=== PATIENT | female | born 2000 | race Caucasian/White ===

== ENCOUNTER 2022-07-28 01:52 | Emergency (ER) | payer OTHER, MEDICAID, SELFPAY ==
[2022-07-28] VITALS (8 sets, daily range): BP systolic 106–122; BP diastolic 74–84; PULSE 83–93; RESP 18; TEMP 36.8; O2SAT 99; BMI 16.4
--- NOTE | 2022-07-28 02:39 | ED_ITS ---
HPI - Headache General Chief Complaint: Headache/Migraine Stated Complaint: Stroke like symptoms Time Seen by Provider: 07/28/22 01:56 Source: patient Mode of arrival: ambulatory Limitations: no limitations History of Present Illness HPI Narrative: 21-year-old female with a known history of hemiplegic migraines which she reports occur 5 days per week presents to the emergency department with once again I hemiplegic migraine affecting her typical, left side that started approximately 7 hours prior. She says that the headache started at approximately 7 p.m. and was accompanied by what she describes as a ?fever?. She did not check her temperature. On specific questioning it sounds like she felt flushed. No head injury, no neck injury. Patient reports that she follows with a primary care physician and/or neurologist through [facility]. I do not have access to the records. When asked about her most recent visit, she states that there was a tele visit less than a month ago and they made the decision to increase her verapamil from 80 mg twice daily to 80 mg 3 times daily. She is also on nortriptyline for headache prevention which she has not yet taken today. She states that she woke up late today and did not take her typical Adderall 30 mg extended release in the morning but did take her afternoon dose. Denies any alcohol intoxication. Denies any anxiety. She did take any NSAIDs or Tylenol at the onset of her headache and then 5 hours later, began having left-sided hemiplegic symptoms. I ask her multiple times for clarification about what is different about these migraines that causes her to come to the emergency department in the middle of the night and she states that it came on a little faster than typical and she had more spots in her vision but when I clarify that this is typically what her symptoms are, she does agree that this is consistent with her typical baseline migraine. When I asked about her most recent imaging, she states that at [place] they have done a CT scan including that of the arteries which I interpret as a CTA and she has had an MRI/MRA performed. When asked about how long ago this was, she states that this was done within the last few months. She states that she also had similar studies done here in January which I a.m. able to review and see that these were completely normal. She has no history of seizure disorder, she denies any head injury. She denies any chance of . Notes no speech difficulties, does feel little confused. Says she cannot move her right arm and right foot which she does several times for me on exam which I will further clarify as below. Other than the history of left-sided hemiplegic migraines, she also does have a history of intermittent asthma and ADHD. She denies any recent surgeries. Socially she denies any ingestion, toxic impairment or recent travel. Home medications are reviewed as Adderall 30 mg extended release in the morning with 10 mg short-acting in the afternoon, albuterol as needed, Ubrelvy for migraine abortive treatment, nortriptyline 20 mg at bedtime, verapamil 80 mg t.i.d.. Related Data Home Medications Medication Instructions Recorded Confirmed dextroamphetamine-amphetamine 10 10 mg PO DAILY 07/28/22 07/28/22 mg tablet dextroamphetamine-amphetamine ER 30 mg PO DAILY 07/28/22 07/28/22 30 mg 24hr capsule,extend release (Adderall XR) nortriptyline 10 mg capsule 10 mg PO HS 07/28/22 07/28/22 ondansetron 4 mg disintegrating 4 mg PO Q8H PRN 07/28/22 07/28/22 tablet rizatriptan 5 mg tablet 5 mg PO DAILY PRN 07/28/22 07/28/22 ubrogepant 100 mg tablet (Ubrelvy) 100 mg PO DAILY PRN 07/28/22 07/28/22 verapamil 80 mg tablet 80 mg PO Q8H 07/28/22 07/28/22 Allergies Allergy/AdvReac Type Severity Reaction Status Date / Time ginseng Allergy Intermediate Rash, Verified 07/28/22 02:09 Shortness of Breath risperidone Allergy Intermediate Vertigo, Verified 07/28/22 02:09 Twitching amoxicillin Allergy Mild Rash Verified 07/28/22 02:09 cat dander Allergy Mild Allergy Verified 07/28/22 02:09 Symptoms Review of Systems Narrative: Notable for the headache, visual, neurological symptoms as above. Otherwise denies generalized, HEENT, respiratory, cardiovascular, GI, skin, musculoskeletal changes. She did have a slight fall onto her knee but denies hitting her head a few days ago [facility] Medical History ADHD Asthma Hemiplegic migraine Surgical History No significant past surgical history Social History Smoking Status: Never smoker Do you use any of these nicotine containing products: None Second hand tobacco smoke exposure: No How often do you have a drink containing alcohol: never How often do you have six or more drinks on one occasion: Never AUDIT-C Alcohol total score: 0 Non-prescribed substance use: denies use Exam Const: Vital Signs, click to edit/add: Vital Signs - 24 hr 07/28/22 02:04 07/28/22 02:35 07/28/22 02:45 Temperature 98.2 F 98.2 F Pulse Rate [Right Pulse Oximeter] 93 Respiratory Rate 18 Blood Pressure [Le ft Upper Arm] 118/84 Pulse Oximetry 99 99 Oxygen Delivery Me thod Room Air 07/28/22 03:25 Temperature 98.2 F Pulse Rate [Right Pulse Oximeter] 93 Respiratory Rate 18 Blood Pressure [Le ft Upper Arm] 122/74 Pulse Oximetry 99 Oxygen Delivery Me thod Room Air Documenting provider has reviewed patient's vital signs: yes Common normals: no apparent distress General appearance: well kempt Other: Anxious. He makes appropriate eye contact, speaks in complete sentences. When I 1st walk in she is squinting with her left diabetes quite shaky and is quite clear that this is not consistent with a facial droop. As we keep discussing it corrects very quickly. She axis though her left for arm is non movable but then she does use it to lift herself up higher in the bed without difficulty. Through the exam I do ask her to push herself up on the bed, placed both feet onto the bed and push up and she is able to do so but then when I attempt to check flexion extension streaking in the leg, it fluctuates wildly. It is very choppy and not smooth and does not given indication that it is a central nervous system deficit, but I would not have a reason as to why she would choose malingering, I do suspect that there may be an additional element of a conversion disorder on top of known history of hemiplegic migraine. HENMT: Common normals: normocephalic and TM's normal bilaterally Head and scalp: normocephalic Face and sinus: normal facial exam Tympanic membrane: TM's normal bilaterally Mouth: oral and palatal mucosa normal Throat: posterior oropharynx normal Eye: Common normals: PERRL, EOMs intact bilaterally, conjunctivae normal, no scleral icterus and no papilledema General eye: normal appearance of both eyes Conjunctiva: conjunctiva(e) normal Pupil: PERRL Direct Ophthalmoscopy: no papilledema Neck & C-Spine: Common normals: full ROM, no lymphadenopathy and no meningeal signs Resp: Common normals: normal respiratory effort and clear to auscultation bilaterally Auscultation: clear to auscultation bilaterally Cardio: Common normals: regular rate, regular rhythm, no murmurs and peripheral pulses 2+ throughout Rate: regular rate Rhythm: regular rhythm Peripheral pulses: pulses 2+ throughout GI: Common normals: Normal to inspection, nondistended, normoactive bowel sounds present, soft to palpation and no hepatosplenomegaly Palpation: soft and no hepatosplenomegaly; non-tender and no guarding Extremity: Common normals: normal to inspection and full ROM Neuro: Meningeal signs: no meningeal signs Other: Very inconsistent exam, choppy. As above, uses her left arm to push herself up in the bed but them on specific movements, then acts as though she cannot move it. She does partially guard the arm over her head to reduce it hitting her face completely. The hand falls but the upper arm is guarded and held in place as to not completely fall on her face. This would not be consistent with the remainder of the exam where she indicates about a 2/5 strength but again it is very choppy and nonsustained. The right arm has normal range of motion. The left leg has normal strength to flexion at the hip but she acts as though she cannot point in flex the foot. But with distracted exam she does better and again with a non distracted exam just like with the arm it is generally weak, nonsustained and non consistent. She does not distinguish between the flexor and extensor surfaces, does not distinguish well between proximal and muscles. The exam changes very frequently as a reproduce it switching from side to side and top to bottom and repeating in different ways. There is no indication that this is consistent with a stroke or focal neurological injury. She waxes and wanes as well between answering my questions completely and thoroughly and acting like she does not understand, especially when I bring up taking Tylenol and ibuprofen and other abortive medications and proper stepwise fashion. Psych: Appearance: well kempt Attitude: engaged Other: Anxious with fair insight. No evidence of psychosis Skin: Common normals: no rashes or lesions noted General skin exam: no rashes or lesions noted Course Course Hospital Course: I reviewed the previous imaging studies. With her history consistent of multiple CT scans within the last year and her history consistent with this being her typical type of migraine, I do not recommend we scanned her again. I discussed this extensively with her and discuss the amount of radiation that she has had on her brain within the last few years and how this is dangerous long- term. Am not seeing an exam consistent with a stroke and do not recommend that we cause her any more harm with the necessary imaging. We had a discussion on the importance of taking an abortive medication at the start of the headache to prevent neurological changes. Even starting with Tylenol or NSAID would be significantly better than waiting. I am not surprised to hear that when she waited more than 5 hours to take her abortive medication, it did not work to her liking. I do think that skipping her Adderall today is contributing to her headache as well. We will be placing an IV, given a L of normal saline, 15 mg of Toradol and 12.5 mg of Benadryl. We will re-evaluate. Vital Signs Vital signs: Initial Vital Signs Temperature 98.2 F 07/28/22 02:04 Temperature Source Temporal Artery Scan 07/28/22 02:04 Pulse Rate 93 07/28/22 02:04 Respiratory Rate 18 07/28/22 02:04 Blood Pressure 118/84 07/28/22 02:04 Blood Pressure Mean 95 07/28/22 02:04 Blood Pressure Position Sitting 07/28/22 02:04 Pulse Oximetry 99 07/28/22 02:04 Oxygen Delivery Method 07/28/22 02:04 Vital Signs Temperature 98.2 F 07/28/22 02:04 Pulse Rate 93 07/28/22 02:04 Respiratory Rate 18 07/28/22 02:04 Blood Pressure 118/84 07/28/22 02:04 Pulse Oximetry 99 07/28/22 02:04 Oxygen Delivery Method 07/28/22 02:04 Temperature 98.2 F 07/28/22 03:25 Pulse Rate 93 07/28/22 03:25 Respiratory Rate 18 07/28/22 03:25 Blood Pressure 122/74 07/28/22 03:25 Pulse Oximetry 99 07/28/22 03:25 Oxygen Delivery Method 07/28/22 03:25 MDM - Headache MDM Narrative Medical decision making narrative: Extensive discussion with patient on risks and benefits of repeat CT scans. She understands my rationale. She is given normal saline, Toradol and Benadryl. She reports that this improved her facial symptoms. Please note that her facial symptoms completely improved during my exam time with her. I fully repeat her lab exams N/C once again a very inconsistent, choppy exam the changes with distractibility. When I hold both arms up and then release tension on them she continues to hold them in place and when I completely let go she will suddenly dropped the arm, when it would have naturally dropped when I had reduced strength on it. It is the exact same exam on the legs, she clearly hold them up and space initially and then when I removed my hand, she drops the leg to the bed. In, not the least bit consistent with a stroke. She also cannot seem to distinguish between the flexor and extensor surfaces when she guards her exam. I talk again and repeatedly about importance of her abortive migraine action plan. She again distracted very quickly away from my discussion of Tylenol and/or ibuprofen. I also let her know that I think skipping her Adderall was a factor of this current migraine. She reports nausea give her Zofran and this improves. We recap things once again. Diagnosis hemiplegic migraine versus conversion disorder, consistent with previous exams, multiple prior imaging modalities performed. Similar to previous presentations, additional imaging is likely to be more harmful than helpful. Patient will continue Tylenol and/or ibuprofen through the day, she has now taken all of her allowed Ubrelvy. She did take her 2nd dose here in the emergency department and will not be allowed anymore until midnight. She is to contact her neurologist if her headache has not improved by early afternoon which I clarify is by 2:00 p.m.. She has no restrictions on activity and is expected to attend classes today. I would recommend an EMG if she continues to have neurological changes as I am uncertain of the origin of these based on her exam today. Differential Diagnosis Differential diagnosis: Likely migraine, tension headache, subarachnoid hemorrhage and headache (Or stroke. Rule out on exam) Medical Records Attestation: I reviewed the patient's medical records. Discharge Plan Discharge Clinical Impression: Migraine Patient Disposition: Home w/ Parent or Adult Condition: Improved Instructions: Migraine Headache (ED) Additional Instructions: I suspect the reason the ear migraine became so severe was that you did not take appropriate abortive medications in time. Waiting 5 hours to take Ubrelvy was a mistake this time. I know that you have to conserve them. In the future, consider using ibuprofen or Tylenol right at the start of the headache and if no improvement within 90 minutes, then take your Ubrelvy. I suspect that missing her morning dose of Adderall is contributing to your headache as well. Please ask for clarification from Neurology team or primary care provider regarding stepwise abortive treatment of your migraines. Take your nortriptyline right away when you get home. Continue taking Tylenol and/or ibuprofen if needed. Update your neurologist if her symptoms are not improving. As we discussed, your symptoms do not seem consistent with a stroke and repeated radiation on your head is dangerous, especially long-term and an accumulative fashion. Since he reports to me that you have had at least 2 scans since January, another scan is not warranted today. You will likely continue to have headache. You will continue alternating Tylenol and ibuprofen every 3 hours from 1 to the other, 6 hours between the same medication. There is not an interaction with the use and your current medications. You will continue taking your nortriptyline and verapamil on time. Your next dose of ibuprofen is allowed at 8:00 a.m., your next dose of Tylenol may be given at 10:00 a.m.. Activity Level: No Restrictions Discharge Diet: Regular Prescriptions: No Action dextroamphetamine-amphetamine 10 mg tablet 10 mg PO DAILY Label Comments: TAKE ONE TABLET BY MOUTH EVERY DAY dextroamphetamine-amphetamine [Adderall XR] 30 mg capsule,extended release 24hr 30 mg PO DAILY Label Comments: TAKE ONE CAPSULE BY MOUTH EVERY DAY, FILL ON OR AFTER 06/11/22 rizatriptan 5 mg tablet 5 mg PO DAILY PRN Label Comments: TAKE ONE TABLET BY MOUTH EVERY DAY NEEDED FOR MIGRAINE. MAY REPEAT IN 1-2 HOURS MAX 6 TABLETS PER DAY nortriptyline 10 mg capsule 10 mg PO HS Label Comments: TAKE TWO CAPSULES BY MOUTH EVERY DAY AT BEDTIME ondansetron 4 mg tablet,disintegrating 4 mg PO Q8H PRN Label Comments: DISSOLVE ONE TABLET BY MOUTH EVERY 8 HOURS NEEDED Ubrelvy 100 mg tablet 100 mg PO DAILY PRN Label Comments: TAKE 1 TABLET NEEDED FOR MIGRAINE. MAY REPEAT DOSE ONCE AFTER 2 HRS. IF UNRESOLVED. DO NOT EXCEED 200MG IN 24 HRS. verapamil 80 mg tablet 80 mg PO Q8H Label Comments: TAKE ONE TABLET BY MOUTH EVERY 8 HOURS Stand Alone Forms: [facility] Info Instructions
[2022-07-28] MEDS: 0.9 % SODIUM CHLORIDE 1000 ml 1,000 ML IV (02:44)
[2022-07-28] MEDS: diphenhydrAMINE 12.5 MG in 0.9 % SODIUM CHLORIDE 100 ml 100 ML 401 MG IVPB (02:45)
[2022-07-28] MEDS: KETOROLAC 15 MG/ML inj IVP (02:45)
[2022-07-28] MEDS: ONDANSETRON 2 MG/ML inj 4 MG IVP (03:24)
--- OUTSIDE RECORDS SUMMARY | 2022-07-28 04:17 | XMS_ITS | Encounter Summary ---
:2000 Author Organization [facility] Address [address] [place] [address] Care Team Providers Name Role Phone Poonam Orlando APRN C.N.PFrank, D.N.P. Primary Care Provid er Reason for Referral Physical Therapy (Routine) - Authorized Specialty Diagnoses / Procedures Referred By Contact Refer red To Contact Diagnoses Pain Knee Left Pain Ankle Left Poonam Orlanod APRN, [facility] Procedures PT Evaluate and treat C.N.P., D.N.P. [address] [place] [phone] Referral ID Status Reason Start Date Expiration Date Visits V isits Requested Authorized [id number] Authorized 07/18/2022 07/18/2023 1 1 hysical Therapy (Routine) - Authorized Specialty Diagnoses / Procedures Referred By Contact Refer red To Contact Diagnoses Pain Knee Left Pain Ankle [facility] Procedures PT Evaluate and treat C.N.P., D.N.P. [address] [place] [phone] Referral ID Status Reason Start Date Expiration Date Visits V isits Requested Authorized [id number] Authorized 07/18/2022 07/18/2023 1 1 Reason for Visit Reason Comments Other Migraines Outpatient (Routine) - Closed Specialty Diagnoses / Procedures Referred By Contact Refer red To Contact Family Medicine Poonam Orlando APRN, [facility] Amadeo.N.PFrank, Cony.N.PFrank [address] [place] [address] Referral ID Status Reason Start Date Expiration Date Visits Requ ested Visits Authorized [id number] Closed 05/27/2022 05/27/2023 1 1 Encounter Details Date Type Department Care Team Description 07/18/2022 Telemedicine Department of Poonam Honeycutt miplegic Migraine Not Intractable Without Status Migrainosus (Primary Dx); Medicine, Jonnathan Marrufo APRN C.N.PFrank, Pain K nee Left; Building, in [place].N.P. Pain Ankle Left [place], [place] [address] [place] [phone] Social History Tobacco Use Types Packs/Day Years Used Date Smoking Tobacco: Never Smokeless Tobacco: Never Tobacco Cessation: Counseling Given: Not Answered Alcohol Use Standard Drinks/Week Comments Never 0 (1 standard drink = 0.6 oz pure alcoho l) Alcohol Habits Answer Date Recorded How often do you have a drink containing alcohol? Never 01/23/2022 How many drinks containing alcohol do you have on a typical Not asked day when you are drinking? How often do you have six or more drinks on one occasion? No t asked Comment: Not asked Social Isolation Answer Date Recorded In a typical week, how many times do you More than three isis es a week 01/23/2022 talk on the phone with family, friends, or neighbors? How often do you get together with friends Once a week 01/23/2022 or relatives? How often do you attend catholic or Never 2021 pentecostal services? Do you belong to any clubs or Yes 01/23/2022 organizations such as catholic groups, unions, fraternal or athletic groups, or school groups? How often do you attend meetings of the 1 to 4 times per yea r 01/23/2022 clubs or organizations you belong to? Are you now , , , Never 01/23/2022 , never or living with a partner? Physical Activity Answer Date Recorded On average, how many days per week do you engage in moderate to 6 days 01/23/2022 strenuous exercise (like walking fast, running, jogging, dancing, swimming, biking, or other activities that cause a light or heavy sweat)? On average, how many minutes do you engage in exercise at th is 70 min 01/23/2022 level? Stress Answer Date Recorded Do you feel stress - tense, restless, nervous, or Only a lit tle 01/23/2022 anxious, or unable to sleep at night because your mind is troubled all the time - these days? Financial Resource Strain Answer Date Recorded How hard is it for you to pay for the very basics like Not v jessica hard 01/23/2022 food, housing, medical care, and heating? Intimate Partner Violence Answer Date Recorded Within the last year, have you been afraid of your partner o r No 01/23/2022 ex-partner? Within the last year, have you been humiliated or emotionall y No 01/23/2022 abused in other ways by your partner or ex-partner? Within the last year, have you been kicked, hit, slapped, or No 01/23/2022 otherwise physically hurt by your partner or ex-partner? Within the last year, have you been raped or forced to have any No 01/23/2022 kind of sexual activity by your partner or ex-partner? Food Insecurity Answer Date Recorded Within the past 12 months, you worried that your food would Never true 01/23/2022 run out before you got money to buy more. Within the past 12 months, the food you bought just didn't N ever true 01/23/2022 last and you didn't have money to get more. Transportation Needs Answer Date Recorded In the past 12 months, has lack of transportation kept you f rom Yes 01/23/2022 medical appointments or from getting medications? In the past 12 months, has lack of transportation kept you f rom No 01/23/2022 meetings, work, or getting things needed for daily living? Housing Stability Answer Date Recorded In the last 12 months, was there a time when you were not ab le No 01/23/2022 to pay the mortgage or rent on time? In the last 12 months, how many places have you lived? 2 01/23/2022 In the last 12 months, was there a time when you did not hav e a No 01/23/[address] or slept in a senior care (including now)? Education Answer Date Recorded What is the highest level of school you have Some college, n o degree 05/24/2021 completed or the highest degree you have received? Sex Assigned at Date Recorded Female 01/23/2022 2:50 PM CDT documented as of this encounter Progress Notes Poonam Orlando APRN, C.N.P., D.N.P. - 07/18/2022 8:30 AM CDT SUBJECTIVE CHIEF COMPLAINT / PURPOSE OF VISIT Patient presents for Other (Migraines). Consult conducted via real-time audio/video technology by Poonam Orlando APRN, [employer], DNP in [place], [place] to the patient in their home. Patient identity confirmed prior to commencing this telehealth visit. HISTORY OF PRESENT ILLNESS Video visit arranged today to discuss migraines. Jade Matos returns virtually for follow-up of migraines. She has a history concerning for hemiplegic migraines and has been evaluated by Dr. Sheridan in the [facility]. In addition, she has undergone MRI/MRA of the brain as well as MR Angio of the neck with no concerning findings. For migraine prophylaxis she is currently taking verapamil 80 mg twice per day and nortriptyline 20 mg at bedtime. Due to concern for hemiplegic migraines she is not using triptan medications. Instead,for abortive migraine medication she is taking Ubrelvy as needed. She also has Zofran for migraine related nausea, which is very effective. She recently sent in numerous portal messages, which is baseline for her, with an update. She notes that ever since she was hospitalized for a hemiplegic migraine in February of this year at [facility] she has had hemiplegia in some form as part of her normal aura. She has left sided weakness or paralysis with her migraines that begins in the leg and works it way upward, typically within 5-10 minutes. Occasionally will have facial weakness, though this is not always present. Usually the hemiplegia wears off within an hour. These symptoms typically occur in the regional telecommunications specialist ot mid afternoons. She has a visual aura that occurs approximately 30 minutes before the headache and left sided weakness occurs. Visual aura described as spots and sparkles. No longer experiencing loss of vision, historically had experienced 1/3 of vision blacked out. Visual auras also entail a rapid swirling cloud of ominous black dots, this occurs before half of her migraine headaches. This doesn't last long andis always accompanied by hemiplegia. When she has the swirls and distortions she is able to see enough to move around most of the time, but details are difficult. Like looking at the world through a slowly sloshing glass of water. Unpleasant but currently manageable. She will occasionally still experience her baseline aura, best described as light afterimages, floaters, or glittering sparkling. This type of aura has greatly reduced in both duration nand frequency over the past few months. Nausea and vertigo remain present. As noted above, the Zofran is quite helpful for her. She is concerned about the potential for weight loss given her low BMI and ongoing nausea. She tries hard to eat when hungry. Since the onset of migraines at age 17 she has experienced a spike of temperature prior to migraine onset. Lately, she has been growing incredibly warm before a migraine. She does not have a thermometer. The rise in temperature is present until the migraine headache begins. She avoids use of acetaminophen and NSAIDS due to concern for medication overuse headaches and because she does not want to just mask the fever. She was initiated on Ubrelvy in March of this year. Per previous portal messages, due to the size of the pill she has a hard time swallowing this, but is able to get the pill down with a large amount ofwater. The Ubrelvy is helping for stopping the migraines or reducing the duration of the migraine toa few hours. She does experience significant drowsiness with this medication. She is typically usingonce to twice per week. 2. Left ankle and knee pain She has ongoing issues with left ankle and knee pain. She has fallen due to her migraine symptoms, further worsening her knee and ankle pain. Would like to be seen by PT in [place]. OBJECTIVE PHYSICAL EXAMINATION VITALS: There were no vitals taken for this visit. Constitutional Appearance: Normal appearance. Neurological Mental Status: She is alert. Mental status is at baseline. Psychiatric Attention and Perception: Attention and perception normal. Mood and Affect: Mood and affect normal. Speech: Speech normal. Behavior: Behavior is withdrawn. Thought Content: Thought content normal. Cognition and Memory: Cognition and memory normal. Judgment: Judgment normal. 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 Symptoms are not currently managed with current medications. Reviewed consult note from her visit with Dr. Sheridan in Neurology earlier this year. Will focus on managing migraines as per Dr. Sheridan's дмитрий mmendations. Will increase verapamil to 80 mg TID. If this is not effective, could consider increasing nortriptyline or adding on gabapentin. She is in agreement. She understands signs and symptoms that would require urgent evaluation. #2 Pain Knee Left #3 Pain Ankle Left Did not assess, but agree with referral to PT given her ongoing symptoms. - Family Medicine office visit (clinic) - verapamiL (CALAN) 80 mg tablet; Take 1 tablet (80 mg total) by mouth every 8 (eight) hours., Starting Thu07/18/2022, Until 07/18/2023, Normal - ondansetron ODT (ZOFRAN-ODT) 4 mg disintegrating tablet; Dissolve 1 tablet (4 mg total) in the mouth every 8 (eight) hours as needed for nausea or vomiting., Starting Thu07/18/2022, Normal - PT Evaluate and treat; Future; Expected date: 07/18/2022 - PT Evaluate and treat; Future; Expected date: 07/18/2022 I personally spent a total of 30+ minutes in dbn-ghfx-pp-face time performing a review of the recordand/or discussion with the patient/caregiver as described above. PATIENT EDUCATION Ready to learn, no apparent learning barriers were identified; learning preferences include listening. documented in this encounter Plan of Treatment Not on filedocumented as of this encounter Visit Diagnoses Diagnosis Hemiplegic Migraine Not Intractable With out Status Migrainosus - Primary Pain Knee Left Pain Ankle Left documented in this encounter Additional Health Concerns Assessment Noted Time PHQ-9 Depression Total Score: 5 03/07/2022 12:25 PM CD T documented as of this encounter Care Teams Chronic Specialist Relationship Specialty Start Date End Date Poonam Orlando APRN, C.N.P., PCP - General Family Medicine D.N.P. [address] [place] [address] documented as of this encounter
--- OUTSIDE RECORDS SUMMARY | 2022-07-28 04:17 | XMS_ITS | Clinical Summary ---
:2000 Author Organization [facility] [place] [address] Care Team Providers Name Role Phone Pcp, No Primary Care Provider Unavailable Allergies No known active allergies Medications Medication Sig Dispensed Refills Start Date End Date Status albuterol HFA (PRO-AIR; Inhale 2 Puffs by 0 03/14/20 20 Active VENTOLIN; PROVENTIL) 90 mouth every 4 mcg/actuation inhaler hours if needed. dextroamphetamine-amphe Take 10 mg by 0 08/09/2021 Active tamine (ADDERALL) 10 mg mouth. tablet nortriptyline (PAMELOR) Take 10 mg by 0 09/13/2021 Active 10 mg capsule mouth. rizatriptan (MAXALT) 5 TAKE 1 TABLET BY 0 09/09/2021 Active mg tablet MOUTH NEEDED FOR MIGRAINE. MAY REPEAT IN 2 HOURS NEEDED. MAXIMUM DAILY DOSE IS 30 MG PER 24 HOURS Active Problems Not on file Social History Tobacco Use Types Packs/Day Years Used Date Never Smoker Smokeless Tobacco: Never Used Alcohol Use Standard Drinks/Week Comments Never 0 (1 standard drink = 0.6 oz pure alcoho l) Alcohol Habits Answer Date Recorded How often do you have a drink containing alcohol? Never 09/21/2021 How many drinks containing alcohol do you have on a typical Not asked day when you are drinking? How often do you have six or more drinks on one occasion? No t asked Comment: Not asked Sex Assigned at Date Recorded Not on file Obstetrics History Last Filed Vital Signs Vital Sign Reading Time Taken Comments Blood Pressure 122/86 09/21/2021 11:23 AM COMMUNITY ORGANIZER Pulse 98 09/21/2021 11:23 AM COMMUNITY ORGANIZER Temperature 36.9 ??C (98.5 ??F) 09/21/2021 11:23 AM COMMUNITY ORGANIZER Respiratory Rate 16 09/21/2021 11:23 AM COMMUNITY ORGANIZER Oxygen Saturation 100% 09/21/2021 11:23 AM COMMUNITY ORGANIZER Inhaled Oxygen Concentration - - Weight 48.1 kg (106 lb) 09/21/2021 11:23 AM COMMUNITY ORGANIZER Height - - Body Mass Index - - Plan of Treatment Health Maintenance Due Date Last Done Comments Well Child Check for age 3-20 08/15/2004 HPV series for age 9-26 (1 - 2012 2-dose series) Tdap 2012 Depression screening for age 1109/15/2013 12+ BMI (ht and wt on same day) 2019 for age 18+ Hepatitis C screening for age 1109/15/2019 18-79 Tetanus booster 2021 COVID-19 vaccine series (4 - 01/03/2022 11/08/2021, Booster for Pfizer series) 02/28/2021, 02/07/2021 Influenza for age 9-49 06/19/2022 Meningococcal series for age Aged Out No longer eligible based 09-08 on patient's age to complete this to pic Results Not on filefrom Last 3 Months Insurance Payer Benefit Plan / Subscriber ID Effective Dates Phone Addre ss Type Group [facility] SHARED [id number] 2018-Presen [address] [address] [place] [address] [place]ID [place] [id number] 2020-Prese [address] [place] [address] Care Teams Plan Checker Relationship Specialty Start Date End Date Pcp, No PCP - General 03/21/21 .
--- OUTSIDE RECORDS SUMMARY | 2022-07-28 04:17 | XMS_ITS | Encounter Summary ---
:2000 Author Organization [facility] Address [address] [place] [address] Care Team Providers Name Role Phone Poonam Orlando APRN, C.N.P., D.N.P. Primary Care Provid er Reason for Visit Reason Comments all attempts made Encounter Details Date Type Department Care Team Description 05/28/2022 Clinical Department of Poonam Orlando all attem pts made Communication Family MedicineYaron APRN, C.N.P., Jonnathan Choi D.N.P. in [place], [facility] [address] [place], [place] [address] [place] [phone] [place], [place] [phone] (Work) [phone] Social History Tobacco Use Types Packs/Day Years Used Date Smoking Tobacco: Never Smokeless Tobacco: Never Alcohol Use Standard Drinks/Week Comments Never 0 [...] or relatives? How often do you attend taoist or Never 2021 judaism services? Do you belong to any clubs or Yes 01/23/2022 organizations such as taoist groups, unions, fraternal or athletic groups, or [...] place to sleep or slept in a jail (including now)? Education Answer Date Recorded What is the highest level of school you have Some college, n o degree 05/24/2021 completed or the highest degree you have received? Sex Assigned at Date Recorded Female 01/23/2022 2:50 PM CDT documented as of this encounter Plan of Treatment Not on filedocumented as of this encounter Visit Diagnoses Not on filedocumented in this encounter Additional Health Concerns Assessment Noted Time PHQ-9 Depression Total Score: 5 03/07/2022 12:25 PM CD T documented as of this encounter Care Teams Publicity Agent Relationship Specialty Start Date End Date Poonam Orlando APRN, C.N.P., PCP - General Family Medicine D.N.P. [address] [place] [address] documented as of this encounter
--- OUTSIDE RECORDS SUMMARY | 2022-07-28 04:17 | XMS_ITS | Encounter Summary ---
:2000 Author Organization [facility] Address [address] [place] [address] Care Team Providers Name Role Phone Poonam Orlando APRN, C.N.PFrank, D.N.P. Primary Care Provid er Reason for Visit Reason Comments Knee Pain Tripped and rolled knee and ankle. When weight bearing acute pain on upper right side of knee, also 'wh ite hot' pain shoots from knee to ankle. Appointment Request (Routine) - Closed Specialty Diagnoses / Procedures Referred By Contact Refer red To Contact Family Medicine Referral ID Status Reason Start Date Expiration Date Visits Requ ested Visits Authorized [id number] Closed 06/17/2022 06/17/2023 1 1 Encounter Details Date Type Department Care Team Description 06/17/2022 Office Visit Department of Jacinto Miller, Sprain K nee Initial Left (Primary Dx); Internal Medicine in [facility] Pain Knee Left [address] [place] [phone] Social History Tobacco Use Types Packs/Day Years [...] or relatives? How often do you attend roman catholic or Never 2021 rastafarian services? Do you belong to any clubs or Yes 01/23/2022 organizations such as roman catholic groups, unions, fraternal or athletic groups, [...] place to sleep or slept in a detention (including now)? Education Answer Date Recorded What is the highest level of school you have Some college, n o degree 05/24/2021 completed or the highest degree you have received? Sex Assigned at Date Recorded Female 01/23/2022 2:50 PM CDT documented as of this encounter Last Filed Vital Signs Vital Sign Reading Time Taken Comments Blood Pressure 107/68 06/17/2022 1:55 PM CDT Pulse 116 06/17/2022 1:55 PM CDT Temperature 36.8 ??C (98.3 ??F) 06/17/2022 1:55 PM CDT Respiratory Rate - - Oxygen Saturation - - Inhaled Oxygen Concentration - - Weight 47.3 kg (104 lb 4.4 oz) 06/17/2022 1:55 PM CDT Height 169.8 cm (5' 6.85) 06/17/2022 1:55 PM CDT Body Mass Index 16.41 06/17/2022 1:55 PM CDT documented in this encounter Patient Instructions Patient InstructionsJacinto Miller M.B.B.S. - 06/17/2022 2:00 PM CDT - Conservative management with icing, wrapping with knee brace, and applying topical pain meds. - if your pain is not getting better by 3-4 days, let me know, I will order MRI of left knee. documented in this encounter Progress Notes Jacinto Miller M.B.B.S. - 06/17/2022 2:00 PM CDT SUBJECTIVE CHIEF COMPLAINT / REASON FOR VISIT Claire Moncada is a 21 y.o. female who presents for evaluation of Knee Pain (Tripped and rolled knee and ankle. When weight bearing acute pain on upper right side of knee, also 'white hot' pain shoots from knee to ankle. ). HISTORY OF PRESENT ILLNESS 21 years old female with medical history pertinent for ADHD and intermittent hemiplegic migraine here in the clinic today complaining of left knee pain after she sustained fall. Patient is dealing withleft ankle sprain and uses crutches to walk and she tripped on a carpet and fell on her left knee causing severe pain. Her pain is located on the lateral aspect of left knee, pain is worse with knee flexion, no swelling noted. She is not taking any gymd-pax-baxblot pain medications including NSAIDs orTylenol because it could trigger her migraines leading to left-sided weakness. She only tries icing and used old knee bracing. The following portions of the patient's history were reviewed and updated as appropriate: allergies,current medications, family history, medical history, social history, surgical history, and problem list. REVIEW OF SYSTEMS All other systems reviewed and are negative. OBJECTIVE BP 107/68 (BP Location: Left arm, Patient Position: Sitting, Cuff Size: Regular) Pulse (!) 116 Temp 36.8 ??C (Temporal) Ht 169.8 cm Wt 47.3 kg BMI 16.41 kg/m?? PHYSICAL EXAM General: Appears in no acute distress Musculoskeletal: Left knee: No swelling, mild pain with knee extension and pain increases as she tries to flex her knee. Pain is located on the lateral aspect of left knee. ASSESSMENT / PLAN #1 Pain Knee Left #2 Sprain Knee Initial Left Patient in a fall leading to left knee sprain. Low suspicion for fracture, dislocation or ligamental/meniscal tear. She did not try any otlj-qnt-sylsemb pain medications before fear triggering her migraines and per recommendation from Neurology. Will do conservative management with topical icy hot medication, icing, and knee support. If her pain did not improve in 3-4 days, will obtain an MRI to ruleout possible ligamental tear or meniscal tear. Excuse from heavy lifting was given to the patient for 1 week. documented in this encounter Miscellaneous Notes Addendum Note - Jacinto Miller M.B.B.S. - 06/17/2022 2:00 PM CDT Addended by: JACINTO MILLER on: 06/17/2022 03:08 PM Modules accepted: Level of Service documented in this encounter Plan of Treatment Not on filedocumented as of this encounter Visit Diagnoses Diagnosis Sprain Knee Initial Left - Primary Pain Knee Left documented in this encounter Additional Health Concerns Assessment Noted Time PHQ-9 Depression Total Score: 5 03/07/2022 12:25 PM CD T documented as of this encounter Care Teams Director Of Software Engineering Relationship Specialty Start Date End Date Poonam Orlando APRN, C.N.P., PCP - General Family Medicine D.N.P. [address] [place] [address] documented as of this encounter
--- OUTSIDE RECORDS SUMMARY | 2022-07-28 04:17 | XMS_ITS | Encounter Summary ---
:2000 Author Organization [facility] Address [address] [place] [address] Care Team Providers Name Role Phone Poonam Orlando APRN, C.N.P., D.N.P. Primary Care Provid er Encounter Details Date Type Department Care Team Description 04/15/2022 Orders Only Department of [facility] Poonam Orlando, Medicine, [place] [facility], C.N.P., D.N.P. [facility], in [place], [address] [place] [phone] [place] [address] [place] [address] [phone] Social History Tobacco Use Types Packs/Day Years [...] or relatives? How often do you attend sabianist or Never 2021 hoahaoism services? Do you belong to any clubs or Yes 01/23/2022 organizations such as sabianist groups, unions, fraternal or athletic groups, or [...] place to sleep or slept in a halfway (including now)? Education Answer Date Recorded What [...] documented as of this encounter Care Teams Transistor Tester Relationship Specialty Start Date End Date Poonam Orlando APRN, C.N.P., PCP - General Family Medicine D.N.P. [address] [place] [address] documented as of this encounter
--- OUTSIDE RECORDS SUMMARY | 2022-07-28 04:17 | XMS_ITS | Encounter Summary ---
:2000 Author Organization [facility] Address [address] [place] [address] Care Team Providers Name Role Phone Poonam Orlando APRN, C.N.PFrank, D.N.P. Primary Care Provid er Reason for Referral Physical Therapy (Routine) - Authorized Specialty Diagnoses / Procedures Referred By Contact Refer red To Contact Diagnoses Pain Ankle Left Poonam Orlando APRN, [facility] Procedures PT Evaluate and treat C.N.P., D.N.P. [address] [place] [phone] Referral ID Status Reason Start Date Expiration Date Visits V isits Requested Authorized [id number] Authorized 05/07/2022 05/07/2023 1 1 Encounter Details Date Type Department Care Team Description 05/06/2022 Clinical Communication Department of [facility], Jonnathan Marrufo APRN, C.N.P., Building, in D.N.P. [place], [place] [address] [facility] [address] [place] [phone] Social History Tobacco Use Types Packs/Day Years [...] or relatives? How often do you attend lutheran or Never 2021 yazidi services? Do you belong to any clubs or Yes 01/23/2022 organizations such as lutheran groups, unions, fraternal or athletic groups, or [...] place to sleep or slept in a snf (including now)? Education Answer Date Recorded What is the highest level of school you have Some college, n o degree 05/24/2021 completed or the highest degree you have received? Sex Assigned at Date Recorded Female 01/23/2022 2:50 PM CDT documented as of this encounter Miscellaneous Notes Telephone Encounter - Poppy Barnett - 05/06/2022 4:42 PM CDT Caller: (patient) Callback Number: [phone] Best communication method: Phone call Pharmacy: N/A Request/Details: Patient would like a new referral for PT of her left ankle sprain. She states she had gotten a referral previously, although I do not see it. She would like this done at the [facility] if that is possible. Thank you. documented in this encounter Plan of Treatment Not on filedocumented as of this encounter Visit Diagnoses Diagnosis Pain Ankle Left - Primary documented in this encounter Additional Health Concerns Assessment Noted Time PHQ-9 Depression Total Score: 5 03/07/2022 12:25 PM CD T documented as of this encounter Care Teams Screedman Relationship Specialty Start Date End Date Poonam Orlando APRN, C.N.P., PCP - General Family Medicine D.N.P. [address] [place] [address] documented as of this encounter
--- OUTSIDE RECORDS SUMMARY | 2022-07-28 04:17 | XMS_ITS | Clinical Summary ---
:2000 Author Organization [facility] Address [address] [place] [address] Care Team Providers Name Role Phone Poonam Orlando APRN, C.N.P., D.N.P. Primary Care Provid er Source Comments Patient records contain information from all sites at [facility]. For routine questions regarding patient records, call [phone] during business hours, M-F 8:00 AM - 5:00 PM Central Time. Record requests for emergency care only can be directed to [phone] at any time.[facility] Allergies Active Allergy Reactions Severity Noted Date Comments Cat Dander Rash Low 04/04/2021 Perfume Cough Medium 12/10/2021 Asthma worsenin g, cough Pollen Extracts Other (see comments) 01/22/2022 Medications Medication Sig Dispensed Refills Start Date End Date Status fluticasone Administer 1 0 Activ e propionate (FLONASE) spray into each 50 mcg/actuation nostril as nasal spray needed for rhinitis or allergies. B complex-vitamin Take 1 tablet by 0 Active (SUPER B-50) capsule mouth daily. aspirin-acetaminophen Take 1 tablet by 0 Active -caffeine (EXCEDRIN mouth as needed MIGRAINE) 250-250-65 for pain. mg per tablet albuterol 90 Inhale 2 puffs 18 g 2 10/15/2021 A ctive mcg/actuation inhaler every 4 (four) hours as needed for wheezing or shortness of breath. nortriptyline Take 2 capsules 180 capsule 3 01/24/2022 023 Active (PAMELOR) 10 mg (20 mg total) by capsule mouth at bedtime. iron,carbonyl-vitamin Take 65 mg of 0 Active C (VITRON-C) 65 mg iron by mouth iron- [address] daily. Do not tablet crush or chew. magnesium citrate 100 Take 1 each by 0 Active mg capsule mouth daily. naproxen (NAPROSYN) TAKE ONE TABLET 60 tablet 0 03/11/2022 Active 500 mg tablet BY MOUTH TWICE A DAY NEEDED FOR PAIN ubrogepant (UBRELVY) Take 1 tablet 10 each 3 03/25/2022 Active 100 mg tablet tablet (100 mg total) by mouth as needed for migraine. May repeat dose once after at least 2 hours if migraine unresolved. Do not exceed 200 mg in 24 hours. Adderall XR 30 mg 24 Take 1 capsule 28 capsule 0 04/16/2022 Active hr capsule (30 mg total) by mouth daily. dextroamphetamine-amp Take 1 tablet 28 tablet 0 04/16/2022 Active hetamine (ADDERALL) (10 mg total) by 10 mg tablet mouth daily for 28 days. fluticasone Inhale 2 puffs 2 36 g 3 04/15/2022 Active propionate (FLOVENT (two) times a HFA) 110 day. Rinse mouth mcg/actuation inhaler with water after use to reduce aftertaste and incidence of candidiasis. Do not swallow. amphetamine-dextroamp Take 1 capsule 28 capsule 0 05/14/2022 Active hetamine (Adderall (30 mg total) by XR) 30 mg 24 hr mouth daily for capsule 28 days. dextroamphetamine-amp Take 1 tablet 28 tablet 0 04/16/2022 Active hetamine (ADDERALL) (10 mg total) by 10 mg tablet mouth daily. amphetamine-dextroamp Take 1 capsule 28 capsule 0 06/11/2022 Active hetamine (Adderall (30 mg total) by XR) 30 mg 24 hr mouth daily for capsule 28 days. dextroamphetamine-amp Take 1 tablet 28 tablet 0 06/11/2022 Active hetamine (ADDERALL) (10 mg total) by 10 mg tablet mouth daily. levonorgestreL (Plan Take 1 tablet 1 tablet 0 04/22/2022 Active B One-Step) 1.5 mg (1.5 mg total) tablet by mouth once for 1 dose. Additional Information Patient not taking. Reported on 07/18/2022 methyl Apply 1 85 g 0 06/17/2022 Active salicylate-menthol (ICY application HOT) 30-10 % topically 3 creamIndications: Pain (three) times a Knee Left, Sprain Knee day as needed for Initial Left muscle/joint pain. Apply to left knee. verapamiL (CALAN) 80 mg Take 1 tablet (80 270 tablet 3 07/18/07/18 Active tablet mg total) by mouth every 8 (eight) hours. ondansetron ODT Dissolve 1 tablet 90 tablet 3 07/18/2022 Active (ZOFRAN-ODT) 4 mg (4 mg total) in disintegrating tablet the mouth every 8 (eight) hours as needed for nausea or vomiting. verapamiL (CALAN) 80 mg Take 1 tablet (80 180 tablet 3 03/14/ 022 07/18 Discontinued tablet mg total) by (Reorde r) mouth every 12 (twelve) hours. 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 Duration of prescription: 12 weeks Amount to be dispensed per prescription (# of tablets): Three RX each for 28 tablets Medication and Strength: Adderall 10 mg Instructions for use: take one tablet da anya after lunch Duration of prescription: 12 weeks Amount to be dispensed per prescription (# of tablets): Three RX each for 28 tablets Monitoring Frequency of visits with PCP: 12 month Urine drug screening requested?: no MNPMP review/documentation:yes Ingrown Nail 05/24/2021 Pain Neck 05/24/2021 Pain Low Back Unspecified 05/24/2021 Asthma Mild Intermittent 05/24/2021 Pain Wrist Left 05/24/2021 Resolved Problems Problem Noted Date Resolved Date Deficit Attention Or Concentration 05/24/202110/15 Migraine Headache With Aura 05/24/2021 07/18/2022 Overview: Claire since early high school has got ten migraines. Her headaches are posterior. They don't throb. She is photophobic and nauseous. She doesn't vomit. In the past they have occurred mostly when she w as under extra stress, or didn't get alexsandra ugh sleep. She was getting 1-2 CORREA's a week but now is noticing 4-5 per week in the last month. She attends [employer] and is doing [employer] and [employer]. She has ADD and started Adderall fall 2020. She has never slept well. She describes that her mind is very active as She tries to fall asleep. He r little sister tried to commit suicide with sleeping pills, making her reluctant about them, it was suggested she try melatonin but she did not. She is trying nortriptyline 10 mg for th is, and migraine. Encounters Date Type Specialty Care Team Description 07/18/2022 Telemedicine Family Medicine Poonam Orlando Hemiple gic Migraine Not Intractable Without Status Migrainosus (Primary Dx); SHAQ Marrufo C.N.PFrank, Pain Knee L eft; D.N.P. Pain Ankle Left 07/07/2022 Orders Only Poonam Orlando APRN C.N.P., D.N.P. 06/17/2022 Office Visit Community Jacinto Jiménez Sprain Knee Initial Left (Primary Dx); Internal Medicine Jorge MarrufoBFrankB.SFrank Pain Knee Left 06/17/2022 Refill Family Medicine Poonam Orlando Med Ref ill SHAQ Marrufo, C.N.PFrank, D.N.P. 05/28/2022 Clinical Family Medicine Poonam Orlando all att empts made Communication SHAQ Marrufo C.N.P., D.N.P. 05/06/2022 Clinical Family Medicine Orlando Poonam Communication M, STONE SAWYER, C.N.P., D.N.P. from Last 3 Months Immunizations Name Administration Dates Next Due 4vHPV (discontinued) 03/22/2014 9vHPV 05/09/2020 DTaP (Infanrix, Tripedia) 01/10/2003 DTaP / Hib 01/10/2003 DTaP, Unspecified 06/10/2007, 07/18/2002, 01/27/2002, 2001 HepB Pediatric/Adolescent 07/18/2002, 01/27/2002, 2001 Hib (PRP-OMP) (PedvaxHIB) 01/10/2003 Hib-HepB 01/27/2002, 2001 IPV 06/10/2007, 07/18/2002, 01/27/2002, 2001 Influenza, Injectable, Quadrivalent 08/01/2020 MCV4 (Menactra) 05/09/2020, 03/22/2014 MCV4, Unspecified 03/22/2014 MMR 06/20/2005, 11/14/2002 MenB (BEXSERO) 07/18/2022 (Deferred: Patient decision), 05/09/2020 PCV20 07/18/2022 (Deferred: Other - Video visit) PCV7 (discontinued) 06/20/2005, 07/18/2002, 01/27/2002, 2001 SARS-COV-2 (COVID-19) - PFIZER (12 07/18/2022 (Deferred: Pat ient decision years or older) - video visit), 11/08/2021 Tdap 02/21/2022, 03/22/2014 DEEPTI 06/10/2007, 11/14/2002 influenza vaccine quad 11/08/2021 (FLUZONE/FLUARIX) (6 months and older)(PF) Family History Medical History Relation Name Comments Alcohol abuse Father Patric Antwan Hyperlipidemia Father Patric Antwan Hypertension Father Patric Antwan Ovarian cancer Mother's Sister Kevin Actually my cous in but there's no spot for that. Age ~20, d. Lung cancer Paternal Grandfather Sergeimacarena Moncada age ~80 Anxiety disorder Sister 1 Migdalia Moncada Depression Sister 1 Migdalia Moncada Currently re cieving medical treatmen t Migraines Sister 1 Migdalia Moncada No aura, epi sodic, apprx. age 15 Depression Sister 2 Latrice Moncada Currently r ecieving mefical treatmen t Suicide Attempts Sister 2 Latrice Moncada currently recieving medical treatmen t Relation Name Status Comments Father Patric Moncada Mother's Sister Kevin Paternal Grandfather Sergei Moncada Sister 1 Migdalia Moncada Sister 2 Latrice Moncada Social History Tobacco Use Types Packs/Day Years [...] or relatives? How often do you attend restoration or Never 2021 judaism services? Do you belong to any clubs or Yes 01/23/2022 organizations such as restoration groups, unions, fraternal or athletic groups, or [...] minutes do you engage in exercise at is 70 min 01/23/2022 level? Stress Answer [...] place to sleep or slept in a fpc (including now)? Education Answer Date Recorded What is the highest level of school you have Some college, n o degree 05/24/2021 completed or the highest degree you have received? Sex Assigned at Date Recorded Female 01/23/2022 2:50 PM CDT Last Filed Vital Signs Vital Sign Reading Time Taken Comments Blood Pressure 107/68 06/17/2022 1:55 PM CDT Pulse 116 06/17/2022 1:55 PM CDT Temperature 36.8 ??C (98.3 ??F) 06/17/2022 1:55 PM CDT Respiratory Rate 18 03/14/2020 1:40 PM CDT Oxygen Saturation 100% 03/14/2020 1:40 PM CDT Inhaled Oxygen Concentration - - Weight 47.3 kg (104 lb 4.4 oz) 06/17/2022 1:55 PM CDT Height 169.8 cm (5' 6.85) 06/17/2022 1:55 PM CDT Body Mass Index 16.41 06/17/2022 1:55 PM CDT Plan of Treatment Health Maintenance Due Date Last Done Comments Hepatitis C Screening 2001 1 week Well Child Check-Up 2001 1 month Well Child Check-Up 2001 2 month Well Child Check-Up 2001 4 month Well Child Check-Up 2001 6 month Well Child / Alternative 02/13/2002 Check-Up 9 month Well Child Check-Up 05/15/2002 12 month Well Child / Alternative 08/15/2002 Check-Up 15 month Well Child Check-Up 11/15/2002 18 month Well Child 02/13/2003 2 year Well Child Check-Up 08/15/2003 30 month Well Child Check-Up 02/14/2004 3 year Well Child Check-Up 08/15/2004 4 year Well Child Check-Up 08/15/2005 5 year Well Child Check-Up 08/15/2006 6 year Well Child Check-Up 08/15/2007 Pneumococcal vaccine (0-64 years) 2007 06/20/2005, , (1 - PCV) 01/27/2002, Additional history exists 7 year Well Child / Alternative 08/15/2008 Check-Up 8 year Well Child Check-Up 08/15/2009 9 year Well Child / Alternative 08/15/2010 Check-Up 10 year Well Child Check-Up 08/15/2011 11 year Well Child Check-Up 08/15/2012 12 year Well Child Check-Up 08/15/2013 13 year Well Child Check-Up 08/15/2014 14 year Well Child Check-Up 08/15/2015 Vision Screening during Well Child 2015 Visit 15 year Well Child Check-Up 08/15/2016 16 year Well Child Check-Up 08/15/2017 18 year Well Child Check-Up 08/15/2018 MenB Vaccine (2 of 2 - Risk 06/06/2020 05/09/2020 Bexsero 2-dose series) 19 year Well Child Check-Up 08/15/2020 20 year Well Child Check-Up 08/15/2021 Well Child Check-Up ([facility]) 08/15/2021 COVID-19 Vaccine (4 - Booster for 01/03/2022 11/08/2021, , Pfizer series) 02/07/2021 Asthma Control Test Questionnaire 05/18/2022 04/06/2022, Influenza Vaccine (#1) 2022 11/08/2021, 08/01/2020 Asthma Action Plan 04/08/2023 04/08/2022 DTaP,Tdap,and Td Vaccines (8 - Td 02/22/2032 02/21/2022, , or Tdap) 06/10/2007, Additional history exists Hepatitis B Vaccines Completed 07/18/2002, 01/27/2002, 01/27/2002, Additional history exists 18 year Well Child Check-Up Completed 05/09/2020 HPV Vaccines Completed 05/09/2020, 03/22/2014 Hearing Screening during Well Completed 05/09/2020 Child Visit Meningococcal Vaccine Completed 05/09/2020, 03/22/2014, 03/22/2014 Anemia/Iron Deficiency Screening Completed 04/08/2021, 05/2017 During Well Child Visit (if High Risk Menstruating Female) Depression Screening (Annual Completed 03/07/2022 PHQ-2) Insurance Payer Benefit Plan Subscriber ID Effective Phone Address Typ e / Group Dates [facility] SHARED [id number] 2018-Pre [phone] Indemnity SHARED SERVICES SERVICES sent [phone] [place] [address] [place] [id number] 2020-Pr [phone] O F Medicaid esent [id number] [address] [place] [address] Care Teams Pig Lead Melter Helper Relationship Specialty Start Date End Date Poonam Orlando APRN, C.N.P., PCP - General Family Medicine D.N.P. [address] [place] [phone]
--- OUTSIDE RECORDS SUMMARY | 2022-07-28 04:17 | XMS_ITS | Encounter Summary ---
:2001 Author Organization [facility] Address [address] [place] [address] Care Team Providers Name Role Phone Poonam Orlando APRN, C.N.P., D.N.P. Primary Care Provid er Reason for Visit Reason Comments Med Refill Encounter Details Date Type Department Care Team Description 06/17/2022 Refill Department of [facility] Poonam Orlando APRN, Med Refill Medicine, [facility], C.N. P., D.N.P. in [facility] [address] [place] [address] [place] [phone] [place] [address] [phone] Social History Tobacco Use Types Packs/Day Years [...] or relatives? How often do you attend uatsdin or Never 2021 denominational services? Do you belong to any clubs or Yes 01/23/2022 organizations such as uatsdin groups, unions, fraternal or athletic groups, or [...] place to sleep or slept in a longterm (including now)? Education Answer Date Recorded What [...] documented as of this encounter Care Teams Stone And Concrete Washer Relationship Specialty Start Date End Date Poonam Orlando APRN, C.N.P., PCP - General Family Medicine D.N.P. [address] [place] [address] documented as of this encounter
--- OUTSIDE RECORDS SUMMARY | 2022-07-28 04:17 | XMS_ITS | Encounter Summary ---
:2001 Author Organization [facility] Address [address] [place] [address] Care Team Providers Name Role Phone Poonam Orlando APRN, C.N.P., D.N.P. Primary Care Provid er Reason for Referral Specialty Diagnoses / Procedures Referred By Contact Refer red To Contact Poonam Orlando APRN, [facility] C.N.P., D.N.P. [address] [place] [phone] Referral ID Status Reason Start Date Expiration Date Visits Requ ested Visits Authorized Encounter Details Date Type Department Care Team Description 07/07/2022 Orders Only RST PCP [facility] MNT oPonam Orlando APR N, C.N.P., D.N.P. [address] [place] [phone] (Wo rk) Social History Tobacco Use Types Packs/Day Years [...] or relatives? How often do you attend mu-ism or Never 2021 gnosticist services? Do you belong to any clubs or Yes 01/23/2022 organizations such as mu-ism groups, unions, fraSure2Sign Recruiting or athletic groups, or school groups? How [...] place to sleep or slept in a group home (including now)? Education Answer Date Recorded What is the highest level of school you have Some college, n o degree 05/24/2021 completed or the highest degree you have received? Sex Assigned at Date Recorded Female 01/23/2022 2:50 PM CDT documented as of this encounter Plan of Treatment Scheduled Referrals Name Type Priority Associated Order Schedule Diagnoses Covid immunization Outpatient Referral Routine Ex pected: office visit 07/07/2022 Immuno/Booster (Approximate) , Expires: 07/07/2023 documented as of this encounter Visit Diagnoses Not on filedocumented in this encounter Additional Health Concerns Assessment Noted Time PHQ-9 Depression Total Score: 5 03/07/2022 12:25 PM CD T documented as of this encounter Care Teams Pick Up Driver Relationship Specialty Start Date End Date Poonam Orlando APRN, C.N.P., PCP - General Family Medicine D.N.P. [address] [place] [address] documented as of this encounter
--- OUTSIDE RECORDS SUMMARY | 2022-07-28 04:18 | XMS_ITS | Encounter Summary ---
:2001 Author Organization [facility] Address [address] [place] [address] Care Team Providers Name Role Phone Poonam Orlando APRN, C.N.P., D.N.P. Primary Care Provid er Encounter Details Date Type Department Care Team Description 03/05/2022 Orders Only Department of [facility] Poonam Orlando, Medicine, [facility], C.N.P., D.N.P. [facility], in [place], [address] [place] [phone] [place] [address] [place] [address] [phone] Social History Tobacco Use Types Packs/Day Years [...] or relatives? How often do you attend jainism or Never 2021 taoist services? Do you belong to any clubs or Yes 01/23/2022 organizations such as jainism groups, unions, fraternal or athletic groups, or [...] place to sleep or slept in a retirement (including now)? Education Answer Date Recorded What [...] Assessment Noted Time PHQ-9 Depression Total Score: 12 01/20/2022 3:01 PM CD T documented as of this encounter Care Teams Chocolate Finisher Relationship Specialty Start Date End Date Poonam Orlando APRN, C.N.P., PCP - General Family Medicine D.N.P. [address] [place] [address] documented as of this encounter
--- OUTSIDE RECORDS SUMMARY | 2022-07-28 04:18 | XMS_ITS | Encounter Summary ---
:2001 Author Organization [facility] Address [address] [place] [address] Care Team Providers Name Role Phone Poonam Orlando APRN, C.N.P., D.N.P. Primary Care Provid er Reason for Visit Reason Comments Med Refill Encounter Details Date Type Department Care Team Description 01/24/2022 Refill Department of [facility] Poonam Orlando APRN, Med Refill Medicine, [facility], C.N. P., D.N.P. in [facility] [address] [facility] [address] [place] [phone] [place] [address] [phone] Social History Tobacco Use Types Packs/Day Years [...] or relatives? How often do you attend protestant or Never 2021 gnosticist services? Do you belong to any clubs or Yes 01/23/2022 organizations such as protestant groups, unions, fraternal or athletic groups, or [...] place to sleep or slept in a usp (including now)? Education Answer Date Recorded What is the highest level of school you have Some college, n o degree 05/24/2021 completed or the highest degree you have received? Sex Assigned at Date Recorded Female 01/23/2022 2:50 PM CDT documented as of this encounter Miscellaneous Notes Telephone Encounter - Cecelia Curiel R.N. - 01/24/2022 11:42 AM CDT SUBJECTIVE CHIEF COMPLAINT / REASON FOR CALL Med Refill Information Discussed Informed patient that prescription was sent to pharmacy. No further questions or concerns. Telephone Encounter - Poppy Barnett - 01/24/2022 11:32 AM CDT Patient is calling to find out status of this prescription. She states again that her dosage ws increased and the pharmacy needs a new script. Thank you Telephone Encounter - Piper Montano - 01/24/2022 7:45 AM CDT Images from the original note were not included. Nurse review: Unable to forward request to provider; Pharmacy is asking for Clarification. Primary Provider: Poonam Orlando APRN, C.N.P., D.N.P. Pharmacy (include location): [facility] documented in this encounter Plan of Treatment Not on filedocumented as of this encounter Visit Diagnoses Not on filedocumented in this encounter Additional Health Concerns Assessment Noted Time PHQ-9 Depression Total Score: 12 01/20/2022 3:01 PM CD T documented as of this encounter Care Teams Workers Compensation Claims Specialist Relationship Specialty Start Date End Date Poonam Orlando APRN, C.N.P., PCP - General Family Medicine D.N.P. [address] [place] [phone] documented as of this encounter
--- OUTSIDE RECORDS SUMMARY | 2022-07-28 04:18 | XMS_ITS | Encounter Summary ---
:2000 Author Organization [facility] Address [address] [place] [address] Care Team Providers Name Role Phone Poonam Orlando APRN, C.N.PFrank, D.N.P. Primary Care Provid er Reason for Visit Reason Comments Migraine Encounter Details Date Type Department Care Team Description 12/25/2021 Nurse Triage Department of [facility] Lisbeth Crews R.N. Migraine Medicine, [facility], [address] [facility] in [place], [place] [address] [facility] [address] [place] [address] [phone] Social History Tobacco Use Types Packs/Day Years [...] or relatives? How often do you attend episcopal or Never 2021 christian services? Do you belong to any clubs or Yes 01/23/2022 organizations such as episcopal groups, unions, fraternal or athletic groups, or [...] place to sleep or slept in a [facility] (including now)? Education Answer Date Recorded What is the highest level of school you have Some college, n o degree 05/24/2021 completed or the highest degree you have received? Sex Assigned at Date Recorded Female 01/23/2022 2:50 PM CDT documented as of this encounter Miscellaneous Notes Telephone Encounter - Codi Crews R.N. - 12/25/2021 3:50 PM CST Chief Complaint / Reason for Call Patient is a 21 y.o. female calling regarding Migraine. Assessment Concern: Claire calls in with a migraine. She has a history of migraines and reports this is the same pain she typically has. She has tried her medications and it has not helped. She is rating her headache at a 5/10 today, but it has been worse at times. She denies any emergent symptoms, no cold symptoms. Present for: 3 days Home cares tried: Over the counter pain relievers, her prescription migraine medication, dark, quietand cool room, ice packs. Calling to request: An injection in clinic, as she has had these in the past and they have been helpful. The recommended disposition is Contact a health care provider within a few minutes (overriding [facility] Contacted [facility] ( Dr. Mesa) and she will order the injection for tomorrow, as clinic has no appointments left for today. Encouraged Claire to go to the ED if she feels she can not tolerate the pain tonight. She agrees. Reason for Disposition ??? [1] SEVERE headache (e.g., excruciating) AND [2] not improved after 2 hours of pain medicine Protocols used: [id number] S COUNTERPERSON documented in this encounter Plan of Treatment Not on filedocumented as of this encounter Visit Diagnoses Not on filedocumented in this encounter Additional Health Concerns Assessment Noted Time PHQ-9 Depression Total Score: 5 12/26/2016 12:01 AM CS T documented as of this encounter Care Teams Manager Generation Relationship Specialty Start Date End Date Poonam Orlando APRN, C.N.P., PCP - General Family Medicine D.N.P. [address] [place] [phone] documented as of this encounter
--- OUTSIDE RECORDS SUMMARY | 2022-07-28 04:18 | XMS_ITS | Encounter Summary ---
:[address] [facility] Address [address] [place] [id number] Care Team Providers Name Role Phone Poonam Orlando APRN, C.N.PFrank, D.N.P. Primary Care Provid er Reason for Referral Outpatient (Routine) - Closed Specialty Diagnoses / Procedures Referred By Contact Refer red To Contact Pharmacy Diagnoses Medication Management Issue Poonam Orlando APRN, [facility] C.N.P., D.N.P. 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 [address] [place] [address] Referral ID Status Reason Start Date Expiration Date Visits Requ ested Visits Authorized [id number] Closed 01/20/2022 01/20/2023 1 1 Encounter Details Date Type Department Care Team Description 01/22/2022 Office Visit Department of Family Poonam Orlando At tention Deficit Disorder Combined Type (Primary Dx); Medicine, Jonnathan Marrufo APRN, C.NFrankP., Medica tion Management Issue Building, in D.N.P. [place], [place] [address] [facility] [address] [place] [phone] Social History Tobacco Use Types Packs/Day Years [...] do you attend mu-ism or Never 2021 bahai services? Do you belong to any clubs or Yes 01/23/2022 organizations such as mu-ism groups, unions, fraternal or athletic groups, or [...] place to sleep or slept in a skilled nursing (including now)? Education Answer Date Recorded What is the highest level of school you have Some college, n o degree 05/24/2021 completed or the highest degree you have received? Sex Assigned at Date Recorded Female 01/23/2022 2:50 PM CDT documented as of this encounter Last Filed Vital Signs Vital Sign Reading Time Taken Comments Blood Pressure 104/68 01/22/2022 10:27 AM CDT Pulse 116 01/22/2022 10:27 AM CDT Temperature 37 ??C (98.6 ??F) 01/22/2022 10:27 AM CDT Respiratory Rate - - Oxygen Saturation - - Inhaled Oxygen Concentration - - Weight 47 kg (103 lb 11.6 oz) 01/22/2022 10:27 AM CDT Height - - Body Mass Index 16.91 05/24/2021 1:03 PM CDT documented in this encounter Progress Notes Poonam Orlando APRN, C.N.P., D.N.P. - 01/22/2022 10:30 AM CDT SUBJECTIVE CHIEF COMPLAINT / REASON FOR VISIT Claire Moncada is a 21 y.o. female who presents for evaluation of Follow-up. HISTORY OF PRESENT ILLNESS Claire has a history of ADHD treated with Adderall (outside medical records have been scanned intoEMR). She describes herself as ditsy and fidgety at baseline. Also note a history of hypomania withADHD, noting that before she started the Adderall she would have times when she could go a night without sleeping without problem. These occurred approximately once every month prior to starting Adderall and once every 3 months since starting the Adderall. She had been trying to cut back on caffeine intake and thus switched to herbal tea last week. She consumed oolong and ginseng tea 2-3 servings per day. Upon starting to drink the tea she felt off. She felt like her Adderall was working too fast. She became very fatigued and had a hard time focusing.She was easily distracted and had a hard time regulating her thoughts. She reached out to our on-call physician Dr. Malone on January 19, 2022 and was seen for follow-up on January 20, 2022 by Spring Stevens CNP; see documentation for details. Our clinical pharmacist weighed inon this as well and noted potential interactions between the Adderall and teas. Spring Stevens was intouch with [facility] Psychiatrist Dr. Avalos who recommended to start risperidone out of concern for potential edenilson. She took one dose of Risperidone two nights ago and had significant side effects including extreme fatigue, muscle aches, zapping sensation in the legs, a sensation that things were crawling on her skin, dizziness, shaking, and fuzzy thoughts. She did not take the Risperidone last nightand does not plan to resume use. She is without any suicidal or homicidal ideation. No self harm behaviors. Denies use of any other recreational drugs or supplements. The following portions of the patient's history were reviewed and updated as appropriate: allergies,current medications and problem list. OBJECTIVE PHYSICAL EXAM Constitutional General: She is not in acute distress. Appearance: Normal appearance. She is not ill-appearing or diaphoretic. Eyes Pupils: Pupils are equal, round, and reactive to light. Cardiovascular Rate and Rhythm: Regular rhythm. Tachycardia present. Heart sounds: Normal heart sounds. No murmur heard. Pulmonary Effort: Pulmonary effort is normal. No respiratory distress. Breath sounds: Normal breath sounds. No wheezing. Skin General: Skin is warm and dry. Neurological Mental Status: She is alert and oriented to person, place, and time. Psychiatric Attention and Perception: Attention and perception normal. Mood and Affect: Mood is anxious. Affect is tearful. Behavior: Behavior is hyperactive. Behavior is cooperative. Thought Content: Thought content normal. Cognition and Memory: Cognition and memory normal. Judgment: Judgment normal. Comments: Rapid speech, seems at her baseline ASSESSMENT / PLAN #1 Attention Deficit Disorder Combined Type #2 Medication Management Issue She has a history of attention deficit disorder treated with Adderall, there did seem to be an interaction between Adderall and some herbal teas that she used [id number]. Since stopping the Adderall she feels that symptoms are returning to baseline. She did not tolerate the risperidone and had anumber of side effects. She is not interested in resuming risperidone. She did not feel like it helped to stabilize her mood as it was intended. She is very much interested in meeting with our pharmacist to discuss any potential drug-drug or drug-food interactions, will arrange for this. She is not interested in meeting with Psychiatry, may reach out to her Psychiatrist at an outside facility. Will hold the Adderall for at least another day to help her return to baseline. Discussed signs and symptoms requiring a return visit or emergent evaluation. Patient verbalized understanding and is in agreement with the plan. PATIENT EDUCATION Ready to learn, no apparent learning barriers were identified; learning preferences include listening. documented in this encounter Plan of Treatment Scheduled Referrals Name Type Priority Associated Order Schedule Diagnoses Pharmacy - Outpatient Referral Routine Medication Expected : Medication therapy Management Issue 01/22 management consult (Approxim ate), (clinic) Expires: 04/23/2023 documented as of this encounter Visit Diagnoses Diagnosis Attention Deficit Disorder Combined Type - Primary Medication Management Issue documented in this encounter Additional Health Concerns Assessment Noted Time PHQ-9 Depression Total Score: 12 01/20/2022 3:01 PM CD T documented as of this encounter Care Teams Healthcare Market Consultant Relationship Specialty Start Date End Date Poonam Orlando APRN, C.N.P., PCP - General Family Medicine D.N.P. [address] [place] [phone] documented as of this encounter
--- OUTSIDE RECORDS SUMMARY | 2022-07-28 04:18 | XMS_ITS | Encounter Summary ---
:2000 Author Organization [facility] Address [address] [place] [address] Care Team Providers Name Role Phone Poonam Orlando APRN, C.N.P., D.N.P. Primary Care Provid er Reason for Visit Reason Comments Post Hospital Follow-up Appointment Request (Routine) - Closed Specialty Diagnoses / Procedures Referred By Contact Refer red To Contact Family Medicine Destiny Farfan M.D . [address] [place] [id number] Referral ID Status Reason Start Date Expiration Date Visits Requ ested Visits Authorized [id number] Closed 02/12/2022 02/12/2023 1 1 Encounter Details Date Type Department Care Team Description 02/17/2022 Office Visit Department of [facility] Poonam Orlando miplegic Migraine Intractable With Status Migrainosus (Primary Dx); Medicine, Jonnathan Marrufo APRN, C.N.P., Migrai ne Headache With Aura; [facility], in D.N.P. Attention Deficit Disorder Combined Type ; [place], [place] [address] [facility] Asthma Mild Intermittent (HCC) [address] [place] [id number] [phone] Social History Tobacco Use Types Packs/Day Years [...] or relatives? How often do you attend bahai or Never 2021 mormon services? Do you belong to any clubs or Yes 01/23/2022 organizations such as bahai groups, unions, [employer] or athletic groups, or school groups? How [...] Sign Reading Time Taken Comments Blood Pressure 101/66 02/17/2022 10:39 AM CDT Pulse 93 02/17/2022 10:39 AM CDT Temperature - - Respiratory Rate - - Oxygen Saturation - - Inhaled Oxygen Concentration - - Weight 49.7 kg (109 lb 9.1 oz) 02/17/2022 10:39 AM with boots CDT Height - - Body Mass Index 17.86 05/24/2021 1:03 PM CDT documented in this encounter Progress Notes Poonam Orlando APRN, C.N.P., D.N.P. - 02/17/2022 11:00 AM CDT SUBJECTIVE CHIEF COMPLAINT / REASON FOR VISIT Claire Moncada is a 21 y.o. female who presents for evaluation of Post Hospital Follow-up. HISTORY OF PRESENT ILLNESS Claire for a post hospital follow-up. Briefly, on February 10, 2022 she developed her typical migraine with aura. She took Maxalt, but the migraine did not improve. Instead, have her body went ???numb.?? The left side of her body including legs, arms, and face were numb. She could not talk. She states that her brain could think, but could not translate her thoughts to speech. She had chills going down her arms full-body goose bumps. She was able to type a text message to her friend with her right hand asking for help. She had had pain on and off as well as brain fog. She presented to the [facility] for evaluation at which time a MRI/MRA of the brain was completed and were unremarkable. CT of the head without contrast did not demonstrate any acute intracranial abnormalities per outside records. She was admitted overnight for observation and given ketorolac. For outside records, he neurologist at [facility] was contacted for recommendations. It was recommended thatshe stop use of Maxalt and Adderall and continue use of nortriptyline. She was started on verapamil as an anti vasospastic agent. She was seen by Physical therapy, Occupational therapy, and speech therapy while hospitalized. It was recommended that she follow-up with her primary care provider and [facility] outpatient neurology consultation. Over the past week since dismissal from the hospital she has had 2 or 3 migraine headache days. She had her typical aura symptoms including visual sparkles and seeing green dots. Other typical aura symptoms include change in tolerance to temperature is nosebleeds, and low-grade fevers. She is taking nortriptyline and verapamil as prescribed. She has been holding the Adderall as recommended, but has noticed significant worsening of her ADHD symptoms. She states that when off of her Adderall she forgets to eat and states she has even walked into oncoming traffic due to distraction. She is concerned about her overall well-being if she remains off of the Adderall. She feels as though use of albuterol triggers her migraine headaches. While on Adderall use of albuterol was less triggering for migraine headaches. This to was another reason why she would like to continue use of Adderall. She denies any family history of hemiplegic migraine. She continues to experience ankle pain and sees a physical therapist at outside facility. She is using 1 crutch mobilization. She states that while hospitalized she was seen by Physical and Occupational therapy and the provider her with updated exercises to help with her symptoms. In passing she brought up that upon returning to for door room she found symbols on her dorm room door. She notified campus security who was in touch with [employer] police. She states that evidence was obtained where she is feeling safe. The following portions of the patient's history were reviewed and updated as appropriate: allergies,current medications and problem list. OBJECTIVE PHYSICAL EXAM Constitutional Appearance: Normal appearance. Cardiovascular Rate and Rhythm: Normal rate and regular rhythm. Heart sounds: Normal heart sounds. Pulmonary Effort: Pulmonary effort is normal. No respiratory distress. Breath sounds: Normal breath sounds. Neurological Mental Status: She is alert and oriented to person, place, and time. Deep Tendon Reflexes: Reflexes normal. Comments: Very mild left facial drooping with smiling. Otherwise neurologically intact. Psychiatric Attention and Perception: Attention and perception normal. Speech: Speech is rapid and pressured and tangential. Behavior: Behavior is hyperactive. Thought Content: Thought content normal. 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 She does continue to experience to 3 migraine days per week. She is no longer taking Maxalt or Adderall, but is taking nortriptyline and verapamil. She is concerned that the risks of being off of Adderall do not outweigh the benefits of being off of Adderall. Did discuss her recent symptoms and hospitalization with Dr. Castillo in [facility] Neurology. She states that she cannot confirm a diagnosis of hemeplegic migraine without 1st meeting with the patient. Dr. Castillo agrees with continuing nortriptyline and verapamil, and discontinuing the Maxalt or other triptans. Dr. Castillo states that she cannot speak to use of Adderall is in the setting of hemiplegic migraine. Will add naproxen as an abortive migraine medication. Reviewed up-to-date information on hemiplegic migraine and Adderall/stimulants are not listed as a contraindicated medication in this setting. Discussed with patient that there is likely limited data on use of stimulants in setting of hemiplegic migraine. Using shared decision-making with the patient decided that she may resume use of Adderall as tolerated as she feels firmly that the risk of medication does not outweigh the benefit of this medication.. Certainly if she had any worsening migraine symptoms should be discontinued. Continue use of albuterol, consider looking into albuterol as trigger for future. Discussed signs and symptoms requiring urgent evaluation. Will set her up for a neurology consultation. PATIENT EDUCATION Ready to learn, no apparent learning barriers were identified; learning preferences include listening. documented in this encounter Plan of Treatment Not on filedocumented as of this encounter Visit Diagnoses Diagnosis Hemiplegic Migraine Intractable With Sta tus Migrainosus - Primary Migraine Headache With Aura Attention Deficit Disorder Combined Type Asthma Mild Intermittent (HCC) documented in this encounter Additional Health Concerns Assessment Noted Time PHQ-9 Depression Total Score: 12 01/20/2022 3:01 PM CD T documented as of this encounter Care Teams Rebrander Relationship Specialty Start Date End Date Poonam Orlando APRN, C.N.P., PCP - General Family Medicine D.N.P. [address] [place] [address] documented as of this encounter
--- OUTSIDE RECORDS SUMMARY | 2022-07-28 04:18 | XMS_ITS | Encounter Summary ---
:2000 Author Organization [facility] Address [address] [place] [address] Care Team Providers Name Role Phone Poonam Orlando APRN, C.N.P., D.N.P. Primary Care Provid er Reason for Referral Outpatient (Routine) - Authorized Specialty Diagnoses / Procedures Referred By Contact Refer red To Contact Neurology Diagnoses Hemiplegic Migraine Intractable With Status Migrainosus Poonam Orlando APRN, [facility] C.N.P., D.N.P. [address] [place] [phone] Referral ID Status Reason Start Date Expiration Date Visits V isits Requested Authorized [id number] Authorized 02/13/2022 02/13/2023 1 1 Reason for Visit Reason Comments Communication Encounter Details Date Type Department Care Team Description 02/12/2022 Clinical Communication Department of [facility], SHAQ Marrufo, C.N.P., Jonnathan Choi D.N.P. in [address] [place] [id number] [place], [place] [phone] (Work) [phone] Social History Tobacco Use Types Packs/Day Years [...] or relatives? How often do you attend jain or Never 2021 restorationist services? Do you belong to any clubs or Yes 01/23/2022 organizations such as jain groups, unions, fraternal or athletic groups, or [...] this encounter Miscellaneous Notes Telephone Encounter - Josefa Monreal R.NFrank - 02/13/2022 1:01 PM CDT SUBJECTIVE CHIEF COMPLAINT / REASON FOR CALL Communication Information Discussed Nursing reached out to patient regarding recommendations by her provider Poonam Orlando after patient had visit to in the [facility] last week for new onset hemogragic migraine, and provider review of the visit. Since then, she has had one migraine on 02/11, and one aura without headache. Patient was informed of the following recommendations: It appears that the providers at [facility] for theirrecommendations. Poonam agrees with stopping methylphenidate. However, patient reports that she was on Adderall, not methylphenidate. She has stopped the Adderall. Poonam agrees with the continuation of Verapamil for it's antispasmodic action, continuation of nortriptyline, and stopping of Maxalt. Poonam has placed a neuro consult. Patient may not hear from them before her visit on Thursday, 02/17, but Poonam will be able to reach out to them if needed. Patient would like to know/ have: -Clarification on methylphenidate versus Adderall. (She was not taking methylphenidate, she has stopped her Adderall) -Is there another class of medication she can take for her migraines? -Are there alternative options, such as Botox? Patient plans on keeping her appointment with Poonam on Thursday. Patient was assured that there would be opportunity for discussion and recommendations with providerat visit Thursday. PLAN Disposition/Recommendation: notified provider and awaiting recommendations and patient instructed tocontinue with [facility] recommendations. Information/Education: patient/caller able to teach back Caller agreeable to plan of care: yes The following references were used: nursing clinical judgement and provider Poonam Orlando APRN, TYPING SECRETARY, DNP. Telephone Encounter - Jackie Buck R.N. - 02/12/2022 4:07 PM CDT SUBJECTIVE CHIEF COMPLAINT / REASON FOR CALL Communication Information Discussed Patient states that was in in the [facility] last week for new onset hemogragic migraine.She states this was very scary and would like to see a Neurologist here as soon as possible. She hasan appointment with Poonam on 02/17/22. She also notes that they started her on Verapamil 10 mg daily in the evenings and stopped both her Adderall medications and her Maxalt. She is still taking her Pamelor 10 mg daily. She is asking what she can take in the interim if she get a migraine since they stopped her Maxalt. She is also asking her if she can get a Neurology referral prior to Thursday if Poonam can review her records from [facility](she had them sent today). She is also questioning if the Verapamilis the best medication of choice for the migraine prevention. PLAN Disposition/Recommendation: notified provider and awaiting recommendations Information/Education: patient/caller able to teach back Caller agreeable to plan of care: yes The following references were used: nursing clinical judgement Telephone Encounter - Nabila Bauman - 02/12/2022 3:16 PM CDT Caller: Claire Callback Number: [phone] Best communication method: Phone call Request/Details: The patient is calling today regarding a recent hospital stay at [facility] and a follow-up appointment scheduled for 02/17. She states that during her stay, they discontinued her abortive medications for migraine and added a prophylactic. She wonders what she should do betweennow and the appointment if she were to have another migraine. She also has some additional questionson the follow-up visit and referrals she was recommended to have such as neurology and possibly being seen for speech therapy. Please review and contact patient back at your earliest convenience. The patient does also note that [facility] is planning on faxing over the records later today. Thank you! Please respond to [facility] Scheduling pool if necessary documented in this encounter Plan of Treatment Scheduled Referrals Name Type Priority Associated Diagnoses Order S [facility] Neurology - [facility] Outpatient Referral Routine Hemiplegic Migrain e Expected: consult (clinic) Intractable With 022 Status Migrainosus (Approxim ate), Expires: 05/15/2023 documented as of this encounter Visit Diagnoses Diagnosis Hemiplegic Migraine Intractable With Sta tus Migrainosus - Primary documented in this encounter Additional Health Concerns Assessment Noted Time PHQ-9 Depression Total Score: 12 01/20/2022 3:01 PM CD T documented as of this encounter Care Teams Youth Career Specialist Relationship Specialty Start Date End Date Poonam Orlando APRN, C.N.P., PCP - General Family Medicine [place] [address] [place] [phone] documented as of this encounter
--- OUTSIDE RECORDS SUMMARY | 2022-07-28 04:18 | XMS_ITS | Encounter Summary ---
:2000 Author Organization [facility] Address [address] [place] [address] Care Team Providers Name Role Phone Poonam Orlando APRN, C.N.PFrank, D.N.P. Primary Care Provid er Reason for Referral Outpatient (Routine) - Closed Specialty Diagnoses / Procedures Referred By Contact Refer red To Contact Neurology Diagnoses Hemiplegic Migraine Intractable With Status Migrainosus Migraine Headache With Aura [facility] [address] [place] [phone] Referral ID Status Reason Start Date Expiration Date Visits Requ ested Visits Authorized [id number] Closed 02/24/2022 02/24/2023 1 1 Encounter Details Date Type Department Care Team Description 02/24/2022 Orders Only Department of [facility] Poonam Orlando, Hemiplegic Migraine Intractable With Status Migrainosus (Primary Dx); MedicineJonnathan APRN, C.N.P., D.N.P. Migraine Headache With Aura [facility], in [address] [place] [address] [place] [phone] [place], [place] [phone] (Wo rk) [phone] Social History Tobacco Use Types Packs/Day Years [...] or relatives? How often do you attend oriental orthodox or Never 2021 yarsani services? Do you belong to any clubs or Yes 01/23/2022 organizations such as oriental orthodox groups, unions, fraternal or athletic groups, or [...] to sleep or slept in a senior living (including now)? Education Answer Date Recorded What is the highest level of school you have Some college, n o degree 05/24/2021 completed or the highest degree you have received? Sex Assigned at Date Recorded Female 01/23/2022 2:50 PM CDT documented as of this encounter Plan of Treatment Scheduled Referrals Name Type Priority Associated Diagnoses Order S [facility] Neurology - [facility] Outpatient Referral Routine Hemiplegic Migrain e Expected: consult (clinic) Intractable With 022 Status Migrainos us (Approximate), Migraine Headache Expires: With Aura 05/27/2023 documented as of this encounter Visit Diagnoses Diagnosis Hemiplegic Migraine Intractable With Sta tus Migrainosus - Primary Migraine Headache With Aura documented in this encounter Additional Health Concerns Assessment Noted Time PHQ-9 Depression Total Score: 12 01/20/2022 3:01 PM CD T documented as of this encounter Care Teams Qa Automation Engineer Relationship Specialty Start Date End Date Poonam Orlando APRN, C.N.P., PCP - General Family Medicine D.N.P. [address] [place] [phone] documented as of this encounter
--- OUTSIDE RECORDS SUMMARY | 2022-07-28 04:18 | XMS_ITS | Encounter Summary ---
:2000 Author Organization [facility] Address [address] [place] [address] Care Team Providers Name Role Phone Poonam Orlando APRN, C.N.PFrank, D.N.P. Primary Care Provid er Reason for Referral MRI/CAT/PET Scan (Routine) - Closed Specialty Diagnoses / Procedures Referred By Contact Refer red To Contact Radiology Diagnoses Spells Neurological (HCC) Barbie Sheridan M.D. 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 [address] [phone] Referral ID Status Reason Start Date Expiration Date Visits Requ ested Visits Authorized [id number] Closed 02/24/2022 02/24/2023 1 1 Encounter Details Date Type Department Care Team Description 03/07/2022 Comprehensive Visit Department of Osiris Sheridan Neurological ([facility]) (Primary Dx); Neurology in Barbie Murray M.D. Migraine Headache With Aura; [place], [facility] Hemiplegic Migraine Not Intractable With out Status Migrainosus [place], [place] [address] [facility] [address] [place], [place] [phone] (Work) [phone] Social History Tobacco Use Types Packs/Day Years [...] or relatives? How often do you attend muslim or Never 2021 quaker services? Do you belong to any clubs or Yes 01/23/2022 organizations such as muslim groups, unions, fraternal or athletic groups, or [...] for the very basics like Not v ejssica hard 01/23/2022 food, housing, medical care, and [...] place to sleep or slept in a prison (including now)? Education Answer Date Recorded What is the highest level of school you have Some college, n o degree 05/24/2021 completed or the highest degree you have received? Sex Assigned at Date Recorded Female 01/23/2022 2:50 PM CDT documented as of this encounter Last Filed Vital Signs Vital Sign Reading Time Taken Comments Blood Pressure 132/117 03/07/2022 1:24 PM CDT Pulse 90 03/07/2022 1:24 PM CDT Temperature - - Respiratory Rate - - Oxygen Saturation - - Inhaled Oxygen Concentration - - Weight 46.8 kg (103 lb 2.8 oz) 03/07/2022 1:24 PM CDT Height 169.8 cm (5' 6.85) 03/07/2022 1:24 PM CDT Body Mass Index 16.23 03/07/2022 1:24 PM CDT documented in this encounter Consult Notes Barbie Sheridan M.D. - 03/07/2022 1:00 PM CDT SUBJECTIVE CHIEF COMPLAINT / REASON FOR VISIT Claire Moncada presents today for evaluation of spells. Referred by Mary Castillo D.O. HISTORY OF PRESENT ILLNESS Claire Moncada is a very pleasant 21 y.o. ambidextrous female with a history of migraine referred for a recent spell of prolonged weakness on the left. The patient is on Adderall and has a BMI of 16.2. She also has a diagnosis chronic intermittent vertigo. The patient began having headaches in her early to mid teens, with migrainous features. Her headaches increased in frequency about one year ago. For the past 8-9 months, her migraine has started with visual aura (visual spots/blurred/wiggly/sparkles/distorted vision--these happen off an on for 3 hoursto 1.5 days), followed by pain in the left occipital region---1/3 of them may spread to left eye andsometimes spread into into the midline or slightly into the right posterior skull base with photophobia, phonophobia. Some of her most severe headaches may have an associated nose bleed or low grade fever during the prolonged visual aura, still prior to her headaches. Prior to January, some headaches would be associated of the left side (may drop things or trip). Some headaches are also preceded by full body sudden chills like hairs standing on end lasting seconds to minutes, 2-3 times. She would have lightheadedness/wooziness or imbalance or dizziness with her migraines. She would have word finding difficulty sometimes during her migraines. On February 10 of this year, the patient developed a typical migraine with visual symptoms of spots and wiggly vision and took Maxalt without improvement. Her left hand felt tired/weak so she started writing with her right hand. She got up to get a drink and fell over. Dizziness is common with her headaches, so she assumed this was a transient imbalance. She tried getting up again, this time noticing left leg weakness. It is her impression that her leg was most severely weak first, followed by gradual (over 4 minutes) worsening weakness of the left arm, then facial drooping. She recalls her face felt weak with worsening left eye ptosis (she has congenital ptosis). She triedtexting her friends with her right hand and tried get out the door but fell again. She was taken to the ED and at that time, she had difficulty speaking but she had been able to write a description of the spell in her phone--and this was used to diagnose her with probable hemiplegic migraine. In the ED, she was started on verapamil (only for a few weeks)--this has been associated with lightheadedness/wooziness. At her weakest, she had no ability to move the left side, with only twitching of movement. She denies tingling and does not recall numbness over the left--she specifically remembers writing on her arm at one point and remembers feeling the pen--and remembers feeling light touch on the left during her exam. The day before her spells, she recalls chills with tingling at the back of her headspreading down her whole body lasting seconds--but this was not numbness. She thinks it took weeks to improve to close to normal, but it is still not 100% back to normal. Diagnostic testing: The patient did have an MRI brain without lucy and MRA head that were reportedly normal Current and past abortives: Current: Naproxen-2 days in the last few weeks Past: Triptans being held due to relative contraindication Tried a friend's Risperdal and this made her feel sick Maxalt every other day (about 3 days per week)--stopped after spell 3-4 weeks ago Ibuprofen-none in a few weeks Excedrin-used in the past Current and past preventatives: Current: Verapamil 120 mg daily-at bedtime Nortriptyline 20 mg nightly-1-2 months She takes B12 and Magnesium Past: Chiropractic therapy for injuries related to falls in the past PAST MEDICAL/SURGICAL HISTORY Outside diagnosis of ADHD, on Adderall Anxiety Migraine headaches Pfizer vaccine for COVID February 07, 2021 and February 28, 2021 SOCIAL HISTORY Never smoker. 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 Denies alcohol recreational drug use. Tells me she has trouble remembering to eat but feels Adderall helps with this--she has lost weight but attributes this to illness. Speaks Mandarin. 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 Vegetarian. FAMILY HISTORY Family History Problem Relation Age of Onset ??? Alcohol abuse Father ??? Hyperlipidemia Father ??? Depression Sister Currently recieving medical treatment ??? Depression Sister Currently recieving mefical treatment ??? Suicide Attempts Sister currently recieing medical treatment Twin sister has COPD (thought to be mold exposure) and migraines. Maternal grandmother had severe headaches. REVIEW OF SYSTEMS The patient's history was reviewed including allergies, current medications, review of systems, family history, medical and surgical history, social history, and problem list. CURRENT MEDICATIONS Current Outpatient Medications: ??? albuterol 90 mcg/actuation inhaler, Inhale 2 puffs every 4 (four) hours as needed for wheezing or shortness of breath., Disp: 18 g, Rfl: 2 ??? amphetamine-dextroamphetamine (ADDERALL XR) 10 mg 24 hr capsule, Take 1 capsule (10 mg total) bymouth daily. Take with one Adderall 20 mg XR for a total morning dose of 30 mg XR., Disp: 21 capsule, Rfl: 0 ??? [START ON 03/10/2022] amphetamine-dextroamphetamine (Adderall XR) 30 mg 24 hr capsule, Take 1 capsule (30 mg total) by mouth daily for 28 days., Disp: 28 capsule, Rfl: 0 ??? sbchilw-ykwibxjowykvm-srfzblkj (EXCEDRIN MIGRAINE) 250-250-65 mg per tablet, Take 1 tablet by mouth as needed for pain., Disp: , Rfl: ??? B complex-vitamin (SUPER B-50) capsule, Take 1 tablet by mouth daily., Disp: , Rfl: ??? dextroamphetamine-amphetamine (ADDERALL) 10 mg tablet, Take 1 tablet (10 mg total) by mouth daily for 28 days., Disp: 28 tablet, Rfl: 0 ??? fluticasone propionate (FLONASE) 50 mcg/actuation nasal spray, Administer 1 spray into each nostril as needed for rhinitis or allergies., Disp: , Rfl: ??? iron,carbonyl-vitamin C (VITRON-C) 65 mg iron- [address] tablet, Take 65 mg of iron by mouth daily. Do not crush or chew., Disp: , Rfl: ??? magnesium citrate 100 mg capsule, Take 1 each by mouth daily., Disp: , Rfl: ??? naproxen (NAPROSYN) 500 mg tablet, Take 1 tablet (500 mg total) by mouth 2 (two) times a day as needed for pain (pain)., Disp: 60 tablet, Rfl: 0 ??? nortriptyline (PAMELOR) 10 mg capsule, Take 2 capsules (20 mg total) by mouth at bedtime., Disp:180 capsule, Rfl: 3 ??? verapamiL (VERELAN) 120 mg 24 hr capsule, Take 120 mg by mouth at bedtime., Disp: , Rfl: Current Facility-Administered Medications: ??? sodium bicarbonate injection 51 mEq, 1 mEq/kg (Dosing Weight), intravenous, Once, Favio Najera P.AAgustin. ALLERGIES Allergies Allergen Reactions ??? Perfume Cough Asthma worsening, cough ??? Pollen Extracts Other (see comments) ??? Cat Dander Rash OBJECTIVE VITALS & BMI Heart rate of 119 on 02/21/22. Vitals were repeated today with pulse of 90 but BP of 132/117 (note that regular cuff was unable to get a BP so a smaller cuff was used, based on BMI of 16.2 NEUROLOGICAL EXAMINATION MENTAL STATUS: Alert, oriented, and answering questions appropriately. Able to provide excellent historical detail. SPEECH: Normal speech and language function. CRANIAL NERVE: Visual rodriguez are full. Pupils react equally to light. Extraocular movements are full. Facial sensation intact within V1-V3. Facial movement intact, symmetric. Hearing intact to conversation. Nystagmus is not present. MOTOR EXAM: No pronator drift. Strength is normal and symmetric proximally and distally in arms and legs--though left arm and leg required additional testing and encouragement--some question of give-way due to pain. Good rapid alternating and fine finger movements. No asterixis, tremor or myoclonus. Normal tone. No atrophy. DEEP TENDON REFLEX: Normal reflexes within all 4 limbs. Toes are plantar to stimulation. SENSORY: Normal sensation. GAIT AND COORDINATION: Gait, station, coordination, AMRs are normal for age. Romberg test is negative. EYES: Sclera anicteric. HEAD/NECK: neck is supple. Mild tenderness over occipital nerves and right SON. EXTREMITIES: No edema noted. ASSESSMENT/PLAN 1. Spell of left sided numbness, possible migraine aura (visual, language, motor) 2. Weight loss (49.7 kg on 02/17, 48.9 kg on 02/21, 46.8 kg on 03/07); BMI now 16.2 3. Adderall use 4. Tachycardia (90's to 119) 5. Chronic ptosis on the left (present since childhood--probable congenital ptosis) The etiology for the patient's recent spell of left sided numbness is not clear, but it remains possible that this represented a prolonged migraine aura. The fact that her symptoms were preceded by visual aura symptoms, along with the perceived spread of weakness, do suggest migrainous origin, but theduration of symptoms and the absence of sensory symptoms are atypical. She had an MRI/MRA of the head that was unremarkable. This, along with her normal Neurologic exam, is reassuring. That said, cervical arterial dissection can sometimes present with more frequent or prolonged aura, and I have recommended an MRA of the neck for further evaluation. I have also ordered some additional basic blood work, not only for her worsening headaches but her described nose bleeds with some headaches (checking ANCA). If testing is unremarkable, I would recommend focusing on management as migraine for now. I agree with her other physicians that triptans should probably be held for now. I am also concerned about medicines that might predispose to vasoconstriction or vasospasm. We talked about my concern that Adderall has not only contributed to continued weight loss (she has lost 2.9 kg this month) but may be contributing in part to the frequency and intensity of headaches. She tells me she needs Adderall to help her remember to eat and may continue to discuss the pros and cons of this medicine with her PCP. For abortive therapy, in place of a triptan she could consider trying Reyvow 100 mg or possibly a gepant (and ubrogepant (Ubrelvy) 100 mg or rimegepant (Nurtec) 75 mg). All hkne-nec-bdvvugc and prescription pain medicines should be limited to 9 days per month to avoid exacerbating her headaches. For nausea, she could try Zofran (non-drowsy) or compazine 5-10 mg (drowsy). Other options for pain reliefinclude rest, ice/heat, massage, chiropractic therapy (not aggressive manipulation), topical medicines, and possibly a TENS unit such as the Cefaly device. For preventative therapy, she can continue verapamil at her current dose for now, slowly increasing to 160 mg (maybe 80 mg BID or eventually 80 mg TID if tolerated). If this is not helpful after a full3 month trial, she can go up on nortriptyline by 10 mg each week to 50 mg nightly. After a three month trial, she could try an antiepileptic. Topamax, titrating gradually to 100 mg could be considered,but only if she were off of the Adderall and regularly eating. If she is still on Adderall or still BMI less than 18, she could instead try gabapentin 300 mg daily increasing by 300 mg each week to 600mg three times daily. If that is not effective after a three month trial, she could look into Botox or CGRP antibodies. She is not a candidate for Botox at this time, as she has not tried several different oral preventatives. She will continue to follow with her primary provider for prescriptions. Thepatient asked numerous excellent questions that we reviewed in detail. PATIENT EDUCATION Ready to learn, no apparent learning barriers were identified; learning preferences include listening. Explained diagnosis and treatment plan; patient expressed understanding of the content. Total time spent with the patient was 80 minutes, with greater than 50% of that time spent counseling and coordination of care. Answers for HPI/ROS submitted by the patient on 01/23/2022 Fatigue: Yes Fever: Yes No eye issues: Yes No ENT issues: Yes Rapid or fluttering heart beats: Yes Shortness of breath when lying flat: Yes Shortness of breath: Yes Wheezing: Yes Nausea: Yes No GI issues: Yes Muscle pain/stiffness: Yes Back pain/stiffness: Yes No skin issues: Yes Headache: Yes Light-headedness: Yes Weakness in arms and/or legs: Yes Loss of balance or tendency to fall easily: Yes Excessive daytime sleepiness/tiredness: Yes No blood/lymph issues: Yes No urinary/reproductive issues: Yes documented in this encounter Plan of Treatment Not on filedocumented as of this encounter Results Sedimentation Rate (03/21/2022 10:00 AM CDT) Analysis Performed At Patho logist Time Signature Sedimentation 2 2 - 20 03/21/2022 DTL Rate, B mm/h 11:25 AM CDT Specimen Anatomical Collection Method Collection Time Receive d Time (Source) Location / / Volume Laterality Blood (Blood, 03/21/2022 10:00 03/21/2022 Venous) AM CDT 10:35 AM CDT Barbie Sheridan M.D. LAB BLOOD ADD-ON Performing Organization Address City/State/ZIP Code Phon e Number [facility] - [address] [place], [place] [address] [facility] [place] [address] Laboratories-[facility] [address] [facility] (ABNORMAL) Comprehensive Metabolic Panel (03/21/2022 10:00 AM CDT) P athologist Signature Potassium, S 4.4 3.6 - 5.2 03/21/2022 DTL mmol/L 11:23 AM CDT Sodium, S 138 135 - 145 03/21/2022 DTL mmol/L 11:23 AM CDT Chloride, S 101 98 - 107 03/21/2022 DTL mmol/L 11:23 AM CDT Bicarbonate, S 27 22 - 29 03/21/2022 DTL mmol/L 11:23 AM CDT Anion Gap 10 7 - 15 03/21/2022 DTL 11:23 AM CDT BUN (Blood Urea 10 6 - 21 03/21/2022 DTL Nitrogen), S mg/dL 11:23 AM CDT Creatinine 0.78 0.59 - 03/21/2022 DTL 1.04 mg/dL 11:23 AM CDT eGFR-Non >90 >=60 03/21/2022 DTL Black/ mL/min/BSA 11:23 AM CDT Ivorian Comment: ----ADDITIONAL INFORMATION---- Estimated GFR calculated using the 2009 CKD_EPI creatinine equation. eGFR-Black/ >90 >=60 mL/min/BSA 2021 11:23 AM CDT DTL Comment: ----ADDITIONAL INFORMATION---- Estimated GFR calculated using the 2009 CKD_EPI creatinine equation. Calcium, Total, S 9.8 8.6 - 10.0 mg/dL 03/21/2022 11:2 3 AM CDT DTL Glucose, S 86 70 - 140 mg/dL 03/21/2022 11:23 AM CDT DTL Protein, Total, S 7.5 6.3 - 7.9 g/dL 03/21/2022 11:23 AM CDT DTL Albumin, S 5.3 (H) 3.5 - 5.0 g/dL 03/21/2022 11:23 AM CDT DTL Aspartate Aminotransferase 19 8 - 43 U/L 03/21/2022 1 1:23 AM CDT DTL (AST), S Alkaline Phosphatase, S 64 35 - 104 U/L 03/21/2022 11 :23 AM CDT DTL Alanine Aminotransferase 12 7 - 45 U/L 03/21/2022 11: 23 AM CDT DTL (ALT), S Bilirubin, Total, S 0.6 <=1.2 mg/dL 03/21/2022 11:23 A M CDT DTL Specimen Anatomical Collection Method Collection Time Receive d Time (Source) Location / / Volume Laterality Blood (Blood, 03/21/2022 10:00 03/21/2022 Venous) AM CDT 10:43 AM CDT Barbie Sheridan M.D. LAB BLOOD ADD-ON Performing Organization Address City/State/ZIP Code Phon e Number [facility] - [address] [place], [place] [address] [facility] [place] [address] Laboratories-[facility] [address] [place] (Antinuclear Antibodies) (03/21/2022 10:00 AM CDT) athologist Signature Antinuclear Ab, 0.5 <=1.0 03/21/2022 [facility] S (Negative) 8:42 PM CDT U Comment: ----ADDITIONAL INFORMATION---- Method: Enzyme-linked immunoassay using HEp-2 nuclear extract supplemented with purified antig ens. Specimen Anatomical Collection Method Collection Time Receive d Time (Source) Location / / Volume Laterality Blood (Blood, 03/21/2022 10:00 03/21/2022 2:02 Venous) AM CDT PM CDT Barbie Sheridan M.D. LAB BLOOD ADD-ON Performing Organization Address [facility] Phon e Number [facility] [address] [place] [address] [address] [place] [address] Laboratory Medicine and Pathology [address] [place] [address] Dr. LAURENT ANCA (Antineutrophil Cytoplasmic Antibodies) Vasculitis Panel (03/21/2022 10:00 AM CDT) [facility] gist Method Time Signature Myeloperoxidase Ab, <0.2 <0.4 03/21/2022 [facility] S (Negative 2:25 PM CDT ) U Proteinase 3 Ab <0.2 <0.4 03/21/2022 [facility] (PR3), S (Negative 2:25 PM CDT ) U Specimen Anatomical Collection Method Collection Time Receive d Time (Source) Location / / Volume Laterality Blood (Blood, 03/21/2022 10:00 03/21/2022 1:33 Venous) AM CDT PM CDT Barbie Sheridan M.D. LAB BLOOD ADD-ON Performing Organization Address [facility] Phon e Number [address] [place] [address] [address] [facility] [place] [address] Laboratory Medicine and Pathology [address] [place] [address] Dr. LAURENT MR Neck Angiogram without and with IV Contrast (03/21/2022 9:26 AM CDT) Anatomical Region Laterality Modality Neck, Neuroradiology RST LOS, Neuroradiology ARZ LOS, N/A Magnetic Resonance Neuroradiology FLA LOS Specimen (Source) Anatomical Collection Method Collection Time Re ceived Time Location / / Volume Laterality 03/21/2022 9:54 AM CDT Impressions 03/21/2022 10:38 AM CDT Normal MRA of the neck. Narrative 03/21/2022 10:38 AM CDT EXAM: MR NECK ANGIOGRAM WITHOUT AND WITH IV CONTRAST COMPARISON: None FINDINGS: Normal configuration of the ao rtic arch and great vessels. Bilateral carotid artery systems are widely patent without eviden ce of luminal irregularity or focal flow-limiting narrowing. Codominant vertebral arteries are patent . No arterial dissection or pseudoaneurysm formation. Visualized posterior fossa structures ar e normal. Procedure Note Leonel Nicolas M.D. - 03/21/2022Format ting of this note might be different from the original. EXAM: MR NECK ANGIOGRAM WITHOUT AND WITH IV CONTRAST COMPARISON: None FINDINGS: Normal configuration of the ao rtic arch and great vessels. Bilateral carotid artery systems are widely patent without eviden ce of luminal irregularity or focal flow-limiting narrowing. Codominant vertebral arteries are patent . No arterial dissection or pseudoaneurysm formation. Visualized posterior fossa structures ar e normal. IMPRESSION: Normal MRA of the neck. Barbie Sheridan M.D. IMG MRI PROCEDURES documented in this encounter Visit Diagnoses Diagnosis Spells Neurological (HCC) - Primary Migraine Headache With Aura Hemiplegic Migraine Not Intractable With out Status Migrainosus Spells Neurological (HCC) documented in this encounter Additional Health Concerns Assessment Noted Time PHQ-9 Depression Total Score: 5 03/07/2022 12:25 PM CD T documented as of this encounter Care Teams Janitor Cleaner Relationship Specialty Start Date End Date Poonam Orlando APRN, C.N.P., PCP - General Family Medicine D.N.P. [address] [place] [phone] documented as of this encounter
--- OUTSIDE RECORDS SUMMARY | 2022-07-28 04:18 | XMS_ITS | Encounter Summary ---
:2000 Author Organization [facility] Address [address] [place] [address] Care Team Providers Name Role Phone Poonam Orlando APRN, C.N.PFrank, D.N.P. Primary Care Provid er Reason for Visit Reason Comments Follow-up Scratch on Left wrist Appointment Request (Routine) - Closed Specialty Diagnoses / Procedures Referred By Contact Refer red To Contact Family Medicine Referral ID Status Reason Start Date Expiration Date Visits Requ ested Visits Authorized [id number] Closed 02/21/2022 02/21/2023 1 1 Encounter Details Date Type Department Care Team Description 02/21/2022 Office Visit Department of Family Post, Nayeli Crespo Arm Without Medicine, [place] [facility], C.N.P. Foreign Body Initial Clinic, in [place], [facility] [address] [facility] (Primary Dx) [place], [place] [address] [address] [place], [place] [phone] (Work) [phone] Social History Tobacco Use Types Packs/Day Years [...] or relatives? How often do you attend mosque or Never 2021 restoration services? Do you belong to any clubs or Yes 01/23/2022 organizations such as mosque groups, unions, fraternal or athletic groups, or [...] Sign Reading Time Taken Comments Blood Pressure 108/74 02/21/2022 3:12 PM CDT Pulse 119 02/21/2022 3:12 PM CDT Temperature 36.8 ??C (98.2 ??F) 02/21/2022 3:12 PM CDT Respiratory Rate - - Oxygen Saturation - - Inhaled Oxygen Concentration - - Weight 48.9 kg (107 lb 12.9 oz) 02/21/2022 3:12 PM CDT Height - - Body Mass Index 17.58 05/24/2021 1:03 PM CDT documented in this encounter Progress Notes Post, Deonte Marrufo APRN, C.N.P. - 02/21/2022 3:30 PM CDT SUBJECTIVE CHIEF COMPLAINT / REASON FOR VISIT Claire Knutson Tammisophiemanjinder is a 21 y.o. female who presents for evaluation of Follow-up (Scratch on Left wrist). HISTORY OF PRESENT ILLNESS This afternoon patient was going to sit outside and read a book in the sunshine when she was moving a piece of outdoor furniture and scratched her left forearm. Patient rinse the area thoroughly and applied a Band-Aid and made appointment to clinic. Patient would like to update her tetanus shot and consider antibiotics. Injury was sustained approximately 24 hours ago. The following portions of the patient's history were reviewed and updated as appropriate: allergies,current medications, family history, medical history, social history, surgical history and problem list. OBJECTIVE BP 108/74 (BP Location: Left arm, Patient Position: Sitting, Cuff Size: Small) Pulse (!) 119 Temp 36.8 ??C (Temporal) Wt 48.9 kg LMP 02/10/2022 BMI 17.58 kg/m?? PHYSICAL EXAM Cardiovascular Rate and Rhythm: Normal rate. Pulmonary Effort: Pulmonary effort is normal. Skin General: Skin is warm and dry. Comments: Less than 1 cm superficial laceration of the anterior aspect of the left distal forearm. No erythema, warmth, induration, drainage. Bleeding controlled Neurological Mental Status: She is alert. ASSESSMENT / PLAN #1 Laceration Arm Without Foreign Body Initial Left Updated her tetanus. No indication for antibiotics. No indication for sutures or Dermabond. Recommended patient use bacitracin and keep the area covered with a Band-Aid until healed. Reviewed signs andsymptoms of secondary infection and when to return to clinic. - Tdap: Otkbtee-lsnecivsbr-cuarxtrpc pertussis vaccine (7 years and older) All questions answered and patient agrees plan of care. Return to clinic as needed. Deonte Hernandez APRN, C.N.P. documented in this encounter Plan of Treatment Not on filedocumented as of this encounter Visit Diagnoses Diagnosis Laceration Arm Without Foreign Body Init ial Left - Primary documented in this encounter Additional Health Concerns Assessment Noted Time PHQ-9 Depression Total Score: 12 01/20/2022 3:01 PM CD T documented as of this encounter Care Teams Insurance Billing Clerk Relationship Specialty Start Date End Date Poonam Orlando APRN, C.N.P., PCP - General Family Medicine D.N.P. [address] [place] [phone] documented as of this encounter
--- OUTSIDE RECORDS SUMMARY | 2022-07-28 04:18 | XMS_ITS | Encounter Summary ---
:2000 Author Organization [facility] Address [address] [place] [address] Care Team Providers Name Role Phone Poonam Orlando APRN, C.N.P., D.N.P. Primary Care Provid er Reason for Visit Reason Comments Med Refill Encounter Details Date Type Department Care Team Description 03/10/2022 Refill Department of [facility] Poonam Orlando APRN, Med Refill Medicine, [facility], C.N. P., D.N.P. in [facility] [address] [facility] [[email or web address]] [address] [place] [phone] [place] [address] [phone] Social History Tobacco Use Types Packs/Day Years [...] do you attend episcopal or Never 2021 confucianist services? Do you belong to any clubs [...] place to sleep or slept in a long-term (including now)? Education Answer Date Recorded What [...] documented as of this encounter Care Teams Collet Making Machine Operator Relationship Specialty Start Date End Date Poonam Orlando APRN, C.N.P., PCP - General Family Medicine D.N.P. [address] [place] [address] documented as of this encounter
--- OUTSIDE RECORDS SUMMARY | 2022-07-28 04:18 | XMS_ITS | Encounter Summary ---
:2001 Author Organization [facility] Address [address] [place] [address] Care Team Providers Name Role Phone Poonam Orlando APRN, C.N.P., D.N.P. Primary Care Provid er Reason for Visit Reason Comments Follow-up Appointment Request (Routine) - Closed Specialty Diagnoses / Procedures Referred By Contact Refer red To Contact Family Medicine Referral ID Status Reason Start Date Expiration Date Visits Requ ested Visits Authorized [id number] Closed 03/13/2022 03/13/2023 1 1 Encounter Details Date Type Department Care Team Description 03/14/2022 Telemedicine Department of Poonam Honeycutt Headache With Aura (Primary Dx); Medicine, Jonnathan Marrufo APRN, C.N.P., Attent ion Deficit Disorder Combined Type; Building, in D.N.P. Asthma Mild Intermittent (HCC) [place], [place] [address] [facility] [address] [place] [phone] Social History Tobacco Use Types Packs/Day Years [...] or relatives? How often do you attend pentecostalism or Never 2021 anglican services? Do you belong to any clubs or Yes 01/23/2022 organizations such as pentecostalism groups, unions, fraternal or athletic groups, or [...] Notes Poonam Orlando APRN, C.N.P., D.N.P. - 03/14/2022 3:30 PM CDT SUBJECTIVE CHIEF COMPLAINT / PURPOSE OF VISIT Patient presents for Follow-up. Consult conducted via real-time audio/video technology by Poonam Orlando APRN, SUPERVISOR BUFFING AND PASTING, DNP in [place], [place] to the patient in their home. Patient identity confirmed prior to commencing this telehealth visit. HISTORY OF PRESENT ILLNESS Video visit arranged today to discuss Neurology follow-up. This visit was arranged in the midst of the COVID-19 pandemic. Shawna returns virtually for follow-up to discuss migraine headaches. She was seen by Dr. Sheridan in Neurology on March 07, 2022 after she experienced a spell of prolonged left-sided weakness last monthconcerning for a hemiplegic migraine. Dr. Sheridan plans to obtain an MRA of the neck for further evaluation as well as some additional lab work, this is scheduled for next week. Per Dr. Sheridan's note, if the additional workup is negative the plan will be to focus on migraine management. Shawna is agreeable to holding the triptans at this time, due to potential for previous hemiplegic migraine. She is not interested in stopping the Adderall as she has difficulty paying attention while driving without use of the Adderall and she states that the Adderall helps her to remember to eat. 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 With her migraines, she typically has some nausea and dizziness. She states that when in the emergency department in the past she has been given antinausea medication for the tongue that has helped significantly with nausea and dizziness. She wonders about having a prescription for something like thisat home. She has had some weight loss since her hospitalization last month. She states she is working hard toregain this weight and is drinking 3 protein shakes per day in addition to her typical meals. She is currently having migraine headaches most days of the week with post migraine symptoms the remainder of the days. She states that she began having migraine headaches just 2-3 years ago, and they have increased in severity and frequency over the past 9-12 months. In the past, she has noted that the albuterol medication tends to make her migraine headaches worse.Currently, she feels her asthma is well managed. She has been using the albuterol max of 2 times perweek. OBJECTIVE PHYSICAL EXAMINATION VITALS: There were no vitals taken for this visit. GENERAL APPEARANCE: Well-developed, well-nourished in no acute distress. Non- toxic appearing. PSYCH: Appropriate grooming and hygiene. Maintains eye-contact throughout exam. Speech is rapid. Insight and judgment appear intact. ASSESSMENT / PLAN #1 Migraine Headache With Aura #2 Attention Deficit Disorder Combined Type #3 Asthma Mild Intermittent (HCC) Shwana returns for follow-up to discuss migraine headaches after she met with Dr. Sheridan last week. Together we reviewed Dr. Sheridan's note and recommendations. Will plan to increase verapamil to 80 mg twice per day as outlined below. Discussed potential side effects of this dose increase. Will als o trial Zofran as outlined below to use for nausea or dizziness during her migraines. Reviewed the potential border medications recommended by Dr. Sheridan. It seems age of these would require prior authorization. May curbside Neurology prior to ordering one of these medications. Had a thorough discussion regarding use of Adderall for management of her attention deficit disorder in the setting of her migraine headaches with aura. Discussed that these contribute to migraines potential vaso constriction. Ultimately, patient feels that the benefit of medication outweighs the risk and she would like to continue use of the Adderall. Did begin to discuss her asthma management. It seems her asthma is well managed at this time. Should her asthma worsen in the future she should be evaluated for consideration of step-up therapy. Other orders - verapamiL (CALAN) 80 mg tablet; Take 1 tablet (80 mg total) by mouth every 12 (twelve) hours., Starting 03/14/2022, Until 03/14/2023, Normal - ondansetron ODT (ZOFRAN-ODT) 4 mg disintegrating tablet; Dissolve 1 tablet (4 mg total) in the mouth every 8 (eight) hours as needed for nausea or vomiting., Starting 03/14/2022, Normal I personally spent a total of 40 minutes in pnb-uxfb-tp-face time performing a review of the record and/or discussion with the patient/caregiver as described above. PATIENT EDUCATION Ready to learn, no apparent learning barriers were identified; learning preferences include listening. documented in this encounter Plan of Treatment Not on filedocumented as of this encounter Visit Diagnoses Diagnosis Migraine Headache With Aura - Primary Attention Deficit Disorder Combined Type Asthma Mild Intermittent (HCC) documented in this encounter Additional Health Concerns Assessment Noted Time PHQ-9 Depression Total Score: 5 03/07/2022 12:25 PM CD T documented as of this encounter Care Teams Bander And Cellophaner Machine Relationship Specialty Start Date End Date Poonam Orlando APRN, C.N.P., PCP - General Family Medicine D.N.P. [address] [place] [address] documented as of this encounter
--- OUTSIDE RECORDS SUMMARY | 2022-07-28 04:18 | XMS_ITS | Encounter Summary ---
:2001 Author Organization [facility] Address [address] [place] [address] Care Team Providers Name Role Phone Poonam Orlando APRN, C.N.PFrank, D.N.P. Primary Care Provid er Reason for Visit Reason Comments Curmelisa Consultation Encounter Details Date Type Department Care Team Description 02/17/2022 Clinical Communication Department of [facility] in [place] Consultation [address] [place] [phone] [phone] Social History Tobacco Use Types Packs/Day Years [...] or relatives? How often do you attend gnosticist or Never 2021 sikh services? Do you belong to any clubs or Yes 01/23/2022 organizations such as gnosticist groups, unions, fraternal or athletic groups, or [...] place to sleep or slept in a residential (including now)? Education Answer Date Recorded What [...] documented as of this encounter Care Teams Floor Technician Relationship Specialty Start Date End Date Poonam Orlando APRN, C.N.P., PCP - General Family Medicine D.N.P. [address] [place] [address] documented as of this encounter
--- OUTSIDE RECORDS SUMMARY | 2022-07-28 04:18 | XMS_ITS | Encounter Summary ---
:2000 Author Organization [facility] Address [address] [place] [address] Care Team Providers Name Role Phone Poonam Orlando APRN, C.N.PFrank, D.N.P. Primary Care Provid er Reason for Referral Medication Prior Authorization - Authorized Specialty Diagnoses / Procedures Referred By Contact Refer red To Contact Poonam Orlando APRN, C.N.P., D.N.P. [address] [place] [phone] Referral ID Status Reason Start Date Expiration Date Visits V isits Requested Authorized [id number] Authorized 02/23/2022 03/25/2023 1 1 Encounter Details Date Type Department Care Team Description 03/25/2022 Orders Only Department of [facility] Poonam Orlando, Medicine, [place] [facility], C.N.P., D.N.P. Building, in [address] [address] [place] [address] [place] [address] [phone] Social History Tobacco Use Types Packs/Day Years [...] or relatives? How often do you attend restorationist or Never 2021 synagogue services? Do you belong to any clubs or Yes 01/23/2022 organizations such as restorationist groups, unions, fraternal or athletic groups, or [...] documented as of this encounter Care Teams Chief Design Branch Relationship Specialty Start Date End Date Poonam Orlando APRN, C.N.P., PCP - General Family Medicine D.N.P. [address] [place] [address] documented as of this encounter
--- OUTSIDE RECORDS SUMMARY | 2022-07-28 04:18 | XMS_ITS | Encounter Summary ---
:2001 Author Organization [facility] Address [address] [place] [address] Care Team Providers Name Role Phone Poonam Orlando APRN, C.N.PFrank, D.N.P. Primary Care Provid er Reason for Referral Outpatient (Routine) - Authorized Specialty Diagnoses / Procedures Referred By Contact Refer red To Contact Ophthalmology Diagnoses Suppression Binocular [facility], D.N.P. [address] [place] [phone] Referral ID Status Reason Start Expiration Visits Visits Date Date Requested Authorized [id number] Authorized Specialty 02/10/2022 02/10/2023 1 1 Services Required Encounter Details Date Type Department Care Team Description 02/10/2022 Orders Only Department of [facility] Poonam Orlando, [facility] D.N.P. Vision (Primary Dx) [facility], in [address] [place] [address] [place] [address] [place], [place] [phone] (Wo rk) [address] [phone] Social History Tobacco Use Types Packs/Day Years [...] or relatives? How often do you attend rastafari or Never 2021 jehovah's witness services? Do you belong to any clubs or Yes 01/23/2022 organizations such as rastafari groups, unions, fraternal or athletic groups, or [...] Name Type Priority Associated Order Schedule Diagnoses Ophthalmology - Outpatient Referral Routine Suppression Expec blanca: General consult Binocular Vision 02/11/20 22 (clinic) (Approximate), Expires: 05/12/2023 documented as of this encounter Visit Diagnoses Diagnosis Suppression Binocular Vision - Primary documented in this encounter Additional Health Concerns Assessment Noted Time PHQ-9 Depression Total Score: 12 01/20/2022 3:01 PM CD T documented as of this encounter Care Teams Atmospheric Chemist Relationship Specialty Start Date End Date Poonam Orlando APRN, C.N.P., PCP - General Family Medicine D.N.P. [address] [place] [address] documented as of this encounter
--- OUTSIDE RECORDS SUMMARY | 2022-07-28 04:18 | XMS_ITS | Encounter Summary ---
:2000 Author Organization [facility] Address [address] [place] [address] Care Team Providers Name Role Phone Poonam Orlando APRN, C.N.P., D.N.P. Primary Care Provid er Reason for Visit Outpatient (Routine) - Closed Specialty Diagnoses / Procedures Referred By Contact Refer red To Contact Pharmacy Diagnoses Medication Management [facility] D.N.P[facility] [address] [place] [phone] Referral ID Status Reason Start Date Expiration Date Visits Requ ested Visits Authorized [id number] Closed 01/22/2022 01/22/2023 1 1 Encounter Details Date Type Department Care Team Description 01/27/2022 Telemedicine Department of [facility] David Orlando APRN, C.N.PFrank, D.N.P. [address] [place] [phone] Medication Management Medicine in Jennifer Dexter, Pharm.D., R.Ph. [address] [place] [phone] Issue [place], [place] [address] [place] [phone] Social History Tobacco Use Types Packs/Day Years [...] or relatives? How often do you attend scientologist or Never 2021 druze services? Do you belong to any clubs or Yes 01/23/2022 organizations such as scientologist groups, unions, fraternal or athletic groups, or [...] documented as of this encounter Progress Notes Jennifer Dexter, Pharm.D., R.Ph. - 01/27/2022 3:00 PM CDT Medication Therapy Management SUBJECTIVE Claire Moncada is a 21 y.o. female, who is contacted via real-time audio/video technologyby Pharm. EduardoD., R.Ph. in [facility] to the patient in Patient's Home today by [facility] Pharmacist for comprehensive medication review. She was referred by Poonam Orlando APRN, C.N.P., D.N.P. for pharmacist management of medication/herbal interactions as outlined in dvul-iu-[id number]/video encounter on 01/22/22. Patient was at the visit unaccompanied. The patient does not appear cognitively impaired at this visit. Patient???s purpose of visit today is medication review and interactions. She has recently experienced several medication related adverse effects, which prompted consultationwith [facility] pharmacist. Consumed a new tea containing oolong and ginseng, which potentially caused emphasized effects of her Adderall medication. She has since stopped that tea and has now resumed her Adderall regimen with regular effects. 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 She consumes or would like to consume the following teas and inquires if they will be safe to use with her current medications: ?? Peppermint tea ?? Echinacea (herbal cup brand, immune with echinacea) ?? Nerissa tea ?? Green tea, matcha ?? Green needle ?? Puer tea (antwerps placebo) ?? Dragon pearls tea ?? Coni tea ?? Peony tea ?? Fever few tea Pertinent Medication Review: - ADD: She is prescribed Adderall XR 30 mg in the morning and Adderall 10 mg in the afternoon. She notices the effects if she does not take her Adderall per her usual routine. As above, potential interaction was experienced between Adderall and new teas she has tried. - Migraine: Prescribed rizatriptan 5 mg as needed (uses several doses weekly) and also shucddbquypqv31 mg at night for migraine prevention. Dose of nortriptyline most recently increased in November. Excedrin migraine also noted on her medication list to be used as needed. - Asthma: Prescribed albuterol inhaler, which she uses 3-4 times weekly when factors (exercise, scents) exacerbate her asthma. Medication Adherence: Medication reconciliation was accomplished by review of all prescription medications, [id number] medications and vitamin and supplements from original bottles, patient's memory and electronic health record (EHR) medication list. These were reviewed and reconciled with the patient. She takes medications at the following times of day: morning, noon and bedtime. Patient does NOT express concern regarding the convenience of the medication regimen including medication burden. The following portions of the patient's history were reviewed and updated as appropriate: allergies,current medications, family history, medical history, social history, surgical history and problem list. Pertinent patient lifestyle habits, preferences and beliefs, health and functional goals, health literacy, cultural factors and socioeconomic factors were assessed at this appointment with no concerns noted. OBJECTIVE Wt Readings from Last 3 Encounters: 01/22/22 47 kg 05/24/21 49.1 kg (12 %, Z= -1.15)* 04/04/21 48.7 kg (11 %, Z= -1.20)* * Growth percentiles are based on CDC (Girls, 2-20 Years) data. Pulse Readings from Last 3 Encounters: 01/22/22 (!) 116 05/24/21 (!) 116 05/09/20 89 BP Readings from Last 3 Encounters: 01/22/22 104/68 05/24/21 112/74 05/09/20 119/87 Lab Results Component Value Date NA 139 04/08/2021 KSERUM 5.0 04/08/2021 CL 101 04/08/2021 BICARB 27 04/08/2021 CREATININE 0.79 04/08/2021 EGFRNONBLKAA >90 04/08/2021 BUN 10 04/08/2021 ANIONGAP 11 04/08/2021 GLUCOSE 76 04/08/2021 CALCIUM 9.7 04/08/2021 Lab Results Component Value Date ALT 18 04/19/2021 AST 35 04/08/2021 ALKPHOS 70 04/08/2021 BILITOT 0.4 04/08/2021 Estimated Creatinine Clearance: 84.5 mL/min (by C-G formula based on SCr of 0.79 mg/dL). ASSESSMENT / PLAN Assessment: Pharmacotherapy was reviewed today with a patient-centered approach for indication, effectiveness, safety and convenience, taking into account pertinent health and functional status, risk factors, health data, cultural factors, health literacy and access to medications. Medication list discrepancies: Medication list is up to date with minor discrepancies; please see updated medication list for details. Medication adherence: No adherence issues were identified. Renal/hepatic dosing: Medications are appropriately dosed based on current renal function. Medications are appropriately dosed based on current hepatic function. Drug-disease interactions: Did not identify drug-disease interactions of clinical significance. 1. Drug-drug interactions: Drug-Drug interactions of potential clinical significance include: - Nortriptyline + Adderall: Tricyclic Antidepressants may enhance the adverse/toxic effect of Amphetamines. Tricyclic Antidepressants may potentiate the cardiovascular effects of Amphetamines. Amphetamines may enhance the serotonergic effect of Tricyclic Antidepressants. This could result in serotonin syndrome. She has previously tolerated, but should continue to monitor for these effects. - Multiple serotonergic agents: nortriptyline + rizatriptan. Concurrent use can increase risk of serotonin syndrome, along with Adderall as above. Recommend minimizing concurrent use as able. If concomitant use is necessary, use the lowest dose and shortest duration necessary to achieve treatment goals. Recommend monitoring for agitation or restlessness, confusion, rapid heart rate, dilated pupils, incoordination or muscle twitching, heavy sweating, diarrhea, headache or goose bumps, and immediatelyreport suspected symptoms to their care provider. Severe symptoms can include high fever, seizures, irregular heartbeat, or loss of consciousness - these can be life threatening so patient should seek emergency treatment immediately. - Multiple sympathomimetics: Adderall + Excedrin. Monitor for increased effects of sympathomimetics,such as increased blood pressure or heart rate during concomitant use. 2. Drug-herb interactions: ?? Peppermint tea: Use may slow metabolism and increase effects of medications processed through CY (Excedrin, nortriptyline). Unlikely to have clinical impacts, but effects of medications should be monitored with use of this tea. ?? Echinacea (herbal cup brand, immune with echinacea): Use may slow metabolism and increase effectsof medications processed through CY (Excedrin, nortriptyline). Black pepper ingredient in this tea may also slightly slow metabolism and increase effects of medications processed through CYP2D6 (Add erall). Unlikely to have clinical impacts, but effects of medications should be monitored with use of this tea. ?? Nerissa tea: Based on available data, would not expect interaction with current medications. ?? Green tea, matcha: Use may slow metabolism and increase effects of medications processed through CY (Excedrin, nortriptyline). Unlikely to have clinical impacts, but effects of medications should be monitored with use of this tea. Additionally, effects of this tea may increase stimulant effectsof Adderall. ?? Green needle: Based on available data, would not expect interaction with current medications. ?? Pu-erh tea: Recommend to avoid use with amphetamine medications as this tea may increase LABORER RAGS effects. ?? Dragon pearls tea: Theoretically, concomitant use might increase stimulant adverse effects of Adderall and should be used with caution. Additionally, use may slow metabolism and increase effects of medications processed through CY (Excedrin, nortriptyline). Unlikely to have clinical impacts, but effects of medications should be monitored with use of this tea. ?? Coni tea: Based on available data, would not expect interaction with current medications. ?? Peony tea: Use may slow metabolism and increase effects of medications processed through CY (Excedrin, nortriptyline). Unlikely to have clinical impacts, but effects of medications should be monitored with use of this tea. ?? Feverfew tea: Use may slow metabolism and increase effects of medications processed through CY (Excedrin, nortriptyline). Use may slow metabolism and increase effects of medications processed through CYP2D6 (Adderall). Effects of medications should be monitored with use of this tea. 3. Drug-gene interactions: Patient has had some unexpected responses to medications in the past, including recent trial of risperidone which caused very severe side effects with use. Discussed that it may be useful to help guidefuture medication decisions to consider pharmacogenomic testing. She requested that additional information regarding storage and use of genetic information be provided. Plan: The following action(s) were not taken under the authority of a collaborative practice agreement unless otherwise noted. 1. No changes to therapy recommended at this time. As above, continue to monitor effects of medications and use caution when trialing any new teas or other herbal/supplement products. Encouraged patient to contact clinic with questions on future herbal product usage. 2. Consider pharmacogenomic testing in future if patient is interested in this. Would recommend [employer] pharmacogenomic testing. Follow-up with pharmacist was not scheduled at this time. Claire expressed understanding of, and agreement with plan of care. She was provided a verbal summary of these recommendations and was provided a written summary of recommendation via patient online services. Total time spent was 60 minutes, with more than 50% of the time spent on counseling, coordination ofcare and patient education. Plan of care was communicated to the primary care provider via an electronically routed chart. documented in this encounter Plan of Treatment Not on filedocumented as of this encounter Visit Diagnoses Diagnosis Medication Management Issue documented in this encounter Additional Health Concerns Assessment Noted Time PHQ-9 Depression Total Score: 12 01/20/2022 3:01 PM CD T documented as of this encounter Care Teams Outboard Technician Relationship Specialty Start Date End Date Poonam Orlando APRN, C.N.P., PCP - General Family Medicine D.N.P. [address] [place] [phone] documented as of this encounter
--- OUTSIDE RECORDS SUMMARY | 2022-07-28 04:18 | XMS_ITS | Encounter Summary ---
:2000 Author Organization [facility] Address [address] [place] [address] Care Team Providers Name Role Phone Poonam Orlando APRN, C.N.P., D.N.P. Primary Care Provid er Reason for Visit Reason Comments Medical Information Encounter Details Date Type Department Care Team Description 01/19/2022 Nurse Triage Department of [facility] Pamela Clemente [facility] Information Medicine, Jonnathan Marrufo R.N. [facility], [place] [address] [place] [address] [place] [phone] [place] [phone] Social History Tobacco Use Types Packs/Day Years [...] or relatives? How often do you attend rastafarian or Never 2021 buddhism services? Do you belong to any clubs or Yes 01/23/2022 organizations such as rastafarian groups, unions, fraternal or athletic groups, or [...] place to sleep or slept in a chcf (including now)? Education Answer Date Recorded What is the highest level of school you have Some college, n o degree 05/24/2021 completed or the highest degree you have received? Sex Assigned at Date Recorded Female 01/23/2022 2:50 PM CDT documented as of this encounter Miscellaneous Notes Telephone Encounter - Pamela Clemente R.N. - 01/19/2022 10:37 PM CDT [place] patient calling with symptoms. Transferred to [facility] Switchboard to page field education director provider for advice. documented in this encounter Plan of Treatment Not on filedocumented as of this encounter Visit Diagnoses Not on filedocumented in this encounter Additional Health Concerns Assessment Noted Time PHQ-9 Depression Total Score: 5 12/26/2016 12:01 AM CS T documented as of this encounter Care Teams E Learning Manager Relationship Specialty Start Date End Date Poonam Orlando APRN, C.N.P., PCP - General Family Medicine D.N.P. [address] [place] [phone] documented as of this encounter
--- OUTSIDE RECORDS SUMMARY | 2022-07-28 04:18 | XMS_ITS | Encounter Summary ---
:2000 Author Organization [facility] Address [address] [place] [address] Care Team Providers Name Role Phone Poonam Orlando APRN C.N.Paola, D.N.P. Primary Care Provid er Reason for Referral Outpatient (Routine) - Authorized Specialty Diagnoses / Procedures Referred By Contact Refer red To Contact Bernie Mesa M.D. [facility] [address] [place] [phone] Referral ID Status Reason Start Date Expiration Date Visits V isits Requested Authorized [id number] Authorized 12/25/2021 12/25/2022 1 1 ING MACHINE SETUP OPERATOR Encounter Details Date Type Department Care Team Description 12/25/2021 Orders Only Division of [facility] Bernie Mesa Hea dache [facility] Internal MedicineElizabeth (Primary Dx) [facility] in [address] [place] [address] [place] [phone] [place], [place] [phone] (Work) [phone] Social History Tobacco Use Types Packs/Day Years [...] or relatives? How often do you attend taoism or Never 2021 shinto services? Do you belong to any clubs or Yes 01/23/2022 organizations such as taoism groups, unions, fraternal or athletic groups, or [...] Name Type Priority Associated Order Schedule Diagnoses Primary Care nurse Outpatient Referral Routine Ex pected: visit (clinic) - 12/26/2021 [facility]; (Approxima te), Medication injection Expires : (order medication); 03/27/20 23 Pain medication (IM) documented as of this encounter Visit Diagnoses Diagnosis Headache Benign - Primary documented in this encounter Additional Health Concerns Assessment Noted Time PHQ-9 Depression Total Score: 5 12/26/2016 12:01 AM CS T documented as of this encounter Care Teams Oil Tanker Captain Relationship Specialty Start Date End Date Poonam Orlando APRN, C.N.P., PCP - General Family Medicine D.N.P. [address] [place] [phone] documented as of this encounter
--- OUTSIDE RECORDS SUMMARY | 2022-07-28 04:18 | XMS_ITS | Encounter Summary ---
:2000 Author Organization [facility] Address [address] [place] [address] Care Team Providers Name Role Phone Poonam Orlando APRN, C.N.PFrank, D.N.P. 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 [address] [place] [address] Referral ID Status Reason Start Date Expiration Date Visits Requ ested Visits Authorized [id number] Closed 01/20/2022 01/20/2023 1 1 Reason for Visit Reason Comments ADHD Appointment Request (Routine) - Closed Specialty Diagnoses / Procedures Referred By Contact Refer red To Contact Family Medicine Referral ID Status Reason Start Date Expiration Date Visits Requ ested Visits Authorized [id number] Closed 01/20/2022 01/20/2023 1 1 Encounter Details Date Type Department Care Team Description 01/20/2022 Office Visit Department of Family [facility] tention Deficit Disorder Combined Type (Primary Dx); MedicineJonnathan APRN, C.N.P., Mood Diso rder Due To Known Physiological Condition With Manic Features Building, in D.N.P. [place], [place] [address] [facility] [address] [place] [phone] Social History Tobacco Use Types Packs/Day Years Used Date Smoking Tobacco: Never Smokeless Tobacco: Never Tobacco Cessation: Counseling Given: No Alcohol Use Standard Drinks/Week Comments Never 0 [...] or relatives? How often do you attend amish or Never 2021 samaritan services? Do you belong to any clubs or Yes 01/23/2022 organizations such as amish groups, unions, fraternal or athletic groups, or [...] PM CDT documented as of this encounter Patient Instructions Patient InstructionsSpring Stevens APRN, C.N.P., D.N.P. - 01/20/2022 3:00 PM CDT Stop Adderall and Adderall XR Stop Ginseng team documented in this encounter Progress Notes Spring Stevens APRN, C.N.P., Cony.N.P. - 01/20/2022 3:00 PM CDT CHIEF COMPLAINT / REASON FOR VISIT Claire Moncada is a 21 y.o. 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 She states that thisstarted about a week ago when she started drinking oolong or ginseng tea 2-3 servings per day. She started to developed worsening focus, in abilities to sleep, at time she feels like her heart is beating fast. She states she did not sleep at all last night and she is very tired and wishes she can sleep today. She is worried that she has ???tea poisioning. She feels like her thoughts are racing and she has difficulties staying focused and on task much more the so than what she did prior to being on Adderall. She is talkative and speaking faster than usual. She did send a portal message in concernedabout her Tea usage. She was advised to stop it as it can increase the affects of the Adderall. She stop taking the ginseng Tea last night. She denies any auditory or visual hallucinations. She denies any suicidal ideations. She does have asignificant family history of depression and had a sister who attempted suicide. She states that shefeels calm and has no suicidal thoughts. She denies any known history of edenilson or bipolar disorder in her family. REVIEW OF SYSTEMS Neurological: Positive for headaches (Has a headache today but no significant aura.). Psychiatric/Behavioral: Positive for sleep disturbance, little interest or pleasure in doing things over past two weeks, feeling down, depressed, or hopeless over past two weeks, not being able to stopor control worrying over past two weeks and feeling nervous, anxious, or on edge in past two weeks. SCREENINGS The following screenings were completed: NAYE-7 Total Score (max 21): 14 PHQ-9 Total Score (max 27): 12 (01/20/22 1501) PHQ-2 Score: 0 OBJECTIVE PHYSICAL EXAM Constitutional Appearance: Normal appearance. Cardiovascular Rate and Rhythm: Normal rate and regular rhythm. Pulses: Normal pulses. Heart sounds: Normal heart sounds. Pulmonary Effort: Pulmonary effort is normal. Breath sounds: Normal breath sounds. Neurological Mental Status: She is alert and oriented to person, place, and time. Psychiatric Attention and Perception: She is inattentive. She does not perceive visual hallucinations. Mood and Affect: Mood is anxious. Speech: Speech is rapid and pressured and tangential. Behavior: Behavior is hyperactive. Thought Content: Thought content does not include homicidal or suicidal plan. Comments: Patient is very tangential in her conversation today. She has difficulty staying on task and focus in our conversation. She has difficulties answering even simple yes no questions such as completing the PHQ-9 in NAYE-7. There were no vitals taken for this visit. There is no height or weight on file to calculate BMI. 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 Ezra Avalos in [facility] Psychiatry. I am concerned that this patient is either having a manic episode or she has over stimulated by the ginseng tea the possible drug interaction with the Adderall. Dr. Avalos recommended discontinuing both her Adderall and her ginseng tea. Also recommend starting risperidone 1 mg at bedtime to help her with sleep if this is possible manic episode. This dose could possibly be increased to 2 mg per bedtime if needed. He recommends thatshe be seen back in 48 hours to see how her mood is doing and how she is feeling following discontinuing this medication. I will have her follow-up with her primary care provider. would like to be paged are involved with further questions regarding her care. Patient Instructions Stop Adderall and Adderall XR Stop Ginseng team documented in this encounter Plan of Treatment Scheduled Referrals Name Type Priority Associated Diagnoses Order S [facility] 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 [address] [place] [phone] documented as of this encounter
--- OUTSIDE RECORDS SUMMARY | 2022-07-28 04:18 | XMS_ITS | Encounter Summary ---
:2000 Author Organization [facility] Address [address] [place] [address] Care Team Providers Name Role Phone Poonam Orlando APRN C.N.PFrank, D.N.P. Primary Care Provid er Reason for Referral Outpatient (Routine) - Closed Specialty Diagnoses / Procedures Referred By Contact Refer red To Contact Spine Diagnoses Pain Neck Mechanical Headache Cervicogenic Mikel Neal D.C., [facility] Ph.D. 200 [place] [address] Referral ID Status Reason Start Date Expiration Date Visits Requ ested Visits Authorized [id number] Closed 01/29/2022 01/29/2023 1 1 Scheduling Instructions 4-6 wks thx! Reason for Visit Reason Comments Back Pain Neck Pain Outpatient (Routine) - Closed Specialty Diagnoses / Procedures Referred By Contact Refer red To Contact Spine Diagnoses Pain Neck Mechanical Headache Cervicogenic Mikel Neal D.C., [facility] Ph.D. [address] [place] [phone] Referral ID Status Reason Start Date Expiration Date Visits Requ ested Visits Authorized [id number] Closed 01/01/2022 01/01/2023 1 1 Encounter Details Date Type Department Care Team Description 01/29/2022 Office Visit Department of Spine Mikel Neal P ain Neck Mechanical; in Angeli Figueroa, Ph.D. Headache Cervicogenic; [place] [address] [facility] Dysfunction Somatic Cervical Region; [address] [place], [place] Dysfunction Somatic Thoracic Region; [place] [address] Dysfunction Somatic Lumbar Region [id number] [phone] Social History Tobacco Use Types Packs/Day Years [...] or relatives? How often do you attend mandaen or Never 2021 hoahaoism services? Do you belong to any clubs or Yes 01/23/2022 organizations such as mandaen groups, unions, fraternal or athletic groups, or [...] documented as of this encounter Progress Notes Mikel Neal D.C., Ph.D. - 01/29/2022 3:00 PM CDT SUBJECTIVE Date of onset:??2019 Initial treatment date: 07/02/2021 Claire Moncada presents for chiropractic evaluation of Back Pain and Neck Pain Ms. Moncada reports today that her head and neck feel tight and sore. She has also been struggling with head pain. She performs prescribed home exercises with fair frequency (she has had to cut backrecently due to illness). She rates current pain intensity at 4/10 on the verbal pain scale. OBJECTIVE Passive spinal segmental range of motion evaluation reveals extension restriction of T6, left rotation restriction of L1 and C2, and right rotation restriction of C1. Hypertonicity and hyperalgesia are noted with palpation of bilateral suboccipital muscles. ASSESSMENT / PLAN Claire Moncada is being treated for mechanical neck and back pain with myofascial features, related to upper and lower crossed postural disorders; and spinal joint motion dysfunction. Care today will involve manual therapy to improve global and cervical, thoracic, and lumbar segmental motion, and for symptom relief. Care also involves exercise prescription and coaching. ACTION: Claire Moncada was taught how to perform a supine myofascial self- release exercise today,with diaphragmatic breathing, targeting suboccipital muscles using two tennis balls in a glove. I described the basis of the exercise routine, demonstrated it, and we practiced it together. The patient's form looks great, and exercise is well-tolerated. ?? Today we spent 7 minutes in therapeutic exercise. Mandy grade V spinal mobilization was applied today at the above-listed levels in the cervical region. Grade IV mobilization was also applied at the above-listed levels in the thoracic and lumbar regions. Instrument-assisted myofascial release technique was applied to the above-listed musculature. This is followed by application of ice to the treated regions. PLAN: It was recommended that Claire Moncada continue performance of the prescribed home exercise program. Follow up with me in four to six weeks. PPE use information for possible contact monitoring: PPE used during visit: Clinician was wearing a mask throughout the entire session. Patient was wearing a mask throughout the entire session. documented in this encounter Plan of Treatment Scheduled Referrals Name Type Priority Associated Diagnoses Order S chedule Spine office Outpatient Referral Routine Pain Neck Me chanical Expected: visit (clinic) Headache Cervicogenic 02/17 (Approximate), Expires: 04/30/2023 documented as of this encounter Visit Diagnoses Diagnosis Pain Neck Mechanical Headache Cervicogenic Dysfunction Somatic Cervical Region Dysfunction Somatic Thoracic Region Dysfunction Somatic Lumbar Region documented in this encounter Additional Health Concerns Assessment Noted Time PHQ-9 Depression Total Score: 12 01/20/2022 3:01 PM CD T documented as of this encounter Care Teams Optical Element Coater Relationship Specialty Start Date End Date Poonam Orlando APRN, C.N.P., PCP - General Family Medicine D.N.P. [address] [place] [address] documented as of this encounter
--- OUTSIDE RECORDS SUMMARY | 2022-07-28 04:18 | XMS_ITS | Encounter Summary ---
:2000 Author Organization [facility] Address [address] [place] [address] Care Team Providers Name Role Phone Poonam Orlando APRN C.N.Paola, D.N.P. Primary Care Provid er Reason for Referral Outpatient (Routine) - Closed Specialty Diagnoses / Procedures Referred By Contact Refer red To Contact Spine Diagnoses Pain Neck Mechanical Headache Cervicogenic Mikel Neal D.C., [facility] Ph.D. 200 [place] [address] Referral ID Status Reason Start Date Expiration Date Visits Requ ested Visits Authorized [id number] Closed 01/01/2022 01/01/2023 1 1 Reason for Visit Reason Comments Back Pain Neck Pain Outpatient (Routine) - Closed Specialty Diagnoses / Procedures Referred By Contact Refer red To Contact Spine Diagnoses Pain Neck Mechanical Pain Low Back Mechanical Mikel Neal D.C., [facility] Ph.D. [address] [place] [phone] Referral ID Status Reason Start Date Expiration Date Visits Requ ested Visits Authorized [id number] Closed 12/06/2021 12/06/2022 1 1 Encounter Details Date Type Department Care Team Description 01/01/2022 Office Visit Department of Spine Mikel Neal Head ache Cervicogenic (Primary Dx); in [facility] Angeli Donnelly, Ph.D. Pain Neck Mechanical; [place] 200 Pain Low Back Mechanical; 200 [place], [place] Dysfunction Somatic Cervical Region; [place] [address] Dysfunction Somatic Thoracic Region [id number] Social History Tobacco Use Types Packs/Day Years [...] or relatives? How often do you attend anglican or Never 2021 oriental orthodox services? Do you belong to any clubs or Yes 01/23/2022 organizations such as anglican groups, unions, fraternal or athletic groups, or [...] Progress Notes Mikel Neal D.C., Ph.D. - 01/01/2022 2:30 PM CDT SUBJECTIVE Date of onset:??2019 Initial treatment date: 07/02/2021 Claire Moncada presents for chiropractic evaluation of Back Pain and Neck Pain Ms. Moncada reports today that she has been struggling with migraines recently. Her neck range ofmotion is slowly getting better, but it's still been pretty sore. Her back feels OK. She performs prescribed home exercises consistently; I know it gets worse when I don't do that. Her suboccipital muscles feel fatigued, she reports. OBJECTIVE Passive spinal segmental range of motion evaluation reveals right rotation restriction of C1, T4, and T7; and left rotation restriction of C2. Hypertonicity and hyperalgesia are noted with palpation of bilateral suboccipital muscles. ASSESSMENT / PLAN Claire Moncada is being treated for mechanical neck and back pain with myofascial features, related to upper and lower crossed postural disorders; and spinal joint motion dysfunction. Care today will involve manual therapy to improve global and cervical and thoracic segmental motion,and for symptom relief. Care also involves exercise prescription and coaching. ACTION: Claire Moncada was taught how to perform a supine myofascial self- release exercise today,with diaphragmatic breathing, targeting suboccipital muscles using a Marcos ball. I described the basis of the exercise routine, demonstrated it, and we practiced it together. The patient's form looks great, and exercise is well-tolerated. Today we spent 7 minutes in therapeutic exercise. Mandy grade V spinal mobilization was applied today at the above-listed levels in the cervical and thoracic regions. Instrument-assisted myofascial release technique was applied to the above-listed musculature. This is followed by application of ice to the treated regions. PLAN: It was recommended that Claire Moncada continue performance of the prescribed home exercise program. Follow up with me in four weeks. We will likely begin deep cervical flexor muscle strengthening at that juncture. PPE use information for possible contact monitoring: PPE used during visit: Clinician was wearing a mask throughout the entire session. Patient was wearing a mask throughout the entire session. documented in this encounter Plan of Treatment Scheduled Referrals Name Type Priority Associated Diagnoses Order S [facility] Spine office Outpatient Referral Routine Pain Neck Me chanical Expected: visit (clinic) Headache Cervicogenic 01/17 (Approximate), Expires: 04/03/2023 documented as of this encounter Visit Diagnoses Diagnosis Headache Cervicogenic - Primary Pain Neck Mechanical Pain Low Back Mechanical Dysfunction Somatic Cervical Region Dysfunction Somatic Thoracic Region documented in this encounter Additional Health Concerns Assessment Noted Time PHQ-9 Depression Total Score: 5 12/26/2016 12:01 AM CS T documented as of this encounter Care Teams Power Transformer Assembler Relationship Specialty Start Date End Date Poonam Orlando APRN, C.N.P., PCP - General Family Medicine D.N.P. [address] [place] [address] documented as of this encounter
--- OUTSIDE RECORDS SUMMARY | 2022-07-28 04:18 | XMS_ITS | Encounter Summary ---
:2000 Author Organization [facility] Address [address] [place] [address] Care Team Providers Name Role Phone Poonam Orlando APRN, C.N.PFrank, D.N.P. Primary Care Provid er Reason for Referral MRI/CAT/PET Scan (Routine) - Closed Specialty Diagnoses / Procedures Referred By Contact Refer red To Contact Radiology Diagnoses [facility] (HCC) Barbie Sheridan M.D. [facility] Procedures MR Neck Angiogram without and with IV Contrast NM MRA NECK WO/W CNTRST [address] [place] [address] Referral ID Status Reason Start Date Expiration Date Visits Requ ested Visits Authorized [id number] Closed 03/09/2022 06/07/2022 1 1 Reason for Visit MRI/CAT/PET Scan (Routine) - Closed Specialty Diagnoses / Procedures Referred By Contact Refer red To Contact Radiology Diagnoses [facility] (HCC) Barbie Sheridan M.D. [facility] Procedures MR Neck Angiogram without and with IV Contrast NM MRA NECK WO/W CNTRST [address] [place] [address] Referral ID Status Reason Start Date Expiration Date Visits Requ ested Visits Authorized [id number] Closed 03/09/2022 06/07/2022 1 1 Encounter Details Date Type Department Care Team Description 03/21/2022 Hospital Encounter Department of Osiris Sheridan eurological Radiology, Jorge Davis ([facility]) [facility] in 200 [facility] [address] 200 [facility] [phone] [place], [place] (Work) [address] [phone] Social History Tobacco Use Types Packs/Day Years [...] or relatives? How often do you attend zoroastrianism or Never 2021 gnosticist services? Do you belong to any clubs or Yes 01/23/2022 organizations such as zoroastrianism groups, unions, fraternal or athletic groups, or [...] PM CDT documented as of this encounter Medications at Time of Discharge Medication Sig Dispensed Refills Start Date End Date albuterol 90 Inhale 2 puffs 18 g 2 10/15/2021 mcg/actuation inhaler every 4 (four) hours as needed for wheezing or shortness of breath. subixci-jkqovhxehoeri-xi Take 1 tablet by 0 ffeine (EXCEDRIN mouth as needed for MIGRAINE) 250-250-65 mg pain. per tablet B complex-vitamin (SUPER Take 1 tablet by 0 B-50) capsule mouth daily. fluticasone propionate Administer 1 spray 0 (FLONASE) 50 into each nostril mcg/actuation nasal as needed for spray rhinitis or allergies. iron,carbonyl-vitamin C Take 65 mg of iron 0 (VITRON-C) 65 mg iron- by mouth daily. Do [address] tablet not crush or chew. magnesium citrate 100 mg Take 1 each by 0 capsule mouth daily. naproxen (NAPROSYN) 500 TAKE ONE TABLET BY 60 tablet 0 02/17 mg tablet MOUTH TWICE A DAY NEEDED FOR PAIN nortriptyline (PAMELOR) Take 2 capsules (20 180 capsule 3 01/24/2023 10 mg capsule mg total) by mouth at bedtime. amphetamine-dextroamphet Take 1 capsule (30 28 capsule 0 04/16/2022 amine (Adderall XR) 30 mg total) by mouth mg 24 hr capsule daily for 28 days. dextroamphetamine-amphet Take 1 tablet (10 28 tablet 0 02/1704/16/2022 amine (ADDERALL) 10 mg mg total) by mouth tablet daily for 28 days. ondansetron ODT Dissolve 1 tablet 20 tablet 0 03/14/2022 (ZOFRAN-ODT) 4 mg (4 mg total) in the disintegrating tablet mouth every 8 (eight) hours as needed for nausea or vomiting. verapamiL (CALAN) 80 mg Take 1 tablet (80 180 tablet 3 03/1407/18/2022 tablet mg total) by mouth every 12 (twelve) hours. documented as of this encounter Plan of Treatment Not on filedocumented as of this encounter Procedures Procedure Name Priority Date/Time Associated Comments Diagnosis MR NECK ANGIOGRAM RAD - Routine 03/21/2022 9:26 [facility] Results for this WITHOUT AND WITH (most inpatients AM CDT (HCC) procedu re are in IV CONTRAST and all the results outpatients) section. documented in this encounter Results MR Neck Angiogram without and with IV [...] IMPRESSION: Normal MRA of the neck. Barbie PALM MRI PROCEDURES documented in this encounter Visit Diagnoses Diagnosis [facility] (HCC) documented in this encounter Administered Medications Inactive Administered Medications - up to 3 most recent administrations Medication Order MAR Action Action Date Dose Rate Site gadobutrol injection 0.01-30 mL Given 03/21/2022 9:11 AM CDT 5 m L (GADAVIST) 0.01-30 mL, intravenous, Once in imaging, contrast, Starting on Thu03/21/22 at 0814, For 1 dose, Imaging Protocol Orders, Dose per Radiant Medication Guidelines Intrathecal doses greater than 0.25 mL not recommended. sodium chloride (PF) 0.9 % injection 1-1 00 mL Given 03/21/2022 9:12 AM CDT 30 mL 1-100 mL, intravenous, Once, On Thu03/21/22 at 0815, For 1 dose, Imaging Protocol Orders documented in this encounter Additional Health Concerns Assessment Noted Time PHQ-9 Depression Total Score: 5 03/07/2022 12:25 PM CD T documented as of this encounter Care Teams Core Carrier Relationship Specialty Start Date End Date Poonam Orlando APRN, C.N.P., PCP - General Family Medicine D.N.P. [address] [place] [phone] documented as of this encounter
--- OUTSIDE RECORDS SUMMARY | 2022-07-28 04:18 | XMS_ITS | Encounter Summary ---
:2000 Author Organization [facility] Address [address] [place] [address] Care Team Providers Name Role Phone Poonam Orlando APRN, C.N.P., D.N.P. 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 [address] [phone] Referral ID Status Reason Start Date Expiration Date Visits Requ ested Visits Authorized [id number] Closed 02/24/2022 02/24/2023 1 1 Reason for Visit Outpatient (Routine) - Closed Specialty Diagnoses / Procedures Referred By Contact Refer red To Contact Neurology Diagnoses Hemiplegic Migraine Intractable With Status Migrainosus Migraine Headache With Aura [facility] C.N.P., D.N.P. [address] [place] [address] Referral ID Status Reason Start Date Expiration Date Visits Requ ested Visits Authorized [id number] Closed 02/24/2022 02/24/2023 1 1 Encounter Details Date Type Department Care Team Description 02/24/2022 Internal E-Consult Department of Mary Castillo, [place] plegic Migraine Not Intractable Without Status Migrainosus (Primary Dx); Neurology in [place] Hemiplegic Migraine Intractable With Sta tus Migrainosus; [place], [place] [address] Migraine Headache With Aura [address] [place] [phone] Social History Tobacco Use Types Packs/Day Years [...] or relatives? How often do you attend gnosticism or Never 2021 caodaism services? Do you belong to any clubs or Yes 01/23/2022 organizations such as gnosticism groups, unions, fraternal or athletic groups, or [...] place to sleep or slept in a alf (including now)? Education Answer Date Recorded What is the highest level of school you have Some college, n o degree 05/24/2021 completed or the highest degree you have received? Sex Assigned at Date Recorded Female 01/23/2022 2:50 PM CDT documented as of this encounter Consult Notes Mary Castillo D.O. - 02/24/2022 4:45 PM CDT This patient was not personally interviewed or examined. The history and examination findings are based on the clinical documentation provided and/or discussion with a physician or provider who had personally interviewed and examined the patient. Consultation requested by: Poonam Orlando APRN, C.N.P., D.N.P. 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 acute management of migraine headache with aura in the setting of recent presumed hemiplegic migraine, see outside records for details. HISTORY OF PRESENT ILLNESS Claire Moncada is a 21 y.o. female for whom I am conducting an electronic consultation. As part of this electronic consultation, I reviewed the progress notes from the referring physician/provider as well as outside medical records from [facility]. This is summarized as follows: I reviewed the discharge summary from February 10, 2022 from [facility]. As documented by PCP, patient developed her typical migraine with aura, took Maxalt without improvement and subsequently experienced whole body numbness, left side of body including legs arm and face were numb and she could not talk. She was able to think but had difficulty translating her thoughts to speech. She also had feeling of chills. Patient presented to the emergency department with what is described in the notes as left-sided weakness and inability to speak. It is noted that she has difficulty using her left hand when this happens. It is noted that she has had hemiplegic symptoms in the past associated with her migraines. Had previously been told in the past to stop triptan due to relative contraindication with hemiplegic migraine. Noted on exam that she appeared to have normal ability to use her hands, but that during exam she ???suddenly act as if she is weak but catches herself and does not fall It is noted that an emergency staff spoke with a neurologist at [facility] who hadrecommended that patient be admitted for observation. She underwent brain MRI without contrast, MRA of the head without contrast, both of which were unremarkable by report It is noted that a component of conversion reaction could not be excluded. She was dismissed on verapamil 120 mg daily for migraine prophylaxis. She had follow-up with her PCP who recommended neurology consultation. It looks like this was put in as an E consult. I did speak with the patient's primary sometime in the last several da ys about whether Adderall would be a problem with hemiplegic migraine to which I responded that I did not know of any contraindication to this. Did recommend continuing nortriptyline and verapamil and holding the rizatriptan. ASSESSMENT / PLAN #1 History of migraine with aura with left brandon sensory symptoms versus left hemiplegia raising the concern about possible hemiplegic migraine This is an electronic consultation. My impressions are based on limited review of the electronic health record and outside medical records as described above. It seems there is a discrepancy in the history obtained by the patient's PCP which was that of wholebody numbness, left-sided numbness following the onset of a typical migraine headache with aura, butthe discharge summary from [facility] says that the patient presented with left-sided weakness. At the same time, it sounds like the examining provider who saw her in [place] was not convinced of any true weakness and raised the possibility of functional symptoms. Therefore, itis difficult for me to know for sure whether she truly has hemiplegic migraine. She denied a family history of hemiplegic migraine though this does not exclude the diagnosis. Generally triptans are to b e avoided in individuals with hemiplegic migraine, which would include the rizatriptan that she had been taking. However at this point I can not be confident of this diagnosis. I do think she should beseen by headache subspecialty list here at [facility] to sort this out, confirm the appropriate diagnosis and then make appropriate recommendations with regard to treatment. I am going to request a headache subspecialty consultation to accomplish this. documented in this encounter Plan of Treatment Scheduled Referrals Name Type Priority Associated Diagnoses Order S [facility] Neurology - Outpatient Referral Routine Migraine Headache Exp ected: Headache consult With Aura 02/24/2022 (clinic) Hemiplegic Migraine (Approxi mate), Not Intractable Expires: Without Status 05/27/2023 Migrainosus documented as of this encounter Visit Diagnoses Diagnosis Hemiplegic Migraine Not Intractable With out Status Migrainosus - Primary Hemiplegic Migraine Intractable With Sta tus Migrainosus Migraine Headache With Aura documented in this encounter Additional Health Concerns Assessment Noted Time PHQ-9 Depression Total Score: 12 01/20/2022 3:01 PM CD T documented as of this encounter Care Teams International Account Representative Relationship Specialty Start Date End Date Poonam Orlando APRN, C.N.P., PCP - General Family Medicine D.N.P. [address] [place] [address] documented as of this encounter
--- OUTSIDE RECORDS SUMMARY | 2022-07-28 04:18 | XMS_ITS | Encounter Summary ---
:2000 Author Organization [facility] Address [address] [place] [address] Care Team Providers Name Role Phone Poonam Orlando APRN, C.N.P., D.N.P. Primary Care Provid er Reason for Visit Reason Comments Puncture Wound Encounter Details Date Type Department Care Team Description 02/21/2022 Nurse Triage Department of [facility] Meadows [facility], [facility], in [place], [facility] [address] [place], [place] [address] [facility] [phone] [place] [address] [phone] Social History Tobacco Use Types Packs/Day Years [...] or relatives? How often do you attend orthodoxy or Never 2021 sabianist services? Do you belong to any clubs or Yes 01/23/2022 organizations such as orthodoxy groups, unions, fraternal or athletic groups, or [...] this encounter Miscellaneous Notes Telephone Encounter - Britany Meadows R.N. - 02/21/2022 12:56 PM CDT Chief Complaint / Reason for Call Patient is a 21 y.o. female calling regarding Puncture Wound. Assessment Concern: Patient cut her arm on some prerna metal yesterday. She says the cleaned the wound and used hydrogen peroxide. Last Tdap was in 2013. Present for: 24 hours Calling to request: Advice The recommended disposition is See a health care provider within 24 hours. Patient has an appointment scheduled for today. Reason for Disposition ? ? [1] Last tetanus shot > 5 years ago AND [2] DIRTY puncture (e.g., object OR skin was dirty, objects on ground/floor) Protocols used: PUNCTURE [id number] Care Advice Patient/Caregiver understands and will follow care advice?: Yes, able to teach back SEE PCP WITHIN 24 HOURS: TETANUS: * You should get a tetanus booster shot in the next 24 hours. WASH THE WOUND: * Wash dirty or clean puncture wounds with warm water and soap for 15 minutes. * For any dirt or debris, scrub the wound surface back and forth with a washcloth to remove it. * If the wound rebleeds a little, that may help remove germs. ANTIBIOTIC OINTMENT: * Apply an antibiotic ointment and a Band-Aid to reduce the risk of infection. * Re-wash the area and re-apply an antibiotic ointment every 12 hours for 2 days. CALL BACK IF: * You become worse. CARE ADVICE given per Puncture Wound (Adult) guideline. documented in this encounter Plan of Treatment Not on filedocumented as of this encounter Visit Diagnoses Not on filedocumented in this encounter Additional Health Concerns Assessment Noted Time PHQ-9 Depression Total Score: 12 01/20/2022 3:01 PM CD T documented as of this encounter Care Teams Day Care Director Relationship Specialty Start Date End Date Poonam Orlando APRN, C.N.P., PCP - General Family Medicine D.N.P. [address] [place] [address] documented as of this encounter
--- OUTSIDE RECORDS SUMMARY | 2022-07-28 04:18 | XMS_ITS | Encounter Summary ---
:[address] [facility] Address [address] [place] [address] Care Team Providers Name Role Phone Poonam Orlando APRN C.N.PFrank, D.N.P. Primary Care Provid er Reason for Visit Reason Comments Back Pain Neck Pain Headache Outpatient (Routine) - Closed Specialty Diagnoses / Procedures Referred By Contact Refer red To Contact Spine Diagnoses Pain Neck Mechanical Headache Cervicogenic Mikel Neal D.C., [facility] Ph.D. [address] [place] [phone] Referral ID Status Reason Start Date Expiration Date Visits Requ ested Visits Authorized [id number] Closed 01/29/2022 01/29/2023 1 1 Encounter Details Date Type Department Care Team Description 03/10/2022 Office Visit Department of Spine Mikel Neal P aimanjinder Neck Mechanical; in Angeli Figueroa, Ph.D. Headache Cervicogenic; [place] [address] [place] [address] Dysfunction Somatic Thoracic Region [address] [place] [phone] Social History Tobacco Use Types Packs/Day Years [...] or relatives? How often do you attend christian or Never 2021 latter-day services? Do you belong to any clubs or Yes 01/23/2022 organizations such as christian groups, unions, fraSeeqpod or athletic groups, or school groups? How [...] Progress Notes Mikel Neal D.C., Ph.D. - 03/10/2022 3:00 PM CDT SUBJECTIVE Date of onset:??2019 Initial treatment date: 07/02/2021 Claire Moncada presents for chiropractic evaluation of Back Pain, Neck Pain, and Headache Ms. Moncada reports that she currently feels neck and back stiffness. 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 OBJECTIVE Passive spinal segmental range of motion evaluation reveals extension restriction of levels T4 and T6. Hypertonicity and hyperalgesia are noted with palpation of bilateral upper trapezii and erector spinae. ASSESSMENT / PLAN Cliare Moncada is being treated for mechanical neck and back pain with myofascial features, related to upper and lower crossed postural disorders; and spinal joint motion dysfunction. Given the possibility that left-sided neurological symptoms are related to arterial dissection, we will forgo thrust manipulation of the cervical spine in treatment. Ms. Moncada should also avoid all extension- and rotation-based neck exercises at this time which I had prescribed previously. Care today will involve manual therapy to improve global and thoracic segmental motion, and for symptom relief. Care also involves exercise prescription and coaching. ACTION: Aurora grade IV prone nonthrust spinal mobilization was applied today at the above-listed levels in the thoracic region. Passive manual myofascial release technique was applied to the above-listed musculature, followed bypost-isometric relaxation. PLAN: It was recommended that Claire Moncada continue performance of the prescribed home exercise program. Follow up with me after neck MRA (scheduled 03/21/2022). PPE use information for possible contact monitoring: PPE used during visit: Clinician was wearing a mask throughout the entire session. Patient was wearing a mask throughout the entire session. documented in this encounter Plan of Treatment Not on filedocumented as of this encounter Visit Diagnoses Diagnosis Pain Neck Mechanical Headache Cervicogenic Dysfunction Somatic Thoracic Region documented in this encounter Additional Health Concerns Assessment Noted Time PHQ-9 Depression Total Score: 5 03/07/2022 12:25 PM CD T documented as of this encounter Care Teams Budder Relationship Specialty Start Date End Date Poonam Orlando APRN, C.N.P., PCP - General Family Medicine D.N.P. [address] [place] [address] documented as of this encounter
--- OUTSIDE RECORDS SUMMARY | 2022-07-28 04:18 | XMS_ITS | Encounter Summary ---
:2001 Author Organization [facility] Address [address] [place] [address] Care Team Providers Name Role Phone Poonam Orlando APRN, C.N.PFrank, D.N.P. Primary Care Provid er Reason for Referral Medication Prior Authorization - Closed Specialty Diagnoses / Procedures Referred By Contact Refer red To Contact Poonam Orlando APRN, C.N.P., D.N.P. [address] [place] [phone] Referral ID Status Reason Start Date Expiration Date Visits Requ ested Visits Authorized [id number] Closed 1 1 Reason for Visit Reason Comments Med Refill Encounter Details Date Type Department Care Team Description 04/15/2022 Refill Department of [facility] Poonam Orlando APRN, Med Refill Medicine, [facility], C.N. P., D.N.P. in [facility] [address] [place] [address] [place] [phone] [place] [address] [phone] Social History Tobacco Use Types Packs/Day Years [...] or relatives? How often do you attend scientology or Never 2021 caodaism services? Do you belong to any clubs or Yes 01/23/2022 organizations such as scientology groups, unions, fraternal or athletic groups, or [...] place to sleep or slept in a care home (including now)? Education Answer Date Recorded What is the highest level of school you have Some college, n o degree 05/24/2021 completed or the highest degree you have received? Sex Assigned at Date Recorded Female 01/23/2022 2:50 PM CDT documented as of this encounter Miscellaneous Notes Telephone Encounter - Priyanka Schaffer, L.P.N. - 04/16/2022 10:38 AM CDT The patient is requesting a renewal of Adderall XR 30 mg and IR 10 mg, per Poonam Orlando APRN, C.N.P., D.N.P., as outlined in their Problem List Overview for ADD. The renewal is pended. There are no nursing concerns at this time. Date the last Rx was able to be filled on: 03/11/2022 Urine Drug Screening: Is not required by the prescribing provider plan in Problem List Overview. Screening/Assessments due: No screenings due for patient at this time. Next Provider Visit due: 02/2023 If no concerns or follow-up, no need to route back to care team nurse or nurse renewal team.. Telephone Encounter - Nena Eagle - 04/16/2022 6:44 AM CDT Nurse review: Unable to forward request to provider; Controllled Substance, CSA Primary Provider: Poonam Orlando APRN, C.N.P., D.N.P. Requested Prescriptions Pending Prescriptions Disp Refills ??? Adderall XR 30 mg 24 hr capsule [Pharmacy Med Name: ADDERALL XR 30MG CP24] 28 capsule 0 Sig: TAKE ONE CAPSULE BY MOUTH EVERY DAY 03/10/22 ??? dextroamphetamine-amphetamine (ADDERALL) 10 mg tablet [Pharmacy Med Name: AMPHETAMINE-DEXTROAMPHETAMI 10 TABS] 28 tablet 0 Sig: TAKE ONE TABLET BY MOUTH EVERY DAY [facility] ([facility]): [facility] documented in this encounter Plan of Treatment Not on filedocumented as of this encounter Visit Diagnoses Not on filedocumented in this encounter Additional Health Concerns Assessment Noted Time PHQ-9 Depression Total Score: 5 03/07/2022 12:25 PM CD T documented as of this encounter Care Teams Amusement Ride Operator Relationship Specialty Start Date End Date Poonma Orlando APRN, C.N.P., PCP - General Family Medicine D.N.P. [address] [place] [address] documented as of this encounter
--- OUTSIDE RECORDS SUMMARY | 2022-07-28 04:18 | XMS_ITS | Encounter Summary ---
:2001 Author Organization [facility] Address [address] [place] [address] Care Team Providers Name Role Phone Poonam Orlando APRN, C.N.PFrank, D.N.P. Primary Care Provid er Encounter Details Date Type Department Care Team Description 01/19/2022 Clinical Communication Department of [facility], Jonnathan Mata M.D. [facility], in [address] [place] [address] [place] [phone] [place], [place] [phone] (Wo rk) [phone] Social History Tobacco Use Types Packs/Day Years [...] do you attend rastafarian or Never 2021 synagogue services? Do you [...] this encounter Miscellaneous Notes Telephone Encounter - Jackie Buck R.N. - 01/20/2022 11:27 AM CDT SUBJECTIVE CHIEF COMPLAINT / REASON FOR CALL No chief complaint on file. Information Discussed Patient called in to follow up online message from Jennifer Dexter today and from her phone call with Dr. [place] last night. She states she is no longer taking the Ginseng tea. Her heart rate at 5 AM was 107. She has not check ed it since, but feels its still elevated. She states she did not sleep well last night. She states she has been busy with school and studying. She notes she has had some asthma attacks and used her Albuterol inhaler as needed in the past week. She notes that she has has some chest tightness due to her asthma issues. She notes some migraines lately as well, she has had auroras with her migraines, these are not new. She notes some chills today. Please see Dr. [place]'s note last night as well. She would like to be seen and make sure she is okay, she states this is very unnerving. She is being seen today by Clair Stevens. PLAN Disposition/Recommendation: patient transferred to the appointment desk Information/Education: patient/caller able to teach back Caller agreeable to plan of care: yes The following references were used: nursing clinical judgement Telephone Encounter - Alyce [place] M.D. - 01/19/2022 10:42 PM CDT As mission manager, received a call from patient about feeling generally unwell. She is on Adderall for ADHD. Perhaps feels the medication is working too well. She is feeling like she's having a more rapid heart rate. She did start a new tea this week. She is asthmatic and had an asthma attack yesterday and still feels a bit tight and with increased shortnessof breath on exertion. She doesn't feel particularly panicky or stressed, no self-harm or suicidal ideation. She is studying for [employer] and that's been a lot of work, but she enjoys her studies and work. No drug use other than prescribed medications. We reviewed that she should certainly use albuterol as needed for asthma symptoms. Recommend avoidance of new tea as it seems to disagree with her. Based on phone call, no clear role for emergent evaluation tonight. I'll route this message to Ms. Orlando and her nursing team to touch base with patient about phone call tonight and make plan for observation vs appointment. All questions answered to the best of my ability. documented in this encounter Plan of Treatment Not on filedocumented as of this encounter Visit Diagnoses Not on filedocumented in this encounter Additional Health Concerns Assessment Noted Time PHQ-9 Depression Total Score: 5 12/26/2016 12:01 AM CS T documented as of this encounter Care Teams Machine Operator Farmworker Relationship Specialty Start Date End Date Poonam Orlando APRN, C.N.P., PCP - General Family Medicine D.N.P. [address] [place] [address] documented as of this encounter
--- OUTSIDE RECORDS SUMMARY | 2022-07-28 04:18 | XMS_ITS | Encounter Summary ---
:2001 Author Organization [facility] Address [address] [place] [address] Care Team Providers Name Role Phone Poonam Orlando APRN, C.N.PFrank, D.N.P. Primary Care Provid er Encounter Details Date Type Department Care Team Description 03/21/2022 Hospital Encounter Department of [place], Migraine Headache With Aura; Laboratory Medicine Jorge Prieto Hemiplegic Migraine Not Intractable With out Status Migrainosus and Pathology, [address] [place] [address], in [place], [place] [phone] [place] [address] [place], [place] (Work) [phone] Social History Tobacco Use Types Packs/Day Years [...] do you attend lutheran or Never 2021 judaism services? Do you [...] place to sleep or slept in a fdc (including now)? Education Answer Date Recorded What [...] needed for wheezing or shortness of breath. [id number] Take 1 tablet by 0 ffeine (EXCEDRIN [...] Procedure Name Priority Date/Time Associated Comments Diagnosis ANCA VASCULITIS PANEL, Routine 03/21/2022 10:00 Migraine Heada shyam Results for this S AM CDT With Aura procedure are in Hemiplegic Migraine the resu lts Not Intractable section. Without Status Migrainosus SEDIMENTATION RATE, B Routine 03/21/2022 10:00 Migraine Headac he Results for this AM CDT With Aura procedure are in Hemiplegic Migraine the resu lts Not Intractable section. Without Status Migrainosus ANTINUCLEAR ABS ([place]), Routine 03/21/2022 10:00 Migraine [place] shyam Results for this S AM CDT With Aura procedure are in Hemiplegic Migraine the resu lts Not Intractable section. Without Status Migrainosus COMPREHENSIVE Routine 03/21/2022 10:00 Migraine Headache Resul ts for this METABOLIC PANEL, S/P AM CDT With Aura procedure are in Hemiplegic Migraine the resu lts Not Intractable section. Without Status Migrainosus documented in this encounter Results Sedimentation Rate (03/21/2022 10:00 [...] Organization Address City/State/ZIP Code Phon e Number [facility] - 200 [place], [place] [address] [facility] [place] [address] Laboratories-[facility] 200 [facility] (ABNORMAL) Comprehensive Metabolic Panel (03/21/2022 10:00 AM [...] 03/21/2022 DTL Black/ mL/min/BSA 11:23 AM CDT Chilean Comment: ----ADDITIONAL INFORMATION---- Estimated GFR calculated using [...] M.D. LAB BLOOD ADD-ON Performing Organization Address City/[facility]/ZIP Code Phon e Number [facility] [address] [address] [place] [address] Laboratories-[address] [place] (Antinuclear Antibodies) (03/21/2022 10:00 AM CDT) P athologist Signature Antinuclear Ab, 0.5 <=1.0 03/21/2022 [facility] S (Negative) 8:42 PM CDT U Comment: ----ADDITIONAL INFORMATION---- Method: Enzyme-linked immunoassay using HEp-2 nuclear extract supplemented with purified antig ens. Specimen Anatomical Collection Method Collection Time Receive d Time (Source) Location / / Volume Laterality Blood (Blood, 03/21/2022 10:00 03/21/2022 2:02 Venous) AM CDT PM CDT Barbie Sheridan M.D. LAB BLOOD ADD-ON Performing Organization Address City/[facility]/ZIP [facility] Phon e Number [facility] [address] [place], [place] [address] SUPPORT CENTER [facility] [place] [address] Laboratory Medicine and Pathology [address] [place] ANCA (Antineutrophil Cytoplasmic Antibodies) Vasculitis Panel (03/21/2022 10:00 AM CDT) Patholo gist Method Time Signature Myeloperoxidase Ab, <0.2 <0.4 03/21/2022 [facility] S (Negative 2:25 PM CDT ) U Proteinase 3 Ab <0.2 <0.4 03/21/2022 [facility] (PR3), S (Negative 2:25 PM CDT ) U Specimen Anatomical Collection Method Collection Time Receive d Time (Source) Location / / Volume Laterality Blood (Blood, 03/21/2022 10:00 03/21/2022 1:33 Venous) AM CDT PM CDT Barbie Sheridan M.D. LAB BLOOD ADD-ON Performing Organization Address City/State/ZIP Code Phon e Number [facility] [address] [place], [place] [address] SU[facility] CENTER [facility] [place] [address] Laboratory Medicine and Pathology [address] [place] documented in this encounter Visit Diagnoses Diagnosis Migraine Headache With Aura Hemiplegic Migraine Not Intractable With out Status Migrainosus documented in this encounter Additional Health Concerns Assessment Noted Time PHQ-9 Depression Total Score: 5 03/07/2022 12:25 PM CD T documented as of this encounter Care Teams Housetrailer Servicer Relationship Specialty Start Date End Date Poonam Orlando APRN, C.N.P., PCP - General Family Medicine D.N.P. [address] [place] [address] documented as of this encounter
--- OUTSIDE RECORDS SUMMARY | 2022-07-28 04:19 | XMS_ITS | Encounter Summary ---
:2001 Author Organization [facility] Address [address] [place] [address] Care Team Providers Name Role Phone Poonam Orlando APRN, C.N.Paola, D.N.P. Primary Care Provid er Encounter Details Date Type Department Care Team Description 09/16/2021 Orders Only Department of Family Devonte Nair ph, M.D. Medicine, [address], in [place], [place] [phone] [place] [address] [phone] Social History Tobacco Use Types Packs/Day Years [...] do you attend jainism or Never 2021 advent services? Do you belong to any clubs [...] place to sleep or slept in a custodial (including now)? Education Answer Date Recorded What [...] documented as of this encounter Care Teams Band Sawmill Operator Relationship Specialty Start Date End Date Poonam Orlando APRN, C.N.P., PCP - General Family Medicine D.N.P. [address] [place] [address] documented as of this encounter
--- OUTSIDE RECORDS SUMMARY | 2022-07-28 04:19 | XMS_ITS | Encounter Summary ---
:2000 Author Organization [facility] Address [address] [place] [address] Care Team Providers Name Role Phone Hussein Jones M.D. Primary Care Provider Unavailable Reason for Visit Reason Comments Abdominal Pain Nausea Appointment Request (Routine) - Closed Specialty Diagnoses / Procedures Referred By Contact Refer red To Contact Community Pediatric and Adolescent Medicine Referral ID Status Reason Start Date Expiration Date Visits Requ ested Visits Authorized [id number] Closed 04/03/2021 04/03/2022 1 1 Encounter Details Date Type Department Care Team Description 04/04/2021 Office Visit Division of [facility] Cindi Marinelli, Pain Epigastric Pediatric and SHAQ CFrankNFrankPFrank, (Primary Dx) [facility] [place], [place] [address] [place] [address] Social History Tobacco Use Types Packs/Day Years Used Date Smoking Tobacco: Never Smokeless Tobacco: Never Alcohol Habits Answer Date Recorded How often [...] or relatives? How often do you attend advent or Never 2021 druze services? Do you belong to any clubs or Yes 01/23/2022 organizations such as advent groups, unions, fraternal or athletic groups, or [...] place to sleep or slept in a assisted (including now)? Sex Assigned at Date Recorded Female 01/23/2022 2:50 PM CDT documented as of this encounter Last Filed Vital Signs Vital Sign Reading Time Taken Comments Blood Pressure - - Pulse - - Temperature - - Respiratory Rate - - Oxygen Saturation - - Inhaled Oxygen Concentration - - Weight 48.7 kg (107 lb 5.8 oz) 04/04/2021 8:55 AM CDT Height 168.3 cm (5' 6.26) 04/04/2021 8:55 AM CDT Body Mass Index 17.19 04/04/2021 8:55 AM CDT documented in this encounter Progress Notes Cindi Marinelli, SHAQ, C.N.P., M.S.N. - 04/04/2021 9:00 AM CDT SUBJECTIVE Claire Moncada is a 20 y.o. female presenting today with concerns for Abdominal Pain and Nausea. Abdominal Pain Chronicity: Patient reports she woke at 2:00am 2 nights ago with 8/10 abdominal pain. She notes thatthe pain lasted about 50 minutes before it decreased. She is still having 2/10 abdominal pain with intermittent 5/10 pain. The pain is located in the epigastric region (just about the umbilicus, and sometimes radiate to the ribcage area). The current episode started in the past 7 days (2 days ago). The onset quality is sudden. The problem occurs daily (initially it was a 50 min sudden pain, intense, the entire area was horrible, since then every couple minutes she will get a sharp pain. ). The problem has been unchanged. The pain is at a severity of 8/10. The abdominal pain does not radiate. Associated symptoms include anorexia, belching, flatus and nausea. Pertinent negatives include no constipation, diarrhea, dysuria, fever, hematochezia or vomiting. Associated symptoms comments: Stool 2 times a day, normal. No straining. No hx constipation. No fever, sore throat, cough, recent illness. . Nothing (she has tried to see if any type of food causes the pain, but doesn't find a correlation) aggravates the pain. The pain is relieved by nothing. Treatments tried: heat pack, bland foods. The treatment provided no relief. Menses: last about 7 days, just over a month, they are now more predictable. LMP: about 3 weeks ago.No hx sexual encounter. Lives with mom, dad and 2 sisters. No one has symptoms. Summer- home from [facility] for the summer. OBJECTIVE PHYSICAL EXAMINATION VITALS: Wt 48.7 kg Ht 168.3 cm BMI 17.19 kg/m?? HC: - BP: - Blood pressure percentiles are not available for patients who are 18 years or older. GENERAL: Well-appearing, 20 y.o. female who appears age-appropriate. ABDOMEN: Soft, without organomegaly. Bowel sounds normal. Mildly tender to palpation on mid-upper abdomen. nondistended. No masses palpable. No guarding, and no pain in RUQ, LUQ, RLQ, or LLQ. Cardiology: MENTAL STATUS: Alert and in no distress. Age-appropriate. NEUROLOGIC: Normal tone, no focal deficits appreciated. Appropriate for age. ASSESSMENT / PLAN #1 Pain Epigastric Claire Zenia Moncada is a 20 y.o. female presenting today with concerns for a 2 day hx of abdominal pain which has been intermittent. Exam is reassuring at this time and based on exam and history,no concern for cholecystitis, peritonitis, pancreatitis, obstruction, appendicitis. This could be anearly sign of a viral gastroenteritis. I recommend observation for now with supportive cares- fluids, rest, bland foods, heat pack. Discussed when to seek emergent care. Also, I will have nursing call her tomorrow to see how her symptoms are doing. If there is no improvement, or symptoms are worsening, we could obtain initial labs (CBC, amylase, lipase, BMP) and an abdominal ultrasound to explore possible causes. Discussed Thursday clinic availability as well. All questions were answered and concerns were addressed. documented in this encounter Plan of Treatment Not on filedocumented as of this encounter Visit Diagnoses Diagnosis Pain Epigastric - Primary documented in this encounter Additional Health Concerns Assessment Noted Time PHQ-9 Depression Total Score: 5 12/26/2016 12:01 AM CS T documented as of this encounter Care Teams Brake Repairer Hydraulic Relationship Specialty Start Date End Date Hussein Jones M.D. PCP - General 04/19/18 04/17/21 documented as of this encounter
--- OUTSIDE RECORDS SUMMARY | 2022-07-28 04:19 | XMS_ITS | Encounter Summary ---
:2000 Author Organization [facility] Address [address] [place] [address] Care Team Providers Name Role Phone Poonam Orlando APRN, C.N.P., D.N.P. Primary Care Provid er Reason for Visit Reason Comments Med Refill Encounter Details Date Type Department Care Team Description 09/06/2021 Refill Department of [facility] Poonam Orlando APRN, Med Refill Medicine, [facility], C.N. P., D.N.P. in [facility] [address] [facility] [address] [place] [id number] [place] [address] [phone] Social History Tobacco Use Types Packs/Day Years [...] or relatives? How often do you attend jew or Never 2021 anabaptist services? 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 [address] [place] [address] documented as of this encounter
--- OUTSIDE RECORDS SUMMARY | 2022-07-28 04:19 | XMS_ITS | Encounter Summary ---
:2000 Author Organization [facility] Address [address] [place] [address] Care Team Providers Name Role Phone Hussein Jones M.D. Primary Care Provider Unavailable Encounter Details Date Type Department Care Team Description 04/08/2021 Hospital Encounter Department of Cindi Mairnelli Pain Epigastric; Laboratory Medicine C, [facility] ROUTEMAN, C.N.P., Body Mass Index 19.9 Or Less Adult and Pathology, M.S.N. [place], [place] [address] [place] [address] Social History Tobacco Use Types Packs/Day Years [...] or relatives? How often do you attend jehovah's witness or Never 2021 temple services? Do you belong to any clubs or Yes 01/23/2022 organizations such as jehovah's witness groups, unions, fraternal or athletic groups, or [...] or slept in a custodial (including now)? Sex Assigned at Date Recorded Female 01/23/2022 2:50 PM CDT documented as of this encounter Medications at Time of Discharge Medication Sig Dispensed Refills Start Date End Date fluticasone propionate Administer 1 spray 0 (FLONASE) 50 into each nostril as mcg/actuation nasal needed for rhinitis or spray allergies. albuterol inhaler Inhale 2 puffs every 4 1 Inhaler 2 201910/15/2021 (four) hours as needed for wheezing or shortness of breath. ferrous sulfate 325 mg Take 325 mg by mouth 0 01/29/2022 (65 mg iron) tablet daily. ibuprofen Take 2 tablets by 0 02/04/2017 022 (ADVIL,MOTRIN) 200 mg mouth every 6 (six) tablet hours. pain documented as of this encounter Plan of Treatment Not on filedocumented as of this encounter Procedures Procedure Name Priority Date/Time Associated Comments Diagnosis THYROID FUNCTION Routine 04/08/2021 9:09 Body Mass Index Resul ts for this CASCADE, S AM CDT 19.9 Or Less Adult procedure are in the results section. CELIAC DISEASE SEROLOGY Routine 04/08/2021 9:09 Body Mass Inde x Results for this CASCADE, S AM CDT 19.9 Or Less Jet lt procedure are in Pain Epigastric the results section. [place] AMYLASE PANCREATIC Routine 04/08/2021 9:09 Pain Epigastric Results for this ASSAY AM CDT procedure are i n the results section. TISSUE TRANSGLUTAMINASE Routine 04/08/2021 9:09 R esults for this (TTG) AB, IGA, S AM CDT procedure a re in the results section. SEDIMENTATION RATE, B Routine 04/08/2021 9:09 Pain Epigastric Results for this AM CDT procedure are i n the results section. CBC WITH DIFFERENTIAL, B Routine 04/08/2021 9:09 Pain Epigastr ic Results for this AM CDT procedure are i n the results section. LIPASE, S/P Routine 04/08/2021 9:09 Pain Epigastric Results f or this AM CDT procedure are i n the results section. COMPREHENSIVE METABOLIC Routine 04/08/2021 9:09 Pain Epigastri c Results for this PANEL, S/P AM CDT procedure are i n the results section. documented in this encounter Results tTG (Tissue Transglutaminase), Antibody, IgA (04/08/2021 9:09 AM CDT) [facility] Method Time Signature Tissue <1.2 <4.0 04/08/2021 [facility] Transglutaminase Ab, (Negative 9:24 PM CDT IgA, S ) U/mL Specimen Anatomical Collection Method Collection Time Receive d Time (Source) Location / / Volume Laterality Blood 04/08/2021 9:09 AM 4:46 CDT PM CDT Cindi Marinelli APRN, C.N.P., M.S.N. LAB BLOOD ADD-ON Performing Organization Address City/[facility] Code Phon e Number [facility] [address] [place], [place] [address] SU[facility] [place] [address] Laboratory Medicine and Pathology [address] [place] Thyroid Function [place] (04/08/2021 9:09 AM CDT) athologist Signature TSH, Sensitive 3.0 0.5 - 4.3 04/08/2021 [facility] mIU/L 10:24 AM CDT Specimen Anatomical Collection Method Collection Time Receive d Time (Source) Location / / Volume Laterality Blood (Blood, 04/08/2021 9:09 AM 04/08/20 9:35 Venous) CDT AM CDT Bette Pink APRNNShaye., M.S.N. LAB BLOOD ADD-ON Performing Organization Address City/[facility] Phon e Number [facility] - [address] [place], [place] [address] [facility] [place] [address] Laboratories-[facility] [address] (ABNORMAL) CBC with Differential, Blood (04/08/2021 9:09 AM CDT) Patholo gist Method Time Signature Hemoglobin 13.8 11.6 - 04/08/2021 DTL 15.0 g/dL 10:04 AM CDT Hematocrit 41.0 35.5 - 04/08/2021 DTL 44.9 % 10:04 AM CDT Erythrocytes 4.48 3.92 - 04/08/2021 DTL 5.13 10:04 AM CDT x10(12)/L MCV 91.5 78.2 - 04/08/2021 DTL 97.9 fL 10:04 AM CDT RBC Distrib Width 11.7 (L) 12.2 - 04/08/2021 DTL 16.1 % 10:04 AM CDT Platelet Count 323 157 - 371 04/08/2021 DTL x10(9)/L 10:04 AM CDT Leukocytes 6.7 3.4 - 9.6 04/08/2021 DTL x10(9)/L 10:04 AM CDT Neutrophils 3.31 1.56 - 04/08/2021 DTL 6.45 10:04 AM CDT x10(9)/L Lymphocytes 2.47 0.95 - 04/08/2021 DTL 3.07 10:04 AM CDT x10(9)/L Monocytes 0.63 0.26 - 04/08/2021 DTL 0.81 10:04 AM CDT x10(9)/L Eosinophils 0.20 0.03 - 04/08/2021 DTL 0.48 10:04 AM CDT x10(9)/L Basophils 0.05 0.01 - 04/08/2021 DTL 0.08 10:04 AM CDT x10(9)/L Specimen Anatomical Collection Method Collection Time Receive d Time (Source) Location / / Volume Laterality Blood (Blood, 04/08/2021 9:09 AM 04/08/20 9:22 Venous) CDT AM CDT Amadeo Pink APRN.N.P., M.S.N. LAB BLOOD ADD-ON Performing Organization Address City/State/ZIP Code Phon e Number [facility] - [address] [place], [place] [address] [facility] [place] [address] Laboratories-[facility] 200 [facility] Celiac Disease Serology [place] (04/08/2021 9:09 AM CDT) Component Value Ref Test Analysis Performed Pathologis t Range Method Time At Signature Immunoglobulin A 230 61 - 356 04/08/2021 [facility] (IgA), S mg/dL 4:21 PM CDT Celiac Disease Negative serology. Celiac di sease unlikely. However, approximately 10% of 04/08/2021 [facility] Interpretation patients with celiac disease are seronegative. Also, patients who are already 10:44 PM adhering to a gluten-free diet may be seronegative. If patric iac disease is CDT highly clinically suspected, consider HLA-DQ typing. Specimen Anatomical Collection Method Collection Time Receive d Time (Source) Location / / Volume Laterality Blood (Blood, 04/08/2021 9:09 AM 04/08/20 1:00 Venous) CDT PM CDT Narrative [facility]PPORT [facility] R - 04/08/2021 10:44 PM CDT Specimen Information: Specimen ID: [id number] Specimen Type: Blood Specimen Collection Start Date: 04/08/20 ??9:09 AM Specimen Received Date: 04/08/2021 ??1:0 0 PM Specimen ID: [id number] Specimen Type: Blood Specimen Collection Start Date: 04/08/20 ??9:09 AM Specimen Received Date: 04/08/2021 12:50 PM Bette Pink APRNNTroy, M.S.N. LAB BLOOD ADD-ON Performing Organization Address City/State/ZIP Code Phon e Number [facility] [address] [place] [address] SUPPORT CENTER [facility] [place] [address] Laboratory Medicine and Pathology [address] [place] [address] Dr. LAURENT Sedimentation Rate (04/08/2021 9:09 AM CDT) Analysis Performed At Patho logist Time Signature Sedimentation 5 2 - 20 04/08/2021 DTL Rate, B mm/h 10:53 AM CDT Specimen Anatomical Collection Method Collection Time Receive d Time (Source) Location / / Volume Laterality Blood (Blood, 04/08/2021 9:09 AM 04/08/20 9:22 Venous) CDT AM CDT Cindi Marinelli APRN, C.N.P., M.S.N. LAB BLOOD ADD-ON Performing Organization Address City/[facility] Phon e Number [facility] - [address] [address] [address] Lipase (04/08/2021 9:09 AM CDT) athologist Signature Lipase, S 34 13 - 60 U/L 04/08/2021 DTL 10:24 AM CDT Specimen Anatomical Collection Method Collection Time Receive d Time (Source) Location / / Volume Laterality Blood (Blood, 04/08/2021 9:09 AM 04/08/20 9:35 Venous) CDT AM CDT Cindi Marinelli APRN, C.N.P., M.S.N. LAB BLOOD ADD-ON Performing Organization Address [facility] Phon e Number [facility] - [address] [place] [address] [address] (ABNORMAL) Comprehensive Metabolic Panel (04/08/2021 9:09 AM CDT) athologist Signature Potassium, S 5.0 3.6 - 5.2 04/08/2021 DTL mmol/L 10:21 AM CDT Sodium, S 139 135 - 145 04/08/2021 DTL mmol/L 10:21 AM CDT Chloride, S 101 98 - 107 04/08/2021 DTL mmol/L 10:21 AM CDT Bicarbonate, S 27 22 - 29 04/08/2021 DTL mmol/L 10:21 AM CDT Anion Gap 11 7 - 15 04/08/2021 DTL 10:21 AM CDT BUN (Blood Urea 10 6 - 21 04/08/2021 DTL Nitrogen), S mg/dL 10:21 AM CDT Creatinine 0.79 0.59 - 04/08/2021 DTL 1.04 mg/dL 10:21 AM CDT eGFR-Non >90 >=60 04/08/2021 DTL Black/ mL/min/BSA 10:21 AM CDT Lao Comment: ----ADDITIONAL INFORMATION---- Estimated GFR calculated using the 2008 CKD_EPI creatinine equation. eGFR-Black/ >90 >=60 mL/min/BSA 2020 10:21 AM CDT DTL Comment: ----ADDITIONAL INFORMATION---- Estimated GFR calculated using the 2009 CKD_EPI creatinine equation. Calcium, Total, S 9.7 8.6 - 10.0 mg/dL 04/08/2021 10:2 1 AM CDT DTL Glucose, S 76 70 - 140 mg/dL 04/08/2021 10:21 AM CDT DTL Protein, Total, S 7.4 6.3 - 7.9 g/dL 04/08/2021 10:21 AM CDT DTL Albumin, S 5.0 3.5 - 5.0 g/dL 04/08/2021 10:21 AM CDT DTL Aspartate Aminotransferase 35 8 - 43 U/L 04/08/2021 1 0:21 AM CDT DTL (AST), S Alkaline Phosphatase, S 70 35 - 104 U/L 04/08/2021 10 :21 AM CDT DTL Alanine Aminotransferase 118 (H) 7 - 45 U/L 04/08/2021 10: 21 AM CDT DTL (ALT), S Bilirubin, Total, S 0.4 <=1.2 mg/dL 04/08/2021 10:21 A M CDT DTL Specimen Anatomical Collection Method Collection Time Receive d Time (Source) Location / / Volume Laterality Blood (Blood, 04/08/2021 9:09 AM 04/08/20 9:35 Venous) CDT AM CDT Cindi Marinelli APRN C.N.P., M.S.N. LAB BLOOD ADD-ON Performing Organization Address City/State/ZIP Code Phon e Number [facility] - [address] [place], [place] [address] [facility] [place] [address] Laboratories-[facility] [address] Amylase, Pancreatic (04/08/2021 9:09 AM CDT) P athologist Signature Amylase, 29 13 - 53 U/L 04/08/2021 DTL Pancreatic, S 1:42 PM CDT Specimen Anatomical Collection Method Collection Time Receive d Time (Source) Location / / Volume Laterality Blood (Blood, 04/08/2021 9:09 AM 04/08/20 21 Venous) CDT 10:24 AM CDT Cindi Marinelli APRN, C.N.P., M.S.N. LAB BLOOD ADD-ON Performing Organization Address City/State/[facility] Code Phon e Number [facility] - [address] [place], [place] [address] [facility] [place] [address] Laboratories-[facility] [address] documented in this encounter Visit Diagnoses Diagnosis Pain Epigastric Body Mass Index 19.9 Or Less Adult documented in this encounter Additional Health Concerns Assessment Noted Time PHQ-9 Depression Total Score: 5 12/26/2016 12:01 AM CS T documented as of this encounter Care Teams Clean Out Driller Helper Relationship Specialty Start Date End Date Hussein Jones M.D. PCP - General 04/19/18 04/17/21 documented as of this encounter
--- OUTSIDE RECORDS SUMMARY | 2022-07-28 04:19 | XMS_ITS | Encounter Summary ---
:2000 Author Organization [facility] Address [address] [place] [address] Care Team Providers Name Role Phone Poonam Orlando APRN, C.N.PFrank, D.N.P. Primary Care [facility] er Reason for Referral Outpatient (Routine) - Closed Specialty Diagnoses / Procedures Referred By Contact Refer red To Contact Family Medicine Lavon Nair M.D . 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 Attention Deficit Disorder Combined Type ; Building, in [address] [place] [address] Migraine Headache Without Aura [place], [place] [address] [place] [address] [place], [place] [phone] (Work) [phone] Social History Tobacco Use Types Packs/Day Years [...] or relatives? How often do you attend sabianism or Never 2021 shinto services? Do you belong to any clubs or Yes 01/23/2022 organizations such as sabianism groups, unions, fraternal or athletic groups, or [...] documented as of this encounter Progress Notes Lavon Nair M.D. - 09/13/2021 8:30 AM CST SUBJECTIVE CHIEF COMPLAINT / REASON FOR VISIT Claire is a 20 y.o. female who presents for evaluation of No chief complaint on file.. HISTORY OF PRESENT ILLNESS Diagnosis Overview 1. Maintenance Health Adult - Primary Wants to wait 2. Attention Deficit Disorder Combined Type Controlled Substance Prescribing Plan (CSPP): Stimulants or Benzodiazepines Medication and Strength: Adderall XR 20 mg Instructions for use: take one capsule by mouth every morning. Duration of prescription: 12 weeks Amount to be dispensed per prescription (# of tablets): Three RX each for 28 tablets Medication and Strength: Adderall 10 ,g Instructions for use: take one tablet daily after lunch Duration of prescription: 12 weeks Amount to be dispensed per prescription (# of tablets): Three RX each for 28 tablets Monitoring Frequency of visits with PCP: 12 month Urine drug screening requested?: no MNPMP review/documentation:yes 3. Migraine Headache Without Aura Claire since early high school has gotten migraines. Her headaches are posterior. They don't throb. She is photophobic and nauseous. She doesn't vomit. In the past they have occurred mostly when shewas under extra stress, or didn't get enough sleep. She was getting 1-2 CORREA's a week but now is noticing 4-5 per week in the last month. She attends [facility] and is doing [employer] and [employer]. She has ADD and started Adderall fall 2020. She has never slept well. She describes sensations like butterflies hitting her face as she tries to sleep. Her little sister tried to commit suicide with sleeping pills, making her reluctant about them, it was suggested she try melatonin but she did not. OBJECTIVE PHYSICAL EXAM There were no vitals taken for this visit. General alert, no apparent distress over video Is a bills mood appears normal. She is very insightful in asks good questions. She has a very rapid speaker, but really isn't shifting from topic to topic. Physical Exam ASSESSMENT / PLAN #1 Maintenance Health Adult #2 Attention Deficit Disorder Combined Type #3 Migraine Headache Without Aura Other orders - nortriptyline (PAMELOR) 10 mg capsule; Take 1 capsule (10 mg total) by mouth at bedtime., StartingCathy 09/13/2021, Normal - Family Medicine office visit (clinic); Future; Expected date: 10/14/2021 Discussed that her migraines might be worse because she is now on the stimulant for ADD, and not sleeping well as result. She is finding success though with the stimulant and we decided not to change at this point. Discussed that tricyclic antidepressants can be used to decrease the frequency and intensity migraine headaches, and may help her sleep. Discussed that nortriptyline is listed as having a side effect of making this stimulant perhaps less effective. At this dose, would not think that significant. She is due for a vaccine update, I suggested we start nortriptyline 10 mg at HS, and monitor. She isgoing to see Poonam her primary over the holidays and get her vaccine update, and update her progress with migraine. She is aware that this is a very small dose we might well need to increase it. Alexus would like she can interact virtually before then. 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 Plan of Treatment Scheduled Referrals Name Type Priority Associated Diagnoses Order S [facility] Medicine Outpatient Referral Routine Expec blanca: office visit 10/14/2021, (clinic) Expires: 12/14/2022 documented as of this encounter Visit Diagnoses Diagnosis Maintenance Health Adult - Primary Attention Deficit Disorder Combined Type Migraine Headache Without Aura documented in this encounter Additional Health Concerns Assessment Noted Time PHQ-9 Depression Total Score: 5 12/26/2016 12:01 AM CS T documented as of this encounter Care Teams Pharmacy Technician Infusion Relationship Specialty Start Date End Date Poonam Orlando, SHAQ, C.N.P., PCP - General Family Medicine D.N.P. [address] [place] [address] documented as of this encounter
--- OUTSIDE RECORDS SUMMARY | 2022-07-28 04:19 | XMS_ITS | Encounter Summary ---
:2000 Author Organization [facility] Address [address] [place] [address] Care Team Providers Name Role Phone Hussein Jones M.D. Primary Care Provider Unavailable Reason for Visit Reason Comments Follow-up Encounter Details Date Type Department Care Team Description 04/04/2021 Clinical Communication Division of [facility] Cony Ojeda, Follow-up Pediatric and SHAQ, C.N.P., Adolescent Medicine, M.S.NBailey, [place] [address] [place] [address] Social History Tobacco Use Types Packs/Day Years [...] or relatives? How often do you attend sikh or Never 2021 sikhism services? Do you belong to any clubs or Yes 01/23/2022 organizations such as sikh groups, unions, fraternal or athletic groups, or [...] or slept in a usp (including now)? Sex Assigned at Date Recorded Female 01/23/2022 2:50 PM CDT documented as of this encounter Miscellaneous Notes Addendum Note - Cindi Ojeda APRN, C.NTroy, M.S.N. - 04/05/2021 1:56 PM CDT Addended by: CINDI OJEDA on: 04/05/2021 01:56 PM Modules accepted: Orders Telephone Encounter - Cindi Ojeda APRN, C.NTroy, M.S.N. - 04/05/2021 1:24 PM CDT I tried to call patient with recommendations, but did not get an answer. I will send her a ANGELA, place orders and have the front end alignment specialist call. Belle Telephone Encounter - Tierney Koch R.N., CPN - 04/05/2021 11:30 AM CDT SUBJECTIVE CHIEF COMPLAINT / REASON FOR CALL Follow-up Information Discussed Phone call made to Claire in follow-up from yesterday's appointment as requested by Belle Ojeda APRN. Claire reports that she is no worse today but she is not better either. Her pain has not beenincreasing. It is the same as it was yesterday. She currently rates her pain as a 2-3/10. She says that her pain cycles every couple minutes in intensity. She has tried using heat to alleviate the painbut it did not help. She is able to drink plenty of water but she does not have an appetite. She is eating but not because she feels hungry. Her last bowel movement was last evening and it was normal. No blood in her stool. PLAN Disposition/Recommendation: notified provider and awaiting recommendations Information/Education: patient/caller able to teach back Caller agreeable to plan of care: yes The following references were used: nursing clinical judgement Telephone Encounter - Cindi Ojeda APRN, C.N.Rigoberto., M.S.N. - 04/04/2021 12:34 PM CDT Ben, Please call pt tomorrow and see how her stomach pain is today. Decreasing in frequency? Any changes in symptoms? Belle Watson documented in this encounter Plan of Treatment Not on filedocumented as of this encounter Results Thyroid Function Crane (04/08/2021 9:09 AM CDT) P athologist Signature TSH, Sensitive 3.0 0.5 - 4.3 04/08/2021 DT mIU/L 10:24 AM CDT Specimen Anatomical Collection Method Collection Time Receive d Time (Source) Location / / Volume Laterality Blood (Blood, 04/08/2021 9:09 AM 04/08/20 9:35 Venous) CDT AM CDT Cindi Ojeda APRN, C.N.P., M.S.N. LAB BLOOD ADD-ON Performing Organization Address City/State/ZIP Code Phon e Number [facility] - [address] [place], [place] [address] [facility] [place] [address] [facility] [address] (ABNORMAL) CBC with Differential, Blood (04/08/2021 9:09 [...] 04/08/20 9:22 Venous) CDT AM CDT Cindi Ojeda APRN C.N.P., M.S.N. LAB BLOOD ADD-ON Performing Organization Address City/State/ZIP Code Phon e Number [facility] - [address] [place], [place] [address] [facility] [place] [address] [facility] [address] [facility] Celiac Disease Serology Crane (04/08/2021 9:09 AM CDT) Component Value Ref Test Analysis Performed Pathologis t Range Method Time At Signature Immunoglobulin A 230 61 - 356 04/08/2021 [facility] (IgA), S mg/dL 4:21 PM CDT Celiac Disease Negative serology. Celiac di sease unlikely. However, approximately 10% of 04/08/2021 [facility] Interpretation patients with celiac disease are seronegative. Also, patients who are already 10:44 PM adhering to a gluten-free diet may be seronegative. If patric iac disease is CDT highly clinically suspected, consider HLA-DQ typing. Specimen Anatomical Collection Method Collection Time Receive d Time (Source) Location / / Volume Laterality Blood (Blood, 04/08/2021 9:09 AM 04/08/20 1:00 Venous) CDT PM CDT Narrative [facility] - 04/08/2021 10:44 PM CDT Specimen Information: Specimen ID: [id number] Specimen Type: Blood Specimen Collection Start Date: 04/08/20 ??9:09 AM Specimen Received Date: 04/08/2021 ??1:0 0 PM Specimen ID: [id number] Specimen Type: Blood Specimen Collection Start Date: 04/08/20 ??9:09 AM Specimen Received Date: 04/08/2021 12:50 PM Cindi Ojeda APRN, Amadeo.N.P., M.S.N. LAB BLOOD ADD-ON Performing Organization Address City/State/ZIP Code Phon e Number [facility] [address] [place] [address] [facility] [place] [address] Laboratory Medicine and Pathology [address] [place] [address] Dr. LAURENT Sedimentation Rate (04/08/2021 9:09 AM CDT) Analysis Performed At Patho logist Time Signature Sedimentation 5 2 - 20 04/08/2021 [facility] Rate, B mm/h 10:53 AM CDT Specimen Anatomical Collection Method Collection Time Receive d Time (Source) Location / / Volume Laterality Blood (Blood, 04/08/2021 9:09 AM 04/08/20 9:22 Venous) CDT AM CDT Cindi Ojeda APRN, Amadeo.N.P., M.S.N. LAB BLOOD ADD-ON Performing Organization Address City/[facility] Phon e Number [facility] - [address] [place], [place] [address] Laboratories-[address] Lipase (04/08/2021 9:09 AM CDT) athologist Signature Lipase, S 34 13 - 60 U/L 04/08/2021 [facility] 10:24 AM CDT Specimen Anatomical Collection Method Collection Time Receive d Time (Source) Location / / Volume Laterality Blood (Blood, 04/08/2021 9:09 AM 04/08/20 9:35 Venous) CDT AM CDT Cindi Ojeda APRN, C.N.P., M.S.N. LAB BLOOD ADD-ON Performing Organization Address [facility] Phon e Number [facility] - [address] [place] [address] [address] (ABNORMAL) Comprehensive Metabolic Panel (04/08/2021 9:09 [...] 04/08/2021 [facility] Black/ mL/min/BSA 10:21 AM CDT Cameroonian Comment: ----ADDITIONAL INFORMATION---- Estimated GFR calculated using [...] 04/08/20 9:35 Venous) CDT AM CDT Cindi Ojeda APRN C.N.P., M.S.N. LAB BLOOD ADD-ON Performing Organization Address City/State/ZIP Code Phon e Number [facility] - [address] [place], [place] [address] [facility] [place] [address] [facility] [address] Amylase, Pancreatic (04/08/2021 9:09 AM CDT) P athologist Signature Amylase, 29 13 - 53 U/L 04/08/2021 [facility] Pancreatic, S 1:42 PM CDT Specimen Anatomical Collection Method Collection Time Receive d Time (Source) Location / / Volume Laterality Blood (Blood, 04/08/2021 9:09 AM 04/08/20 21 Venous) CDT 10:24 AM CDT Cindi Ojeda APRN, C.N.P., M.S.N. LAB BLOOD ADD-ON Performing Organization Address City/State/ZIP Code Phon e Number [facility] - [address] [place], [place] [address] [facility] [place] [address] [facility] [address] documented in this encounter Visit Diagnoses Diagnosis Body Mass Index 19.9 Or Less Adult - Wanda travis Pain Epigastric Pain Epigastric Body Mass Index 19.9 Or Less Adult documented in this encounter Additional Health Concerns Assessment Noted Time PHQ-9 Depression Total Score: 5 12/26/2016 12:01 AM CS T documented as of this encounter Care Teams Shipyard Painter Helper Relationship Specialty Start Date End Date Hussein Jones M.D. PCP - General 04/19/18 04/17/21 documented as of this encounter
--- OUTSIDE RECORDS SUMMARY | 2022-07-28 04:19 | XMS_ITS | Encounter Summary ---
:2000 Author Organization [facility] Address [address] [place] [address] Care Team Providers Name Role Phone Poonam Orlando APRN, C.N.PFrank, D.N.P. Primary Care Provid er Reason for Referral Outpatient (Routine) - Closed Specialty Diagnoses / Procedures Referred By Contact Refer red To Contact Spine Diagnoses Pain Neck [facility] C.[facility] D.N.P. 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 [facility] [address] [place] [phone] Referral ID Status Reason Start Date Expiration Date Visits Requ ested Visits Authorized [id number] Closed 09/13/2021 09/13/2022 1 1 Encounter Details Date Type Department Care Team Description 10/15/2021 Telemedicine Department of Poonam Honeycutt Headache Without Aura (Primary Dx); Medicine, Jonnathan Marrufo, SHAQ, C.N.P., Attent ion Deficit Disorder Combined Type; Building, in [place].NFrankP. Pain Neck; [place], [place] [address] [facility] Asthma Mild Intermittent (HCC); [address] [place], [place] [id number] [phone] Social History Tobacco Use Types Packs/Day Years [...] or relatives? How often do you attend restorationism or Never 2021 spiritism services? Do you belong to any clubs or Yes 01/23/2022 organizations such as restorationism groups, unions, fraternal or athletic groups, or [...] place to sleep or slept in a correction (including now)? Education Answer Date Recorded What is the highest level of school you have Some college, n o degree 05/24/2021 completed or the highest degree you have received? Sex Assigned at Date Recorded Female 01/23/2022 2:50 PM CDT documented as of this encounter Progress Notes Poonam Orlando APRN, Amadeo.NFrankP., D.N.P. - 10/15/2021 3:00 PM CST SUBJECTIVE CHIEF COMPLAINT / PURPOSE OF VISIT Patient presents for Follow-up (ADHD medication, migraines). Consult conducted via real-time audio/video technology by Poonam Orlando APRN, BUSHRA, DNP in [place], [place] to the patient in their home. Patient identity confirmed prior to commencing this telehealth visit. HISTORY OF PRESENT ILLNESS Video visit arranged today to discuss migraines and ADHD. This visit was arranged in the midst of the COVID-19 pandemic. Claire has a history of migraine headaches with aura as well as attention deficit hyperactivity disorder. She was last evaluated for these concerns by Dr. Nair on September 13, 2021. At that time, she was initiated on nortriptyline 10 mg once per day for management of migraine headaches. Since starting the nortriptyline she has noticed decreased migraine frequency, now having 1-2 migraine headache days per week. Prior to starting the nortriptyline, she was having 5-7 migraine headache days per week. The nortriptyline did make her feel somewhat dizzy upon initiation, but this has since improved. She does note dizziness at baseline, but recently found out that she has a vision abnormality that causes dizziness. She will be receiving glasses in the next couple of weeks and is looking forward to seeing if these help to improve migraine headaches and dizziness. She is taking Adderall 20 mg XR in the morning and additional 10 mg Adderall rapid acting in the afternoon/evening. Recently, she feels like the Adderall XR is wearing off earlier than it had in the past. She has increased forgetfulness and is making ???silly mistakes. She is able to focus better when consuming large amounts of caffeine. She has experience neck pain in the past the did improve after seeing Dr. Neal in [facility] for chiropractic adjustments. She would like to return to him for follow-up of neck pain. She has a history of mild intermittent asthma. This has been well managed. She is typically triggered by strong scents like perfume or cleaning products. She is in need of a new albuterol inhaler. OBJECTIVE PHYSICAL EXAMINATION VITALS: There were no vitals taken for this visit. GENERAL: Well-developed, well-nourished in no acute distress. Non-toxic appearing. PSYCH: Appropriate grooming and hygiene. Maintains eye-contact throughout exam. Speech is non-pressured. Insight and judgment appear intact. Rapid speech. RESP: No distress. ASSESSMENT / PLAN #1 Migraine Headache Without Aura Continue nortriptyline 10 mg once per day. Not interested in increasing dose of nortriptyline at this time. She will await to see if migraines continue to improve with use of her new glasses in the future. If migraines persist or worsen infrequency, could consider increasing nortriptyline to 25 mg once per day. #2 Attention Deficit Disorder Combined Type Her ADHD is not well managed at this time. Will increase Adderall XR to 30 mg once per day. She willcontact PCP in the next 2-3 weeks with an update on how this is going. #3 Pain Neck Will refer back to [facility] for chiropractic adjustments. - Spine Clinic - [facility] consult (clinic) - [facility] use only; Future; Expected date: 10/15/2021 #4 Asthma Mild Intermittent (HCC) Albuterol inhaler prescribed. #5 Dizziness Will wait to see if dizziness improves with use of glasses. I personally spent a total of 30 minutes in jif-lawe-xn-face time performing a review of the record and/or discussion with the patient/caregiver as described above. PATIENT EDUCATION Ready to learn, no apparent learning barriers were identified; learning preferences include listening. 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 documented in this encounter Plan of Treatment Scheduled Referrals Name Type Priority Associated Diagnoses Order S [facility] - [facility] Outpatient Referral Routine Pain Neck Ex pected: consult (clinic) - [facility] use only (Approximate), Expires: 01/13/2023 documented as of this encounter Visit Diagnoses Diagnosis Migraine Headache Without Aura - Primary Attention Deficit Disorder Combined Type Pain Neck Asthma Mild Intermittent (HCC) Dizziness documented in this encounter Additional Health Concerns Assessment Noted Time PHQ-9 Depression Total Score: 5 12/26/2016 12:01 AM CS T documented as of this encounter Care Teams Senior Search Marketing Analyst Relationship Specialty Start Date End Date Poonam Orlando APRN, C.N.P., PCP - General Family Medicine D.N.P. [address] [place] [phone] documented as of this encounter
--- OUTSIDE RECORDS SUMMARY | 2022-07-28 04:19 | XMS_ITS | Encounter Summary ---
:2001 Author Organization [facility] Address [address] [place] [address] Care Team Providers Name Role Phone Poonam Orlando APRN, C.N.P., D.N.P. Primary Care Provid er Reason for Visit Reason Comments Med Refill Encounter Details Date Type Department Care Team Description 11/21/2021 Refill Department of [facility] Poonam Orlando APRN, Med Refill Medicine, [facility], C.N. P., D.N.P. in [facility] [address] [facility] [address] [place] [phone] [place] [address] [phone] Social History Tobacco Use Types Packs/Day Years [...] or relatives? How often do you attend yarsanism or Never 2021 baptism services? Do you belong to any clubs or Yes 01/23/2022 organizations such as yarsanism groups, unions, fraternal or athletic groups, or [...] this encounter Miscellaneous Notes Telephone Encounter - Bernie Escamilla R.N. - 11/21/2021 4:26 PM CST Patient notified Nortriptyline has been sent to preferred pharmacy. T CROSSING GUARD Telephone Encounter - Keeley Meneses I - 11/21/2021 3:51 PM CST Patient is out of meds. She thought it was sent to [facility], but it was sent to [facility] in [place]. When she called to have them transfer the med, [facility] did not have the med. Please filltoday, if possible. Caller: Patient Call back number: [phone] Name of medication: Nortriptyline Strength: 10mg Frequency: 1 cap daily Quantity: 3 mon PCP: Darion Pharmacy: [facility] City: [place] State: [place] Telephone number: Fax number: Please respond to [facility] Scheduling Pool if necessary T CROSSING GUARD documented in this encounter Plan of Treatment Not on filedocumented as of this encounter Visit Diagnoses Diagnosis Migraine Headache Without Aura - Primary documented in this encounter Additional Health Concerns Assessment Noted Time PHQ-9 Depression Total Score: 5 12/26/2016 12:01 AM CS T documented as of this encounter Care Teams Sanitary Plumber Relationship Specialty Start Date End Date Poonam Orlando APRN, C.N.P., PCP - General Family Medicine D.N.P. [address] [place] [phone] documented as of this encounter
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
--- OUTSIDE RECORDS SUMMARY | 2022-07-28 04:19 | XMS_ITS | Encounter Summary ---
:2000 Author Organization [facility] Address [address] [place] [address] Care Team Providers Name Role Phone Poonam Orlando APRN, C.N.PFrank, D.N.P. Primary Care Provid er Reason for Referral Outpatient (Routine) - Closed Specialty Diagnoses / Procedures Referred By Contact Refer red To Contact Spine Diagnoses Pain Neck Pain Low Back Unspecified Poonam Orlando APRN, [facility] C.N.P., D.N.P. [address] [place] [phone] Referral ID Status Reason Start Date Expiration Date Visits Requ ested Visits Authorized [id number] Closed 05/24/2021 05/24/2022 1 1 utpatient (Routine) - Closed Specialty Diagnoses / Procedures Referred By Contact Refer red To Contact Diagnoses Ingrown Nail Poonam Orlando APRN, [facility] Procedures FAM Podiatry procedures C.N.P., D.N.P. [address] [place] [phone] Referral ID Status Reason Start Date Expiration Date Visits Requ ested Visits Authorized [id number] Closed 05/24/2021 05/24/2022 1 1 Reason for Visit Reason Comments Other referral [facility] Appointment Request (Routine) - Closed Specialty Diagnoses / Procedures Referred By Contact Refer red To Contact Family Medicine Referral ID Status Reason Start Date Expiration Date Visits Requ ested Visits Authorized [id number] Closed 05/16/2021 05/16/2022 1 1 Encounter Details Date Type Department Care Team Description 05/24/2021 Comprehensive Visit Department of Poonam Orlando In grown Nail (Primary Dx); Family MedicineYaron APRN C.N.PFrank, Pain Ne ck; Jonnathan Choi D.N.P. Pain Low Back; in [place] [address] Pain Ear Bilateral; [place], [place] Asthma Mild Intermittent (HC C); [address] [address] Deficit Attention Or Concentration; [place], [place] [phone] Migraine Heada shyam Without Aura; [phone] (Work) Pain Wrist Left [phone] Social History Tobacco Use Types Packs/Day Years [...] you attend jehovah's witness or Never 2021 denominational services? Do you [...] Sign Reading Time Taken Comments Blood Pressure 112/74 05/24/2021 1:03 PM CDT average Pulse 116 05/24/2021 1:03 PM CDT regular Temperature 36.2 ??C (97.2 ??F) 05/24/2021 1:03 PM CDT Respiratory Rate - - Oxygen Saturation - - Inhaled Oxygen Concentration - - Weight 49.1 kg (108 lb 3.9 oz) 05/24/2021 1:03 PM CDT Height 166.8 cm (5' 5.67) 05/24/2021 1:03 PM CDT Body Mass Index 17.65 05/24/2021 1:03 PM CDT documented in this encounter Progress Notes Poonam Orlando, SHAQ, C.N.P., D.N.P. - 05/24/2021 1:30 PM CDT SUBJECTIVE CHIEF COMPLAINT / REASON FOR VISIT Claire Moncada is a 20 y.o. female who presents for evaluation of Other (referral to [facility]). HISTORY OF PRESENT ILLNESS 1. [facility] Claire presents with her twin sister to [facility]. She has a few acute concerns as outlined below. 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 She is not sexually active. Her menstrual cycle occurs every 6 weeks, last 4-7 days, and is of moderate to heavy flow. She is a vegetarian,takes iron supplement due to this. 2. Ingrown nail She had ingrown nail removed from her right great toe last year at an outside facility. After this procedure, the needle in her right great toe grew back with a crack in it. It routinely becomes ingrown and she places cotton underneath of the nail. She has significant tenderness in the right great toedue to this. The pain is interfering with her ability to participate in martial arts. She has been without any purulence drainage from the nail bed. 3. Back and neck pain As noted above she is a college student. She spends much of her time study at a desk. She experiences pain in her back and neck. She has changed to a standing test. She participates in yoga. She takes NSAIDs all with minimal improvement symptoms. No weakness or radicular symptoms. 4. Ear pain She has been experiencing pain in itching in bilateral ears, left greater than right. No drainage. No fevers. 5. Mild intermittent asthma As a child she had mild intermittent asthma, primarily when exposed to smoke. This has not been problematic for her recently. 6. Concern for ADHD She is being evaluated by mental health specialist at an outside facility for ADHD. She is open to know the results of her testing soon. She would be open to stimulant use if positive. 7. Headaches Approximately 4-7 times per month she will experience a headache on the left side of her head with associated photophobia, phonophobia, and nausea. She takes either Goody's headache medication or an NSAID. Symptoms significantly interfere with her studies. She has no associated aura. 8. Left wrist pain In 2018 she experienced a left wrist injury. Since this time she has experienced intermittent pain and weakness in the left wrist and hand. Primarily occurring during weather changes. Symptoms improve if she decreases use of the left hand. She is ambidextrous. The following portions of the patient's history were reviewed and updated as appropriate: allergies,current medications and problem list. OBJECTIVE PHYSICAL EXAM Constitutional Appearance: Normal appearance. Neck Comments: Cervical spine without any bony tenderness. Paraspinal muscles tender to palpation bilaterally. She has normal range of motion of the cervical spine. Negative Spurling test bilaterally. Musculoskeletal Comments: Without bony tenderness or paraspinal tenderness. Bilateral hands and wrists without any visual deformity, weakness, or decreased range of motion. Feet Comments: Right great toenail with a linear fissure, nail bed with minimal swelling and erythema; no drainage. Right great toe is tender to palpation.Neurological Mental Status: She is alert. Motor: Motor function is intact. Deep Tendon Reflexes: Reflexes are normal and symmetric. ASSESSMENT / PLAN #1 Ingrown Nail She has not ingrown nail in her right great toe. This does not appear infected at this time. There is a linear fissure throughout the nail. She would like to have this treated as it is interfering withher ability to participate in martial arts. Referral to the Procedure Clinic for consideration of removal of ingrown nail. - [facility] Podiatry procedures; Future; Expected date: 05/24/2021 #2 Pain Neck #3 Pain Low Back She experiences pain in the neck and back, suspect these are myofascial in nature. She would like tomeet with chiropractor for further evaluation and management. Referral has been placed. #4 Pain Ear Bilateral No signs of otitis media or externa on exam. Continue to monitor. #5 Asthma Mild Intermittent (HCC) She has mild intermittent asthma, currently well managed. #6 Deficit Attention Or Concentration She is working with a provider at an outside medical facility for evaluation and potential management of attention deficit disorder. Should she be diagnosed with this, she will have outside medical records sent to PCP. #7 Migraine Headache Without Aura Headaches seem consistent with migraine headache without aura. Reasonable to consider Triptan medication, will prescribe Maxalt as outlined below. She can also take NSAID at the onset of headache. If having more than 7 migraine days per month, contact PCP for consideration of prophylactic agents. Monitor for potential triggers for migraines. #8 Pain Wrist Left She has intermittent pain and weakness in the left wrist since sustaining a wrist injury in 2018. This is not currently all that bothersome to her. Continue to monitor. Other orders - Spine Clinic - [facility] consult (clinic) - [facility] use only; Future; Expected date: 05/24/2021 - rizatriptan (MAXALT) 5 mg tablet; Take 1 tablet (5 mg total) by mouth as needed for migraine. May repeat dose once in 2 hours if migraine unresolved. Do not exceed 30 mg in 24 hours., Starting 05/24/2021, Normal PATIENT EDUCATION Ready to learn, no apparent learning barriers were identified; learning preferences include listening. Answers for HPI/ROS submitted by the patient on 05/24/2021 No general issues: Yes No eye issues: Yes No ENT issues: Yes No heart issues: Yes No respiratory issues: Yes No GI issues: Yes Back pain/stiffness: Yes No skin issues: Yes Headache: Yes No mental health issues: Yes No blood/lymph issues: Yes No urinary/reproductive issues: Yes documented in this encounter Plan of Treatment Scheduled Orders Name Type Priority Associated Diagnoses Order S cesar [facility] Podiatry procedures Procedures Routine Ingrown Nail Expe cted: 05/24/2021 (Approximate), Expires: 2020 Scheduled Referrals Name Type Priority Associated Diagnoses Order S [facility] Spine Clinic - [facility] Outpatient Referral Routine Pain Neck Expected: consult (clinic) - Pain Low Back 05/24/20 21 [facility] use only (Approximate), Expires: 05/24/2024 documented as of this encounter Visit Diagnoses Diagnosis Ingrown Nail - Primary Pain Neck Pain Low Back Unspecified Pain Ear Bilateral Asthma Mild Intermittent (HCC) Deficit Attention Or Concentration Migraine Headache Without Aura Pain Wrist Left documented in this encounter Additional Health Concerns Assessment Noted Time PHQ-9 Depression Total Score: 5 12/26/2016 12:01 AM CS T documented as of this encounter Care Teams Director Of Casino Relationship Specialty Start Date End Date Poonam Orlando APRN, C.N.P., PCP - General Family Medicine D.N.P. [address] [place] [address] documented as of this encounter
--- OUTSIDE RECORDS SUMMARY | 2022-07-28 04:19 | XMS_ITS | Encounter Summary ---
:[address] [facility] Address [address] [place] [address] Care Team Providers Name Role Phone Elsewhere, Pcp Primary Care Provider Unavailable Encounter Details Date Type Department Care Team Description 04/19/2021 Hospital Encounter Department of Cindi Marinelli Liver Enzyme Laboratory Medicine C, MERCHANT MARINER, C.N.P., Abno rmal, Aspartate and Pathology, M.S.N. Transaminase, Serum [facility] Glutamic-O xaloacetic [facility], Transaminase, Alanine [place] Transaminase [address] [place] [address] Social History Tobacco Use Types Packs/Day Years [...] or relatives? How often do you attend spiritism or Never 2021 sabianist services? Do you belong to any clubs or Yes 01/23/2022 organizations such as spiritism groups, unions, fraternal or athletic groups, or [...] slept in a group home (including now)? Sex Assigned at Date Recorded [...] Procedure Name Priority Date/Time Associated Comments Diagnosis ALANINE AMINOTRANSFERASE Routine 04/19/2021 2:37 Elevated Live r Results for this (ALT), S/P PM CDT Enzyme Abnormal, procedure a re in Aspartate the results Transaminase, Serum section. Glutamic-Oxaloaceti c Transaminase, Alanine Transaminase documented in this encounter Results ALT (Alanine Aminotransferase) (04/19/2021 2:37 PM CDT) [facility] gist Method Time Signature Alanine 18 7 - 45 04/19/2021 DTL Aminotransferase U/L 3:51 PM CDT (ALT), S Specimen Anatomical Collection Method Collection Time Receive d Time (Source) Location / / Volume Laterality Blood (Blood, 04/19/2021 2:37 PM 04/19/20 3:16 Venous) CDT PM CDT Cindi Marinelli APRN, C.N.P., M.S.N. LAB BLOOD ADD-ON Performing Organization Address City/State/ZIP Code Phon e Number [facility] - [address] [place], [place] [address] [address] [facility] [place] [address] [facility] [address] documented in this encounter Visit Diagnoses Diagnosis Elevated Liver Enzyme Abnormal, Aspartat e Transaminase, Serum Glutamic-Oxaloacetic Transaminase, Alanine Transaminase documented in this encounter Additional Health Concerns Assessment Noted Time PHQ-9 Depression Total Score: 5 12/26/2016 12:01 AM CS T documented as of this encounter Care Teams Erp Business Analyst Relationship Specialty Start Date End Date Elsewhere, Pcp PCP - General Family Medicine 04/18/21 05/15/21 documented as of this encounter
--- OUTSIDE RECORDS SUMMARY | 2022-07-28 04:19 | XMS_ITS | Encounter Summary ---
:[address] [facility] Address [address] [place] [address] Care Team Providers Name Role Phone Poonam Orlando APRN, C.N.P., D.N.P. Primary Care Provid er Reason for Visit Reason Comments Communication Medications / mass Encounter Details Date Type Department Care Team Description 11/04/2021 Clinical Department of Zurdo Orlando Communication Family Medicine, Poonam Marrufo, (Medicatio ns / mass) [facility] SHAQ, C.N.P., in [address] [phone] Social History Tobacco Use Types Packs/Day Years [...] do you attend jew or Never 2021 taoist services? Do you [...] this encounter Miscellaneous Notes Telephone Encounter - Nicolas Ackerman - 11/04/2021 4:18 PM WORKERS COMPENSATION CLAIMS SPECIALIST Caller: Claire (patient) Callback Number: [phone] Best communication method: Phone call Request/Details: Patient requesting to speak with nurse in regards to medication dosages and refills. Please contact patient to assist. Thank you. Please respond to [facility] Scheduling pool if necessary ERS COMPENSATION CLAIMS SPECIALIST documented in this encounter Plan of Treatment Not on filedocumented as of this encounter Visit Diagnoses Not on filedocumented in this encounter Additional Health Concerns Assessment Noted Time PHQ-9 Depression Total Score: 5 12/26/2016 12:01 AM CS T documented as of this encounter Care Teams Manager Of Investigations Relationship Specialty Start Date End Date Poonam Orlando APRN, C.N.P., PCP - General Family Medicine D.N.P. [address] [place] [address] documented as of this encounter
--- OUTSIDE RECORDS SUMMARY | 2022-07-28 04:19 | XMS_ITS | Encounter Summary ---
:2000 Author Organization [facility] Address [address] [place] [address] Care Team Providers Name Role Phone Hussein Jones M.D. Primary Care Provider Unavailable Reason for Visit Reason Comments COVID Inquiry Encounter Details Date Type Department Care Team Description 04/17/2021 Clinical Communication Division of [facility] Kimberlee Jones, COVID Inquiry Pediatric and M.D. [place] [address] [place] [address] Social History Tobacco Use Types Packs/Day Years [...] or relatives? How often do you attend hoahaoism or Never 2021 samaritan services? Do you belong to any clubs or Yes 01/23/2022 organizations such as hoahaoism groups, unions, fraternal or athletic groups, or [...] or slept in a long-term (including now)? Sex Assigned at Date Recorded Female 01/23/2022 2:50 PM CDT documented as of this encounter Miscellaneous Notes Telephone Encounter - Elli Shoemaker - 04/17/2021 3:02 PM CDT What is the purpose of the call?: Standard Appointment Process Standard Appointment Process Have you tested positive for COVID-19 in the last 20 days OR do you have a pending COVID-19 test because you had symptoms?: No, neither apply What region is the appointment being requested?: Less than 14 days [place] In the past 14 days are any of the following symptoms new to you and not related to an existing health condition?: No symptoms noted In the past 14 days have you had close contact* with a person who has a LABORATORY CONFIRMED case ofCOVID-19?: No exposure noted, follow appt process (End Screening) Testing Recommendation Endpoint Is testing recommended? : Not recommended to test Plan: Endpoint recommendation: Other schedule *Reminder if sending [facility], route encounter to the correct testing pool. documented in this encounter Plan of Treatment Not on filedocumented as of this encounter Visit Diagnoses Not on filedocumented in this encounter Additional Health Concerns Assessment Noted Time PHQ-9 Depression Total Score: 5 12/26/2016 12:01 AM CS T documented as of this encounter Care Teams Reimbursement Auditor Relationship Specialty Start Date End Date Hussein Jones M.D. PCP - General 04/19/18 04/17/21 documented as of this encounter
--- OUTSIDE RECORDS SUMMARY | 2022-07-28 04:19 | XMS_ITS | Encounter Summary ---
:2000 Author Organization [facility] Address [address] [place] [address] Care Team Providers Name Role Phone Poonam Orlando APRN, C.N.P., D.N.P. Primary Care Provid er Reason for Referral Outpatient (Routine) - Closed Specialty Diagnoses / Procedures Referred By Contact Refer red To Contact Spine Diagnoses Pain Neck Mechanical Pain Low Back Mechanical Mikel Neal D.C., [facility] Ph.D. [address] [place] [phone] Referral ID Status Reason Start Date Expiration Date Visits Requ ested Visits Authorized [id number] Closed 12/06/2021 12/06/2022 1 1 Scheduling Instructions 2pm thx DREN'S CHOIR DIRECTOR Reason for Visit Reason Comments Back Pain Neck Pain Outpatient (Routine) - Closed Specialty Diagnoses / Procedures Referred By Contact Refer red To Contact Spine Diagnoses Pain Neck Poonam Orlando APRN, [facility] C.N.P., D.N.P. [address] [place] [phone] Referral ID Status Reason Start Date Expiration Date Visits Requ ested Visits Authorized [id number] Closed 10/15/2021 10/15/2022 1 1 Encounter Details Date Type Department Care Team Description 12/06/2021 Office Visit Department of Spine Benjamin Orlando APRN, C.N.P., D.N.P. [address] [place] [phone] Pain Neck Mechanical (Primary Dx); in [place] Benjamin D, D.C., Ph.D. [address] [place] [phone] Pain Neck; [place] Pain Low Back Mechanical; [address] [facility] Dysfunction Somatic Cervical Region; [place], [place] Dysfunction So matic Thoracic Region; [phone] Dysfunction Somatic Lumbar R egion [phone] Social History Tobacco Use Types Packs/Day Years [...] or relatives? How often do you attend voodoo or Never 2021 zoroastrian services? Do you belong to any clubs or Yes 01/23/2022 organizations such as voodoo groups, unions, fraternal or athletic groups, or [...] Progress Notes Mikel Neal D.C., Ph.D. - 12/06/2021 3:00 PM CST SUBJECTIVE Date of onset: 2018 Initial treatment date: 07/02/2021 Claire Moncada presents for chiropractic evaluation of Back Pain and Neck Pain Her neck hurts, she reports. Her back feels better. She felt pain after for about three days after our last visit. Thereafter her neck and back got better. OBJECTIVE Directional preference evaluation today of the cervical spine reveals a preference for extension, inthat performance of repeated seated cervical extension maneuver (with a towel placed at the cervicothoracic junction for support) to end range is associated with improved range of motion and symptom relief. Passive spinal segmental range of motion evaluation reveals right rotation restriction of L4, T5, and C3; and left rotation restriction of C2. ASSESSMENT / PLAN Claire Moncada is being treated for mechanical neck and back pain with myofascial features, related to upper and lower crossed postural disorders; and spinal joint motion dysfunction. She responded favorably to our initial treatment session. Care today will involve manual therapy to improve global and cervical, thoracic, and lumbar segmental motion, and for symptom relief. Care also involves exercise prescription and coaching. ACTION: Claire Moncada was taught how to perform a seated neck extension exercise today, using a towel for cervicothoracic support. I described the basis of the exercise routine, demonstrated it, and we practiced it together. The patient's form looks great, and exercise is well-tolerated. Today we spent 6 minutes in therapeutic exercise. Fayette grade V spinal mobilization was applied today at the above-listed levels in the cervical and thoracic regions. Grade III mobilization was also applied at the above-listed level in the lumbar region. This is followed by application of ice to the treated regions. PLAN: It was recommended that Claire Moncada continue performance of the prescribed home exercise program. Follow up with me in one month. PPE use information for possible contact monitoring: PPE used during visit: Clinician was wearing a mask throughout the entire session. Patient was wearing a mask throughout the entire session. DREN'S CHOIR DIRECTOR documented in this encounter Plan of Treatment Scheduled Referrals Name Type Priority Associated Diagnoses Order S [facility] Spine office Outpatient Referral Routine Pain Neck Me chanical Expected: visit (clinic) Pain Low Back 12/31/2021 Mechanical (Approximate), Expires: 03/05/2023 documented as of this encounter Visit Diagnoses Diagnosis Pain Neck Mechanical - Primary Pain Neck Pain Low Back Mechanical Dysfunction Somatic Cervical Region Dysfunction Somatic Thoracic Region Dysfunction Somatic Lumbar Region documented in this encounter Additional Health Concerns Assessment Noted Time PHQ-9 Depression Total Score: 5 12/26/2016 12:01 AM CS T documented as of this encounter Care Teams Supervisor Of Guidance And Testing Relationship Specialty Start Date End Date Poonam Orlando APRN, C.N.P., PCP - General Family Medicine D.N.P. [address] [place] [address] documented as of this encounter
--- OUTSIDE RECORDS SUMMARY | 2022-07-28 04:19 | XMS_ITS | Encounter Summary ---
:2000 Author Organization [facility] Address [address] [place] [address] Care Team Providers Name Role Phone Poonam Orlando APRN, C.N.PFrank, D.N.P. Primary Care Provid er Reason for Referral Outpatient (Routine) - Closed Specialty Diagnoses / Procedures Referred By Contact Refer red To Contact Diagnoses Anshu Muro M.D. Procedures Nail Removal [address] [place] [phone] Referral ID Status Reason Start Date Expiration Date Visits Requ ested Visits Authorized [id number] Closed 06/18/2021 06/18/2022 1 1 Reason for Visit Reason Comments Ingrown Toenail Outpatient (Routine) - Closed Specialty Diagnoses / Procedures Referred By Contact Refer red To Contact Diagnoses Mabel Nail [facility] Procedures [facility]ry procedures C.N.P., D.N.P. [address] [place] [phone] Referral ID Status Reason Start Date Expiration Date Visits Requ ested Visits Authorized [id number] Closed 05/24/2021 05/24/2022 1 1 Encounter Details Date Type Department Care Team Description 06/18/2021 Procedure visit Division of [facility] Anshu Zhou Ingrown Nail Internal MedicineMatilde. [facility], in 200 [place], [place] [address] [facility] [phone] [place] [phone] [phone] Social History Tobacco Use Types Packs/Day Years [...] or relatives? How often do you attend hinduism or Never 2021 synagogue services? Do you belong to any clubs or Yes 01/23/2022 organizations such as hinduism groups, unions, fraternal or athletic groups, or [...] PM CDT documented as of this encounter Procedure Notes Anshu Zhou M.D. - 06/18/2021 3:00 PM CDTAssociated Order(s): Nail Removal Post-Procedure Diagnose(s): Ingrown Nail Nail Removal Date/Time: 06/18/2021 3:36 PM Performed by: Anshu Zhou M.D. Authorized by: Anshu Zhou M.D. PROCEDURE DETAILS Nail plate removed: yes Type of nail plate removal: partial Nail side: lateral (1/8 of nail removed from affected side(s)) Fraction of nail plate removed: 10/26 Number of nail plates removed: 1 Nail matrix removed or ablated: partial Nail matrix side: lateral (1/8 matrix ablated on affected side(s)) Fraction of nail matrix removed: 10/26 Phenol & alcohol: yes (30 sec phenol ablation of matrix x 3 then rinsed with isopropyl alcohol) Tourniquet use: no CONSENT Consent obtained: written UNIVERSAL PROTOCOL All relevant documentation and testing were reviewed and available. All required blood products, implants, devices and or special equipment were made available as applicable. Pre-procedure verificationwas conducted and the correct site was marked if required. A fire risk assessment was done as applicable. The procedural time-out was conducted prior to performing the procedure and confirmed in a procedural pause. PRE-PROCEDURE DETAILS (see MAR for exact dosages): Indication: ingrown nail Location: toe Toe: right big toe Site preparation: chlorhexidine and alcohol SEDATION / ANESTHESIA Anesthesia method: local infiltration Local infiltrate type: with epinephrine, bupivacaine (8 ml digital block w/25 g 1.25 needle supplemented with 30 g 1.5 ml periungual) POST-PROCEDURE DETAILS Dressing applied: yes Dressing: Petrolatum ointment and gauze. Procedure completed successfully: yes Tetanus status up to date: up to date Complications: no immediate complications Comments Apply Vaseline petroleum jelly into void where nail was removed twice daily and cover with bandage. Shower at least once daily letting water irrigate the wound clean. Soaking the wound is not necessary. Watch for signs of infection - redness extending up the toe towards the foot beyond the toe joint in the middle of the toe. Use Tylenol for pain. Elevate foot next 2-3 days if painful. Limit walking till improved. documented in this encounter Plan of Treatment Not on filedocumented as of this encounter Procedures Procedure Name Priority Date/Time Associated Diagnosis Comme nts NAIL REMOVAL Routine 06/18/2021 3:36 PM Ingrown Nail Results f or this CDT procedure are i n the results section . documented in this encounter Results Nail Removal (06/18/2021 3:36 PM CDT) Narrative MMODAL - 06/18/2021 3:36 PM CDT Anshu Zhou M.D. ? 06/18/2021 ??3:39 PM Nail Removal Date/Time: 06/18/2021 3:36 PM Performed by: Anshu Zhou M.D. Authorized by: Anshu Zhou M.D. PROCEDURE DETAILS Nail plate removed: yes ?? Type of nail plate removal: partial Nail side: lateral (/ of nail removed from affected side(s)) Fraction of nail plate removed: 10/26 Number of nail plates removed: 1 Nail matrix removed or ablated: partial Nail matrix side: lateral (10/26 matrix ab lated on affected side(s)) Fraction of nail matrix removed: 10/26 Phenol & alcohol: yes (30 sec phenol abl ation of matrix x 3 then rinsed with isopropyl alcohol) Tourniquet use: no CONSENT Consent obtained: written UNIVERSAL PROTOCOL All relevant documentation and testing w ere reviewed and available. All required blood products, implants, devic es and or special equipment were made available as applicable. Pre-proced ure verification was conducted and the correct site was marked if required. A fire risk assessment was done as applicable. The procedural time-out w as conducted prior to performing the procedure and confirmed in a procedu ral pause. PRE-PROCEDURE DETAILS (see MAR for exact dosages): Indication: ingrown nail ?? Location: toe Toe: right big toe Site preparation: chlorhexidine and alco hol SEDATION / ANESTHESIA Anesthesia method: local infiltration Local infiltrate type: with epinephrine, bupivacaine (8 ml digital block w/25 g 1.25 needle supplemented with 30 g 1.5 ml periungual) POST-PROCEDURE DETAILS Dressing applied: yes ?? Dressing: Petrolatum ointment and gauze. Procedure completed successfully: yes ?? Tetanus status up to date: up to date Complications: no immediate complication s ?? Comments Apply Vaseline petroleum jelly into void where nail was removed twice daily and cover with bandage. Shower at least once daily letting water irrigate the wound clean. Soaking the wo und is not necessary. Watch for signs of infection - redness extending u p the toe towards the foot beyond the toe joint in the middle of the toe. Use Tylenol for pain. Elevate foot next 2-3 days if painful. Limit walking till improved. Anshu Zhou M.D. PROCEDURE/MINOR SURGICAL ORD ERABLES Performing Organization Address City/State/ZIP Code Phon e Number MMODAL MMODAL NA documented in this encounter Visit Diagnoses Diagnosis Ingrown Nail documented in this encounter Additional Health Concerns Assessment Noted Time PHQ-9 Depression Total Score: 5 12/26/2016 12:01 AM CS T documented as of this encounter Care Teams Confidential Secretary Relationship Specialty Start Date End Date Poonam Orlando APRN, C.N.P., PCP - General Family Medicine D.N.P. [address] [place] [address] documented as of this encounter
--- OUTSIDE RECORDS SUMMARY | 2022-07-28 04:19 | XMS_ITS | Encounter Summary ---
:2000 Author Organization [facility] Address [address] [place] [address] Care Team Providers Name Role Phone Hussein Jones M.D. Primary Care Provider Unavailable Reason for Visit Reason Comments Labs Only Encounter Details Date Type Department Care Team Description 04/05/2021 Clinical Communication Division of [facility] Cony Marinelli, Labs Only Pediatric and [facility] C.N.PFrank, Adolescent Medicine, [place], [place] [address] [place] [address] Social History Tobacco Use Types Packs/Day Years [...] do you attend scientologist or Never 2021 pentecostalism services? Do you belong to any clubs [...] place to sleep or slept in a long term (including now)? Sex Assigned at Date Recorded Female 01/23/2022 2:50 PM CDT documented as of this encounter Plan of Treatment Not on filedocumented as of this encounter Visit Diagnoses Not on filedocumented in this encounter Additional Health Concerns Assessment Noted Time PHQ-9 Depression Total Score: 5 12/26/2016 12:01 AM CS T documented as of this encounter Care Teams Cash Applications Specialist Relationship Specialty Start Date End Date Hussein Jones M.D. PCP - General 04/19/18 04/17/21 documented as of this encounter
--- OUTSIDE RECORDS SUMMARY | 2022-07-28 04:19 | XMS_ITS | Encounter Summary ---
:2000 Author Organization [facility] Address [address] [place] [address] Care Team Providers Name Role Phone Poonam Orlando APRN C.N.PFrank, D.N.P. Primary Care Provid er Reason for Referral Outpatient (Routine) - Closed Specialty Diagnoses / Procedures Referred By Contact Refer red To Contact Diagnoses Pain Ankle Left [facility] Procedures DX Ankle Left 3+ Views C.N.P., D.N.P. [address] [place] [phone] Referral ID Status Reason Start Date Expiration Date Visits Requ ested Visits Authorized [id number] Closed 12/10/2021 12/10/2022 1 1 N RESOURCES SUPERVISOR Reason for Visit Outpatient (Routine) - Closed Specialty Diagnoses / Procedures Referred By Contact Refer red To Contact Diagnoses Pain Ankle Left Poonam Orlando APRN, [facility] Procedures DX Ankle Left 3+ Views C.N.P., D.N.P. [address] [place] [phone] Referral ID Status Reason Start Date Expiration Date Visits Requ ested Visits Authorized [id number] Closed 12/10/2021 12/10/2022 1 1 Encounter Details Date Type Department Care Team Description 12/11/2021 Hospital Encounter Department of [place], Poonam Rush n Ankle Left Radiology, Jonnathan Marrufo APRN, C.NFrankPFrank, Building, in D.N.P. [place], [place] 200 [facility] [address] [place] [phone] [phone] Social History Tobacco Use Types Packs/Day Years [...] or relatives? How often do you attend anabaptist or Never 2021 orthodox services? Do you belong to any clubs or Yes 01/23/2022 organizations such as anabaptist groups, unions, fraternal or athletic groups, or [...] pay for the very basics like Not alexi lopez hard 01/23/2022 food, housing, medical care, and [...] End Date albuterol 90 Inhale 2 puffs every 18 g 2 10/15/2021 mcg/actuation inhaler 4 (four) hours as needed for wheezing or shortness of breath. cnhfutv-ubhnpgsibzjts-me Take 1 tablet by 0 ffeine (EXCEDRIN mouth as needed for MIGRAINE) 250-250-65 mg pain. per tablet B complex-vitamin (SUPER Take 1 tablet by 0 B-50) capsule mouth daily. fluticasone propionate Administer 1 spray 0 (FLONASE) 50 into each nostril as mcg/actuation nasal needed for rhinitis spray or allergies. amphetamine-dextroamphet Take 1 capsule (10 21 capsule 0 03/11/2022 amine (ADDERALL XR) 10 mg total) by mouth mg 24 hr capsule daily. Take with one Adderall 20 mg XR for a total morning dose of 30 mg XR. amphetamine-dextroamphet Take 1 capsule (30 28 capsule 0 02/10/2022 amine (Adderall XR) 30 mg total) by mouth mg 24 hr capsule daily. May refill now. Next refill due 12/06/2021 amphetamine-dextroamphet Take 1 capsule (30 28 capsule 0 02/10/2022 amine (Adderall XR) 30 mg total) by mouth mg 24 hr capsule daily. May refill 12/06/2021. Next refill 01/03/2022 amphetamine-dextroamphet Take 1 capsule (30 28 capsule 0 02/10/2022 amine (Adderall XR) 30 mg total) by mouth mg 24 hr capsule daily. May refill 01/03/2022. Next refill 01/31/2022 dextroamphetamine-amphet Take 1 tablet (10 mg 28 tablet 0 1 03/11/2022 amine (ADDERALL) 10 mg total) by mouth tablet daily for 28 days. dextroamphetamine-amphet Take 1 tablet (10 mg 28 tablet 0 0 11/08/2021 02/10/2022 amine (ADDERALL) 10 mg total) by mouth tablet daily. dextroamphetamine-amphet Take 1 tablet (10 mg 28 tablet 0 0 12/06/2021 02/10/2022 amine (ADDERALL) 10 mg total) by mouth tablet daily after lunch. dextroamphetamine-amphet Take 1 tablet (10 mg 28 tablet 0 0 01/03/2022 02/10/2022 amine (ADDERALL) 10 mg total) by mouth tablet daily after lunch. May fill 01/03/2022. Next refill 01/31/2022 ferrous sulfate 325 mg Take 325 mg by mouth 0 01/29/2022 (65 mg iron) tablet daily. nortriptyline (PAMELOR) Take 1 capsule (10 90 capsule 3 12/202101/24/2022 10 mg mg total) by mouth capsuleIndications: at bedtime. Migraine Headache Without Aura rizatriptan (MAXALT) 5 TAKE 1 TABLET BY 12 tablet 3 021 02/10/2022 mg tablet MOUTH NEEDED FOR MIGRAINE. MAY REPEAT IN 2 HOURS NEEDED. MAXIMUM DAILY DOSE IS 30 MG PER 24 HOURS documented as of this encounter Plan of Treatment Not on filedocumented as of this encounter Procedures Procedure Name Priority Date/Time Associated Comments Diagnosis DX ANKLE LEFT 3+ RAD - Routine 12/11/2021 2:16 Pain Ankle Left Resu lts for this VIEWS (most inpatients PM HUMAN RESOURCES SUPERVISOR procedure a re in and all the results outpatients) section. documented in this encounter Results DX Ankle Left 3+ Views (12/11/2021 2:16 PM HUMAN RESOURCES SUPERVISOR) Anatomical Region Laterality Modality Lower Extremity, Ankle, Musculoskeletal RST LOS, Left Computed Radiography Musculoskeletal ARZ LOS, Muskuloskeletal FLA LOS Specimen (Source) Anatomical Collection Method Collection Time Re ceived Time Location / / Volume Laterality 12/11/2021 3:00 PM HUMAN RESOURCES SUPERVISOR Impressions 12/11/2021 3:09 PM HUMAN RESOURCES SUPERVISOR Negative left ankle. No acute or healing fracture. Narrative 12/11/2021 3:09 PM HUMAN RESOURCES SUPERVISOR EXAM: ??DX ANKLE LEFT 3+ VIEWS Procedure Note Rory Aldridge M.D. - 12/11/2021Formatt ing of this note might be different from the original. EXAM: DX ANKLE LEFT 3+ VIEWS IMPRESSION: Negative left ankle. No acute or healing fracture. Poonam Orlando APRN, C.N.P., D.N.P. IMG DIAGNOSTIC IMAGING PROCEDURES documented in this encounter Visit Diagnoses Diagnosis Pain Ankle Left documented in this encounter Additional Health Concerns Assessment Noted Time PHQ-9 Depression Total Score: 5 12/26/2016 12:01 AM CS T documented as of this encounter Care Teams Electronic News Gathering Editor Relationship Specialty Start Date End Date Poonam Orlando APRN, C.N.P., PCP - General Family Medicine D.N.P. [address] [place] [address] documented as of this encounter
--- OUTSIDE RECORDS SUMMARY | 2022-07-28 04:19 | XMS_ITS | Encounter Summary ---
:2000 Author Organization [facility] Address [address] [place] [address] Care Team Providers Name Role Phone Hussein Jones M.D. Primary Care Provider Unavailable Encounter Details Date Type Department Care Team Description 04/05/2021 Orders Only Division of [facility] Cindi Marinelli, Pain Epigastric Pediatric and Btete NEWNFrankPFrank, (Primary Dx) Adolescent Medicine, [place], [place] [address] [place] [address] Social History Tobacco Use Types Packs/Day Years [...] or relatives? How often do you attend faith or Never 2021 restorationism services? Do you belong to any clubs or Yes 01/23/2022 organizations such as faith groups, unions, fraternal or athletic groups, or [...] place to sleep or slept in a fci (including now)? Sex Assigned at Date Recorded Female 01/23/2022 2:50 PM CDT documented as of this encounter Plan of Treatment Not on filedocumented as of this encounter Visit Diagnoses Diagnosis Pain Epigastric - Primary documented in this encounter Additional Health Concerns Assessment Noted Time PHQ-9 Depression Total Score: 5 12/26/2016 12:01 AM CS T documented as of this encounter Care Teams Collaborating Supervising Physician Relationship Specialty Start Date End Date Hussein Jones M.D. PCP - General 04/19/18 04/17/21 documented as of this encounter
--- OUTSIDE RECORDS SUMMARY | 2022-07-28 04:19 | XMS_ITS | Encounter Summary ---
:2000 Author Organization [facility] Address [address] [place] [address] Care Team Providers Name Role Phone Poonam Orlando APRN, C.N.P., D.N.P. Primary Care Provid er Reason for Visit Reason Comments Other discuss recent diagnosis Appointment Request (Routine) - Closed Specialty Diagnoses / Procedures Referred By Contact Refer red To Contact Family Medicine Referral ID Status Reason Start Date Expiration Date Visits Requ ested Visits Authorized [id number] Closed 06/18/2021 06/18/2022 1 1 Encounter Details Date Type Department Care Team Description 07/05/2021 Telemedicine Department of Poonam Honeycutt [facility], Jonnathan Marrufo APRN C.N.P., [facility], in D.N.P. Type (Primary Dx) [place], [place] [address] [facility] [address] [place] [phone] Social History Tobacco Use Types Packs/Day Years [...] do you attend hoahaoism or Never 2021 congregational services? Do you belong to any clubs [...] Notes Poonam Orlando APRN, C.N.P., D.N.P. - 07/05/2021 2:00 PM CDT SUBJECTIVE CHIEF COMPLAINT / PURPOSE OF VISIT Patient presents for Other (discuss recent diagnosis). Consult conducted via real-time audio/video technology by Poonam Orlando APRN, PRE SALES SYSTEMS ENGINEER, DNP in [place], [place] to the patient in their home. Patient identity confirmed prior to commencing this telehealth visit. HISTORY OF PRESENT ILLNESS Video visit arranged today to discuss ADD. This visit was arranged in the midst of the COVID-19 pandemic. 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 These outside medical records have been reviewed and scanned into her EMR. She is interested in starting a stimulant medication. She has never been on a stimulant in the past. Currently, self medicating with high doses of caffeine. She is hopeful that the stimulant well per to focus with her school work and at her job. OBJECTIVE PHYSICAL EXAMINATION VITALS: There were no vitals taken for this visit. GENERAL: Well-developed, well-nourished adult female in no acute distress. Nontoxic appearing. ASSESSMENT / PLAN #1 Attention Deficit Disorder Combined Type Claire recently completed workup at [facility] in [place] and was found to have attention deficit disorder combined type. She is interested in starting stimulant medication. Reviewed potential side effects including weight loss and tachycardia. Encouraged her to be mindful about eating and snacking throughout the day. Monitor for any signs of weight loss or concerning symptoms. Will initiate long-acting Adderall XR 20 mg every morning and 10 mg Adderall immediate release everyafternoon. She will follow-up by patient online Services. Can adjust the dose and or medication as needed. Once we have settled on a dose and medication a work well for her, will have her sign a CSA. I personally spent a total of 20 minutes in iwg-fjpf-oe-face time performing a review of the record and/or discussion with the patient/caregiver as described above. PATIENT EDUCATION Ready to learn, no apparent learning barriers were identified; learning preferences include listening. documented in this encounter Plan of Treatment Not on filedocumented as of this encounter Visit Diagnoses Diagnosis Attention Deficit Disorder Combined Type - Primary documented in this encounter Additional Health Concerns Assessment Noted Time PHQ-9 Depression Total Score: 5 12/26/2016 12:01 AM CS T documented as of this encounter Care Teams Viscose Cellar Worker Relationship Specialty Start Date End Date Poonam Orlando APRN, C.N.P., PCP - General Family Medicine D.N.P. [address] [place] [address] documented as of this encounter
--- OUTSIDE RECORDS SUMMARY | 2022-07-28 04:19 | XMS_ITS | Encounter Summary ---
:2000 Author Organization [facility] Address [address] [place] [address] Care Team Providers Name Role Phone Hussein Jones M.D. Primary Care Provider Unavailable Reason for Visit Reason Comments Abdominal Pain Encounter Details Date Type Department Care Team Description 04/03/2021 Nurse Triage Division of [facility] Krys Mensah R.N. Abdominal Pain Pediatric and Adolescent [address] [place] [phone] [place] [address] [place] [address]- [facility] [phone] Social History Tobacco Use Types Packs/Day Years [...] or relatives? How often do you attend hindu or Never 2021 episcopalian services? Do you belong to any clubs or Yes 01/23/2022 organizations such as hindu groups, unions, fraternal or athletic groups, or [...] this encounter Miscellaneous Notes Telephone Encounter - Spirng Mensah RAxel. - 04/03/2021 3:27 PM CDT Chief Complaint / Reason for Call Patient is a 20 y.o. female calling regarding Abdominal Pain. Assessment Concern: Patient reports she woke at 2:00am, about 13.5 hours ago, with 8/10 abdominal pain. She notes that the pain lasted about 50 minutes before it decreased. She is still having 2/10 abdominal painwith intermittent 5/10 pain. She notes nausea when she is in pain. She would like to be evaluated. ED advised if severe pain returns. Encouraged to call back with questions, concerns, and new/worseningsymptoms. Patient was transferred to coordinator of placement to schedule an appointment. The recommended disposition is See a health care provider within 24 hours. Reason for Disposition ??? [1] MODERATE pain (e.g., interferes with normal activities) AND [2] pain comes and goes (cramps)AND [3] present > 24 hours (Exception: pain with Vomiting or Diarrhea - see that Guideline) Protocols used: ABDOMINAL PAIN - [id number] COVID-19 Nurse Line Screening ASSESSMENT PLAN Endpoint recommendation: Screening positive, patient refusing testing. Care Points: --Notify your regular care provider of any new or worsening symptoms. Education: Patient/caregiver able to teach back Patient agreeable to plan of care: Yes The following references were used: [facility] novel coronavirus (COVID- 19) resources documented in this encounter Plan of Treatment Not on filedocumented as of this encounter Visit Diagnoses Not on filedocumented in this encounter Additional Health Concerns Assessment Noted Time PHQ-9 Depression Total Score: 5 12/26/2016 12:01 AM CS T documented as of this encounter Care Teams Client Operations Manager Relationship Specialty Start Date End Date Hussein Jones M.D. PCP - General 04/19/18 04/17/21 documented as of this encounter
--- OUTSIDE RECORDS SUMMARY | 2022-07-28 04:19 | XMS_ITS | Encounter Summary ---
:2000 Author Organization [facility] Address [address] [place] [address] Care Team Providers Name Role Phone Poonam Orlando APRN, C.N.P., D.N.P. Primary Care Provid er Encounter Details Date Type Department Care Team Description 07/08/2021 Orders Only Department of [facility] Poonam Orlando, Medicine, [place] SH[facility], C.N.P., D.N.P. [facility], in [place], [address] [place] [phone] [place] [address] [place] [address] [phone] Social History Tobacco Use Types Packs/Day Years [...] or relatives? How often do you attend religious or Never 2021 faith services? Do you belong to any clubs or Yes 01/23/2022 organizations such as religious groups, unions, fraternal or athletic groups, or [...] documented as of this encounter Care Teams Underbaster Relationship Specialty Start Date End Date Poonam Orlando APRN, C.N.P., PCP - General Family Medicine D.N.P. [address] [place] [address] documented as of this encounter
--- OUTSIDE RECORDS SUMMARY | 2022-07-28 04:19 | XMS_ITS | Encounter Summary ---
:2001 Author Organization [facility] Address [address] [place] [address] Care Team Providers Name Role Phone Poonam Orlando APRN, C.N.P., D.N.P. Primary Care Provid er Reason for Referral Outpatient (Routine) - Closed Specialty Diagnoses / Procedures Referred By Contact Refer red To Contact Diagnoses Pain Ankle Left Poonam Orlando APRN, [facility] Procedures DX Ankle Left 3+ Views C.N.P., D.N.P. [address] [place] [phone] Referral ID Status Reason Start Date Expiration Date Visits Requ ested Visits Authorized [id number] Closed 12/10/2021 12/10/2022 1 1 L MAKING SUPERVISOR Reason for Visit Reason Comments Follow-up Ankle Injury Sprain (left) Migraine Outpatient (Routine) - Closed Specialty Diagnoses / Procedures Referred By Contact Refer red To Contact Family Medicine Poonam Orlando APRN, [facility] C.N.P., D.N.P. [address] [place] [phone] Referral ID Status Reason Start Date Expiration Date Visits Requ ested Visits Authorized [id number] Closed 12/05/2021 12/05/2022 1 1 Encounter Details Date Type Department Care Team Description 12/10/2021 Telemedicine Department of [facility] Poonam Orlando Headache Without Aura (Primary Dx); Medicine, Jonnathan Marrufo APRN, C.N.P., Pain A nkle Left; Building, in D.N.P. Asthma Mild Intermittent (HCC); [place], [place] [address] [facility] Attention Deficit Disorder Combined Type [address] [place] [phone] Social History Tobacco Use Types Packs/Day Years [...] or relatives? How often do you attend pentecostal or Never 2021 episcopal services? Do you belong to any clubs or Yes 01/23/2022 organizations such as pentecostal groups, unions, fraternal or athletic groups, or [...] Notes Poonam Orlando APRN, C.N.P., D.N.P. - 12/10/2021 2:00 PM CST SUBJECTIVE CHIEF COMPLAINT / PURPOSE OF VISIT Patient presents for Follow-up, Ankle Injury (Sprain (left)), and Migraine. Consult conducted via real-time audio/video technology by Poonam Orlando APRN, INSURANCE REPRESENTATIVE, DNP in [place], [place] to the patient in their home. Patient identity confirmed prior to commencing this telehealth visit. HISTORY OF PRESENT ILLNESS Video visit arranged today to discuss migraines, ankle pain, asthma. This visit was arranged in the midst of the COVID-19 pandemic. She has a longstanding history of migraines. She recently found out that migraines are triggered by some vision changes, stating she has binocular vision. She has been followed by an sociology instructor and has appropriate eye glasses to help with this condition. She has been taking nortriptyline 10 mg once per day for migraine prophylaxis. Initially, upon starting this medication she did notice improvement in migraine frequency. She continues to experience 3-4 migraine days per week. She rarely uses NSAIDsfor management of migraines. She has a prescription for Maxalt which she uses as needed. She did present to an urgent care facility for a separate problem back in September and noted migraine at that time at which time she received IM Toradol with significant improvement in migraine. She sprained her left ankle in September, was seen at an outside facility. No x- rays obtained at thattime. She continues to experience significant pain over the posterior-medial malleolus. She is having a hard time bearing weight on the left ankle. She has been using crutches and wearing an ankle brace with minimal improvement in symptoms. She states she has sprained her ankles numerous times over the years and she is not progressing with symptom improvement as she has in the past with previous sprains. She is completing ankle range of motion exercises daily. She is using albuterol as needed, estimates 1-2 times per week when her asthma is triggered. Typicaltriggers include exercise, car exhaust, perfume, and other strong fragrances. Overall, she feels asthma is well managed at this time. She is considering studying abroad in the upcoming semester was. She wonders about taking the Adderall overseas as she has read online that numerous countries do not allow stimulants. She questions if a nonstimulant option would be available. OBJECTIVE PHYSICAL EXAMINATION VITALS: There were no vitals taken for this visit. GENERAL: Well-developed, well-nourished in no acute distress. Non-toxic appearing. PSYCH: Appropriate grooming and hygiene. Maintains eye-contact throughout exam. Speech is rapid and jumps subject to subject. Insight and judgment appear intact. ASSESSMENT / PLAN #1 Migraine Headache Without Aura Will plan to increase nortriptyline to 20 mg once per day. If this is helpful, can continue to increase as tolerated. She can take NSAIDs at the onset of migraines. Discussed the role of Toradol in management of status migraine. Certainly she could be seen here at [facility] or at an urgent care facilityshould she have a migraine not responding to her typical measures. #2 Pain Ankle Left She has been experiencing left ankle pain since an injury in September 2021. Difficult to determine cause of ongoing symptoms given inability to completed exam today. It is reasonable to proceed with anx-ray. If x-ray negative for fracture, recommend physical therapy for further evaluation and treatment. - DX Ankle Left 3+ Views; Future; Expected date: 12/10/2021 #3 Asthma Mild Intermittent (HCC) Overall it seems to asthma symptoms are well managed. She has number of trigger occluding car exhaust, exercise, and strong fragrances. Certainly continue albuterol as needed. Will send her the asthma control test questionnaire to complete for further insight on asthma management. #4 Attention Deficit Disorder Combined Type For now she will continue on her current medication. Should she study abroad contact PCP did discussmanagement options. Discussed that should certain contras not all stimulants over the border, she would have to weigh the risk and benefit of traveling abroad without use of a stimulant. I personally spent a total of 45 minutes in vtn-oftz-hl-face time performing a review of the record and/or discussion with the patient/caregiver as described above. PATIENT EDUCATION Ready to learn, no apparent learning barriers were identified; learning preferences include listening. L MAKING SUPERVISOR documented in this encounter Plan of Treatment Not on filedocumented as of this encounter Results DX Ankle Left 3+ Views (12/11/2021 2:16 PM MODEL MAKING SUPERVISOR) Anatomical Region Laterality Modality Lower Extremity, Ankle, Musculoskeletal RST LOS, Left Computed Radiography Musculoskeletal ARZ LOS, Muskuloskeletal FLA LOS Specimen (Source) Anatomical Collection Method Collection Time Re ceived Time Location / / Volume Laterality 12/11/2021 3:00 PM MODEL MAKING SUPERVISOR Impressions 12/11/2021 3:09 PM MODEL MAKING SUPERVISOR Negative left ankle. No acute or healing fracture. Narrative 12/11/2021 3:09 PM MODEL MAKING SUPERVISOR EXAM: ??DX ANKLE LEFT 3+ VIEWS Procedure Note Rory Aldridge M.D. - 12/11/2021Formatt ing of this note might be different from the original. EXAM: DX ANKLE LEFT 3+ VIEWS IMPRESSION: Negative left ankle. No acute or healing fracture. Poonam Orlando APRN, C.N.P., D.N.P. IMG DIAGNOSTIC IMAGING PROCEDURES documented in this encounter Visit Diagnoses Diagnosis Migraine Headache Without Aura - Primary Pain Ankle Left Asthma Mild Intermittent (HCC) Attention Deficit Disorder Combined Type Pain Ankle Left documented in this encounter Additional Health Concerns Assessment Noted Time PHQ-9 Depression Total Score: 5 12/26/2016 12:01 AM CS T documented as of this encounter Care Teams Ict Educator Relationship Specialty Start Date End Date Poonam Orlando APRN, C.N.P., PCP - General Family Medicine D.N.P. [address] [place] [address] documented as of this encounter
--- OUTSIDE RECORDS SUMMARY | 2022-07-28 04:19 | XMS_ITS | Encounter Summary ---
:2001 Author Organization [facility] Address [address] [place] [address] Care Team Providers Name Role Phone Poonam Orlando APRN, C.N.PFrank, D.N.P. Primary Care Provid er Reason for Visit Reason Comments CSA forms mailed Encounter Details Date Type Department Care Team Description 08/09/2021 Clinical Communication Department of Poonam Orlando CSA forms mailed Family MedicineYaron APRN, C.N.P., Jonnathan Choi D.N.P. in [place], [facility] [address] [place], [place] [address] [place] [phone] [place], [place] [phone] (Work) [phone] Social History Tobacco Use Types Packs/Day Years [...] do you attend scientologist or Never 2021 anabaptist services? Do you [...] this encounter Miscellaneous Notes Telephone Encounter - Kourtney Dexter - 08/09/2021 4:42 PM CDT 2 CSA forms mailed to patient's provided school address. documented in this encounter Plan of Treatment Not on filedocumented as of this encounter Visit Diagnoses Not on filedocumented in this encounter Additional Health Concerns Assessment Noted Time PHQ-9 Depression Total Score: 5 12/26/2016 12:01 AM CS T documented as of this encounter Care Teams Ferry Hand Relationship Specialty Start Date End Date Poonam Orlando APRN, C.N.P., PCP - General Family Medicine D.N.P. [address] [place] [address] documented as of this encounter
--- OUTSIDE RECORDS SUMMARY | 2022-07-28 04:19 | XMS_ITS | Encounter Summary ---
:2001 Author Organization [facility] Address [address] [place] [address] Care Team Providers Name Role Phone Poonam Orlando APRN, C.N.P., D.N.P. Primary Care Provid er Encounter Details Date Type Department Care Team Description 08/28/2021 Clinical Communication [facility], Jonnathan Marrufo APRN, C.N.P., Building, in D.N.P. [place], [place] [address] [facility] [address] [place] [phone] Social History Tobacco Use Types Packs/Day Years [...] or relatives? How often do you attend congregation or Never 2021 lutheran services? Do you belong to any clubs or Yes 01/23/2022 organizations such as congregation groups, unions, fraternal or athletic groups, or [...] this encounter Miscellaneous Notes Telephone Encounter - Joanne Mata R.N., JAMES - 08/28/2021 11:21 AM SECURITY SERGEANT 2SUBJECTIVE CHIEF COMPLAINT / REASON FOR CALL No chief complaint on file. Information Discussed Call to patient to inform her that she should have prescriptions for Adderall XR 20 mg and Adderall 10 mg available to refill on 09/06/21 at the [facility]. PLAN Disposition/Recommendation: self-care is appropriate at this time, patient encouraged to call back with questions Information/Education: patient/caller able to teach back Caller agreeable to plan of care: yes The following references were used: none RITY SERGEANT documented in this encounter Plan of Treatment Not on filedocumented as of this encounter Visit Diagnoses Not on filedocumented in this encounter Additional Health Concerns Assessment Noted Time PHQ-9 Depression Total Score: 5 12/26/2016 12:01 AM CS T documented as of this encounter Care Teams Nutritional Yeast Supervisor Relationship Specialty Start Date End Date Poonam Orlando APRN, C.N.P., PCP - General Family Medicine D.N.P. [address] [place] [phone] documented as of this encounter
--- OUTSIDE RECORDS SUMMARY | 2022-07-28 04:19 | XMS_ITS | Encounter Summary ---
:2001 Author Organization [facility] Address [address] [place] [address] Care Team Providers Name Role Phone Hussein Jones M.D. Primary Care Provider Unavailable Encounter Details Date Type Department Care Team Description 04/08/2021 Orders Only Division of [facility] Cindi Marinelli, Elevated Liver Enzyme Pediatric and NUTRITION INTERN, C.N.P., Abnormal, Asp artate Adolescent Medicine, M.S.N. Transam ina, [place], in Glutami c-Oxaloacetic [place], [place] Transaminase, Alanine [address] [facility] Transaminase (Primary [place], [place] Dx) [phone] Social History Tobacco Use Types Packs/Day Years [...] you attend roman catholic or Never 2021 latter day services? Do you belong to any clubs or Yes 01/23/2022 organizations such as roman catholic groups, unions, fraternal or athletic groups, or school groups? How often do you attend meetings of the 1 to 4 times per yegilda wade 01/23/2022 clubs or organizations you belong to? [...] or slept in a fdc (including now)? Sex Assigned at Date Recorded Female 01/23/2022 2:50 PM CDT documented as of this encounter Plan of Treatment Not on filedocumented as of this encounter Results ALT (Alanine Aminotransferase) (04/19/2021 2:37 PM CDT) [facility] gist Method Time Signature Alanine 18 7 - 45 04/19/2021 DTL Aminotransferase U/L 3:51 PM CDT (ALT), S Specimen Anatomical Collection Method Collection Time Receive d Time (Source) Location / / Volume Laterality Blood (Blood, 04/19/2021 2:37 PM 04/19/20 3:16 Venous) CDT PM CDT Bette Pink APRNN.P., M.S.N. LAB BLOOD ADD-ON Performing Organization Address City/State/ZIP Code Phon e Number [facility] - [address] [place], [place] [address] [facility] [address] [facility] [address] [facility] documented in this encounter Visit Diagnoses Diagnosis Elevated Liver Enzyme Abnormal, Aspartat e Transaminase, Serum Glutamic-Oxaloacetic Transaminase, Alanine Transaminase - Wanda robles documented in this encounter Additional Health Concerns Assessment Noted Time PHQ-9 Depression Total Score: 5 12/26/2016 12:01 AM CS T documented as of this encounter Care Teams Cement Patcher Relationship Specialty Start Date End Date Hussein Jones M.D. PCP - General 04/19/18 04/17/21 documented as of this encounter
--- OUTSIDE RECORDS SUMMARY | 2022-07-28 04:19 | XMS_ITS | Encounter Summary ---
:2001 Author Organization [facility] Address [address] [place] [address] Care Team Providers Name Role Phone Poonam Orlando APRN, C.N.P., D.N.P. Primary Care Provid er Encounter Details Date Type Department Care Team Description 11/07/2021 Clinical Communication Department of Linda Lezama, [facility], [facility], in [address] [place] [address] [place] [phone] [place], [place] [phone] (Work) [phone] Social History Tobacco Use Types Packs/Day Years [...] do you attend christian or Never 2021 presybeterian services? Do you belong to any clubs or Yes 01/23/2022 organizations such as christian groups, unions, fraternal or athletic groups, or [...] this encounter Miscellaneous Notes Telephone Encounter - Poonam Orlando APRN, C.N.P., D.N.P. - 11/13/2021 8:44 AM CST Prescribing plan updated. SALES REPRESENTATIVE Telephone Encounter - Erik Hardin R.N. - 11/08/2021 9:37 AM CST The patient was notified that their prescription for Adderal XR 30 mg And Adderall 10 mg has been e-prescribed to [facility]. We will forward to Poonam Orlando to adjust CSA. SALES REPRESENTATIVE Telephone Encounter - Josefa Monreal R.N. - 11/08/2021 8:42 AM CST The patient is requesting a renewal of Adderall per Poonam Orlando APRN, C.N.P., D.N.P., as outlined in their Problem List Overview for ADHD. The renewal is pended. There are no nursing concerns at this time. Date of last renewal: 10/09/2021 Urine screening not indicated as part of the prescribing plan. Next provider visit due: 05/24/2022 PDMP needs to be reviewed and documented by provider. Please route this back to nursing once complete. SALES REPRESENTATIVE Telephone Encounter - Josefa Monreal R.N. - 11/08/2021 8:27 AM CST Nursing clarified with patient: She takes Adderall 30 mg XR in am (20 mg plus 10 mg) and 10 mg IR inthe pm. She would like the AM to be 1 instead of two tablets. SALES REPRESENTATIVE Telephone Encounter - Josefa Monreal R.N. - 11/07/2021 4:42 PM CST SUBJECTIVE CHIEF COMPLAINT / REASON FOR CALL Medication questions Information Discussed RN received page/call from patient.. She reports that her medication, Adderall is providing relief at 30 mg. She would like a refill, and with a 30 mg dose as opposed to a 20 mg plus a 10 mg. She also reports that since her new prescription glasses, her migraines are well under control. PLAN Disposition/Recommendation: Nursing to pend refill for Adderall on Thursday, 11/08. She may refill immediately. Information/Education: patient/caller able to teach back Caller agreeable to plan of care: yes The following references were used: nursing clinical judgement SALES REPRESENTATIVE documented in this encounter Plan of Treatment Not on filedocumented as of this encounter Visit Diagnoses Diagnosis Attention Deficit Disorder Combined Type documented in this encounter Additional Health Concerns Assessment Noted Time PHQ-9 Depression Total Score: 5 12/26/2016 12:01 AM CS T documented as of this encounter Care Teams Billing Checker Relationship Specialty Start Date End Date Poonam Orlando APRN, C.N.P., PCP - General Family Medicine D.N.P. [address] [place] [phone] documented as of this encounter
--- OUTSIDE RECORDS SUMMARY | 2022-07-28 04:19 | XMS_ITS | Encounter Summary ---
:2000 Author Organization [facility] Address [address] [place] [address] Care Team Providers Name Role Phone Poonam Orlando APRN, C.N.P., D.N.P. Primary Care Provid er Encounter Details Date Type Department Care Team Description 11/08/2021 Immunization Department of [facility] Poonam Orlando, Medicine, [facility] SHAQ, C.N.P., D.N.P. [facility], [facility] [place] [address] [place] [address] [address] [place] [address] [phone] Social History Tobacco Use Types Packs/Day Years [...] do you attend sabianism or Never 2021 voodoo services? Do you belong to any clubs [...] as of this encounter Care Teams Supervisor Winding Department Relationship Specialty Start Date End Date Poonam Orlando APRN, C.N.P., PCP - General Family Medicine D.N.P. [address] [place] [address] documented as of this encounter
--- OUTSIDE RECORDS SUMMARY | 2022-07-28 04:19 | XMS_ITS | Encounter Summary ---
:[address] [facility] Address [address] [place] [address] Care Team Providers Name Role Phone Poonam Orlando APRN, C.N.P., D.N.P. Primary Care Provid er Reason for Referral Specialty Diagnoses / Procedures Referred By Contact Refer red To Contact Poonam Orlando APRN [facility] C.N.P., D.N.P. [address] [place] [phone] Referral ID Status Reason Start Date Expiration Date Visits Requ ested Visits Authorized ATOLOGY PHYSICIAN ASSISTANT Encounter Details Date Type Department Care Team Description 09/11/2021 Orders Only RST PCP [facility]NT Poonam Orlando APR N, C.N.P., D.N.P. [address] [place] [phone] (Wo rk) Social History Tobacco [...] or relatives? How often do you attend yazdanism or Never 2021 mormon services? Do you belong to any clubs or Yes 01/23/2022 organizations such as yazdanism groups, unions, fraNN LABS or athletic groups, or school groups? How [...] Outpatient Referral Routine Ex pected: office visit Booster 021 (Approximate), Expires: 09/11/2022 documented as of this encounter Visit Diagnoses Not on filedocumented in this encounter Additional Health Concerns Assessment Noted Time PHQ-9 Depression Total Score: 5 12/26/2016 12:01 AM CS T documented as of this encounter Care Teams Advertising Coordinator Relationship Specialty Start Date End Date Poonam Orlando APRN, C.N.P., PCP - General Family Medicine D.N.P. [address] [place] [address] documented as of this encounter
--- OUTSIDE RECORDS SUMMARY | 2022-07-28 04:20 | XMS_ITS | Encounter Summary ---
:2001 Author Organization [facility] Address [address] [place] [address] Care Team Providers Name Role Phone Unavailable Primary Care Provider Unavailable Encounter Details Date Type Department Care Team Description 2001 - Hospital Encounter HX RST UNIT 3-0 NURSERY 2001 Social History Tobacco Use Types Packs/Day Years Used Date Smoking Tobacco: Never Assessed Alcohol Habits Answer Date Recorded How often [...] do you attend jain or Never 2021 adventist services? Do you belong to any clubs [...] slept in a senior living (including now)? Sex Assigned at Date Recorded Female 01/23/2022 2:50 PM CDT documented as of this encounter Plan of Treatment Not on filedocumented as of this encounter Procedures Procedure Name Priority Date/Time Associated Diagnosis Comme nts ABORH , RBC Routine 2001 3:30 PM Res ults for this TECHNICAL COORDINATOR procedure are i n the results section. documented in this encounter Results ABORh (2001 3:30 PM TECHNICAL COORDINATOR) Specimen Anatomical Collection Method Collection Time Receive d Time (Source) Location / / Volume Laterality 2001 3:30 PM 200 1 7:23 TECHNICAL COORDINATOR PM TECHNICAL COORDINATOR Narrative [facility] - 2001 3:30 PM TECHNICAL COORDINATOR 2001 ?[id number] ?Ro ?15:30 ?? [place] ABO Order: ?ABO/RH ? A POS ?KATTY ?Neg ? Procedure Note 02/03/2018 2001 W704 Ro 15:30 ABO Order: ABO/RH A POS KATTY Neg Historical Provider LAB BLOOD BANK TEST ORDERABL ES Performing Organization Address City/State/ZIP Code Phon e Number [facility] [employer] - [address] [place], [place] [address] [facility] documented in this encounter Visit Diagnoses Not on filedocumented in this encounter
--- OUTSIDE RECORDS SUMMARY | 2022-07-28 04:20 | XMS_ITS | Encounter Summary ---
:2001 Author Organization [facility] Address [address] [place] [address] Care Team Providers Name Role Phone Kathrine Marrufo M.D. Primary Care Provider Encounter Details Date Type Department Care Team Description 02/06/2018 Orders Only Department of Pediatric Carmella Martin M.D. Specialty in [place], [address] [place] [address] [place] [phone] [place] [address] [phone] Social History Tobacco Use Types Packs/Day Years Used Date Smoking Tobacco: Never Alcohol Habits Answer Date Recorded [...] or relatives? How often do you attend evangelical or Never 2021 holiness services? Do you belong to any clubs or Yes 01/23/2022 organizations such as evangelical groups, unions, fraternal or athletic groups, or [...] documented as of this encounter Care Teams Screen Roller Relationship Specialty Start Date End Date Kathrine Marrufo M.D. PCP - General Pediatrics 04/18/16 04/18/18 [address] [place] [address] documented as of this encounter
--- OUTSIDE RECORDS SUMMARY | 2022-07-28 04:20 | XMS_ITS | Encounter Summary ---
:2001 Author Organization [facility] Address [address] [place] [address] Care Team Providers Name Role Phone Hussein Jones M.D. Primary Care Provider Unavailable Reason for Visit Reason Comments COVID Nurse Line cough, short of breath, fati malachi Encounter Details Date Type Department Care Team Description 03/09/2020 Nurse Triage Department of [facility] Susan Will COVID Nurse Line Medicine, Иван RIsmael (cough, short of Clinic, in [place], [address] breath, fatigue) [place], [place] [address] [place] [address] [place] [address] [phone] Social History Tobacco Use Types Packs/Day Years [...] or relatives? How often do you attend temple or Never 2021 jew services? Do you belong to any clubs or Yes 01/23/2022 organizations such as temple groups, unions, fraternal or athletic groups, or [...] this encounter Miscellaneous Notes Telephone Encounter - Susan Will R.N. - 03/09/2020 1:38 PM CDT COVID-19 Nurse Line Screening ASSESSMENT COVID 19 Screening Have you had close contact with a person who has a LABORATORY CONFIRMED case of COVID-19?: No - Continue screening. In the last 48 hours have you had any of the following symptoms?: New cough, New shortness of breath, New nausea, New headache Do you have any urgent symptoms?: None- Patient meets criteria for testing. PLAN Endpoint recommendation: Screening positive, testing indicated, advised to be swabbed for COVID-19, sent to [employer], [place] Care Points provided: RECOMMENDATIONS TESTING CRITERIA IS MET: Stay home except to get medical care. Avoid public areas (do not go to work, school, etc). Avoid public transportation, riding sharing (if possible) or taxis. Stay in a specific sick room if possible and away from other people and pets in your home. Use a separate bathroom if possible. Wear a cloth face covering, over your nose and mouth if you must be around other people even at home). Contact employer/occupational health department to notify them that they are being tested. If patient is living with a high risk family member, seek medical advice from their primary care provider. *High risk includes family member with heart of lung disease (e.g. asthma, COPD), immunosuppression (e.g. cancer, HIV/AIDS), women, or 65 years and older. Go to the nearest emergency department if any of the following occur: 1) New shortness of breath at rest, 2) Pain, pressure or tightness unrelated to coughing in the chest, jaw or arm, 3) Newly confused or unable to stay alert and awake. Notify primary care provider if any new or worseningsymptoms. Education Resources: https://www.cdc.gov/coronavirus/2019-ncov/qg-bmo-fcb-sick/wyifb-irll-majb.html SELF CARE FOR ALL PATIENTS: In these stressful times, it is important to take care of your mental health as well as your physical health. Take breaks from watching, reading, or listening to news stories. It can be upsetting to hear about the crisis and see images repeatedly. Make time to unwind. Try to do some other activities you enjoy. Connect with others. Talk with people you trust about your concerns and how you are feeling. Be creative in keeping connected with loved ones. Develop a plan for your day. Shower, get dressed, have a routine. Structure in productive tasks as well as leisure time. Try healthy coping strategies such as meditation, relaxation, exercise, healthy eating habits, and avoid alcohol and drugs. Maintain a consistent sleep schedule. Keep sleep area and work areas separate. Education: patient/caregiver Patient/caregiver able to teach back Patient agreeable to plan of care: Yes The following references were used: [facility] novel coronavirus (COVID- 19) resources documented in this encounter Plan of Treatment Not on filedocumented as of this encounter Visit Diagnoses Not on filedocumented in this encounter Additional Health Concerns Assessment Noted Time PHQ-9 Depression Total Score: 5 12/26/2016 12:01 AM ANDREW Quesada documented as of this encounter Care Teams Satellite Installation Technician Relationship Specialty Start Date End Date Hussein Jones M.D. PCP - General 04/19/18 04/17/21 documented as of this encounter
--- OUTSIDE RECORDS SUMMARY | 2022-07-28 04:20 | XMS_ITS | Encounter Summary ---
:[address] Author [address] [facility] Address [address] [place] [address] Care Team Providers Name Role Phone Hussein Jones M.D. Primary Care Provider Unavailable Encounter Details Date Type Department Care Team Description 09/27/2018 [facility] Pediatric and Adolescent Medicine, [facility] eder [address] [place] [address] Social History Tobacco Use Types Packs/Day Years [...] or relatives? How often do you attend orthodox or Never 2021 yazidi services? Do you belong to any clubs or Yes 01/23/2022 organizations such as orthodox groups, unions, fraternal or athletic groups, [...] or slept in a halfway (including now)? Sex Assigned at Date Recorded Female 01/23/2022 2:50 PM CDT documented as of this encounter Plan of Treatment Not on filedocumented as of this encounter Visit Diagnoses Not on filedocumented in this encounter Additional Health Concerns Assessment Noted Time PHQ-9 Depression Total Score: 5 12/26/2016 12:01 AM CS T documented as of this encounter Care Teams Sawdust Machine Operator Relationship Specialty Start Date End Date Hussein Jones M.D. PCP - General 04/19/18 04/17/21 documented as of this encounter
--- OUTSIDE RECORDS SUMMARY | 2022-07-28 04:20 | XMS_ITS | Encounter Summary ---
:2001 Author Organization [facility] Address [address] [place] [address] Care Team Providers Name Role Phone Hussein Jones M.D. Primary Care Provider Unavailable Reason for Visit Reason Comments Toe Pain right great toe, past couple weeks Appointment Request (Routine) - Closed Specialty Diagnoses / Procedures Referred By Contact Refer red To Contact Family Medicine Referral ID Status Reason Start Date Expiration Date Visits Requ ested Visits Authorized [id number] Closed 09/13/2019 09/12/2020 1 1 Encounter Details Date Type Department Care Team Description 09/14/2019 Office Visit Department of Family Mathieu Marcelo Ingrow n Toenail MedicineLola M.D. (Primary Dx) Clinic, in [place], [facility] [address] [place], [place] [address] [address] [place], [place] [phone] (Work) [phone] Social History Tobacco Use Types Packs/Day Years [...] do you attend evangelical or Never 2021 mosque services? Do you belong to any clubs [...] or slept in a longterm (including now)? Sex Assigned at Date Recorded Female 01/23/2022 2:50 PM CDT documented as of this encounter Last Filed Vital Signs Vital Sign Reading Time Taken Comments Blood Pressure 118/72 09/14/2019 3:51 PM COLLEGE OR UNIVERSITY BUSINESS MANAGER Pulse 87 09/14/2019 3:51 PM COLLEGE OR UNIVERSITY BUSINESS MANAGER Temperature 37 ??C (98.6 ??F) 09/14/2019 3:51 PM COLLEGE OR UNIVERSITY BUSINESS MANAGER Respiratory Rate 16 09/14/2019 3:51 PM COLLEGE OR UNIVERSITY BUSINESS MANAGER Oxygen Saturation - - Inhaled Oxygen Concentration - - Weight 50.8 kg (111 lb 15.9 oz) 09/14/2019 3:51 PM COLLEGE OR UNIVERSITY BUSINESS MANAGER Height - - Body Mass Index - - documented in this encounter Progress Notes Mathieu Marcelo M.D. - 09/14/2019 4:00 PM CST SUBJECTIVE Claire Zenia Moncada is a 19 y.o. female Chief Complaint Patient presents with ??? Toe Pain right great toe, past couple weeks See note above. This is the medial edge of the great toenail. She has a history of this same toenailgetting ingrown on this side. She had this part of the nail removed in [place] and remembers the experience as very unpleasant. She does not feel she was numbed up adequately and the procedure was painful both during and afterwards. It does not sound like any nail bed ablation was done. ROS: see above OBJECTIVE Patient in no distress. Looks well nourished. BP 118/72 (BP Location: Left arm, Patient Position: Sitting, Cuff Size: Regular) Pulse 87 Temp 37 ??C (Temporal) Resp 16 Wt 50.8 kg Alert and attentive. Normal mood/behavior. Respiratory effort is normal. Facial motor strength is normal bilaterally. Speech clear. Skin is warm and dry with normal color. The affected great toenail is not cut straight across but angles upward on the affected side, increasing the risk for an ingrown nail edge. There is mild erythema along this edge in mild tenderness to palpation. No cellulitis or fluctuance to suggest abscess. No results found for this or any previous visit (from the past 72 hour(s)). ASSESSMENT / PLAN New med list after this visit: Current Outpatient Medications Medication Sig Dispense Refill ??? ibuprofen (ADVIL) 200 mg tablet Take 2 tablets by mouth every 6 (six) hours. pain ??? albuterol (for_PROVENTIL HFA,VENTOLIN HFA) 90 mcg/actuation inhaler Inhale 2-4 puffs every 4 (four) hours. 2-6 puffs up to every 4 hr as needed for shortness of breath. Dispense: 200 Actuation inhaler Current Facility-Administered Medications Medication Dose Route Frequency Provider Last Rate Last Dose ??? sodium bicarbonate injection 51 mEq 1 mEq/kg (Dosing Weight) intravenous Once Favio Najera, P.A.-C. There are no discontinued medications. #1 Ingrown Toenail Mildly symptomatic. Discussed options. If it worsens, I would recommend removal of that side of the nail, this time done in a less painful and less traumatic way. I can [facility] this for her [facility] at the [facility]. She will give it more time, soak in hot water as needed, and try and cut the nail straight to crossed as it grows out, keeping it long. Patient instruction: return to clinic if not improved, or call. EGE OR UNIVERSITY BUSINESS MANAGER documented in this encounter Plan of Treatment Not on filedocumented as of this encounter Visit Diagnoses Diagnosis Ingrown Toenail - Primary documented in this encounter Additional Health Concerns Assessment Noted Time PHQ-9 Depression Total Score: 5 12/26/2016 12:01 AM CS T documented as of this encounter Care Teams Test Lead Application Testing Relationship Specialty Start Date End Date Hussein Jones M.D. PCP - General 04/19/18 04/17/21 documented as of this encounter
--- OUTSIDE RECORDS SUMMARY | 2022-07-28 04:20 | XMS_ITS | Encounter Summary ---
:2000 Author Organization [facility] Address [address] [place] [address] Care Team Providers Name Role Phone Unavailable Primary Care Provider Unavailable Encounter Details Date Type Department Care Team Description 12/27/2015 [facility] Meron Benito M.[facility] [address] [place] [address] (Wo rk) Social History Tobacco Use Types [...] do you attend restorationism or Never 2021 advent services? Do you [...] or slept in a retirement (including now)? Sex Assigned at Date Recorded Female 01/23/2022 2:50 PM CDT documented as of this encounter Last Filed Vital Signs Vital Sign Reading Time Taken Comments Blood Pressure - - Pulse - - Temperature - - Respiratory Rate - - Oxygen Saturation - - Inhaled Oxygen Concentration - - Weight 46.5 kg (102 lb 8.2 oz) 12/27/2015 4:31 PM CRIME SCENE EVIDENCE TECHNICIAN Height 165 cm (5' 4.96) 12/27/2015 4:31 PM CRIME SCENE EVIDENCE TECHNICIAN Body Mass Index 17.08 12/27/2015 4:31 PM CRIME SCENE EVIDENCE TECHNICIAN Body Mass Index Percentile 15.85 % 12/27/2015 4:31 PM CS T Growth Chart: [facility] (Girls, 2-20 Years) documented in this encounter Progress Notes Alyce Benito M.D. - 12/27/2015 4:57 PM CST Clinic Full Note - sports physical CHIEF COMPLAINT/REASON FOR VISIT sports pe HISTORY OF PRESENT ILLNESS Claire Washington) is here with her father, Dong, for sports physical. She will be participating [employer]. [employer] form is filled out in its entirety. No positive questions on screening. No chest pain, dyspnea, abdominal pain, nausea, vomiting, change in bowel or bladder habits. No safety concerns. She has been running on their treadmill at home this winter and enjoying it. MEDICATIONS erythromycin 0.5% ophthalmic ointment, NO ACTIVE MEDICATIONS, See Instructions List Documented Prior to Med History Completed ALLERGIES NKA PAST MEDICAL HISTORY Chronic Blepharitis NOS Hordeolum L Historical No historical problems SOCIAL HISTORY Date Time: 12/27/2015 16:31 Tobacco: Smoking Status: Never smoker Exposure: Other: never Alcohol: Use: No Results Found Recreational Drugs: Use: No Results Found Type: No Results Found FAMILY HISTORY Mother: Negative: Cataract; Diabetes mellitus; Glaucoma; Hypertension; Macular disease Father: Negative: Cataract; Diabetes mellitus; Glaucoma; Hypertension; Macular disease Sister: Negative: Cataract; Diabetes mellitus; Glaucoma; Hypertension; Macular disease Brother: Negative: Cataract; Diabetes mellitus; Glaucoma; Hypertension; Macular disease SYSTEMS REVIEW as per HPI VITAL SIGNS HR: 90 BP: 120 / 75 SpO2: 100% HT: 165 cm WT: 46.5 kg BMI: 17.08 PHYSICAL EXAMINATION General: Appears age appropriate. Vitals noted and stable. Skin: Normal turgor and without lesions. Head: Normocephalic. Eyes: Conjunctivae noninjected; sclerae anicteric; lids without ptosis, edema, or erythema; extraocular movements intact; pupils equal, round, and reactive to light. Symmetric light reflex, normal fundi. ENT: TMs koroma, sharp landmarks, mobile. Nose clear. Palate is complete. Dentition normal for age. Tonsils small and non-inflamed bilaterally. Lymph Nodes: No significant lymphadenopathy. Heart: Regular rate and rhythm; normal S1 and S2; no murmurs, gallops, or rubs. Peripheral pulses are equal. There is no clubbing, cyanosis or edema of the extremities. Extremities are warm and well perfused and capillary refill is less than 2 seconds. Lungs: Unlabored respirations; symmetric chest expansion; clear breath sounds; no wheezes, crackles, rales, rhonchi, or retractions. Abdomen: Soft, without organomegaly. Bowel sounds normal. Non-tender without rebound. No masses palpable. No distention. Joints: Full range of motion about all joints. Extremities: Digits and nails are normal Gait: Normal and appropriate gait for age. Normal duck walk. Mental Status: Alert, oriented, in no distress. Appropriate for age. Neuro: Normal reflexes; normal tone; no focal deficits appreciated. Appropriate for age. IMPRESSION/REPORT/PLAN 1. Exam Sport NOS - Cleared for participation in sports without restriction. - Appropriate paperwork completed - Discussed that since Shawna is menstruating, is vegetarian, would recommend CBC. They will think about this. - Due for HPV series. Had not completed because mother had some concerns about safety. Questions were answered today. They will discuss at home and contact us about completing the series. - All questions answered PATIENT EDUCATION Ready to learn. No apparent learning barriers were identified. Learning preferences include listening. Explained diagnosis and treatment plan; patient/child/electric furnace operator expressed understanding of the content. Electronically Signed By: ALYCE BENITO MD On: 12/27/2015 05:02 PM Source: [facility] POWERCHART Document Id: [id number] E SCENE EVIDENCE TECHNICIAN documented in this encounter Miscellaneous Notes Miscellaneous - Sakina Wolfe L.P.N. - 12/27/2015 4:31 PM CST Pediatric Ceramics Engineer Intake/History Pediatric Ceramics Engineer Intake/History Entered On: 12/27/2015 16:32 CRIME SCENE EVIDENCE TECHNICIAN Performed On: 12/27/2015 16:31 CRIME SCENE EVIDENCE TECHNICIAN by SAKINA WOLFE BUILDING TECH Intake Chief Complaint : sports pe Peripheral Pulse Rate : 90 /min Heart Rhythm : Regular Systolic Blood Pressure : 120 mmHg Diastolic Blood Pressure : 75 mmHg NIBP Mean : 90 mmHg BP Location : Left upper extremity Blood Pressure Cuff Size : Pediatric SpO2 : 100 % Oxygen Therapy : Room air Height : 165 cm(Converted to: 5 ft 5 inch(es), 65 inch(es)) Actual Weight : 46.5 kg(Converted to: 102 lb 8 oz) Weight Source : Standing scale Dosing Weight Clinic : 46.5 kg Clinic BSA : 1.46 Body Mass Index : 17.08 kg/m2 SAKINA WOLFE LPN - 12/27/2015 16:31 CRIME SCENE EVIDENCE TECHNICIAN General Info Present in Room During Exam/Procedure : Father Languages : Maltese Is Patient Female and 13-50 no hysterectomy : Yes Status : Patient denies Are you ? : No SAKINA WOLFE LPN - 12/27/2015 16:31 CRIME SCENE EVIDENCE TECHNICIAN Subjective Pain Symptoms : No SAKINA WOLFE LPN - 12/27/2015 16:31 CRIME SCENE EVIDENCE TECHNICIAN Dependent Habits Exposure to Tobacco Smoke : Other: never Smoking Status : Never smoker Tobacco 2A : No Tobacco Use/Currently Using : No Tobacco Use/Last 30 Days : No Tobacco Use/Last 12 months : No SAKINA WOLFE LPN - 12/27/2015 16:31 CRIME SCENE EVIDENCE TECHNICIAN Source: [facility] POWER[facility]ART Document Id: [id number] CRIME SCENE EVIDENCE TECHNICIAN!33 E SCENE EVIDENCE TECHNICIAN documented in this encounter Plan of Treatment Not on filedocumented as of this encounter Visit Diagnoses Not on filedocumented in this encounter Additional Health Concerns Assessment Noted Time PHQ-9 Depression Total Score: 1 03/23/2014 12:01 AM CD T documented as of this encounter
--- OUTSIDE RECORDS SUMMARY | 2022-07-28 04:20 | XMS_ITS | Encounter Summary ---
:2001 Author Organization [facility] Address [address] [place] [address] Care Team Providers Name Role Phone Hussein Jones M.D. Primary Care Provider Unavailable Reason for Visit Reason Comments COVID Nurse Line Encounter Details Date Type Department Care Team Description 05/05/2020 Clinical Communication Division of Hussein Jones COVI D Nurse Line [facility] [place] [place] [address] [place] [address] Social History Tobacco Use Types Packs/Day Years [...] do you attend orthodox or Never 2021 pentecostalism services? Do you [...] this encounter Miscellaneous Notes Telephone Encounter - Abena Brown - 05/05/2020 10:29 AM CDT In the past 30 days have you had a swab for COVID that tested positive? NO documented in this encounter Plan of Treatment Not on filedocumented as of this encounter Visit Diagnoses Not on filedocumented in this encounter Additional Health Concerns Assessment Noted Time PHQ-9 Depression Total Score: 5 12/26/2016 12:01 AM CS T documented as of this encounter Care Teams Grape Pruner Relationship Specialty Start Date End Date Hussein Jones M.D. PCP - General 04/19/18 04/17/21 documented as of this encounter
--- OUTSIDE RECORDS SUMMARY | 2022-07-28 04:20 | XMS_ITS | Encounter Summary ---
:2001 Author Organization [facility] Address [address] [place] [address] Care Team Providers Name Role Phone Unavailable Primary Care Provider Unavailable Encounter Details Date Type Department Care Team Description 05/14/2015 [facility] Meron Benito M[facility] [address] [place] [address] (Wo rk) Social History Tobacco Use Types [...] or relatives? How often do you attend mormonism or Never 2021 rastafarian services? Do you belong to any clubs or Yes 01/23/2022 organizations such as mormonism groups, unions, fraternal or athletic groups, or [...] or slept in a chcf (including now)? Sex Assigned at Date Recorded Female 01/23/2022 2:50 PM CDT documented as of this encounter Last Filed Vital Signs Vital Sign Reading Time Taken Comments Blood Pressure - - Pulse - - Temperature - - Respiratory Rate - - Oxygen Saturation - - Inhaled Oxygen Concentration - - Weight 43.5 kg (95 lb 14.4 oz) 05/14/2015 2:27 PM CDT Height 166.5 cm (5' 5.55) 05/14/2015 2:27 PM CDT Body Mass Index 15.69 05/14/2015 2:27 PM CDT Body Mass Index Percentile 5.51 % 05/14/2015 2:27 PM CD T Growth Chart: [facility] (Girls, 2-20 Years) documented in this encounter Progress Notes Alyce Benito M.D. - 05/14/2015 2:43 PM CDT Clinic Full Note CHIEF COMPLAINT/REASON FOR VISIT Possible sty on LEFT eyelid x 7-10 days, no relief with heat no vision issues HISTORY OF PRESENT ILLNESS About 10 days of left upper lid irritation. Tender, erythematous. No drainage. No changes in vision. Had a similar lesion on the right upper lid, but that resolved in about 3 days. MEDICATIONS NO ACTIVE MEDICATIONS, See Instructions List Documented Prior to Med History Completed ALLERGIES No qualifying data available. PAST MEDICAL HISTORY Chronic No chronic problems Historical No historical problems SOCIAL HISTORY No Data Available FAMILY HISTORY No qualifying data available. VITAL SIGNS T: 36.6 ??C (Core) HT: 166.5 cm WT: 43.5 kg BMI: 15.69 PHYSICAL EXAMINATION GENERAL: alert, oriented, vitals within normal limits and stable. EYE: normal conjunctiva. Left lid with hordeolum just lateral of midline. Surrounding erythema and tenderness. Erythema does not extend onto lid. IMPRESSION/REPORT/PLAN 1. Hordeolum L - Increase frequency of warm packs to 15 minutes, four times daily - Recommend massage toward tear ducts to stimulate drainage. May use baby shampoo to cleanse. - Referred to Ophthalmology for consideration of I&D. If resolves prior to appointment, may cancel. - All questions answered. Orders: Consult to Ophthalmology PATIENT EDUCATION Ready to learn. No apparent learning barriers were identified. Learning preferences include listening. Explained diagnosis and treatment plan; patient/child/rn international expressed understanding of the content. Electronically Signed By: ALYCE BENITO MD On: 05/14/2015 02:45 PM Source: [facility] My Digital Life Document Id: [id number] documented in this encounter Miscellaneous Notes Miscellaneous - Alyce Benito M.D. - 05/14/2015 2:45 PM CDT Addendum by DEE BURNS LPN on 15 May 2015 09:24:31 CDT Father notified. Addendum by PAVEL SIDHU CMA on 14 May 2015 15:25:15 CDT LM with daughter to have parent return call to the clinic for message. From: ALYCE BENITO MD To: ZEINA [facility]ila Clinic Nurse; Sent: 05/14/2015 14:45:58 CDT Please let family know that they may also do gentle massage from outer eyelid to inner to promote drainage. Also recommend cleansing the area about twice daily with baby shampoo. Remainder as per my note of today. Shirley, [facility] Source: [facility] [employer] Document Id: [id number] Miscellaneous - Rylie Chapa, L.P.N. - 05/14/2015 2:27 PM CDT Pediatric Jig Boring Machine Operator For Metal Intake/History Pediatric Jig Boring Machine Operator For Metal Intake/History Entered On: 05/14/2015 14:29 CDT Performed On: 05/14/2015 14:27 CDT by KATHY, RYLIE P ORTHOPHOTO TECH/DRAFTSMAN Intake Chief Complaint : Possible sty on LEFT eyelid x 7-10 days, no relief with heat no vision issues Temperature Core : 36.6 DegC(Converted to: 97.9 DegF) Height : 166.5 cm(Converted to: 5 ft 6 inch(es), 66 inch(es)) Actual Weight : 43.5 kg(Converted to: 95 lb 14 oz) Weight Source : Standing scale Dosing Weight Clinic : 43.5 kg Clinic BSA : 1.42 Body Mass Index : 15.69 kg/m2 RYLIE CHAVEZ LPN - 05/14/2015 14:27 CDT General Info Languages : Cymraes Is Patient Female and 13-50 no hysterectomy : Yes Status : Patient denies Are you ? : No RYLIE CHAVEZ LPN - 05/14/2015 14:27 CDT Subjective Pain Symptoms : No RYLIE CHAVEZ LPN - 05/14/2015 14:27 CDT Dependent Habits Tobacco Use/Currently Using : No Exposure to Tobacco Smoke : Other: never Smoking Status : Never smoker RYLIE CHAVEZ LPN - 05/14/2015 14:27 CDT [facility] Document Id: [id number] CDT!21 documented in this encounter Plan of Treatment Not on filedocumented as of this encounter Visit Diagnoses Not on filedocumented in this encounter Additional Health Concerns Assessment Noted Time PHQ-9 Depression Total Score: 1 03/23/2014 12:01 AM CD T documented as of this encounter
--- OUTSIDE RECORDS SUMMARY | 2022-07-28 04:20 | XMS_ITS | Encounter Summary ---
:2001 Author Organization [facility] Address [address] [place] [address] Care Team Providers Name Role Phone Kathrine Marrufo M.D. Primary Care Provider Encounter Details Date Type Department Care Team Description 01/11/2018 Abstract DATA ABSTRACTION Provider, Historical Social History Tobacco Use Types Packs/Day Years [...] do you attend jew or Never 2021 mosque services? Do you [...] or slept in a residential (including now)? Sex Assigned at Date Recorded Female 01/23/2022 2:50 PM CDT documented as of this encounter Plan of Treatment Not on filedocumented as of this encounter Visit Diagnoses Not on filedocumented in this encounter Additional Health Concerns Assessment Noted Time PHQ-9 Depression Total Score: 5 12/26/2016 12:01 AM CS T documented as of this encounter Care Teams Marketing Area Manager Relationship Specialty Start Date End Date Kathrine Marrufo M.D. PCP - General Pediatrics 04/18/16 04/18/18 [address] [place] [address] documented as of this encounter
--- OUTSIDE RECORDS SUMMARY | 2022-07-28 04:20 | XMS_ITS | Encounter Summary ---
:2001 Author Organization [facility] Address [address] [place] [address] Care Team Providers Name Role Phone Hussein Jones M.D. Primary Care Provider Unavailable Encounter Details Date Type Department Care Team Description 03/14/2020 Hospital Encounter Department of Akilah Reeves Dis comfort Chest Radiology, Tiara Johnson, M.P.H . [facility], in [address] [address] [address] [place], [place] [phone] (Work) [phone] Social History Tobacco Use Types Packs/Day Years [...] or relatives? How often do you attend christianity or Never 2021 mandaen services? Do you belong to any clubs or Yes 01/23/2022 organizations such as christianity groups, unions, fraternal or athletic groups, or [...] place to sleep or slept in a nursing home (including now)? Sex Assigned at Date Recorded Female 01/23/2022 2:50 PM CDT documented as of this encounter Medications at Time of Discharge Medication Sig Dispensed Refills Start Date End Date albuterol inhaler Inhale 2 puffs every 4 1 Inhaler 2 201910/15/2021 (four) hours as needed for wheezing or shortness of breath. ibuprofen Take 2 tablets by 0 02/04/2017 022 (ADVIL,MOTRIN) 200 mg mouth every 6 (six) tablet hours. pain documented as of this encounter Plan of Treatment Not on filedocumented as of this encounter Procedures Procedure Name Priority Date/Time Associated Comments Diagnosis DX CHEST AP OR PA RAD - Routine 03/14/2020 4:02 Discomfort Chest Re sults for this AND LATERAL 2 (most inpatients PM CDT procedure are in VIEWS and all the results outpatients) section. documented in this encounter Results DX Chest AP or PA and Lateral 2 Views (03/14/2020 4:02 PM CDT) Anatomical Region Laterality Modality Chest, Thoracic RST LOS, Thoracic ARZ LOS, Thoracic N/A Computed Radiography FLA LOS Specimen (Source) Anatomical Collection Method Collection Time Re ceived Time Location / / Volume Laterality 03/14/2020 4:38 PM CDT Impressions 03/14/2020 4:38 PM CDT No significant interval change from 12/23/2016. No focal pulmonary lesion. Normal cardiac silhouette. Narrative 03/14/2020 4:38 PM CDT EXAM: ??DX CHEST AP OR PA AND LATERAL 2 VIEWS Procedure Note Tristin Obregon M.B.B.S., MLeilani. - 02/17 EXAM: DX CHEST AP OR PA AND LATERAL 2 EWS IMPRESSION: No significant interval change from 04/2017. No focal pulmonary lesion. Normal cardiac silhouette. Akilah Reeves M.D., M.P.H. IMG DIAGNOSTIC IMAGING FL OCEDURES documented in this encounter Visit Diagnoses Diagnosis Discomfort Chest documented in this encounter Additional Health Concerns Infection Onset Date Last Indicated Resolved Time COVID19 Pending 03/14/2020 03/14/2020 03/15/2020 7:50 PM CDT Assessment Noted Time PHQ-9 Depression Total Score: 5 12/26/2016 12:01 AM CS T documented as of this encounter Care Teams Forensic Engineer Relationship Specialty Start Date End Date Hussein Jones M.D. PCP - General 04/19/18 04/17/21 documented as of this encounter
--- OUTSIDE RECORDS SUMMARY | 2022-07-28 04:20 | XMS_ITS | Encounter Summary ---
:2000 Author Organization [facility] Address [address] [place] [address] Care Team Providers Name Role Phone Hussein Jones M.D. Primary Care Provider Unavailable Reason for Visit Reason Comments Immunizations Annual Exam Appointment Request (Routine) - Closed Specialty Diagnoses / Procedures Referred By Contact Refer red To Contact [facility] Pediatric and Adolescent Medicine Referral ID Status Reason Start Date Expiration Date Visits Requ ested Visits Authorized [id number] Closed 05/04/2020 05/04/2021 1 1 Encounter Details Date Type Department Care Team Description 05/09/2020 Office Visit Division of [facility] Hussein Jones, [facility] Child Pediatric and M.DFrank Care Multisyst em 29 Day Adolescent Medicine, To 18 Y ear [place], in (Primar y Dx) [place], [place] [address] [place] [address] Social History Tobacco Use Types Packs/Day Years [...] or relatives? How often do you attend sikhism or Never 2021 oriental orthodox services? Do you belong to any clubs or Yes 01/23/2022 organizations such as sikhism groups, unions, fraternal or athletic groups, or [...] or slept in a prison (including now)? Sex Assigned at Date Recorded Female 01/23/2022 2:50 PM CDT documented as of this encounter Last Filed Vital Signs Vital Sign Reading Time Taken Comments Blood Pressure 119/87 05/09/2020 10:31 AM CDT Pulse 89 05/09/2020 10:31 AM CDT Temperature - - Respiratory Rate - - Oxygen Saturation - - Inhaled Oxygen Concentration - - Weight 50.3 kg (110 lb 14.3 oz) 05/09/2020 10:31 AM CDT Height 169.5 cm (5' 6.73) 05/09/2020 10:31 AM CDT Body Mass Index 17.51 05/09/2020 10:31 AM CDT Body Mass Index Percentile 3.93 % 05/09/2020 10:31 AM CDT Growth Chart: [facility] (Girls, 2-20 Years) documented in this encounter H&P Notes Hussein Jones M.D. - 05/09/2020 10:45 AM CDT SUBJECTIVE Claire Moncada is a 19 y.o. female presenting today with for a health maintenance visit. Current concerns: No current concerns. The following portions of the patient's history were reviewed and updated as appropriate: allergies, current medications, family history, medical history, social history, surgical history, problem list, vital signs, growth curves and pre-visit questionnaires. REVIEW OF SYSTEMS Diet: She eats a variety of foods and is a vegetarian. She focuses on getting both complete and incomplete protein combinations to compensate for workouts. Elimination: Stool is normal frequency and consistency. No concerns regarding voiding. Growth: Reviewed and appropriate. Exercise: 30-60 minutes of exercise per day. Cardio/weight lifting/yoga. 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 Sleep: Normal for age. No concerns. Safety and prevention: Age-appropriate safety and prevention recommendations reviewed with the patient. Screen time: Mostly reading and watching videos related to educational purposes for chemistry/physics. Mood symptoms or behavioral concerns: No changes. Hearing and vision: Normal per report. Dental: She brushes her teeth twice a day, family has a dental home. Menses: Menses are regular, last 7 days. Has discomfort for first 4 days. The cramps are fairly uncomfortable and she manages with a heat pack. We did discuss using ibuprofen a day prior to her cramping/period starts and continuing for the first 3-4 days as this may help with decreasing her discomfort. She is currently not interested in control for both controlling her menses as well as for control purposes, but is open to communicating with our office in the next year if this changes. HEADS Assessment: Home: lives at home with mom and dad and 2 sisters. Education: Claire was a senior at [employer]. She has been performing well in school. Will plan to go to [employer] in chemistry this fall. She appears quite excited. 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 Activities: enjoys hanging with her sisters and reading. Drugs: denies any tobacco, alcohol or drug use ever. Sexuality: No current or past romantic interests. Was not comfortable in answering whether she was interested in males or females for a future romantic interest. Suicidality: denies any thoughts of suicide, homicide or cutting Safety: Feels safe at home and school. The rest of the review of systems is otherwise negative. The following screenings were completed: Hearing Vision PHQ-2 Score: 0 OBJECTIVE PHYSICAL EXAM Wt 50.3 kg Ht 169.5 cm BMI 17.51 kg/m?? HC: - BP 119/87 (BP Location: Right arm, Patient Position: Sitting) Blood pressure percentiles are not available for patients who are 18 years or older. General Appearance: Alert, interactive, well-appearing Head: Normocephalic, atraumatic Eyes: Conjunctivae clear, EOM intact, PERRL, fundi normal Ears: External ears and canals normal, TM's normal landmarks bilaterally Nose: Nares normal, mucosa normal, no drainage Mouth/Throat: Moist mucosa, no significant tonsils hypertrophy, erythema, or exudate Neck: Supple, full range of motion, no thyromegaly Chest: Good air movement bilaterally, clear to auscultation Breast: Not performed. Cardiovascular: Regular rate and rhythm; normal S1 and S2; no murmurs, normal perfusion Abdomen: Soft, non-tender, non-distended, no organomegaly or masses, normal bowel sounds Genitalia: Not performed. Musculoskeletal: 14-point general exam shows no significant asymmetry, apparent weakness, or decreased range of motion in the neck, shoulders, elbows, forearms, wrists, hands, knees, ankles or spine; hip rotation is symmetric and pain free Skin: Normal color, texture, and turgor; no lesions Lymph nodes: No significant adenopathy Neurologic: Normal tone, no focal deficits or weakness in general movements. Gait: Normal and appropriate for age Director Of Partnerships: No explosive operator fuse. 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 female here for a health maintenance visit. It was a pleasureto see Claire in clinic today. She is a healthy 19-year-old young woman. I wish her the best as she transitions to [employer] for college. 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 1. Age-appropriate anticipatory guidance discussed. Educational materials provided. Health promotionand safety topics discussed. Abuse/neglect, functional status, nutrition and pain assessed. Results of screening discussed and concerns addressed. Dental referral recommended. Approved for all routine preventive medicine services, including immunizations 2. I provided counseling on all components of each vaccine recommended for immunization status and age, including any previous adverse reactions, and ordered today. VIS for proposed vaccines provided and discussion regarding risks/benefits of accepting/declining proposed vaccines was provided. Informat ion regarding vaccines given today is sent to the state registry. Immunizations Given This Visit Procedures ??? 9vHPV: human papillomavirus vaccine ??? MCV4: meningococcal A/C/Y and W-135 diphtheria conjugate (MENACTRA) vaccine (9 months and older) ??? MenB: meningococcal B (BEXSERO) vaccine (10 years and older) 3. Follow-up visit per well child schedule, or sooner as needed. Ready to learn, no apparent learning barriers were identified; learning preferences include listening. Explained diagnosis and treatment plan; patient/child/magician helper expressed understanding of the content. documented in this encounter Plan of Treatment Not on filedocumented as of this encounter Visit Diagnoses Diagnosis Examination [facility] Warehouse Forklift Operator Multisystem 29 Day To 17 Year Normal - Primary documented in this encounter Additional Health Concerns Assessment Noted Time PHQ-9 Depression Total Score: 5 12/26/2016 12:01 AM CS T documented as of this encounter Care Teams Graphite Disk Assembler Relationship Specialty Start Date End Date Hussein Jones M.D. PCP - General 04/19/18 04/17/21 documented as of this encounter
--- OUTSIDE RECORDS SUMMARY | 2022-07-28 04:20 | XMS_ITS | Encounter Summary ---
:2000 Author Organization [facility] Address [address] [place] [address] Care Team Providers Name Role Phone Hussein Jones M.D. Primary Care Provider Unavailable Reason for Visit Reason Onset Date Comments Outpatient COVID-19 Testing 03/14/2020 Encounter Details Date Type Department Care Team Description 03/14/2020 External Outreach Department of [facility] Ary, In [facility] Medicine, [facility] Romeo Gentile D.O. Respiratory (Primary [facility], [address] [facility] Dx) [address] [place], [place] Professional Building [address] in [facility] [phone] [place] (Work) [address] [place] [address] [address] [phone] [place], [place] (Fax) [phone] Social History Tobacco Use Types Packs/Day Years [...] do you attend pentecostal or Never 2021 rastafarian services? Do you [...] or slept in a fpc (including now)? Sex Assigned at Date Recorded Female 01/23/2022 2:50 PM CDT documented as of this encounter Progress Notes Ji Sheffield, L.P.N. - 03/14/2020 3:12 PM CDT Encounter created for the drive-through COVID-19 testing. documented in this encounter Plan of Treatment Not on filedocumented as of this encounter Procedures Procedure Name Priority Date/Time Associated Diagnosis Comme nts SARS CORONAVIRUS-2, Routine 03/14/2020 4:02 PM Infection Upper Results for this PCR CDT Respiratory procedure are i n the results section. documented in this encounter Results SARS Coronavirus-2, PCR Symptomatic (03/14/2020 4:02 PM CDT) [facility] Method Time Signature SARS Swab, 03/15/2020 DTL Coronavirus-2 Nasopharynx 7:50 PM CDT Source SARS Undetected Undetected 03/15/2020 DTL Coronavirus-2 7:50 PM CDT , PCR Comment: SARS-CoV-2 RNA absent. This result does not rule out COVID-19 in the patient, as the sensitivity of the test depends o n the timing of the specimen collection and quality of the specimen. Result should be correlated with patient's history and clinical presentat ion. ----ADDITIONAL INFORMATION---- This test was developed and its performa nce characteristics determined by [facility] in a manner co nsistent with CLIA requirements. Independent review by the U.S. Food and Drug Administration is pending. Visit the CDC website: https://www.cdc.gov/coronavirus/ ?? for the most recent guidelines on Lee virus testing. Fact Sheet for Healthcare Providers: (https://www.Gini/it-mmfil es/ Provider_Fact_Sheet_for_[facility]_COVI D-19.pdf) Fact Sheet for Patients: (https://www.Gini/it-mmfil es/ Patient_Fact_Sheet_for_COVID-19.pdf) Specimen Anatomical Collection Method Collection Time Receive d Time (Source) Location / / Volume Laterality Varies 03/14/2020 4:02 PM 0 6:00 (Nasopharynx) CDT PM CDT Romeo Mcallister D.O. LAB MICROBIOLOGY - GENERAL O RDERABLES Performing Organization Address City/State/[facility] Code Phon e Number [facility] [address] [place], [place] [address] [facility] [place] [address] [facility] [address] documented in this encounter Visit Diagnoses Diagnosis Infection Upper Respiratory - Primary documented in this encounter Additional Health Concerns Infection Onset Date Last Indicated Resolved Time COVID19 Pending 03/14/2020 03/14/2020 03/15/2020 7:50 PM CDT Assessment Noted Time PHQ-9 Depression Total Score: 5 12/26/2016 12:01 AM CS T documented as of this encounter Care Teams Board Certified Arts Therapist Relationship Specialty Start Date End Date Hussein Jones M.D. PCP - General 04/19/18 04/17/21 documented as of this encounter
--- OUTSIDE RECORDS SUMMARY | 2022-07-28 04:20 | XMS_ITS | Encounter Summary ---
:2001 Author Organization [facility] Address [address] [place] [address] Care Team Providers Name Role Phone Hussein Jones M.D. Primary Care Provider Unavailable Reason for Visit Reason Comments Order for [facility] Encounter Details Date Type Department Care Team Description 03/14/2020 Clinical Communication Division of Hussein Jones Orde r for [facility] [place], [place] [address] [place] [address] Social History Tobacco Use Types Packs/Day Years [...] do you attend spiritism or Never 2021 yazdanism services? Do you belong to any clubs [...] or slept in a mcfp (including now)? Sex Assigned at Date Recorded Female 01/23/2022 2:50 PM CDT documented as of this encounter Miscellaneous Notes Telephone Encounter - Kendra Queen M.D. - 03/14/2020 11:43 AM CDT Order placed for visit at [facility] for respiratory symptoms. documented in this encounter Plan of Treatment Not on filedocumented as of this encounter Visit Diagnoses Not on filedocumented in this encounter Additional Health Concerns Assessment Noted Time PHQ-9 Depression Total Score: 5 12/26/2016 12:01 AM CS T documented as of this encounter Care Teams High Worker Relationship Specialty Start Date End Date Hussein Jones M.D. PCP - General 04/19/18 04/17/21 documented as of this encounter
--- OUTSIDE RECORDS SUMMARY | 2022-07-28 04:20 | XMS_ITS | Encounter Summary ---
:2000 Author Organization [facility] Address [address] [place] [address] Care Team Providers Name Role Phone Hussein Jones M.D. Primary Care Provider Unavailable Reason for Visit Reason Onset Date Comments Outpatient COVID-19 Testing 03/09/2020 Encounter Details Date Type Department Care Team Description 03/09/2020 External Outreach Department of [facility] Gaby Ahuja M.D. Infection Upper Medicine, [place] Terry Ahuja, P.A.-C. [address] [place] [address] Respiratory (Primary Clinic, in [place], Dx) [address] [address] Social History Tobacco Use Types Packs/Day Years [...] do you attend episcopal or Never 2021 buddhism services? Do you [...] place to sleep or slept in a half-way (including now)? Sex Assigned at Date Recorded Female 01/23/2022 2:50 PM CDT documented as of this encounter Progress Notes Greta Samano L.P.N. - 03/09/2020 1:46 PM CDT Encounter created for the drive-through COVID-19 testing. documented in this encounter Miscellaneous Notes Result Encounter Note - Ellie Lacy - 03/11/2020 8:56 AM CDT Result Letter sent to patient with negative COVID-19 result. documented in this encounter Plan of Treatment Not on filedocumented as of this encounter Procedures Procedure Name Priority Date/Time Associated Diagnosis Comme nts SARS CORONAVIRUS-2, Routine 03/09/2020 3:10 PM Infection Upper Results for this PCR CDT Respiratory procedure are i n the results section. documented in this encounter Results SARS Coronavirus-2, PCR Symptomatic (03/09/2020 3:10 PM CDT) [facility] Method Time Signature SARS Swab, 03/10/2020 DTL Coronavirus-2 Nasopharynx 6:51 PM CDT Source SARS Undetected Undetected 03/10/2020 DTL Coronavirus-2 6:51 PM CDT , PCR Comment: SARS-CoV-2 RNA absent. This result does not rule out COVID-19 in the patient, as the sensitivity of the test depends o n the timing of the specimen collection and quality of the specimen. Result should be correlated with patient's history and clinical presentat ion. ----ADDITIONAL INFORMATION---- This test was developed and its performa nce characteristics determined by [facility] in a manner co nsistent with CLIA requirements. Independent review by the U.S. Food and Drug Administration is pending. Visit the CDC website: https://www.cdc.gov/coronavirus/ ?? for the most recent guidelines on Lee virus testing. Fact Sheet for Healthcare Providers: (https://www.Victiv/it-SpeakGlobalil es/ Provider_Fact_Sheet_for_[facility]_COVI D-19.pdf) Fact Sheet for Patients: (https://www.Victiv/itTyntil es/ Patient_Fact_Sheet_for_COVID-19.pdf) Specimen Anatomical Collection Method Collection Time Receive d Time (Source) Location / / Volume Laterality Varies 03/09/2020 3:10 PM 0 7:34 (Nasopharynx) CDT PM CDT Terry Ahuja P.A.-C. LAB MICROBIOLOGY - GENERAL O RDERABLES Performing Organization Address City/State/ZIP Code Phon e Number [facility] - [address] [place], [place] [address] [facility] [place] [address] Laboratories-[facility] [address] documented in this encounter Visit Diagnoses Diagnosis Infection Upper Respiratory - Primary documented in this encounter Additional Health Concerns Infection Onset Date Last Indicated Resolved Time COVID19 Pending 03/09/2020 03/09/2020 03/10/2020 6:52 PM CDT Assessment Noted Time PHQ-9 Depression Total Score: 5 12/26/2016 12:01 AM CS T documented as of this encounter Care Teams Senior Licensing Manager Relationship Specialty Start Date End Date Hussein Jones M.D. PCP - General 04/19/18 04/17/21 documented as of this encounter
--- OUTSIDE RECORDS SUMMARY | 2022-07-28 04:20 | XMS_ITS | Encounter Summary ---
:2001 Author Organization [facility] Address [address] [place] [address] Care Team Providers Name Role Phone Hussein Jones M.D. Primary Care Provider Unavailable Reason for Visit Reason Comments infected big toe Appointment Request (Routine) - Closed Specialty Diagnoses / Procedures Referred By Contact Refer red To Contact [facility] Pediatric [facility] Adolescent Medicine Referral ID Status Reason Start Date Expiration Date Visits Requ ested Visits Authorized [id number] Closed 09/27/2018 09/27/2019 1 1 Encounter Details Date Type Department Care Team Description 09/27/2018 Office Visit Division of [facility] Sarah Maxwell Pa ronychia Toe Right Pediatric and Elizabeth (Primary Dx) Adolescent Medicine, [facility] in [place], [place] [address] [place] [address] Social History Tobacco Use Types Packs/Day Years [...] do you attend mosque or Never 2021 jew services? Do you [...] Sign Reading Time Taken Comments Blood Pressure 108/62 09/27/2018 10:56 AM WAREHOUSE DISTRIBUTION MANAGER Pulse - - Temperature - - Respiratory Rate - - Oxygen Saturation - - Inhaled Oxygen Concentration - - Weight 49 kg (108 lb 0.4 oz) 09/27/2018 10:56 AM WAREHOUSE DISTRIBUTION MANAGER Height 169 cm (5' 6.54) 09/27/2018 10:56 AM WAREHOUSE DISTRIBUTION MANAGER Body Mass Index 17.16 09/27/2018 10:56 AM WAREHOUSE DISTRIBUTION MANAGER Body Mass Index Percentile 4.70 % 09/27/2018 10:[address] Growth Chart: CDC (Girls, 2-20 Years) documented in this encounter Progress Notes Sarah Maxwell M.D. - 09/27/2018 11:00 AM CST SUBJECTIVE CHIEF COMPLAINT / REASON FOR VISIT Claire is a delightful young 18-year-old woman who presents for evaluation of right paronychia. She is accompanied by her father today. HISTORY OF PRESENT ILLNESS Claire noted 2 months ago swelling of the lateral aspect of her right toe. This progressed to worsening of the swelling and eventually the toe began to drain pus the bloody drainage about 2 weeks ago. She has been soaking in vinegar soaks applying Band-Aids and Neosporin and trimmed back portions of the cuticle. The toe causes her great discomfort when she touches it; however, at baseline it is not waking her from sleep or otherwise significantly painful. She does not play sports or wear pointed toward shoes. She has regularly been trimming her toenails at a curve. She has been afebrile, and not otherwise ill. The following portions of the patient's history were reviewed and updated as appropriate: allergies,current medications, family history, medical history, social history, surgical history and problem list. OBJECTIVE PHYSICAL EXAM VITALS: Wt 49 kg HT: - BMI: - HC: - BP: - No blood pressure reading on file for this encounter. GENERAL: Well-appearing, 18 y.o. female who appears age-appropriate. SKIN: No rashes or other lesions noted. EXTREMITIES: Normal. No clubbing. Joints are non-inflamed, with normal range of motion. Redness swelling and a little bit of bleeding from the lateral aspect of the right great toe. MENTAL STATUS: Alert and in no distress. Age-appropriate. NEUROLOGIC: Normal tone, no focal deficits appreciated. Appropriate for age. ASSESSMENT / PLAN #1 Paronychia Toe Right Discussed risk factors for paronychia, as per Ask [place] Expert, including trimming or aggressively pushing back the cuticles and frequent or prolonged immersion of the hands in water. Explained that thecuticle is the caulk between the skin and the fingernail. Any disruption of this protective barrier increases the risk of paronychia. Recommended continued soaks in mild soapy water or dilute vinegarsoaks. Elected to prescribe 2 weeks of Augmentin at this time, in light of the fact that the area appears to be significantly infected. We have not proceeded with further incision and drainage given that the toe has already begun to drain itself. Recommend return to clinic in the event of fever, worsening symptoms of pain or new concerns. Paronychia can take quite some time to resolve, and anticipate 2-4 weeks for complete resolution. HOUSE DISTRIBUTION MANAGER documented in this encounter Plan of Treatment Not on filedocumented as of this encounter Visit Diagnoses Diagnosis Paronychia Toe Right - Primary documented in this encounter Additional Health Concerns Assessment Noted Time PHQ-9 Depression Total Score: 5 12/26/2016 12:01 AM ANDREW T documented as of this encounter Care Teams Dovetailer Relationship Specialty Start Date End Date Hussein Jones M.D. PCP - General 04/19/18 04/17/21 documented as of this encounter
--- OUTSIDE RECORDS SUMMARY | 2022-07-28 04:20 | XMS_ITS | Encounter Summary ---
:2000 Author Organization [facility] Address [address] [place] [address] Care Team Providers Name Role Phone Jerod Marrufo M.D. Primary Care Provider Encounter Details Date Type Department Care Team Description 12/24/2016 Hospital Encounter HX [facility] Josephine Dewey M.D. [address] [place] [address] (Wo rk) Social History Tobacco Use Types [...] do you attend pentecostal or Never 2021 yazidism services? Do you belong to any clubs [...] - Inhaled Oxygen Concentration - - Weight 51.2 kg (112 lb 14 oz) 12/24/2016 11:29 AM DIETITIAN RESEARCH Height - - Body Mass Index - - documented in this encounter Progress Notes Alia Nuñez M.D. - 12/24/2016 11:38 AM CST Clinic Full Note CHIEF COMPLAINT/REASON FOR VISIT ER follow-up [facility] HISTORY OF PRESENT ILLNESS Elizabeth is a previously healthy 16 year old who presents with her mom and sister 24 hours after a ED visit at [facility] for chest pain and shortness of breath. Her emergency room evaluation was reviewed inSynthesis. In short, she has had some lightheadedness and dizziness lasting just a few minutes for the past week or so. She reports that she reaches out to steady herself by touching a wall a piece of furniture and the symptom resolved. She has not noticed any particular triggers for this. She developed sudden onset of shortness of breath and the feeling that she was not getting enough air, accompanied by somebandlike chest pain while she was playing trumpet in band class yesterday afternoon. She was taken by ambulance to the emergency room. Chest x-ray, EKG, and exam did not reveal any sinister cause for this and she was referred to follow up with primary care within 24 hours. The possibility of an anxiety attack was broached and the patient does not think that is what is likely. Apparently, her dad is somewhat worried that she is over extended herself with school, instruments, work, and martial arts commitments. She was discharged with no specific treatments and she has done relatively well over the past day. She notes that her symptoms are worse when she lies down but she was able to lie flat at night to sleep. She was able to attend school this morning but does not feel able to place her trumpet yet. Today, she is having 1-2/10 pain and reports some shortness of breath while she talks but reports that it is improved from yesterday. She denies risk factors for thrombosis including hormonal medications, risk of , prolongedimmobilization or travel, or injury. MEDICATIONS NO ACTIVE MEDICATIONS, See Instructions ALLERGIES NKA PAST MEDICAL HISTORY Chronic Blepharitis NOS Hordeolum L Historical No historical problems SOCIAL HISTORY Date Time: 12/24/2016 11:29 Tobacco: Smoking Status: Never smoker Exposure: Other: never Alcohol: Use: No Results Found Recreational Drugs: Use: No Results Found Type: No Results Found denies sexual activity FAMILY HISTORY Mother: Negative: Cataract; Diabetes mellitus; Glaucoma; Hypertension; Macular disease Father: Negative: Cataract; Diabetes mellitus; Glaucoma; Hypertension; Macular disease Sister: Negative: Cataract; Diabetes mellitus; Glaucoma; Hypertension; Macular disease Brother: Negative: Cataract; Diabetes mellitus; Glaucoma; Hypertension; Macular disease SYSTEMS REVIEW GENERAL: no fevers, chills, or weight loss HEENT: no sore throat, ear pain, or oral lesions CV: no palpitations or presyncope RESP: no cough, no wheeze, no tobacco exposure GI: no abdominal pain, no nausea, no vomiting, no diarrhea, no constipation, no blood in stool : no hematuria, no dysuria MSK: no significant new joint pains, no significant muscle pains NEURO: no focal weakness or mental status changes. No headaches SKIN: no rashes or concerning lesions PSYCH: mood is stable, no sleep disturbance, denies excessive anxiety VITAL SIGNS T: 36.6 ??C (Core) HR: 90 BP: 97 / 59 WT: 51.2 kg PHYSICAL EXAMINATION GENERAL: Alert and cooperative HEENT: Normocephalic, atraumatic Eyelids, sclerae, and conjunctivae normal with no discharge. PERRL. Conjunctiva normal pink. Ear canals patent. Tympanic membranes translucent, without erythema, and with normal landmarks. No effusion Nares with no discharge Oropharynx clear with no inflammation or sores. Tonsils are +2. Dentition in good repair. NECK: No thyromegaly. No cervical adenopathy. HEART: Regular rate and rhythm. Normal S1 and S2. No murmurs, rubs, or gallops. LUNGS: Clear to auscultation bilaterally. No wheezes or rales. Normal work of breathing. Good air exchange. ABDOMEN: Soft, nontender, nondistended. No masses or hepatosplenomegaly. Normal bowel sounds. : deferred SKIN: no rashes or concerning lesions. NEURO: Alert, interactive, normal speech and gait. MUSCULOSKELETAL: grossly normal PSYCH: Though initially mariusz indifference noted, she demonstrated full range of affect and is euthymic. LAB RESULTS -----HEMATOLOGY----- Hgb: 14.2 12/24/16 DIAGNOSTIC RESULTS Reviewed CXR and EKG in [facility] IMPRESSION/REPORT/PLAN 1. Pain Chest (CP) NOS Resolving. Suspect muscular in nature. May continue NSAIDs as needed. May need more time to resolvecompletely. 2. Shortness Of Breath (SOB) Improving. Again, no etiology noted. CBC shows no anemia, vitals and exam are reassuring. Will get Holter monitor to further evaluate as she notes at least daily lightheadedness symptoms. Recommend rest from sports and instrument until she feels ready to advance activity. School note written. If symptoms worsen or new symptoms appear, she will follow up in clinic or ED as appropriate. We will consider anxiety disorder if Holter is unrevealing and anxiety symptoms worsen or physical symptoms do not resolve as expected, but we discussed meditation, which she is already practicing, psychotherapy, and medication as available treatments. I spent more than minutes of this 30 minute appointment in counseling on evaluation and management of her symptoms in her setting. Questions answered to the best of my ability. Patient and parent voice understanding. Electronically Signed By: ALIA NUÑEZ MD On: 12/24/2016 05:47 PM Source: [facility] POWERCHART Document Id: [id number] ITIAN RESEARCH documented in this encounter Procedure Notes Conversion, Historical Provider Ser - 12/25/2016 12:34 PM CST Procedure Documentation Procedure Documentation Entered On: 12/25/2016 12:38 DIETITIAN RESEARCH Performed On: 12/25/2016 12:34 DIETITIAN RESEARCH by HANNAH --KIRKFER M Checklist Amb/Home Prep Complete Surgical/Procedure Consent Signed : Roseanne YOUNG --FER - 12/25/2016 12:34 DIETITIAN RESEARCH Cardiology Procedure Monitor Type : Holter 48 Hr - local Return to Clinic : patient will return monitor to Clinic HANNAH -FER Farooq - 12/25/2016 12:34 DIETITIAN RESEARCH Advance Directive Advanced Directives : No Advance Directive Additional Information : No HANNAH --FER - 12/25/2016 12:34 DIETITIAN RESEARCH Source: [facility] Milestone Scientific Document Id: [id number] DIETITIAN RESEARCH!10 documented in this encounter Miscellaneous Notes Naidacellaneous - Alia Nuñez M.D. - 12/31/2016 5:14 PM CDT Results Notification Document Contains Addenda Addendum by AMMY FERRARA RN on January 01, 2017 09:19:39 CDT Notified pt's dad, Dong, on results. He reports pt's symptoms have improved and she is doing much better. No other questions or concerns at this time. From: ALIA NUÑEZ MD To: ZEINA Buck/Lola Nurse (RN); Sent: 12/31/2016 17:14:03 CDT Show up: 12/31/2016 17:13:00 CDT Subject: Results Notification Please contact parent. Great news: Jaleesa's Holter monitor was normal with 100% normal beats (thisis probably the most normal Holter I have ever seen in my career). When she recorded symptoms, therewas no abnormality of beats. Hopefully, symptoms are continuing to dissipate. Thanks! Results: Date Result Type Result Name 12/31/2016 16:56 Document - [facility] Holter Monitor [facility] Document Id: [id number] Electronically signed by Conversion, [facility] [place] Drill Operator [id number] at 03/31/2017 6:26 AM CDT Miscellaneous - Alia Nuñez M.D. - 12/24/2016 12:03 PM CST School Excuse December 24, 2016 ELIZABETH MONCADA [address] [facility] [phone] Dear ELIZABETH MONCADA, You were examined in my office on: 12/24/16 To return to school today: ( _ ) Yes ( x ) No To return to regular activity: ( _ ) Yes ( x ) No To have modified activity: ( x ) Yes ( _ ) No Please excuse from band and martial arts until shortness of breath is resolved. Sincerely, ALIA NUÑEZ [address] [place] [address] Electronic Signature Electronically Signed By: ALIA NUÑEZ MD On: December 24, 2016 This document has images extracted. Source: [facility] POWERCHART Document Id: [id number] Electronically signed by Dora [facility] [place] Drill Operator [id number] at 03/31/2017 6:26 AM CDT Miscellaneous - Jerod Gross, C.MFrankA. - 12/24/2016 11:29 AM CST Pediatric Journeyman Powerhouse Operator Intake/History Pediatric Journeyman Powerhouse Operator Intake/History Entered On: 12/24/2016 11:30 DIETITIAN RESEARCH Performed On: 12/24/2016 11:29 DIETITIAN RESEARCH by JEROD GROSS [facility] Intake Chief Complaint : ER follow-up Ivan SOB Temperature Core : 36.6 DegC(Converted to: 97.9 DegF) Peripheral Pulse Rate : 90 /min Systolic Blood Pressure : 97 mmHg Diastolic Blood Pressure : 59 mmHg NIBP Mean : 72 mmHg Actual Weight : 51.2 kg(Converted to: 112 lb 14 oz) Dosing Weight Clinic : 51.2 kg JEROD GROSS CMA - 12/24/2016 11:29 DIETITIAN RESEARCH General Info Languages : Arabic Is Patient Female and 13-50 no hysterectomy : Yes Status : Patient denies Are you ? : No JEROD GROSS CMA - 12/24/2016 11:29 DIETITIAN RESEARCH Subjective Pain Symptoms : No JEROD GROSS CMA - 12/24/2016 11:29 DIETITIAN RESEARCH Dependent Habits Exposure to Tobacco Smoke : Other: never Smoking Status : Never smoker Tobacco 2A : No Tobacco Use/Currently Using : No Tobacco Use/Last 30 Days : No Tobacco Use/Last 12 months : No JEROD GROSS SILK TOP HAT BODY MAKER - 12/24/2016 11:29 DIETITIAN RESEARCH Source: [facility] POWERCHART Document Id: [id number] DIETITIAN RESEARCH!24 ITIAN RESEARCH documented in this encounter Plan of Treatment Not on filedocumented as of this encounter Procedures Procedure Name Priority Date/Time Associated Comments Diagnosis HEMOGLOBIN (HGB), Routine 12/24/2016 12:15 PM Res ults for this POCT, B DIETITIAN RESEARCH procedure are i n the results section. documented in this encounter Results Hemoglobin (HGB), POCT (12/24/2016 12:15 PM DIETITIAN RESEARCH) P athologist Signature Hemoglobin 14.2 12.2 - 14.8 POWERCHART GDL Specimen Anatomical Collection Method Collection Time Receive d Time (Source) Location / / Volume Laterality Blood 12/24/2016 12:15 12/24/2016 PM DIETITIAN RESEARCH 12:21 PM DIETITIAN RESEARCH Alia Nuñez M.D. LAB POCT ORDERABLES - DEVICE Performing Organization Address City/State/ZIP Code Phon e Number POWERCHART documented in this encounter Visit Diagnoses Not on filedocumented in this encounter Additional Health Concerns Assessment Noted Time PHQ-9 Depression Total Score: 1 03/23/2014 12:01 AM CD T documented as of this encounter Care Teams Electric Installer Relationship Specialty Start Date End Date Jerod Marrufo M.D. PCP - General Pediatrics 04/18/16 04/18/18 [address] [place] [address] documented as of this encounter
--- OUTSIDE RECORDS SUMMARY | 2022-07-28 04:20 | XMS_ITS | Encounter Summary ---
:2000 Author Organization [facility] Address [address] [place] [address] Care Team Providers Name Role Phone Hussein Jones M.D. Primary Care Provider Unavailable Reason for Visit Reason Comments COVID Inquiry Encounter Details Date Type Department Care Team Description 04/03/2021 Clinical Communication Division of [facility] Kimberlee Jones, COVID Inquiry Pediatric and M[place]. [place] [address] [place] [address] Social History Tobacco Use Types Packs/Day Years [...] do you attend christian or Never 2021 christianity services? Do you belong to any clubs [...] or slept in a detention (including now)? Sex Assigned at Date Recorded Female 01/23/2022 2:50 PM CDT documented as of this encounter Miscellaneous Notes Telephone Encounter - Katie Gonzalez - 04/03/2021 3:19 PM CDT What is the purpose of the call?: Symptomatic (Calling PCP Office) Calling [place] [facility]CP Office What region is the patient calling from? : [place] Have you tested positive for COVID-19 in the last 20 days? : No In the past 14 days are any of the following symptoms new to you and not related to an existing health condition?: New nausea Because of symptoms, transfer patient to: : [place] COVID Nurse Line (End Screening) Symptom Onset Date of symptom onset: 04/02/21 Testing Recommendation Endpoint Is testing recommended? : Transferred to nursing call line Plan: Endpoint recommendation: Transferred to Nursing/COVID Line/Care Team *Reminder if sending patient for testing in [facility] or [facility], route encounter to the correct testing pool. documented in this encounter Plan of Treatment Not on filedocumented as of this encounter Visit Diagnoses Not on filedocumented in this encounter Additional Health Concerns Assessment Noted Time PHQ-9 Depression Total Score: 5 12/26/2016 12:01 AM CS T documented as of this encounter Care Teams Timber Cruiser Relationship Specialty Start Date End Date Hussein Jones M.D. PCP - General 04/19/18 04/17/21 documented as of this encounter
--- OUTSIDE RECORDS SUMMARY | 2022-07-28 04:20 | XMS_ITS | Encounter Summary ---
:2000 Author Organization [facility] Address [address] [place] [address] Care Team Providers Name Role Phone Hussein Jones M.D. Primary Care Provider Unavailable Reason for Visit Reason Comments Triage Encounter Details Date Type Department Care Team Description 03/14/2020 Nurse Triage Division of [facility] Reena Ford T [facility] [place] [address] [address] [place], [place] [address] [facility] [address] [place] [address] [phone] Social History Tobacco Use Types Packs/Day Years [...] or relatives? How often do you attend adventism or Never 2021 roman catholic services? Do you belong to any clubs or Yes 01/23/2022 organizations such as adventism groups, unions, fraternal or athletic groups, or [...] documented as of this encounter Care Teams Team Supervisor Relationship Specialty Start Date End Date Hussein Jones M.D. PCP - General 04/19/18 04/17/21 documented as of this encounter
--- OUTSIDE RECORDS SUMMARY | 2022-07-28 04:20 | XMS_ITS | Encounter Summary ---
:2000 Author Organization [facility] Address [address] [place] [address] Care Team Providers Name Role Phone Jerod Marrufo M.D. Primary Care Provider Encounter Details Date Type Department Care Team Description 02/04/2017 Hospital Encounter HX [facility] Mesha Franklin D, P.A.-C. Social History Tobacco Use Types Packs/Day Years [...] do you attend restorationism or Never 2021 pentecostal services? Do you [...] place to sleep or slept in a mcc (including now)? Sex Assigned at Date Recorded Female 01/23/2022 2:50 PM CDT documented as of this encounter Last Filed Vital Signs Vital Sign Reading Time Taken Comments Blood Pressure - - Pulse - - Temperature - - Respiratory Rate - - Oxygen Saturation - - Inhaled Oxygen Concentration - - Weight 51.5 kg (113 lb 8.6 oz) 02/04/2017 2:20 PM CDT Height - - Body Mass Index - - documented in this encounter Medications at Time of Discharge Medication Sig Dispensed Refills Start Date End Date albuterol (for_PROVENTIL Inhale 2-4 puffs 0 12/2503/14/2020 HFA,VENTOLIN HFA) 90 every 4 (four) hours. mcg/actuation inhaler 2-6 puffs up to every 4 hr as needed for shortness of breath. Dispense: 200 Actuation inhaler ibuprofen (ADVIL,MOTRIN) Take 2 tablets by 0 01/1712/10/2021 200 mg tablet mouth every 6 (six) hours. pain MULTIVITAMIN ORAL Take 1 tablet by 0 02/04/2017 1 11/28/2017 mouth daily. documented as of this encounter Progress Notes Favio Franklin - 02/04/2017 2:10 PM CDT [id number] CHIEF COMPLAINT/REASON FOR VISIT Tightness in the throat. HISTORY OF PRESENT ILLNESS She has had tightness in the throat after lunch today. She felt well this morning. She has had intermittent complaints of tightness in the chest and throat and some shortness of breath for a number of weeks or months. She has been seen by [facility], ENT, primary physician. Had a negative Ho lter. She had a negative CT scan for pulmonary embolism. Last fall she got hit in the throat with a softball. Laryngoscopy at that time showed no tearing of the vocal cords and good movement of the vocal cords, (?)contusion to the laryngeal nerve. She did have laryngitis at that time but that resolved. She had a methacholine challenge at [facility] which was negative essentially ruling out asthma though patient states from time to time she has had inhalers, albuterol, with benefit subjectively. Therehas been no fever. The patient was a preemie but no prior history of anxiety or serious emotional distress. PHYSICAL EXAMINATION VITAL SIGNS: Respiratory rate is between 20 and 30, it varies depending on how much conversation sheis involved with. HEENT: Ears and throat clear. Tonsils: No erythema. NECK: Without adenopathy. LUNGS: Peak flow 400, predicted between 450 and 470. Lungs are entirely clear. No wheezing, rales orrhonchi. There is no retraction. Her saturation is 100%. Pulse is 100. IMPRESSION/REPORT/PLAN Differential includes pulmonary disease, laryngal disease, anxiety. I did give her 40 mg IM of Benadryl. In 20 minutes the patient and mother agreed that she was feeling almost back to normal and the patient left prior to my rechecking her. Nursing staff states the child looked very well upon discharge without any of the previous symptomatology. The previous tinglingof the mouth and arms had dissipated. Assessment is likely anxiety. PLAN: Reassurance. Consider Atarax. They do have an ENT appointment coming up in the near future forrecdinack, also a neurology appointment. Parent had no other questions prior to my discharge. Advised to recheck with us as needed. Emy Acevedo/batool Electronically Signed By: FAVIO FRANKLIN PA-C On: 02/05/2017 12:58 PM Modified by and Electronically Signed by: FAVIO FRANKLIN PA-C On: 02/05/2017 12:58 PM Source: [facility] MHSDOLBEYNONRADSYS Document Id: [id number] documented in this encounter Nursing Notes Jerod Gross C.MTeresa - 02/04/2017 3:44 PM CDT Status of patient checked 20 minutes post Benadryl injection per Ton Franklin PA-C. Patient stated I am feeling better and I can easily breathe Mother noted to staff that patient was feeling much better and could breathe easily without any distress and that she felt the Benadryl had helped. Patient denies symptoms of chest tightness, wheezing, cough, and shortness of breathe. Patient denies any feelings of nausea, vomiting, diarrhea, or lightheaded. Observation of the patient 20 minutes post Benadryl injection, Patient sitting up on the exam table,hands relaxed at her sides, having a conversation with her mother. No speech troubles or rapid breathing noted on patient. Patient was dismissed from clinic with mother. Reviewed with Ton Franklin PA-C. Electronically Signed By: JEROD GROSS CMA On: 02/04/2017 03:52 PM Source: [facility] POWERCHART Document Id: [id number] documented in this encounter Miscellaneous Notes Miscellaneous - Rylie Chapa L.P.N. - 02/04/2017 2:20 PM CDT Pediatric Clay Temperer Intake/History Pediatric Clay Temperer Intake/History Entered On: 02/04/2017 14:24 CDT Performed On: 02/04/2017 14:20 CDT by RYLIE CHAPA LPN Intake Chief Complaint : breathing issue, throat is tight and painful(this is different) after inhaler throat got tight, chest tightness Temperature Core : 37.6 DegC(Converted to: 99.7 DegF) Peripheral Pulse Rate : 103 /min (HI) Respiratory Rate : 27 /min (HI) SpO2 : 100 % Actual Weight : 51.5 kg(Converted to: 113 lb 9 oz) Dosing Weight Clinic : 51.5 kg RYLIE CHAPA LPN - 02/04/2017 14:20 CDT General Info Present in Room During Exam/Procedure : Mother Languages : Bulgarian Is Patient Female and 13-50 no hysterectomy : Yes Status : Patient denies Are you ? : No RYLIE CHAPA LPN - 02/04/2017 14:20 CDT Subjective Pain Symptoms : Yes (Comment: upper throat tight [RYLIE CHAPA LPN - 02/04/2017 14:20 CDT] ) RYLIE CHAPA LPN - 02/04/2017 14:20 CDT Dependent Habits Exposure to Tobacco Smoke : Other: never Smoking Status : Never smoker Tobacco 2A : No Tobacco Use/Currently Using : No Tobacco Use/Last 30 Days : No Tobacco Use/Last 12 months : No RYLIE CHAPA LPN - 02/04/2017 14:20 CDT Source: [facility] POWERCHART Document Id: [id number] CDT!24 documented in this encounter Plan of Treatment Not on filedocumented as of this encounter Visit Diagnoses Not on filedocumented in this encounter Additional Health Concerns Assessment Noted Time PHQ-9 Depression Total Score: 5 12/26/2016 12:01 AM CS T documented as of this encounter Care Teams Hair Rooting Machine Operator Relationship Specialty Start Date End Date Jerod Marrufo M.D. PCP - General Pediatrics 04/18/16 04/18/18 [address] [place] [address] documented as of this encounter
--- OUTSIDE RECORDS SUMMARY | 2022-07-28 04:20 | XMS_ITS | Encounter Summary ---
:2000 Author Organization [facility] Address [address] [place] [address] Care Team Providers Name Role Phone Unavailable Primary Care Provider Unavailable Encounter Details Date Type Department Care Team Description 06/12/2015 Hospital Encounter HX [facility] Bulmaro Bo M.D. [address], [place] [phone] (Wo rk) Social History Tobacco Use Types [...] do you attend amish or Never 2021 catholic services? Do you belong to any [...] slept in a skilled nursing (including now)? Sex Assigned at Date Recorded Female 01/23/2022 2:50 PM CDT documented as of this encounter Progress Notes Shauna Oleary A.B.O.C. - 06/12/2015 12:54 PM CDT Patient presents for: ( a bump on her left lower eyelid ) History of present illness: ( Patient states that she has had bumps on her eyelids (right lower, right upper, left lower) recently. The current one started about 3 days ago and was larger then. She hasbeen using hot compresses/Q-Tips when she gets them but they seem to keep coming back and she would like to know why and what to do. She does not wear corrective lenses. ) Visual Acuity using Snellen method for both eyes. Distance Right Eye Left Eye Both Eyes CC 20/( _ )PH (_) 20/( _ )PH(_) 20/( _ ) SC 20/( 20 )PH (_) 20/( 20 )PH(_) 20/( _ ) Near vision: 20/(_) 20/(_) 20/(_) Correction ( Glasses_ )(Contacts_) Active Problems: Refer to patient chart. Past Medical History: Refer to patient chart. Allergies: Refer to patient chart. History: Patient drives motor vehicle: ( _ ) Yes ( X ) No Review of Systems General: ( X ) Negative Other (_) Skin: ( X ) Negative Other (_): Eyes: ( X ) Negative Other (_) Ears/Nose/Throat: ( X ) Negative Other (_) Respiratory: ( X ) Negative Other (_) Cardiovascular: ( X ) Negative Other (_) Gastrointestinal: ( X ) Negative Other (_) Genitourinary: ( X ) Negative Other (_) Musculoskeletal: ( X ) Negative Other (_) Neurologic: ( X ) Negative Other (_) Psychiatric: ( X ) Negative Other (_) Hematologic/Lymphatic/Immunologic: ( X ) Negative Other (_) Endocrine: ( X ) Negative Other (_) Electronically Signed By: RONAK OTOOLE MD On: 06/12/2015 01:13 PM Modified by and Electronically Signed by: RONAK OTOOLE MD On: 06/12/2015 01:13 PM Co-Signed By: RONAK OTOOLE MD On: 06/12/2015 01:13 PM Source: [facility] POWERCHART Document Id: [id number] Ronak Otoole M.D. - 06/12/2015 12:38 PM CDT [id number] Elizabeth is here with about a 6-week history of recurrent styes of her upper and lower lids. She hasnever had this before. She treats them with hot compresses and Q-tips, and they tend to get better. She has one now active on her left lower lid. She is wondering why she gets them so often. PHYSICAL EXAMINATION Slit-lamp examination, both eyes: There is a small hordeolum of the left lower eyelid at the base ofthe last laterally. There is a bit of debris at the base of the lashes, and there is some lash loss. 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 PLAN: 1. Do lid hygiene every morning. 2. For the next 2 weeks to apply erythromycin ointment to the lid margins and lashes nightly. This should reduce the colonization of either Strep or Staph and hopefully it will eliminate the recurrent hordeolum. If this acts up again in the future, she can repeat the same process. She will let me knowif that does not do it for her. Ronak Otoole M.D./batool Electronically Signed By: RONAK OTOOLE MD On: 06/25/2015 11:46 AM Source: [facility] MHSDOLBEYNONRADSYS Document Id: [id number] documented in this encounter Miscellaneous Notes Miscellaneous - Ronak Otoole M.D. - 06/12/2015 1:23 PM CDT Ambulatory Patient Summary [facility] [address], [address] [place] [id number] Visit Information Name: ELIZABETH MONCADA [facility] Number: [id number] Current Date: 06/12/2015 13:23:26 Physicians Attending Provider: RONAK OTOOLE MD Primary Care Provider: PCP, ELSEWHERE RUBENGEMMATREY PhamTrevor VILLAR has been given the following list of follow-up instructions, medication list, and patient education materials: Follow-up Instructions Your Medications Here is a list of your medications. It is important to take your medications as directed. Use a pillbox or chart to help remind you to take your medications. Please let your doctor or nurse know if you have problems taking your medications. Medication/Strength How to Take Indications/Special Instructions/Comments/Notes for Patient Medication Changes/Routing erythromycin ophthalmic (erythromycin 0.5% ophthalmic ointment) 1 cale, Eyes(Both), once a day (at bedtime) New Routed [place] [address] [address] [facility] [place] (NO ACTIVE MEDICATIONS) See Instructions Stop Taking the Following Medications: Medication list as of 06-12-15 13:23 Attention: If you have any medications at home that are not on this list, DO NOT take them until youcontact your provider for clarification. Give a copy of your medication list to your primary care provider. Update your medication list any time medications or doses are changed and carry your medication list at all times in case of emergency. Electronically Signed By: RONAK OTOOLE MD Signed On:12-JUN-2015 13:23:21 Your Allergies & Intolerances Substance Reaction Symptoms Category Comments No Known Allergies Drug Your Problem List Problem Status Onset Comments Blepharitis NOS Active Hordeolum L Active Your Upcoming Appointments Date Time Location Provider No Appointments found Attention: Contact your local Clinic if further appointment detail needed. Consider Using Patient Online Services Patient Online Services is a secure online and Mobile application that lets you: ?? View lab and test results ?? View portions of your medical record including clinical notes, immunizations and discharge summaries ?? Request an appointment or medication refill ?? Review your appointment schedule ?? Send secure messages to your care team Its easy to create an account if you dont have one. Go to [email or web address] and click on Create Your Account. Then, follow the directions to complete the online form. Youll be asked for your [facility] number which you can find at the top of this document. Your Goals/Additional instructions: Source: [facility] POWERCHART Document Id: [id number] Miscellaneous - Ronak Otoole M.D. - 06/12/2015 1:23 PM CDT [facility] [address] [facility] [address] [place], [place] [phone] Visit Information Name: ELIZABETH MONCADA [facility] Number: [id number] Visit Date: 06/12/2015 13:23:24 Attending Provider: RONAK OTOOLE MD Primary Care Provider: PCP, ELIZABETH DAMON has been given the following list of medications: Your Medications It is important to take your medications as directed. Use a pill box or chart to help remind you to take your medications. Please let your doctor or nurse know if you have problems taking your medications. Medication/Strength How to Take Indications/Special Instructions/Comments/Notes for Patient Medication Changes/Routing erythromycin ophthalmic (erythromycin 0.5% ophthalmic ointment) 1 cale, Eyes(Both), once a day (at bedtime) New Routed to [facility] [place] [address] [facility] [place] (NO ACTIVE MEDICATIONS) See Instructions Stop Taking the Following Medications: Medication list as of 06-12-15 13:23 Attention: If you have any medications at home that are not on this list, DO NOT take them until youcontact your provider for clarification. Give a copy of your medication list to your primary care provider. Update your medication list any time medications or doses are changed and carry your medication list at all times in case of emergency. Electronically Signed By: RONAK OTOOLE MD Signed On:12-JUN-2015 13:23:21 Additional Information: Source: [facility] [employer] Document Id: [id number] Miscellaneous - Shauna Oleary A.B.O.CFrank - 06/12/2015 1:01 PM CDT Pediatric Setter Up Intake/History Pediatric Setter Up Intake/History Entered On: 06/12/2015 13:02 CDT Performed On: 06/12/2015 13:01 CDT by SHAUNA OLEARY Intake Chief Complaint : Bump on left lower eyelid SHAUNA OLEARY - 06/12/2015 13:01 CDT General Info Languages : Cymraes Is Patient Female and 13-50 no hysterectomy : Yes Status : Patient denies Are you ? : No SHAUNA OLEARY - 06/12/2015 13:01 CDT Subjective Pain Symptoms : No SHAUNA OLEARY - 06/12/2015 13:01 CDT Dependent Habits Tobacco Use/Currently Using : No Exposure to Tobacco Smoke : Other: never Smoking Status : Never smoker SHAUNA OLEARY - 06/12/2015 13:01 CDT Source: [facility] [employer] Document Id: [id number] CDT!14 documented in this encounter Plan of Treatment Not on filedocumented as of this encounter Visit Diagnoses Not on filedocumented in this encounter Additional Health Concerns Assessment Noted Time PHQ-9 Depression Total Score: 1 03/23/2014 12:01 AM CD T documented as of this encounter
--- OUTSIDE RECORDS SUMMARY | 2022-07-28 04:20 | XMS_ITS | Encounter Summary ---
:2000 Author Organization [facility] Address [address] [place] [address] Care Team Providers Name Role Phone Kathrine Marrufo M.D. Primary Care Provider Encounter Details Date Type Department Care Team Description 02/05/2018 Orders Only Division of Pediatric Karla Martin Alle rgy Status To Allergy & Immunology in M.D. Unspecified Drugs [place], [place] [address] [facility] Medicaments And [address] [place], [place] [phone] Social History Tobacco Use Types Packs/Day Years [...] do you attend lutheran or Never 2021 muslim services? Do you belong to any clubs [...] as of this encounter Visit Diagnoses Diagnosis Allergy Status To Unspecified Drugs Medi caments And Biological Substances documented in this encounter Additional Health Concerns Assessment Noted Time PHQ-9 Depression Total Score: 5 12/26/2016 12:01 AM CS T documented as of this encounter Care Teams Specialist Field Engineer Relationship Specialty Start Date End Date Kathrine Marrufo M.D. PCP - General Pediatrics 04/18/16 04/18/18 [address] [place] [address] documented as of this encounter
--- OUTSIDE RECORDS SUMMARY | 2022-07-28 04:20 | XMS_ITS | Encounter Summary ---
:2000 Author Organization [facility] Address [address] [place] [address] Care Team Providers Name Role Phone Hussein Jones M.D. Primary Care Provider Unavailable Reason for Referral Outpatient (Routine) - Closed Specialty Diagnoses / Procedures Referred By Contact Refer red To Contact Diagnoses Discomfort Chest Akilah Reeves M.D., [facility] Procedures ECG 12 Lead M.P.H. [address] [place] [address] Referral ID Status Reason Start Date Expiration Date Visits Requ ested Visits Authorized [id number] Closed 03/14/2020 03/14/2021 1 1 Reason for Visit Reason Comments Cough Other Chest concerns Appointment Request (Routine) - Closed Specialty Diagnoses / Procedures Referred By Contact Refer red To Contact Family Medicine Referral ID Status Reason Start Date Expiration Date Visits Requ ested Visits Authorized [id number] Closed 03/14/2020 03/14/2021 1 1 Encounter Details Date Type Department Care Team Description 03/14/2020 Office Visit Department of Family Akilah Reeves Di scomfort Chest (Primary Dx); Medicine, [facility] Elizabeth, M.P. H. Shortness Of Breath; [facility], [address] [facility] Professional [facility] in [place], [address] [place] [address] [facility] [address] (Work) [place], [place] [phone] [address] (Fax) [phone] Social History Tobacco Use Types Packs/Day Years [...] you attend roman catholic or Never 2021 congregation services? Do you belong to any clubs [...] Sign Reading Time Taken Comments Blood Pressure 120/79 03/14/2020 1:40 PM CDT Pulse 86 03/14/2020 1:40 PM CDT Temperature 36.9 ??C (98.4 ??F) 03/14/2020 1:40 PM CDT Respiratory Rate 18 03/14/2020 1:40 PM CDT Oxygen Saturation 100% 03/14/2020 1:40 PM CDT Inhaled Oxygen Concentration - - Weight 51.6 kg (113 lb 12.1 oz) 03/14/2020 1:40 PM CDT Height - - Body Mass Index - - documented in this encounter Progress Notes Akilah Reeves M.D., M.P.H. - 03/14/2020 2:00 PM CDT SUBJECTIVE Claire Moncada is a 19 y.o. female who presents here for concerns regarding Cough and Other (Chest concerns). Sick with URI symptoms 1 month ago but symptoms had mostly resolved. One week ago, she developed chest tightness, dry cough, shortness of breath. Cough has improved, but she continues to have heaviness in her lower chest/anterior ribcage. Denies wheezing. Occasional mild stabbing feeling in lower anterior chest, pleuritic quality. Worse when supine. She denies any chest pain at this time. Has hadsubjective low-grade fever and chills, mild runny nose. No nasal congestion. Denies ST, ear pain, headache, swollen lymph nodes, palpitations, substernal chest pain and syncope. Denies reflux symptoms.Has had CORREA, muscle aches. Has had occasional mild stomachache/nausea, no vomiting or diarrhea. Heavysensation has made it difficulty for her to practice [employer], [place]. She called sick into work this week due to fatigue. She has tried ibuprofen and tylenol, which helped with sinus pain but did not impact her chest heaviness/discomfort. Covid contacts: none; works at [employer] but no close contacts Claire had a similar episode of dyspnea and anterior chest discomfort for which she was seen in the ED 12/23/16. Episode developed while playing trWillKinn Mediaet at school. At that time, she was afebrile, without cough, wheezing or syncope but had had intermittent dizziness the prior week. Similar to this episode, she reported it was worse when lying down. Claire states that the heaviness she is having now is a bit different than what she experienced in 2017, in that it's more a feeling of heaviness orpressure, rather than shortness of breath. Many aspects of clinical history upon review of her records are similar to that episode. In the ED, she had a normal EKG and CXR and symptoms improved spontane ously. In follow up with her PCP, she subsequently underwent thorough workup including 48hr Holter monitor (normal), CT Angiogram 12/25/16 (normal), methacholine challenge (negative). She was advised trial of bronchodilator per Pulmonology. Had follow up with ENT for this issue in January 2017, as well kory/o traumatic injury to the anterior neck in Jul 2016, when she was hit in the throat by a softball,which resulted in possible contusion of laryngeal nerve. ENT noted dysphonia and referred her for vocal therapy with Dr. Golden in [place]. She was also evaluated in Allergy in March 2017, at which time shewas found to have allergic rhinitis with mild cat and dust allergy, but no allergic etiology to explain her dyspnea. Several provider discussed possibility of her symptoms being related to anxiety, andwhile parents noted she was under a great deal of stress related to school workload, jobs, and activities, they denied concerns for anxiety. The following portions of the patient's history were reviewed and updated as appropriate: allergies, current medications, medical history, problem list, vital signs and growth curves OBJECTIVE BP 120/79 (BP Location: Right arm, Patient Position: Sitting, Cuff Size: Regular) Pulse 86 Temp 36.9 ??C Resp 18 Wt 51.6 kg SpO2 100% General: Well-appearing, alert 19 y.o. in no acute distress. She appears mildly anxious. No increased work of breathing. Eyes: Sclerae and conjunctivae are clear. ENT: Oropharynx is clear, moist mucous membranes. No tonsillar exudates noted. Tympanic membranes are koroma with good landmarks bilaterally. Lymph: no cervical, auricular, or supraclavicular lymphadenopathy noted. Heart: Regular rate, regular rhythm. No murmurs, rubs, or gallops. Normal S1, S2. Lungs/Chest: Clear to auscultation bilaterally. No rhonchi, rales, or crackles noted. No increased work of breathing. AP and lateral compression of chest wall does not reproduce pain. Abdomen: Soft, nontender, nondistended. No organomegaly noted. Normal bowel sounds. Extremities: Warm, well perfused. No clubbing, cyanosis, or edema noted. ASSESSMENT / PLAN Claire is a previously healthy 19yoF with h/o traumatic vocal cord dysfunction and remote h/o dyspnea without clear etiology, who presents with a 1 week h/o chest heaviness and mild anterior lower chest wall pain which is worse with laying down and pleuritic in nature, after recent URI. She had a similar episode of dyspnea and anterior/diaphragmatic chest pain 3 years ago, for which she was evaluated in the ED and underwent thorough subspecialty evaluation, without underlying etiology identified. She is clinically well appearing on exam, without increased respiratory effort or hypoxia. I suspect that her symptoms may be either musculoskeletal related to recent cough/URI, vs. Airway reactivity or vocal cord dysfunction. Another consideration is anxiety. Will obtain CXR and EKG in clinic and swab for Covid19 PCR given current epidemic. Recommend trial of albuterol inhaler with spacer q4-6hr prn SOB. Will f/u results and notify patient via Portal. Will f/u on symptoms in 1 week and if no improvement, consider repeat PFTs or referral to Pulmonology. #1 Discomfort Chest - DX Chest AP or PA and Lateral 2 Views; Future; Expected date: 03/14/2020 - ECG 12 Lead; Future; Expected date: 03/14/2020 #2 Shortness Of Breath #3 Cough - albuterol inhaler; Inhale 2 puffs every 4 (four) hours as needed for wheezing or shortness of breath Ready to learn, no apparent learning barriers were identified; learning preferences include listening. Explained diagnosis and treatment plan; patient/child/caregiver expressed understanding of the content. documented in this encounter Plan of Treatment Not on filedocumented as of this encounter Results DX Chest AP or [...] 2 VIEWS Procedure Note Tristin Obregon M.B.B.S., M.D. - 02/17 EXAM: DX CHEST AP OR PA AND LATERAL 2 EWS IMPRESSION: No significant interval change from 04/2017. No focal pulmonary lesion. Normal cardiac silhouette. Akilah Reeves M.D., M.P.H. IMG DIAGNOSTIC IMAGING DE OCEDURES ECG 12 Lead (03/14/2020 3:41 PM CDT) P athologist Signature Ventricular Rate 100 BPM MUSE ECG/Min DE Interval 136 ms MUSE QRSD Interval 86 ms MUSE QT Interval 342 ms MUSE QTC Interval 441 ms MUSE P [place] 81 degrees MUSE R [place] 54 degrees MUSE T Wave [place] 45 degrees MUSE Specimen Anatomical Collection Method Collection Time Receive d Time (Source) Location / / Volume Laterality 03/14/2020 3:41 PM 0 3:52 CDT PM CDT Impressions MUSE - 03/14/2020 3:52 PM CDT Normal sinus rhythm Normal ECG When compared with ECG of 23-DEC-2016 16 :37, No significant change was found Reviewed by ELLIE Ramos Narrative This result has an attachment that is no t available. Procedure Note Lencho Lomeli M.D. - 03/14/2020Formatt ing of this note might be different from the original. IMPRESSION: Normal sinus rhythm Normal ECG When compared with ECG of 23-DEC-2016 16 :37, No significant change was found Reviewed by ELLIE Ramos Akilah Reeves M.D., M.P.H. ECG ORDERABLES Performing Organization Address City/State/ZIP Code Phon e Number MUSE MUSE NA documented in this encounter Visit Diagnoses Diagnosis Discomfort Chest - Primary Shortness Of Breath Cough Unspecified Type Discomfort Chest Discomfort Chest documented in this encounter Additional Health Concerns Infection Onset Date Last Indicated Resolved Time COVID19 Pending 03/14/2020 03/14/2020 03/15/2020 7:50 PM CDT Assessment Noted Time PHQ-9 Depression Total Score: 5 12/26/2016 12:01 AM CS T documented as of this encounter Care Teams Film Coater Relationship Specialty Start Date End Date Hussein Jones M.D. PCP - General 04/19/18 04/17/21 documented as of this encounter
--- OUTSIDE RECORDS SUMMARY | 2022-07-28 04:20 | XMS_ITS | Encounter Summary ---
:2001 Author Organization [facility] Address [address] [place] [address] Care Team Providers Name Role Phone Hussein Jones M.D. Primary Care Provider Unavailable Reason for Visit Reason Comments Wrist Injury fell onto LEFT wrist causing cold sensation, numbness, tingling Appointment Request (Routine) - Closed Specialty Diagnoses / Procedures Referred By Contact Refer red To Contact Family Medicine Referral ID Status Reason Start Date Expiration Date Visits Requ ested Visits Authorized [id number] Closed 04/07/2018 04/07/2019 1 Encounter Details Date Type Department Care Team Description 04/07/2018 Office Visit Department of Family Mathieu Marcelo [facility], in [place] [address] [place], [place] [address] [address] [place], [place] [phone] (Work) [phone] Social History Tobacco Use Types Packs/Day Years [...] do you attend hoahaoism or Never 2021 anglican services? Do you [...] Sign Reading Time Taken Comments Blood Pressure 97/65 04/07/2018 3:22 PM CDT Pulse 91 04/07/2018 3:22 PM CDT Temperature - - Respiratory Rate - - Oxygen Saturation - - Inhaled Oxygen Concentration - - Weight 49 kg (108 lb 0.4 oz) 04/07/2018 3:22 PM CDT Height - - Body Mass Index - - documented in this encounter Progress Notes Mathieu Marcelo M.D. - 04/07/2018 3:30 PM CDT SUBJECTIVE: Claire Moncada is a 17 y.o. female. 1. Pain Wrist Left Patient reports that she fell a couple hours ago onto her left wrist. She notes that there have beenmultiple injuries to this area in the past year. She completed a wrist MR on 12/23/2017. At that time, there was some edema in the lunate. Patient had fallen in the shower at that time. ROS: see HPI. OBJECTIVE: Patient in no distress. Looks well nourished. BP 97/65 Pulse 91 Wt 49 kg Alert and attentive. Normal mood/behavior. Respiratory effort is normal. Facial motor strength is normal bilaterally. Speechclear. Skin is warm and dry with normal color. Scaphoid is nontender. No swelling or bruising at thewrist. ASSESSMENT and PLAN: New med list after this visit: Current Outpatient Prescriptions Medication Sig Dispense Refill ??? albuterol (for_PROVENTIL HFA,VENTOLIN HFA) 90 mcg/actuation inhaler Inhale 2-4 puffs every 4 (four) hours. 2-6 puffs up to every 4 hr as needed for shortness of breath. Dispense: 200 Actuation inhaler ??? ibuprofen (ADVIL) 200 mg tablet Take 2 tablets by mouth every 6 (six) hours. pain ??? MULTIVITAMIN ORAL Take 1 tablet by mouth daily. No current facility-administered medications for this visit. There are no discontinued medications. Orders Placed This Encounter Procedures ??? DX Wrist Left 3+ Views: No fracture or DJD. #1 Pain Wrist Left, Sprain She may use a wrist brace per her preference. Will give this some time and expect pain to resolve soon. Patient instruction: return to clinic if not improved, or call. This document serves as a record of services personally performed by Mathieu Marcelo MD. It was createdon their behalf by Humberto Mayen, a trained medical education manager. The creation of this record is based on the scribe's personal observations and the provider's statements to them. This document has been checked and approved by the attending provider. documented in this encounter Plan of Treatment Not on filedocumented as of this encounter Results DX Wrist Left 3+ Views (04/07/2018 4:06 PM CDT) Anatomical Region Laterality Modality Upper Extremity, Wrist, Musculoskeletal RST LOS Left Computed Radiography Specimen (Source) Anatomical Collection Method Collection Time Re ceived Time Location / / Volume Laterality 04/07/2018 4:23 PM CDT Impressions 04/07/2018 4:26 PM CDT IMPRESSION: No acute fracture or traumatic malalignment. Narrative 04/07/2018 4:26 PM CDT EXAM: DX WRIST LEFT 3+ VIEWS Procedure Note Thierno Lacy M.D. - 04/07/2018Formatt ing of this note might be different from the original. EXAM: DX WRIST LEFT 3+ VIEWS IMPRESSION: No acute fracture or traumat ic malalignment. Mathieu [facility] YAMILE [facility]ERS documented in this encounter Visit Diagnoses Diagnosis Pain Wrist Left - Primary Pain Wrist Left documented in this encounter Additional Health Concerns Assessment Noted Time PHQ-9 Depression Total Score: 5 12/26/2016 12:01 AM CS T documented as of this encounter Care Teams Patient Service Specialist Relationship Specialty Start Date End Date Hussein Jones M.D. PCP - General 04/19/18 04/17/21 documented as of this encounter
--- OUTSIDE RECORDS SUMMARY | 2022-07-28 04:20 | XMS_ITS | Encounter Summary ---
:2001 Author Organization [facility] Address [address] [place] [address] Care Team Providers Name Role Phone Hussein Jones M.D. Primary Care Provider Unavailable Encounter Details Date Type Department Care Team Description 02/05/2021 Orders Only RST PCP HLTH MNT Bernie Mesa M.D. [address] [place], [place] [phone] (Wo rk) Social History Tobacco Use Types [...] or relatives? How often do you attend buddhism or Never 2021 restorationism services? Do you belong to any clubs or Yes 01/23/2022 organizations such as buddhism groups, unions, fraternal or athletic groups, or [...] documented as of this encounter Care Teams Re Dye Hand Relationship Specialty Start Date End Date Hussein Jones M.D. PCP - General 04/19/18 04/17/21 documented as of this encounter
--- OUTSIDE RECORDS SUMMARY | 2022-07-28 04:20 | XMS_ITS | Encounter Summary ---
:2001 Author Organization [facility] Address [address] [place] [address] Care Team Providers Name Role Phone Unavailable Primary Care Provider Unavailable Encounter Details Date Type Department Care Team Description 02/27/2011 Hospital Encounter HX NO MAPPING Everette Beaulieu M.D. [address] [place] [address] [phone] (Wo rk) Social History Tobacco Use [...] or relatives? How often do you attend worship or Never 2021 yarsani services? Do you belong to any clubs or Yes 01/23/2022 organizations such as worship groups, unions, fraternal or athletic groups, or [...] documented as of this encounter Miscellaneous Notes Miscellaneous - Deonte Beaulieu M.D. - 02/27/2011 2:45 PM CDT [id number] CLINIC ENCOUNTER SUBJECTIVE: This 10-year-old female presents to the ophthalmology clinic with a foreign body in her left eye. Both the nurse and the parents flushed the left eye today. OBJECTIVE: The patient's uncorrected visual acuity measures 20/25 minus in the left eye. Slit lamp examination shows a metallic foreign body just below the central visual axis lodged in the corneal epithelium. No other foreign bodies are identified and there is trace conjunctival injection. Under topical anesthetic using a jeweler's forceps the foreign body is removed. IMPRESSION: Corneal foreign body to the left eye removed. PLAN: TobraDex ointment applied x1. Recheck if symptoms persist or exacerbate. Elizabeth Warren/devan cc: Source: [facility] RWHXTRANSXSYS Document Id: [id number] Electronically signed by Conversion, [facility] Transplant Case Manager [id number] at 03/22/2017 3:49 AM CDT documented in this encounter Plan of Treatment Not on filedocumented as of this encounter Visit Diagnoses Not on filedocumented in this encounter
--- OUTSIDE RECORDS SUMMARY | 2022-07-28 04:20 | XMS_ITS | Encounter Summary ---
:2001 Author Organization [facility] Address [address] [place] [address] Care Team Providers Name Role Phone Kathrine Marrufo M.D. Primary Care Provider Encounter Details Date Type Department Care Team Description 04/07/2018 Hospital Encounter Department of Radiology Daniela Marcelo, Pain Wrist Left in [place] M[place]. [address] [place] [address] [place], [place] [phone] [address] Social History Tobacco Use Types Packs/Day Years [...] or relatives? How often do you attend jewish or Never 2021 oriental orthodox services? Do you belong to any clubs or Yes 01/23/2022 organizations such as jewish groups, unions, fraternal or athletic groups, or [...] mouth daily. documented as of this encounter Plan of Treatment Not on filedocumented as of this encounter Procedures Procedure Name Priority Date/Time Associated Comments Diagnosis DX WRIST LEFT 3+ RAD - Routine 04/07/2018 4:06 Pain Wrist Left Resu lts for this VIEWS (most inpatients PM CDT procedure a re in and all the results outpatients) section. documented in this encounter Results DX Wrist Left 3+ [...] encounter Visit Diagnoses Diagnosis Pain Wrist Left documented in this encounter Additional Health Concerns Assessment Noted Time PHQ-9 Depression Total Score: 5 12/26/2016 12:01 AM CS T documented as of this encounter Care Teams Talent Development Manager Relationship Specialty Start Date End Date Kathrine Marrufo M.D. PCP - General Pediatrics 04/18/16 04/18/18 [address] [place] [address] documented as of this encounter
--- OUTSIDE RECORDS SUMMARY | 2022-07-28 04:20 | XMS_ITS | Encounter Summary ---
:2001 Author Organization [facility] Address [address] [place] [address] Care Team Providers Name Role Phone Kathrine Marrufo M.D. Primary Care Provider Encounter Details Date Type Department Care Team Description 12/23/2016 Hospital Encounter HX RST EMERGENCY Provider, Historic al [facility] Social History Tobacco Use Types Packs/Day Years [...] or relatives? How often do you attend methodist or Never 2021 hoahaoism services? Do you belong to any clubs or Yes 01/23/2022 organizations such as methodist groups, unions, fraternal or athletic groups, or [...] slept in a senior care (including now)? Sex Assigned at Date Recorded Female 01/23/2022 2:50 PM CDT documented as of this encounter Plan of Treatment Not on filedocumented as of this encounter Procedures Procedure Name Priority Date/Time Associated Diagnosis Comme nts DX CHEST AP OR PA Routine 12/23/2016 5:03 PM Resu lts for this AND LATERAL 2 VIEWS EXAMINATION SUPERVISOR procedur e are in the results section. ECG Routine 12/23/2016 4:37 PM Results f or this EXAMINATION SUPERVISOR procedure are i n the results section. documented in this encounter Results DX Chest AP or PA and Lateral 2 Views (12/23/2016 5:03 PM EXAMINATION SUPERVISOR) Anatomical Region Laterality Modality Chest N/A Radiographic Imaging Specimen (Source) Anatomical Collection Method Collection Time Re ceived Time Location / / Volume Laterality 12/23/2016 5:03 PM EXAMINATION SUPERVISOR Impressions 12/24/2016 8:59 AM EXAMINATION SUPERVISOR No comparison. No focal focal consolidation, pleural effusion, or pneumothorax. Normal heart size. The bones and the upper abdomen are normal. Electronically signed by: ?? Rhys Vega MD [id number] 23-Dec-2016 17:15 I have reviewed the films/images and agr ee with the above interpretation. Electronically signed by: ?? Wliber Church MD. ??[phone] 24-Dec-2016 08:59 Narrative 12/24/2016 8:59 AM EXAMINATION SUPERVISOR 23-Dec-2016 17:03:00 ??Exam: Chest-- 2 Views Indications: SOB and CP, r/o pneumo, sub jective CP and tightness ORIGINAL REPORT - 23-Dec-2016 17:15:00 EXAM: Chest 2 views: Procedure Note Maddison Church M.D. - 01/13/2018Form atting of this note might be different from the original. 23-Dec-2016 17:03:00 Exam: Chest-- 2 Vie ws Indications: SOB and CP, r/o pneumo, sub jective CP and tightness ORIGINAL REPORT - 23-Dec-2016 17:15:00 EXAM: Chest 2 views: IMPRESSION: No comparison. No focal foca l consolidation, pleural effusion, or pneumothorax. Normal heart size. The bones and the upper abdomen are normal. Electronically signed by: Rhys Vega MD [phone] 23-Dec-2016 17:15 I have reviewed the films/images and agr ee with the above interpretation. Electronically signed by: Wilber Church MD. [phone] 24-Dec-2016 0 8:59 Mikel Smith M.D. IMG DIAGNOSTIC IMAGING PROCE DURES ECG 12 Lead (12/23/2016 4:37 PM EXAMINATION SUPERVISOR) Specimen (Source) Anatomical Collection Method Collection Time Re ceived Time Location / / Volume Laterality 12/23/2016 4:37 PM [facility] - 12/24/2016 7:44 AM [facility] 23Dec2016 16:37 VENTRICULAR RATE 109 * Pediatric ECG Analysis * Normal sinus rhythm with sinus arrhythmi a Nonspecific T wave abnormality No previous ECGs available [id number]^EDISON ??^MIGUEL Procedure Note Miguel Paulnio M.D. - 01/07/2018Forma tting of this note might be different from the original. 23Dec2016 16:37 VENTRICULAR RATE 109 * Pediatric ECG Analysis * Normal sinus rhythm with sinus arrhythmi a Nonspecific T wave abnormality No previous ECGs available [id number]^EDISON GOLDSMITH^MIGUEL Mikel Smith M.D. ECG ORDERABLES Performing Organization Address City/State/ZIP Code Phon e Number HX [facility] [address] [place] [address], [place] documented in this encounter Visit Diagnoses Not on filedocumented in this encounter Additional Health Concerns Assessment Noted Time PHQ-9 Depression Total Score: 1 03/23/2014 12:01 AM CD T documented as of this encounter Care Teams Powerhouse Electrician Relationship Specialty Start Date End Date Kathrine Marrufo M.D. PCP - General Pediatrics 04/18/16 04/18/[address] [place] [address] documented as of this encounter
--- OUTSIDE RECORDS SUMMARY | 2022-07-28 04:20 | XMS_ITS | Encounter Summary ---
:2001 Author Organization [facility] Address [address] [place] [address] Care Team Providers Name Role Phone Hussein Jones M.D. Primary Care Provider Unavailable Reason for Visit Reason Comments Toe Pain Encounter Details Date Type Department Care Team Description 01/20/2019 Office Visit Urgent Care in [facility] Kurt Peterson [place], [place] P.A.-C. (Primary Dx) [address] [facility] [address] [place] [phone] Social History Tobacco Use Types Packs/Day [...] do you attend anabaptist or Never 2021 pentecostal services? Do you [...] or slept in a correction (including now)? Sex Assigned at Date Recorded Female 01/23/2022 2:50 PM CDT documented as of this encounter Last Filed Vital Signs Vital Sign Reading Time Taken Comments Blood Pressure 113/74 01/20/2019 5:01 PM CDT Pulse 80 01/20/2019 5:01 PM CDT Temperature 36.8 ??C (98.2 ??F) 01/20/2019 5:01 PM CDT Respiratory Rate - - Oxygen Saturation 100% 01/20/2019 5:01 PM CDT Inhaled Oxygen Concentration - - Weight 51.4 kg (113 lb 5.1 oz) 01/20/2019 5:01 PM CDT Height - - Body Mass Index - - documented in this encounter Progress Notes Kurt Peterson P.A.-C. - 01/20/2019 4:40 PM CDT SUBJECTIVE Patient ID: Claire Moncada is a 18 y.o. female. HISTORY OF PRESENT ILLNESS The patient presents to clinic with an ingrown toenail of the left 1st toe. Symptoms started weeksago. Patient has been doing soap water soaks. Associated symptoms include drainage purulent and surrounding erythema. Patient denies fever REVIEW OF SYSTEMS See HPI There is no problem list on file for this patient. CURRENT MEDICATIONS Current Outpatient Prescriptions: ??? ibuprofen (ADVIL) 200 mg tablet, Take 2 tablets by mouth every 6 (six) hours. pain, Disp: , Rfl: ??? albuterol (for_PROVENTIL HFA,VENTOLIN HFA) 90 mcg/actuation inhaler, Inhale 2-4 puffs every 4 (four) hours. 2-6 puffs up to every 4 hr as needed for shortness of breath. Dispense: 200 Actuation inhaler, Disp: , Rfl: Current Facility-Administered Medications: ??? sodium bicarbonate injection 51 mEq, 1 mEq/kg (Dosing Weight), intravenous, Once, Favio Najera P.A.-C. ALLERGIES/CONTRAINDICATIONS No Known Allergies OBJECTIVE VITAL SIGNS Vitals: 01/20/19 1701 BP: 113/74 Pulse: 80 Temp: 36.8 ??C TempSrc: Temporal SpO2: 100% Weight: 51.4 kg PHYSICAL EXAMINATION General: Patient sitting in exam room in no apparent distress, with appropriate mood and affect. Cardiac: Regular rate. Lungs: No acute respiratory distress Musculoskeletal: ingrown nail at the first left toe and surrounding paronychia. PLAN #1 Ingrown toe nail Part of toenail was removed today. Antibiotics were prescribed today. The patient will continue to soak the foot TID. She should present back if symptoms worsen or continue despite the above plan. documented in this encounter Procedure Notes Kurt Peterson P.A.-C. - 01/20/2019 4:40 PM CDTAssociated Order(s): NAIL REMOVAL Post-Procedure Diagnose(s): Ingrown Nail Infected Nail Removal Date/Time: 01/20/2019 6:04 PM Performed by: KURT PETERSON Authorized by: KURT PETERSON Pre-procedure details (see MAR for exact dosages): Indication: ingrown nail Location: Toe Toe: Right big toe Site preparation: Povidone-iodine Sedation/Anesthesia (see MAR for exact dosages): Anesthesia method: Local infiltration Local anesthetic: Lidocaine 1% w/o epi (plus sodium bicarbonate) Procedure details: Nail plate removed: yes Type of nail plate removal: Partial Nail side: Medial Number of nail plates removed: 1 Nail bed sutured: no Removed nail replaced and anchored: no Subungual hematoma drained: no Wedge excision of skin: yes Nail matrix removed or ablated: None Post-procedure details: Dressing Applied: yes Dressing applied: Gauze dressing Wrapped with: Kerlix Brace applied: no Procedure completed successfully: yes Tetanus status up to date: Up to date Complications: no immediate complications documented in this encounter Plan of Treatment Not on filedocumented as of this encounter Procedures Procedure Name Priority Date/Time Associated Diagnosis Comme nts CT EXCISN INGROWN Routine 01/20/2019 4:40 PM Ingrown Nail Resu lts for this TOENAIL CDT Infected procedure are i n the results section. CT AVUL NAIL PLATE Routine 01/20/2019 4:40 PM Ingrown Nail Res ults for this SMPL CDT Infected procedure are i n the results section. documented in this encounter Results CT AVUL NAIL PLATE SMPL, CT EXCISN INGROWN TOENAIL (01/20/2019 4:40 PM CDT) Narrative MMODAL - 01/20/2019 4:40 PM CDT Kurt Peterson P.A.-C. ? 01/20/2019 ??6:08 PM Nail Removal Date/Time: 01/20/2019 6:04 PM Performed by: KURT PETERSON Authorized by: KURT PETERSON Pre-procedure details (see MAR for exact dosages): ??Indication: ingrown nail ?Location: ??Toe ??Toe: ??Right big toe ??Site preparation: ??Povidone-iodine Sedation/Anesthesia (see MAR for exact d osages): ??Anesthesia method: ??Local infiltrati on ??Local anesthetic: ??Lidocaine 1% w/o epi (plus sodium bicarbonate) Procedure details: ??Nail plate removed: yes ?Type of nail plate removal: ??Partial ??Nail side: ??Medial ??Number of nail plates removed: ??1 ??Nail bed sutured: no ?Removed nail replaced and anchored: n o ?Subungual hematoma drained: no ?Wedge excision of skin: yes ?Nail matrix removed or ablated: ??Non e Post-procedure details: ??Dressing Applied: yes ?Dressing applied: ??Gauze dressing ??Wrapped with: ??Kerlix ??Brace applied: no ?Procedure completed successfully: yes ?Tetanus status up to date: ??Up to da te ??Complications: no immediate complicat ions ?? Kurt Peterson P.A.-C. PROCEDURE/MINOR SURGICAL ORD ERABLES Performing Organization Address City/State/ZIP Code Phon e Number MMODAL MMODAL NA documented in this encounter Visit Diagnoses Diagnosis Ingrown Nail Infected - Primary documented in this encounter Additional Health Concerns Assessment Noted Time PHQ-9 Depression Total Score: 5 12/26/2016 12:01 AM CS T documented as of this encounter Care Teams Riding Double Relationship Specialty Start Date End Date Hussein Jones M.D. PCP - General 04/19/18 04/17/21 documented as of this encounter
--- OUTSIDE RECORDS SUMMARY | 2022-07-28 04:20 | XMS_ITS | Encounter Summary ---
:2001 Author Organization [facility] Address [address] [place] [address] Care Team Providers Name Role Phone Hussein Jones M.D. Primary Care Provider Unavailable Reason for Visit Reason Onset Date Comments Communication 05/06/2018 Encounter Details Date Type Department Care Team Description 05/06/2018 Clinical Communication Division of Pediatric Angelia Martin, Communication Allergy & Immunology M.DFrank in [address] [place] [phone] [place], [place] [phone] (Work) [phone] Social History Tobacco Use Types Packs/Day Years [...] or relatives? How often do you attend synagogue or Never 2021 congregational services? Do you belong to any clubs or Yes 01/23/2022 organizations such as synagogue groups, unions, fraternal or athletic groups, or [...] this encounter Miscellaneous Notes Telephone Encounter - Rody Garcia - 05/06/2018 8:46 AM CDT Information only. It was not possible to coordinate with patient on your ordered appointment request. The patient was contacted via telephone or letter three times with no response over a three month period. The scheduling office will no longer continue to follow request or contact the patient. The request has been finalized. If you believe that the requested order is necessary, please contact the patient directly. Rody Watson documented in this encounter Plan of Treatment Not on filedocumented as of this encounter Visit Diagnoses Not on filedocumented in this encounter Additional Health Concerns Assessment Noted Time PHQ-9 Depression Total Score: 5 12/26/2016 12:01 AM CS T documented as of this encounter Care Teams Residential Treatment Specialist Relationship Specialty Start Date End Date Hussein Jones M.D. PCP - General 04/19/18 04/17/21 documented as of this encounter
--- OUTSIDE RECORDS SUMMARY | 2022-07-28 04:20 | XMS_ITS | Encounter Summary ---
:2001 Author Organization [facility] Address [address] [place] [address] Care Team Providers Name Role Phone Hussein Jones M.D. Primary Care Provider Unavailable Reason for Referral Outpatient (Routine) - Closed Specialty Diagnoses / Procedures Referred By Contact Refer red To Contact Diagnoses Discomfort Chest Akilah Reeves M.D., [facility] Procedures ECG 12 Lead [facility] [address] [place] [phone] Referral ID Status Reason Start Date Expiration Date Visits Requ ested Visits Authorized [id number] Closed 03/14/2020 03/14/2021 1 1 Reason for Visit Outpatient (Routine) - Closed Specialty Diagnoses / Procedures Referred By Contact Refer red To Contact Diagnoses Discomfort Chest Akilah Reeves M.D., [facility] Procedures ECG 12 Lead [facility] [address] [place] [phone] Referral ID Status Reason Start Date Expiration Date Visits Requ ested Visits Authorized [id number] Closed 03/14/2020 03/14/2021 1 1 Encounter Details Date Type Department Care Team Description 03/14/2020 Hospital Encounter Department of Akilah Reeves Dis comfort Chest RadiologyTiara M.D., M.P.H . [facility], in [place], [address] [place] [address] [address] [address] [address] [place], [place] [phone] (Work) [phone] Social History Tobacco Use Types Packs/Day Years [...] do you attend muslim or Never 2021 confucianist services? Do you [...] Name Priority Date/Time Associated Diagnosis Comme nts ECG Routine 03/14/2020 3:41 PM Discomfort Chest Resul ts for this CDT procedure are i n the results section . documented in this encounter Results ECG 12 Lead (03/14/2020 3:41 PM CDT) P athologist Signature Ventricular Rate 100 BPM MUSE ECG/Min DC Interval 136 ms MUSE QRSD Interval 86 ms MUSE QT Interval 342 ms MUSE QTC Interval 441 ms MUSE P [place] 81 degrees MUSE R [place] 54 degrees MUSE T Wave [place] 45 degrees MUSE Specimen Anatomical Collection Method [...] documented as of this encounter Care Teams Hook Up Relationship Specialty Start Date End Date Hussein Jones M.D. PCP - General 04/19/18 04/17/21 documented as of this encounter
--- OUTSIDE RECORDS SUMMARY | 2022-07-28 04:22 | XMS_ITS | Encounter Summary ---
:2000 Author Organization [facility] Address [address] [place] [phone] Care Team Providers Name Role Phone Poonam Orlando APRN C.N.P., D.N.P. Primary Care Provid er Reason for Visit Reason Comments Med Refill Encounter Details Date Type Department Care Team Description 02/08/2022 Refill Department of [facility] Jayleen Castro AP RN, Med Refill Medicine, [facility], C.N. P., M.S.N. in [facility] [address] [facility] [address] [place] [address] [place] [phone] Social History Tobacco Use Types Packs/Day Years [...] do you attend yarsanism or Never 2021 moravian services? Do you belong to any clubs [...] or slept in a half-way (including now)? Education Answer Date Recorded What is the highest level of school you have Some college, n o degree 05/24/2021 completed or the highest degree you have received? Sex Assigned at Date Recorded Female 01/23/2022 2:50 PM CDT documented as of this encounter Miscellaneous Notes Telephone Encounter - Lavinia Lomeli L.P.N. - 02/10/2022 9:33 AM CDT The patient is requesting a renewal of Adderall XR 30 mg and Adderall 10 mg , per Poonam Orlando APRN, C.N.P., D.N.P., as outlined in their Problem List Overview for Attetnion Deficit Disorder Combined Type. The renewal is pended. There are no nursing concerns at this time. Date the last Rx was able to be filled on: 01/03/2022 Urine Drug Screening: Is not required by the prescribing provider plan in Problem List Overview. Screening/Assessments due: No screenings due for patient at this time. Next Provider Visit due: 01/22/2023 If no concerns or follow-up, no need to route back to care team nurse or nurse renewal team.. Telephone Encounter - Miriam Araiza - 02/10/2022 8:12 AM CDT Nurse review: Unable to forward request to provider; Controllled Substance, CSA Primary Provider: Poonam Orlando APRN, C.N.P., D.N.P. Requested Prescriptions Pending Prescriptions Disp Refills ??? dextroamphetamine-amphetamine (ADDERALL) 10 mg tablet [Pharmacy Med Name: AMPHETAMINE SALT 10MG TAB] 28 tablet 0 Sig: TAKE ONE TABLET BY MOUTH DAILY AFTER LUNCH. MAY FILL 01/03/2022 ??? Adderall XR 30 mg 24 hr capsule [Pharmacy Med Name: ADDERALL XR 30MG CP24] 28 capsule 0 Sig: TAKE ONE CAPSULE BY MOUTH EVERY DAY, FILL ON OR AFTER 01/03/22 [facility] (include [facility] documented in this encounter Plan of Treatment Not on filedocumented as of this encounter Visit Diagnoses Not on filedocumented in this encounter Additional Health Concerns Assessment Noted Time PHQ-9 Depression Total Score: 12 01/20/2022 3:01 PM CD T documented as of this encounter Care Teams Community Recreation Coordinator Relationship Specialty Start Date End Date Poonam Orlando APRN, C.N.P., PCP - General Family Medicine D.N.P. [address] [place] [address] documented as of this encounter
[2022-07-28] MEDS: ACETAMINOPHEN 500 MG TABLET 1000 MG PO (04:27)
== END 2022-07-28 04:32 | disposition home or self-care (01) ==
LOC: ED 04:15
PROVIDERS: Emergency Provider Family Medicine
DX: G43.909 Migraine, unspecified, not intractable, without status migrainosus (principal)
CPT/HCPCS: 94761; 96365; 96375; 99282; 99284; A9270; J1200; J1885; J2405; J7030

== ENCOUNTER 2022-09-20 01:19 | Outpatient (CLI) | payer OTHER, MEDICAID, SELFPAY | END 2022-09-20 01:20 | disposition home or self-care (01) | LOC: AMB 10-06 13:06 | PROVIDERS: Visit Provider Family Medicine | DX: R06.09 Other forms of dyspnea (principal) | CPT/HCPCS: A0425; A0429 ==

== ENCOUNTER 2022-09-20 01:41 | Emergency (ER) | payer OTHER, MEDICAID, SELFPAY ==
[2022-09-20 01:49] VITALS: BP 112/76; PULSE 108; RESP 20; TEMP 36.8; O2SAT 96; BMI 15.2
--- NOTE | 2022-09-20 02:04 | PC.NURSE ---
Pt states she has been SOB since 11am. Pt has HX of asthma and has taken her inhaler several times today
--- NOTE | 2022-09-20 02:52 | ED_ITS ---
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 Patient states that this evening she had had a hemiplegic migraine and had taken Tylenol and ibuprofen and her headache was getting better when she walked into the bathroom where her roommate had sprayed some perfume. She thinks she was exposed only for a matter of about 12 seconds but that was en ough to send her into an asthma flare. She states that she had to take 4 separate doses of her inhaler and did not feel like they were working. She states that when she knows they are not working she is supposed to call security. Thus she was transported here by EMS. She states that her lungs hurt and were stabbing when this 1st happened but now this stabbing is a little bit less and she is doing okay. She has not had any vomiting. She denies COVID or COVID like symptoms. She tells me that her migraine is much better and she can now move everything and shows that she can put both arms out front. Related Data Home Medications Medication Instructions Recorded Confirmed dextroamphetamine-amphetamine 10 10 mg PO DAILY 07/28/22 07/28/22 mg tablet dextroamphetamine-amphetamine ER 30 mg PO DAILY 07/28/22 07/28/22 30 mg 24hr capsule,extend release (Adderall XR) nortriptyline 10 mg capsule 10 mg PO HS 07/28/22 07/28/22 ondansetron 4 mg disintegrating 4 mg PO Q8H PRN 07/28/22 07/28/22 tablet rizatriptan 5 mg tablet 5 mg PO DAILY PRN 07/28/22 07/28/22 ubrogepant 100 mg tablet (Ubrelvy) 100 mg PO DAILY PRN 07/28/22 07/28/22 verapamil 80 mg tablet 80 mg PO Q8H 07/28/22 07/28/22 Allergies Allergy/AdvReac Type Severity Reaction Status Date / Time ginseng Allergy Intermediate Rash, Verified 07/28/22 02:09 Shortness of Breath risperidone Allergy Intermediate Vertigo, Verified 07/28/22 02:09 Twitching amoxicillin Allergy Mild Rash Verified 07/28/22 02:09 cat dander Allergy Mild Allergy Verified 07/28/22 02:09 Symptoms Review of Systems Status of ROS: Reports: 10 or more systems reviewed and unremarkable except as noted in History and below Const: Denies: fever ENMT: Denies: throat pain or difficulty swallowing Cardio: Reports: shortness of breath with exertion; Denies: chest pain or swelling of feet/ankles Resp: Reports: shortness of breath, cough and wheezing GI: Denies: abdominal pain, nausea, vomiting or difficulty swallowing : Denies: painful urination Integ/Breast: Denies: rash Neuro: Reports: headache (Now resolving) and slurred speech (Now resolving) Psych: Denies: anxiety (Denies) Allergy/Immuno: Reports: wheezing PFSH PFSH Medical History ADHD Asthma Hemiplegic migraine Surgical History No significant past surgical history Social History Smoking Status: Never smoker Do you use any of these nicotine containing products: None Second hand tobacco smoke exposure: No How often do you have a drink containing alcohol: never How often do you have six or more drinks on one occasion: Never AUDIT-C Alcohol total score: 0 Non-prescribed substance use: denies use Exam Narrative: Exam Narrative: Lucero is sitting comfortably in room 3. Her eyes are clear with pupils approximately 4-1/2 mm. EOM is full in they do react. Head is otherwise atraumatic. Oral cavity with moist mucous membranes. Eyebrow raise smile symmetrical. Tongue midline. Oral cavity moist mucous membranes. Neck is supple. Heart with regular rate and rhythm. Lungs are clear in all lung rodriguez and O2 saturations are 100%. No evidence of tachycardia at this time. Abdomen soft. Lower extremities show no edema. She is able to move all of her extremities and she shows me that a Romberg is negative. Const: Vital Signs, click to edit/add: Vital Signs - 24 hr 09/20/22 01:49 Temperature 98.2 F Pulse Rate [Pulse Oximeter] 108 H Respiratory Rate 20 Blood Pressure [Ri ght Upper Arm] 112/76 Pulse Oximetry 96 Oxygen Delivery Me thod Room Air Documenting provider has reviewed patient's vital signs: yes Course Course Hospital Course: Lucero appears to have recovered. She tells me she still has some lung pain but oxygen levels are 100%. At time she does have some mild tachypnea but this resolves when discussing other symptoms. She initially had photophobia with pupillary examination but again this resolved with EOM test. Did specifically ask her if she has any anxiety that may be caused by her migraines or when she gets a asthma flare as her exam is and vital signs are completely normal. She denies this but I am wondering if there is an element of anxiety. Vital Signs Vital signs: Initial Vital Signs Temperature 98.2 F 09/20/22 01:49 Temperature Source Temporal Artery Scan 09/20/22 01:49 Pulse Rate 108 H 09/20/22 01:49 Pulse Rhythm 09/20/22 01:49 Respiratory Rate 20 09/20/22 01:49 Blood Pressure 112/76 09/20/22 01:49 Blood Pressure Mean 88 09/20/22 01:49 Blood Pressure Position Sitting 09/20/22 01:49 Pulse Oximetry 96 09/20/22 01:49 Oxygen Delivery Method 09/20/22 01:49 Vital Signs Temperature 98.2 F 09/20/22 01:49 Pulse Rate 108 H 09/20/22 01:49 Respiratory Rate 20 09/20/22 01:49 Blood Pressure 112/76 09/20/22 01:49 Pulse Oximetry 96 09/20/22 01:49 Oxygen Delivery Method 09/20/22 01:49 Temperature 98.2 F 09/20/22 01:49 Pulse Rate 108 H 09/20/22 01:49 Respiratory Rate 20 09/20/22 01:49 Blood Pressure 112/76 09/20/22 01:49 Pulse Oximetry 96 09/20/22 01:49 Oxygen Delivery Method 09/20/22 01:49 MDM - SOB/Dyspnea MDM Narrative Medical decision making narrative: 1. Reactive airway exacerbation-I do not note any asthma flare but certainly patient who is this sensitive to scents would have a problem with perfume. I did not feel the need to do a DuoNeb or albuterol. I did speak about possibility of an x-ray but with clear lung sounds throughout I was hesitant to do this. Claire states that she has had a lot of radiation in her life and she would rather avoid that. I think this is reasonable to watch and wait. I did however offer a low dose prednisone over the next 2 days. She is a petite person and therefore I would only use 20 mg which was given to her in the ED. we did talk about the stimulatory effects of prednisone. I did assure her that this would not affect or induced migraines. She is given a 2nd 20 mg tablet of prednisone to use either late on the evening of 09/20 or 1st thing on the morning of 09/21. She seems happy with this. I did have to briefly leave the room to take care of another patient when I returned she stated that she was feeling better. 2. Recent hemiplegic migraine-no neurological deficits noted in the emergency room at this time. Patient notes that she has a history of this and symptoms have resolved. 3. Disposition-patient will be transferred boarded back to [facility]. Of course if she has worsening symptoms would have her come to the emergency room for evaluation. Medical Records Attestation: I reviewed the patient's medical records. Discharge Plan Discharge Clinical Impression: Exacerbation of reactive airway disease Patient Disposition: Home, Self-Care Condition: Improved Additional Instructions: You were given 1 low dose of prednisone tonight which is a steroid and axes anti-inflammatory with asthma. A 2nd dose may be taken late tomorrow night or 1st thing on Thursday morning. Albuterol as needed. Return as needed Prescriptions: No Action dextroamphetamine-amphetamine 10 mg tablet 10 mg PO DAILY Label Comments: TAKE ONE TABLET BY MOUTH EVERY DAY dextroamphetamine-amphetamine [Adderall XR] 30 mg capsule,extended release 24hr 30 mg PO DAILY Label Comments: TAKE ONE CAPSULE BY MOUTH EVERY DAY, FILL ON OR AFTER 06/11/22 rizatriptan 5 mg tablet 5 mg PO DAILY PRN Label Comments: TAKE ONE TABLET BY MOUTH EVERY DAY NEEDED FOR MIGRAINE. MAY REPEAT IN 1-2 HOURS MAX 6 TABLETS PER DAY nortriptyline 10 mg capsule 10 mg PO HS Label Comments: TAKE TWO CAPSULES BY MOUTH EVERY DAY AT BEDTIME ondansetron 4 mg tablet,disintegrating 4 mg PO Q8H PRN Label Comments: DISSOLVE ONE TABLET BY MOUTH EVERY 8 HOURS NEEDED Ubrelvy 100 mg tablet 100 mg PO DAILY PRN Label Comments: TAKE 1 TABLET NEEDED FOR MIGRAINE. MAY REPEAT DOSE ONCE AFTER 2 HRS. IF UNRESOLVED. DO NOT EXCEED 200MG IN 24 HRS. verapamil 80 mg tablet 80 mg PO Q8H Label Comments: TAKE ONE TABLET BY MOUTH EVERY 8 HOURS Follow Up/Referrals: Provider,Not a Local [Primary Care Provider] - Stand Alone Forms: [employer] Info Instructions
--- OUTSIDE RECORDS SUMMARY | 2022-09-20 02:56 | XMS_ITS | Encounter Summary ---
:2000 Author Organization [facility] Address [address] [place] [address] Care Team Providers Name Role Phone Poonam Orlando APRN, C.N.PFrank, D.N.P. Primary Care Provid er Reason for Referral Physical Therapy (Routine) - Authorized Specialty Diagnoses / Procedures Referred By Contact Refer red To Contact Diagnoses Pain Knee Left Pain Ankle [facility] Procedures PT Evaluate and treat C.N.P., D.N.P. [address] [place] [phone] Referral ID Status Reason Start Date Expiration Date Visits V isits Requested Authorized [id number] Authorized 07/18/2022 07/18/2023 1 1 hysical Therapy (Routine) - Authorized Specialty Diagnoses / Procedures Referred By Contact Refer red To Contact Diagnoses Pain Knee Left Pain Ankle Left [facility] Procedures PT Evaluate and treat C.N.P., D.N.P. [address] [place] [phone] Referral ID Status Reason Start Date Expiration Date Visits V isits Requested Authorized [id number] Authorized 07/18/2022 07/18/2023 1 1 Reason for Visit Reason Comments Other Migraines Outpatient (Routine) - Closed Specialty Diagnoses / Procedures Referred By Contact Refer red To Contact Family Medicine Poonam Orlando APRN, [facility] Amadeo.N.PFrank, Cony.N.PFrank [address] [place] [address] Referral ID Status Reason Start Date Expiration Date Visits Requ ested Visits Authorized [id number] Closed 05/27/2022 05/27/2023 1 1 Encounter Details Date Type Department Care Team Description 07/18/2022 Telemedicine Department of [facility] Poonam Orlando miplegic Migraine Not Intractable Without Status Migrainosus (Primary Dx); Medicine, Jonnathan Marrufo APRN C.N.PFrank, Pain K nee Left; Building, in [place].N.P. Pain Ankle Left [place], [place] [address] [facility] [address] [place] [phone] Social History Tobacco Use Types Packs/Day Years Used Date Smoking Tobacco: Never Smokeless Tobacco: Never Tobacco Cessation: Counseling Given: Not Answered Alcohol Use Standard Drinks/Week Comments Never 0 (1 standard drink = 0.6 oz pure alcoho l) Alcohol Habits Answer Date Recorded How often do you have a drink containing alcohol? Never 08/13/2022 How many drinks containing alcohol do you have on a typical Not asked day when you are drinking? How often do you have six or more drinks on one occasion? No t asked Social Isolation Answer Date Recorded In a typical week, how many times do you More than three isis es a week 08/13/2022 talk on the phone with family, friends, or neighbors? How often do you get together with friends Once a week 08/13/2022 or relatives? How often do you attend denominational or Never 2021 anabaptist services? Do you belong to any clubs or Yes 08/13/2022 organizations such as denominational groups, unions, fraternal or athletic groups, or school groups? How often do you attend meetings of the 1 to 4 times per yea r 08/13/2022 clubs or organizations you belong to? Are you now , , , Never 08/13/2022 , never or living with a partner? Physical Activity Answer Date Recorded On average, how many days per week do you engage in moderate to 6 days 08/13/2022 strenuous exercise (like walking fast, running, jogging, dancing, swimming, biking, or other activities that cause a light or heavy sweat)? On average, how many minutes do you engage in exercise at th is 40 min 08/13/2022 level? Stress Answer Date Recorded Do you feel stress - tense, restless, nervous, or anxious, N ot at all 08/13/2022 or unable to sleep at night because your mind is troubled all the time - these days? Financial Resource Strain Answer Date Recorded How hard is it for you to pay for the very basics like [facility] hat hard 08/13/2022 food, housing, medical care, and heating? Intimate Partner Violence Answer Date Recorded Within the last year, have you been afraid of your partner o r No 08/13/2022 ex-partner? Within the last year, have you been humiliated or emotionall y No 08/13/2022 abused in other ways by your partner or ex-partner? Within the last year, have you been kicked, hit, slapped, or No 08/13/2022 otherwise physically hurt by your partner or ex-partner? Within the last year, have you been raped or forced to have any No 08/13/2022 kind of sexual activity by your partner or ex-partner? Food Insecurity Answer Date Recorded Within the past 12 months, you worried that your food would Never true 08/13/2022 run out before you got money to buy more. Within the past 12 months, the food you bought just didn't N ever true 08/13/2022 last and you didn't have money to get more. Transportation Needs Answer Date Recorded In the past 12 months, has lack of transportation kept you f rom Yes 08/13/2022 medical appointments or from getting medications? In the past 12 months, has lack of transportation kept you f rom Yes 08/13/2022 meetings, work, or getting things needed for daily living? Housing Stability Answer Date Recorded In the last 12 months, was there a time when you were not ab le No 08/13/2022 to pay the mortgage or rent on time? In the last 12 months, how many places have you lived? 3 08/13/2022 In the last 12 months, was there a time when you did not hav e a Yes 08/13/[address] sleep or slept in [...] real-time audio/video technology by Poonam Orlando APRN, MEDICINE AND HEALTH SERVICE MANAGER, DNP in [place], [place] to the patient in their home. 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 She has left sided weakness or paralysis with her migraines that begins in the leg and works it way upward, typically within 5-10 minutes. Occasionally will have facial weakness, though this is not always present. Usually the hemiplegia wears off within an hour. These symptoms typically occur in the rheumatologist ot mid afternoons. She has a visual [...] like to be seen by PT in [place]. OBJECTIVE PHYSICAL EXAMINATION VITALS: There were no [...] spent a total of 30+ minutes in idu-xbhw-np-face time performing a review of the recordand/or discussion with the patient/caregiver as described above. PATIENT EDUCATION Ready to learn, no apparent learning barriers were identified; learning preferences include listening. documented in this encounter Plan of Treatment Upcoming Encounters Date Type Specialty Care Team Description 09/22/2022 Appointment Laboratory Medicine Poonam Orlando APRN, C.N.P., D. N.P. [address] [place] [phone] (Wo rk) 12/10/2022 Clinical Support Nutrition Wolf Orlando APRN, C.N.P., D.N.P. [address] [place] [address] [phone] Jayleen Gillette M.S., RDN, LD [address] [place] [phone] documented as of this encounter Visit Diagnoses Diagnosis Hemiplegic Migraine Not Intractable With out Status Migrainosus - Primary Pain Knee Left Pain Ankle Left documented in this encounter Additional Health Concerns Assessment Noted Time PHQ-9 Depression Total Score: 5 03/07/2022 12:25 PM CD T documented as of this encounter Care Teams Machine Feeder Relationship Specialty Start Date End Date Poonam Orlando APRN, C.N.P., PCP - General Family Medicine D.N.P. [address] [place] [address] [phone] documented as of this encounter
--- OUTSIDE RECORDS SUMMARY | 2022-09-20 02:56 | XMS_ITS | Encounter Summary ---
:2000 Author Organization [facility] Address [address] [place] [address] Care Team Providers Name Role Phone Poonam Orlando APRN C.N.PFrank, D.N.P. Primary Care Provid er Reason for Referral Outpatient (Routine) - Authorized Specialty Diagnoses / Procedures Referred By Contact Refer red To Contact Diagnoses Body Mass Index 19.9 Or Less Adult [facility] Procedures ECG 12 Lead C.N.P., D.N.P. [address] [place] [phone] Referral ID Status Reason Start Date Expiration Date Visits V isits Requested Authorized [id number] Authorized 09/19/2022 09/19/2023 1 1 L SALES ASSOCIATE Encounter Details Date Type Department Care Team Description 09/19/2022 Orders Only Department of [facility] Poonam Orlando, Body Mass Index 19.9 Jonnathan Hsieh APRN, C.N.P., D.N.P. Or Less Adult Building, in [address] [place] [address] (Primary Dx) [place], [place] [address] [place] [phone] [place], [place] [phone] (Wo rk) [phone] Social History Tobacco Use Types Packs/Day Years [...] do you attend mormon or Never 2021 anabaptism services? Do you belong to any clubs or Yes 08/13/2022 organizations such as mormon groups, unions, fraternal [...] to pay for the very basics like Somew hat hard 08/13/2022 food, housing, medical care, [...] or slept in a [facility] (including now)? Education Answer Date Recorded What is the highest level of school you have Some college, n o degree 05/24/2021 completed or the highest degree you have received? Sex Assigned at Date Recorded Female 01/23/2022 2:50 PM CDT documented as of this encounter Plan of Treatment Upcoming Encounters Date Type Specialty Care Team Description 09/22/2022 Appointment Laboratory Medicine Poonam Orlando APRN, C.N.P., D. N.P. [address] [place] [phone] (Wo rk) 12/10/2022 Clinical Support Nutrition Wolf Orlando APRN, C.N.P., D.N.P. [address] [place] [phone] Jayleen Gillette M.S., RDN, LD [address] [place] [address] [phone] Scheduled Orders Name Type Priority Associated Diagnoses Order S chedule Comprehensive Metabolic Lab Routine Body Mass Index 1 9.9 Or Expected: 09/22/2022, Panel Less Adult Expires: 2023 CBC with Differential, Lab Routine Body Mass Index 19 .9 Or Expected: 09/22/2022, Blood Less Adult Expires: 2023 Thyroid Function [facility] Lab Routine Body Mass Index 19.9 Or Expected: 09/22/2022 Less Adult (Approximate), Expires: 2023 Prealbumin (PAB) Lab Routine Body Mass Index 19.9 Or Expected: 09/22/2022, Less Adult Expires: 2023 Magnesium Lab Routine Body Mass Index 19.9 Or Expe cted: 09/22/2022, Less Adult Expires: 2023 Phosphorus Inorganic Lab Routine Body Mass Index 19.9 Or Expected: 09/22/2022, Less Adult Expires: 2023 ECG 12 Lead ECG Routine Body Mass Index 19.9 Or Expe cted: 09/19/2022 Less Adult (Approximate), Expires: 2023 documented as of this encounter Visit Diagnoses Diagnosis Body Mass Index 19.9 Or Less Adult - [facility] documented in this encounter Additional Health Concerns Assessment Noted Time PHQ-9 Depression Total Score: 5 08/13/2022 3:21 PM CDT documented as of this encounter Care Teams Email Specialist Relationship Specialty Start Date End Date Poonam Orlando APRN, C.N.P., PCP - General Family Medicine D.N.P. [address] [place] [phone] documented as of this encounter
--- OUTSIDE RECORDS SUMMARY | 2022-09-20 02:56 | XMS_ITS | Encounter Summary ---
:[address] [facility] Address [address] [place] [address] Care Team Providers Name Role Phone Poonam Orlando APRN, C.N.Paola, D.N.P. Primary Care Provid er Encounter Details Date Type Department Care Team Description 08/13/2022 Hospital Encounter Department of Pierre Sheridan Abnormal; Laboratory Medicine Jorge Prieto Migraine Headache and Pathology, [address] [place] [address], in [place], [place] [phone] [place] [address] [place], [place] (Work[place] [phone] Social History Tobacco Use Types Packs/Day Years [...] do you attend restoration or Never 2021 tenriism services? Do you belong to any clubs or Yes 08/13/2022 organizations such as restoration groups, unions, fraternal [...] needed for wheezing or shortness of breath. cznscyu-lztwpuxblpvgv-o Take 1 tablet by 0 affeine (EXCEDRIN mouth as needed for MIGRAINE) 250-250-65 mg pain. per tablet B complex-vitamin Take 1 tablet by 0 (SUPER B-50) capsule mouth daily. fluticasone propionate Administer 1 spray 0 (FLONASE) 50 into each nostril as mcg/actuation nasal needed for rhinitis spray or allergies. fluticasone propionate Inhale 2 puffs 2 36 g 3 022 (FLOVENT HFA) 110 (two) times a day. mcg/actuation inhaler Rinse mouth with water after use to reduce aftertaste and incidence of candidiasis. Do not swallow. iron,carbonyl-vitamin C Take 65 mg of iron 0 (VITRON-C) 65 mg iron- by mouth daily. Do [address] tablet not crush or chew. magnesium citrate 100 Take 1 each by mouth 0 mg capsule daily. methyl Apply 1 application 85 g 0 06/17/2022 salicylate-menthol (ICY topically 3 (three) HOT) 30-10 % times a day as creamIndications: Pain needed for Knee Left, Sprain Knee muscle/joint pain. Initial Left Apply to left knee. naproxen (NAPROSYN) 500 TAKE ONE TABLET BY 60 tablet 0 02/17 mg tablet MOUTH TWICE A DAY NEEDED FOR PAIN nortriptyline (PAMELOR) Take 2 capsules (20 180 capsule 3 01/24/2023 10 mg capsule mg total) by mouth at bedtime. ondansetron ODT Dissolve 1 tablet (4 90 tablet 3 07/18/2022 (ZOFRAN-ODT) 4 mg mg total) in the disintegrating tablet mouth every 8 (eight) hours as needed for nausea or vomiting. ubrogepant (UBRELVY) Take 1 tablet (100 10 each 3 022 100 mg tablet tablet mg total) by mouth as needed for migraine. May repeat dose once after at least 2 hours if migraine unresolved. Do not exceed 200 mg in 24 hours. verapamiL (CALAN) 80 mg Take 1 tablet (80 mg 270 tablet 3 07/18/2023 tablet total) by mouth every 8 (eight) hours. Adderall XR 30 mg 24 hr Take 1 capsule (30 28 capsule 0 03/2008/18/2022 capsule mg total) by mouth daily. amphetamine-dextroamphe Take 1 capsule (30 28 capsule 0 04/1908/18/2022 tamine (Adderall XR) 30 mg total) by mouth mg 24 hr capsule daily for 28 days. amphetamine-dextroamphe Take 1 capsule (30 28 capsule 0 05/2008/18/2022 tamine (Adderall XR) 30 mg total) by mouth mg 24 hr capsule daily for 28 days. dextroamphetamine-amphe Take 1 tablet (10 mg 28 tablet 0 08/18/2022 tamine (ADDERALL) 10 mg total) by mouth tablet daily for 28 days. dextroamphetamine-amphe Take 1 tablet (10 mg 28 tablet 0 08/18/2022 tamine (ADDERALL) 10 mg total) by mouth tablet daily. dextroamphetamine-amphe Take 1 tablet (10 mg 28 tablet 0 08/18/2022 tamine (ADDERALL) 10 mg total) by mouth tablet daily. documented as of this encounter Plan of Treatment Upcoming Encounters Date Type Specialty Care Team Description 09/22/2022 Appointment Laboratory Medicine Poonam Orlando APRN, C.N.P., D. N.P. [address] [place] [phone] (Wo rk) 12/10/2022 Clinical Support Nutrition Wolf Orlando APRN, Amadeo.N.P., D.N.P. [address] [place] [phone] Jayleen Gillette M.S., RDN, LD [address] [place] [phone] documented as of this encounter Procedures Procedure Name Priority Date/Time Associated Diagnosis Comme nts 25-HYDROXYVITAMIN Routine 08/13/2022 6:08 PM Loss Weight Abnor mal Results for this D2 AND D3, S CDT procedure are i n the results section. CBC WITHOUT Routine 08/13/2022 6:08 PM Migraine Headache Resu lts for this DIFFERENTIAL, B CDT procedure ar e in the results section. MAGNESIUM, S Routine 08/13/2022 6:08 PM Loss Weight Abnormal R esults for this CDT procedure are i n the results section. FERRITIN, S Routine 08/13/2022 6:08 PM Loss Weight Abnormal R esults for this CDT procedure are i n the results section. VITAMIN B12 ASSAY, Routine 08/13/2022 6:08 PM Loss Weight Abno rmal Results for this S CDT procedure are i n the results section. THIAMIN (VITAMIN Routine 08/13/2022 6:07 PM Loss Weight Abnorm al Results for this B1), B CDT procedure are i n the results section. ASCORBIC ACID Routine 08/13/2022 6:07 PM Loss Weight Abnormal Results for this (VITAMIN C), P CDT procedure are in the results section. documented in this encounter Results CBC without Differential (08/13/2022 6:08 PM CDT) P athologist Signature Hemoglobin 13.2 11.6 - 08/13/2022 DTL 15.0 g/dL 6:27 PM CDT Hematocrit 39.3 35.5 - 08/13/2022 DTL 44.9 % 6:27 PM CDT Erythrocytes 4.33 3.92 - 08/13/2022 DTL 5.13 6:27 PM CDT x10(12)/L MCV 90.8 78.2 - 08/13/2022 DTL 97.9 fL 6:27 PM CDT RBC Distrib Width 12.2 12.2 - 08/13/2022 DTL 16.1 % 6:27 PM CDT Platelet Count 334 157 - 371 08/13/2022 DTL x10(9)/L 6:27 PM CDT Leukocytes 7.7 3.4 - 9.6 08/13/2022 DTL x10(9)/L 6:27 PM CDT Specimen Anatomical Collection Method Collection Time Receive d Time (Source) Location / / Volume Laterality Blood (Blood, 08/13/2022 6:08 PM 08/13/20 6:18 Venous) CDT PM CDT Barbie Sheridan M.D. LAB BLOOD ADD-ON Performing Organization Address City/[facility] Phon e Number [facility] - [address] [place] [address] [facility] Ferritin (08/13/2022 6:08 PM CDT) athologist Signature Ferritin, S 22 11 - 307 08/13/2022 DTL mcg/L 7:46 PM CDT Specimen Anatomical Collection Method Collection Time Receive d Time (Source) Location / / Volume Laterality Blood (Blood, 08/13/2022 6:08 PM 08/13/20 6:31 Venous) CDT PM CDT Barbie Sheridan M.D. LAB BLOOD ADD-ON Performing Organization Address City/[facility] Phon e Number [facility] - [address] [place] [address] [facility] Magnesium (08/13/2022 6:08 PM CDT) athologist Signature Magnesium, S 2.2 1.7 - 2.3 08/13/2022 DTL mg/dL 6:44 PM CDT Specimen Anatomical Collection Method Collection Time Receive d Time (Source) Location / / Volume Laterality Blood (Blood, 08/13/2022 6:08 PM 08/13/20 6:31 Venous) CDT PM CDT Barbie Sheridan M.D. LAB BLOOD ADD-ON Performing Organization Address City/[facility] Phon e Number [facility] - [address] [place], [place] [address] [place] [address] Laboratories-[facility] [address] (ABNORMAL) 25-Hydroxyvitamin D2 and D3 (08/13/2022 6:08 PM CDT) athologist Signature 25-Hydroxy D2 <4.0 ng/mL 08/18/2022 SDSC 2:10 PM CDT 25-Hydroxy D3 5.4 ng/mL 08/18/2022 SDSC 2:10 PM CDT 25-Hydroxy D <6.0 (L) ng/mL 08/18/2022 SDSC Total 2:10 PM CDT Comment: Interpretation: <10 ng/mL (severe defici ency) ----REFERENCE VALUE---- 25-HYDROXY D TOTAL (D2+D3) Optimum level s in the healthy population are 20-50, patients with bone disease may benefit from higher levels within this r pat. ----ADDITIONAL INFORMATION---- This test was developed and its performa nce characteristics determined by [facility] in a manner consistent with CLIA requirements. This test has not been cleared or approved by the U.[place]. Geral[place] d and Drug Administration. Specimen Anatomical Collection Method Collection Time Receive d Time (Source) Location / / Volume Laterality Blood (Blood, 08/13/2022 6:08 PM 08/14/20 7:09 Venous) CDT AM CDT Barbie Sheridan M.D. LAB BLOOD ADD-ON Performing Organization Address City/[facility]/ZIP [facility] [place]on e [place] [facility] [address] [place], [place] [address] [facility] [place], [place] [address] [place] [address] [place] Vitamin B12 Assay (08/13/2022 6:08 PM CDT) athologist Signature Vitamin B12 319 180 914 08/14/2022 DT Assay, S ng/L 2:47 PM CDT Comment: ----ADDITIONAL INFORMATION---- In patients being evaluated for vitamin B12 deficiency who have intrinsic factor blocking antibodie s (IFBA), false elevations of B12 may occur due to IFBA interference thus potentially obscuring a physiological de ficiency of B12. If observed B12 concentrations are disco rdant with clinical presentation, measurement of methylmalon ic acid (MMA) should be considered. Specimen Anatomical Collection Method Collection Time Receive d Time (Source) Location / / Volume Laterality Blood (Blood, 08/13/2022 6:08 PM 08/13/20 6:31 Venous) CDT PM CDT Barbie Sheridan M.D. LAB BLOOD ADD-ON Performing Organization Address City/[facility] Phon e Number [facility] [address] Ascorbic Acid (Vitamin C) (08/13/2022 6:07 PM CDT) athologist Signature Ascorbic Acid, 0.7 0.4 - 2.0 08/15/2022 [facility] P mg/dL 7:58 AM CDT Comment: ----ADDITIONAL INFORMATION---- This test was developed and its performa nce characteristics determined by [facility] in a manner consistent with CLIA requirements. This test has not been cleared or approved by the U.[place]. Geraldo d and Drug Administration. Specimen Anatomical Collection Method Collection Time Receive d Time (Source) Location / / Volume Laterality Blood (Blood, 08/13/2022 6:07 PM 08/14/20 2:23 Venous) CDT PM CDT Barbie Sheridan M.D. LAB BLOOD NON ADD-ON Performing Organization Address City/[facility] Phon e Number [facility] [address] [place], [place] [address] [place], [place] [address] [place], [place] [id number] [place] Thiamine (Vitamin B1), Whole Blood (08/13/2022 6:07 PM CDT) P athologist Signature Thiamine 136 70 - 180 08/15/2022 [facility] (Vitamin B1), nmol/L 12:14 AM CDT WB Comment: ----ADDITIONAL INFORMATION---- This test was developed and its performa nce characteristics determined by [facility] in a manner consistent with CLIA requirements. This test has not been cleared or approved by the U.[place]. Geral[place] d and Drug Administration. Specimen Anatomical Collection Method Collection Time Receive d Time (Source) Location / / Volume Laterality Blood (Blood, 08/13/2022 6:07 PM 08/14/20 9:06 Venous) CDT AM CDT Barbie Sheridan M.D. LAB BLOOD NON ADD-ON Performing Organization Address City/State/ZIP Code Phon e Number [facility] [address] [place] [id number] [place] [address] [place] documented in this encounter Visit Diagnoses Diagnosis Loss Weight Abnormal Migraine Headache documented in this encounter Additional Health Concerns Assessment Noted Time PHQ-9 Depression Total Score: 5 08/13/2022 3:21 PM CDT documented as of this encounter Care Teams Hand Sewer Shoes Relationship Specialty Start Date End Date Poonam Orlando APRN, C.N.P., PCP - General Family Medicine D.N.P. [address] [place] [address] documented as of this encounter
--- OUTSIDE RECORDS SUMMARY | 2022-09-20 02:56 | XMS_ITS | Encounter Summary ---
:2001 Author Organization [facility] Address [address] [place] [address] Care Team Providers Name Role Phone Poonam Orlando APRN, C.N.PFrank, D.N.P. Primary Care Provid er Reason for Referral Outpatient (Routine) - Authorized Specialty Diagnoses / Procedures Referred By Contact Refer red To Contact Nutrition Diagnoses Body Mass Index 19.9 Or Less Adult [facility].N.P. [address] [place] [phone] Referral ID Status Reason Start Date Expiration Date Visits V isits Requested Authorized [id number] Authorized 09/16/2022 09/16/2023 1 1 PER [employer] Encounter Details Date Type Department Care Team Description 09/16/2022 Orders Only Department of [facility] Poonam Orlando, Body Mass Index 19.9 Jonnathan Hsieh APRN, C.N.P., D.N.P. Or Less Adult Building, in [address] [place] [address] (Primary Dx) [place], [place] [address] [place] [phone] [place], [place] [phone] (Wo rk) [phone] Social History Tobacco Use Types Packs/Day Years [...] do you attend spiritism or Never 2021 mandaeism services? Do you belong to any clubs or Yes 08/13/2022 organizations such as spiritism groups, unions, fraternal [...] Poonam Orlando APRN, C.N.P., D. N.P. [address] [place] [phone] (Wo rk) 12/10/2022 Clinical Support Nutrition Wolf Orlando APRN, C.N.P., D.N.P. [address] [place] [phone] aJyleen Gillette M.S., RDN, LD [address] [place] [phone] Scheduled Referrals Name Type Priority Associated Order Schedule Diagnoses Nutrition - Outpatient Referral Routine Body Mass Index Expec blanca: Malnutrition medical 19.9 Or Less Adult 1 11/16/2021 nutrition therapy (Approxima te), consult (clinic) Expires: 12/17/2023 documented as of this encounter Visit Diagnoses Diagnosis Body Mass Index 19.9 Or Less Adult - [facility] documented in this encounter Additional Health Concerns Assessment Noted Time PHQ-9 Depression Total Score: 5 08/13/2022 3:21 PM CDT documented as of this encounter Care Teams Pantograph Machine Set Up Operator Relationship Specialty Start Date End Date Poonam Orlando APRN, C.N.P., PCP - General Family Medicine D.N.P. [address] [place] [phone] documented as of this encounter
--- OUTSIDE RECORDS SUMMARY | 2022-09-20 02:56 | XMS_ITS | Encounter Summary ---
:2001 Author Organization [facility] Address [address] [place] [address] Care Team Providers Name Role Phone Poonam Orlando APRN, C.N.P., D.N.P. Primary Care Provid er Reason for Visit Reason Comments Med Refill Encounter Details Date Type Department Care Team Description 06/17/2022 Refill Department of [facility] Poonam Orlando APRN, Med Refill Medicine, [facility], C.N. P., D.N.P. in [facility] [address] [place] [address] [place] [phone] [place] [phone] Social History Tobacco Use Types Packs/Day Years [...] or relatives? How often do you attend yazidism or Never 2021 anabaptist services? Do you belong to any clubs or Yes 08/13/2022 organizations such as yazidism groups, unions, fraternal or athletic groups, or [...] Poonam Orlando APRN, C.N.P., D. N.P. [address] [place] [phone] (Wo rk) 12/10/2022 Clinical Support Nutrition Wolf Orlando APRN, C.N.P., D.N.P. [address] [place] [phone] Jayleen Gillette M.S., RDN, LD [address] [place] [phone] documented as of this encounter Visit Diagnoses Not on filedocumented in this encounter Additional Health Concerns Assessment Noted Time PHQ-9 Depression Total Score: 5 03/07/2022 12:25 PM CD T documented as of this encounter Care Teams Oracle Etl Developer Relationship Specialty Start Date End Date Poonam Orlando APRN, C.N.P., PCP - General Family Medicine D.N.P. [address] [place] [phone] documented as of this encounter
--- OUTSIDE RECORDS SUMMARY | 2022-09-20 02:56 | XMS_ITS | Encounter Summary ---
:2000 Author Organization [facility] Address [address] [place] [id number] Care Team Providers Name Role Phone Poonam Orlando APRN, C.N.PFrank, D.N.P. Primary Care Provid er Reason for Visit Outpatient (Routine) - Closed Specialty Diagnoses / Procedures Referred By Contact Refer red To Contact Neurology Poonam Orlando APRN, Rober tson, Carrie E, M.D. C.N.PFrank, D.N.P. [address] [facility] [address] [place] [phone] [place] [address] Referral ID Status Reason Start Date Expiration Date Visits Requ ested Visits Authorized [id number] Closed 07/30/2022 07/29/2025 1 1 Encounter Details Date Type Department Care Team Description 08/13/2022 Office Visit Department of Barbie Sheridan Migraine Headache (Primary Dx); Neurology fuad Murray M.D. Loss Weight Abnormal [place], [place] [address] [place] [address] [place] [phone] Social History Tobacco Use Types Packs/Day Years [...] or relatives? How often do you attend baptist or Never 2021 roman catholic services? Do you belong to any clubs or Yes 08/13/2022 organizations such as baptist groups, unions, fraternal or athletic groups, or [...] Sign Reading Time Taken Comments Blood Pressure 100/69 08/13/2022 3:50 PM CDT Pulse 113 08/13/2022 3:50 PM CDT Temperature - - Respiratory Rate - - Oxygen Saturation - - Inhaled Oxygen Concentration - - Weight 46.2 kg (101 lb 13.6 oz) 08/13/2022 3:50 PM CDT Height 172 cm (5' 7.72) 08/13/2022 3:50 PM CDT Body Mass Index 15.62 08/13/2022 3:50 PM CDT documented in this encounter Progress Notes Barbie Sheridan M.D. - 08/13/2022 4:00 PM CDT CHIEF COMPLAINT / REASON FOR VISIT Claire Moncada presents today in follow-up of headaches. SUBJECTIVE: HISTORY OF PRESENT ILLNESS Claire Moncada is a 21 y.o. ambidextrous female with a history of congenital left eye ptosis and migraine whom I saw in January 2022 for a prolonged spell of left sided weakness. The patient is on Adderall and has a BMI of 16.2. She also has a diagnosis chronic intermittent vertigo. She presents today with a knee brace on the left knee from a ligamental injury. From my previous note (February 2022): The patient began having headaches in her [...] on verapamil (only for a few weeks)--this was associated with lightheadedness/wooziness. At her weakest, she had no ability to move the left side, with only twitching of movement. Shedenies tingling and does not recall numbness over the left--she specifically remembers writing on her arm at one point and remembers feeling the pen--and remembers feeling light touch on the left during her exam. The day before her spells, she recalls chills with tingling at the back of her head spreading down her whole body lasting seconds--but this was not numbness. She thinks it took weeks to improve to close to normal. Since her last visit: After the last visit, she increased her verapamil dose from 120 mg daily to 80 mg twice daily. About1 month ago, she increased it further to 80 mg 3 times a day. At her new dose, she does feel that she has had improvement in the duration of her visual and motor symptoms. Her headache pain has also reduced in duration and severity. She continues to struggle with nosebleeds with her headaches intermittently and has had her hot flash/feverish feeling with headaches as well as some subjective swelling at the posterior neck. She has also been using Ubrelvy with some relief. Following our last visit, she did try to increase her calorie intake but it has been difficult for her. She is been adding oils and not better to her diet and has been taking Zofran for her nausea. Despite this, on some headache days she may get down to only 1 meal per day and there are sometimes thatshe continues to forget to eat. Overall, she feels like she is eating more often and more calories. Despite this, she is losing weight. Current headache frequency and description (improving in the last 2 months): Headaches 4-5 days per week but they are not lasting as long (3-4 hours rather than days at a time) and less severe (6-7/10 down from 8-9/10) and the paralysis and visual aura is more manageable. She has had three nose bleeds with her headaches (two were close together). Nausea is more prominent, she has had new vomiting when she feels feverish/hot flash feeling associated with a swollen feeling on the back of her neck--ice packs help with this. She has paralysis 2-3 days per week for about one houreach (down from 4 days per week and over an hour). Visual aura (swirls and sparkles) is now lasting minutes at a time though it may continue to occur multiple times a day (less than 2 hours total) rather than persistent visual chaos with swirls/sparkles off and on all day. She still has prominent hot flashes/feverish feeling but not as much visual, motor aura and pain. Diagnostic testing: Blood tests: ESR, BERHANE, ANCA were normal. CMP essentially normal. The patient did have an MRI brain without lucy and MRA head that were reportedly normal EXAM: MR NECK ANGIOGRAM WITHOUT AND WITH IV CONTRAST COMPARISON: None FINDINGS: Normal configuration of the aortic arch and great vessels. Bilateral carotid artery systems are widely patent without evidence of luminal irregularity or focal flow-limiting narrowing. Codominant vertebral arteries are patent. No arterial dissection or pseudoaneurysm formation. Visualized posterior fossa structures are normal. IMPRESSION: Normal MRA of the neck. Current and past abortives: Current: Naproxen-2 days in the last few weeks Tylenol/ibuprofen-in place of Ubrelvy (not as helpful)-helped the feverish feeling but not headache Ubrelvy-100 mg about 2 days per week, typically one dose helps but on one occasion she required a second dose Ondansetron 4 mg ODT 3-4 days per week Past: Triptans being held due to relative contraindication Tried a friend's Risperdal and this made her feel sick Maxalt every other day (about 3 days per week)--stopped after spell 3-4 weeks ago Ibuprofen-none in a few weeks Excedrin-used in the past Current and past preventatives: Current: Verapamil 80 mg TID-no change in dizziness, maybe even helped dizzy spells (but also standing more carefully) Nortriptyline 20 mg nightly-1-2 months She takes B12 and Magnesium Past: Chiropractic therapy for injuries related to falls in the past CURRENT MEDICATIONS: Current Outpatient Medications on File Prior to Visit Medication Sig Dispense Refill Adderall XR 30 mg 24 hr capsule Take 1 capsule (30 mg total) by mouth daily. 28 capsule 0 albuterol 90 mcg/actuation inhaler Inhale 2 puffs every 4 (four) hours as needed for wheezing or shortness of breath. 18 g 2 B complex-vitamin (SUPER B-50) capsule Take 1 tablet by mouth daily. dextroamphetamine-amphetamine (ADDERALL) 10 mg tablet Take 1 tablet (10 mg total) by mouth daily. 28 tablet 0 fluticasone propionate (FLONASE) 50 mcg/actuation nasal spray Administer 1 spray into each nostril as needed for rhinitis or allergies. fluticasone propionate (FLOVENT HFA) 110 mcg/actuation inhaler Inhale 2 puffs 2 (two) times a day. Rinse mouth with water after use to reduce aftertaste and incidence of candidiasis. Do not swallow. 36 g 3 iron,carbonyl-vitamin C (VITRON-C) 65 mg iron- [address] tablet Take 65 mg of iron by mouth daily. Do not crush or chew. magnesium citrate 100 mg capsule Take 1 each by mouth daily. methyl salicylate-menthol (ICY HOT) 30-10 % cream Apply 1 application topically 3 (three) times a day as needed for muscle/joint pain. Apply to left knee. 85 g 0 nortriptyline (PAMELOR) 10 mg capsule Take 2 capsules (20 mg total) by mouth at bedtime. 180 capsule 3 ondansetron ODT (ZOFRAN-ODT) 4 mg disintegrating tablet Dissolve 1 tablet (4 mg total) in the mouthevery 8 (eight) hours as needed for nausea or vomiting. 90 tablet 3 ubrogepant (UBRELVY) 100 mg tablet tablet Take 1 tablet (100 mg total) by mouth as needed for migraine. May repeat dose once after at least 2 hours if migraine unresolved. Do not exceed 200 mg in 24 hours. 10 each 3 verapamiL (CALAN) 80 mg tablet Take 1 tablet (80 mg total) by mouth every 8 (eight) hours. 270 tablet 3 amphetamine-dextroamphetamine (Adderall XR) 30 mg 24 hr capsule Take 1 capsule (30 mg total) by mouth daily for 28 days. 28 capsule 0 amphetamine-dextroamphetamine (Adderall XR) 30 mg 24 hr capsule Take 1 capsule (30 mg total) by mouth daily for 28 days. 28 capsule 0 lmqktto-jdtygexmpenzt-qdnlshtm (EXCEDRIN MIGRAINE) 250-250-65 mg per tablet Take 1 tablet by mouth as needed for pain. dextroamphetamine-amphetamine (ADDERALL) 10 mg tablet Take 1 tablet (10 mg total) by mouth daily for 28 days. 28 tablet 0 dextroamphetamine-amphetamine (ADDERALL) 10 mg tablet Take 1 tablet (10 mg total) by mouth daily. 28 tablet 0 levonorgestreL (Plan B One-Step) 1.5 mg tablet Take 1 tablet (1.5 mg total) by mouth once for 1 dose. (Patient not taking: Reported on 07/18/2022) 1 tablet 0 naproxen (NAPROSYN) 500 mg tablet TAKE ONE TABLET BY MOUTH TWICE A DAY NEEDED FOR PAIN (Patient not taking: Reported on 08/13/2022) 60 tablet 0 Current Facility-Administered Medications on File Prior to Visit Medication Dose Route Frequency Provider Last Rate Last Admin sodium bicarbonate injection 51 mEq 1 mEq/kg (Dosing Weight) intravenous Once Favio Najera, P.A.-C. ALLERGIES: Allergies Allergen Reactions Perfume Cough Asthma worsening, cough Pollen Extracts Other (see comments) Cat Dander Rash REVIEW OF SYSTEMS: Claire Moncada's history was reviewed including allergies, current medications, review ofsystems, family history, medical and surgical history, social history, and problem list. PAST MEDICAL HISTORY Outside diagnosis of ADHD, on Adderall Anxiety Migraine headaches Pfizer vaccine for COVID February 07, 2021 and February 28, 2021 SOCIAL HISTORY Never smoker. 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 Denies alcohol recreational drug use. Tells me she has trouble remembering to eat but feels Adderall helps with this--she had lost weight at her last visit, but attributes this to illness. Speaks Mandarin. 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 Vegetarian. Periods every 5 weeks since age 19-no change in this. Mid-terms this week and next. She is meal planning to try and help her not skip meals Exercise-40 minutes per day (weights) (prior to Adderall she says she managed her ADD by working ourfor 1.5 hours at a time) FAMILY HISTORY Twin sister has COPD (thought to be mold exposure) and migraines. Maternal grandmother had severe headaches. OBJECTIVE: VITALS & BMI: Vitals: 08/13/22 1550 BP: 100/69 BP Location: Left arm Patient Position: Sitting Cuff Size: Small Pulse: (!) 113 ASSESSMENT / PLAN 1. Spell of left sided numbness, possible migraine aura (visual, language, motor) 2. Weight loss (49.7 kg on 02/17, 48.9 kg on 02/21, 46.8 kg on 03/07, 46.2 kg on 08/13); BMI now 15.62 (feels she has stabilized her pant size in the last month) 3. Adderall use (30 ER in AM and 10 ER in afternoon) 4. Tachycardia (90's to 119)-113 today 5. Chronic ptosis on the left (present since childhood--probable congenital ptosis) The patient has had some improvement on verapamil but just increased to 80 mg three times/day about 1 month ago. She will continue on this dose for a full 3 month trial. Her BP seems to be doing OK at around 100/69 and she seems to be tolerating it reasonably well overall. She does have intermittent li ghtheadedness but this is no more frequent than she had prior to starting verapamil. It seems likelythat this could be related to her tachycardia even more than her blood pressure. From an efficacy perspective, it seems like the verapamil is helping with her symptoms. She has had reduced duration and severity of her visual aura, motor symptoms, and headache severity. She continues to have prolonged subjective fever or hot flash type episodes and nosebleeds that may or may not bedirectly related to headache. The warm feelings improve with Ubrelvy which may point to a CGRP related physiology. She will continue Ubrelvy as her abortive along with Zofran as needed. We also discussed the Cefaly device and she may look into this (cost prohibitive right now but it sounds like she is saving up). After our last visit, it seems like she was really working hard to remind herself to eat. There was a brief increase in weight (when up to around 47.3 kg in May) but then the weight has continued its slow decline to a current BMI of 15.62. We again had a lengthy discussion about the interaction between weight and brain function. I am concerned that Adderall may be playing a role in her reduced appetite, tachycardia, and weight loss. She does feel that Adderall is still required at the current dose for her studies. She tells me she would consider coming down on the dose by about 10 mg in the future if she continues to lose weight over the next few months. If she comes down or off of Adderall andcontinues to struggle with weight loss, I would consider sending her to our unexplained weight loss clinic for more aggressive evaluation. We did talk for awhile about additional ways to enhance her dietary intake. I was supportive of her continuing exercise (currently about 40 minutes per day) given that this is a natural source of endorphins and has been shown to be helpful with anxiety, sleep, andmigraine headaches. I did emphasize that when she is working out she would need to increase her caloric intake further, however. Given her continued weight loss and her neurologic symptoms I would like to check a variety of vitamin levels. She does have frequent bruises and ligament sprains in addition to her above symptoms. She is meditating 2-3 days per week (had time to do this because her headaches are somewhat better) and I am supportive of this. Future preventative options also include gabapentin, Botox, or CGRP antibodies in the future (see myinitial note). At this point, I would hold off on Topamax given her weight concerns. PATIENT EDUCATION Ready to learn, no apparent learning barriers were identified; learning preferences include listening. Explained diagnosis and treatment plan; patient expressed understanding of the content. Total time spent with the patient was 80 minutes, with greater than 50% of that time spent counseling and coordination of care. PATIENT REPORTED INFORMATION VIA QUESTIONNAIRE: Current headache medications: Nortriptyline (Pamelor, Aventyl HCL) at a dose of less than 40 mg; Verapamil (Calan, Covera-HS, Verelan) at a dose of 240 to 480 mg; none of the above injectable medications Headache activity past 4 weeks/ Medication side effects: Over the past 4 weeks, Ms. Drenckhahn reports having had 16 headache days. The patient rates the severity and disability of average headaches as3 out of 3 in severity. Headache intensity is rated 8 on a scale of 0-10. Over the past 3 months, she reports experiencing side effects of: Sleepiness which is mild enough totolerate if my headaches improve. Dizziness / Vertigo which is mild enough to tolerate if my headaches improve. Light-headedness which is mild enough to tolerate if my headaches improve. MIDAS headache scale score: [ ] PHQ9 depression/anxiety score: PHQ9 Score 03/07/2022 PHQ-9 Total Score (max 27) 5 documented in this encounter Plan of Treatment Upcoming Encounters Date Type Specialty Care Team Description 09/22/2022 Appointment Laboratory Medicine Poonam Orlando APRN, C.N.P., D. N.P. [address] [place] [phone] (Wo rk) 12/10/2022 Clinical Support Nutrition Wolf Orlando APRN, C.N.P., D.N.P. [address] [place] [phone] Jayleen Gillette M.SFrank, RDN, LD [address] [place] [phone] documented as of this encounter Results CBC without Differential (08/13/2022 6:08 PM CDT) athologist Signature Hemoglobin 13.2 11.6 - 08/13/2022 [...] M.D. LAB BLOOD ADD-ON Performing Organization Address City/[facility]/ZIP Code Phon e Number [facility] - [address] Ferritin (08/13/2022 6:08 PM CDT) P athologist Signature Ferritin, S [phone] 08/13/2022 DTL mcg/L 7:46 PM CDT Specimen Anatomical Collection Method Collection Time Receive d Time (Source) Location / / Volume Laterality Blood (Blood, 08/13/2022 6:08 PM 08/13/20 22 6:31 Venous) CDT PM CDT Barbie Sheridan M.D. LAB BLOOD ADD-ON Performing Organization Address City/[facility]/ZIP Code Phon e Number [facility] - 200 [place], [place] [address] [place] [id number] Magnesium (08/13/2022 6:08 PM CDT) P athologist Signature Magnesium, S 2.2 1.7 - 2.3 08/13/2022 DTL mg/dL 6:44 PM CDT Specimen Anatomical Collection Method Collection Time Receive d Time (Source) Location / / Volume Laterality Blood (Blood, 08/13/2022 6:08 PM 08/13/20 22 6:31 Venous) CDT PM CDT Barbie Sheridan M.D. LAB BLOOD ADD-ON Performing Organization Address City/State/ZIP Code Phon e Number [facility] - 200 [place], [place] [address] [facility] [place] [address] Laboratories-[facility] [address] [facility] (ABNORMAL) 25-Hydroxyvitamin D2 and D3 (08/13/2022 6:08 PM CDT) athologist Signature 25-Hydroxy D2 <4.0 ng/mL 08/18/2022 SDS 2:10 PM CDT 25-Hydroxy D3 5.4 ng/mL 08/18/2022 SDSC 2:10 PM CDT 25-Hydroxy D <6.0 (L) ng/mL 08/18/2022 [facility] Total 2:10 PM CDT Comment: Interpretation: <10 ng/mL (severe defici ency) ----REFERENCE VALUE---- 25-HYDROXY D TOTAL (D2+D3) Optimum level s in the healthy population are 20-50, patients with bone disease may benefit from higher levels within this r pat. ----ADDITIONAL INFORMATION---- This test was developed and its performa nce characteristics determined by [facility] in a manner consistent with CLIA requirements. This test has not been cleared or approved by the U.S. Geraldo d and Drug Administration. Specimen Anatomical Collection Method Collection Time Receive d Time (Source) Location / / Volume Laterality Blood (Blood, 08/13/2022 6:08 PM 08/14/20 7:09 Venous) CDT AM CDT Barbie Sheridan M.D. LAB BLOOD ADD-ON Performing Organization Address City/State/ZIP Code Phon e Number [facility] [address] [place], [place] [address] [facility] [place] [address] [facility] [address] [place] Vitamin B12 Assay (08/13/2022 6:08 PM CDT) athologist Signature Vitamin B12 [phone] 08/14/2022 DTL Assay, S ng/L 2:47 PM CDT Comment: [...] Laterality Blood (Blood, 08/13/2022 6:08 PM 08/13/20 22 6:31 Venous) CDT PM CDT Barbie Sheridan M.D. LAB BLOOD ADD-ON Performing Organization Address [facility] Phon e Number [facility] - [address] [place], [place] [address] [place] [address] [facility] [address] Ascorbic Acid (Vitamin C) (08/13/2022 6:07 PM CDT) athologist Signature Ascorbic Acid, 0.7 0.4 - 2.0 08/15/2022 [facility] P mg/dL 7:58 AM CDT Comment: ----ADDITIONAL INFORMATION---- This test was developed and its performa nce characteristics determined by [facility] in a manner consistent with CLIA requirements. This test has not been cleared or approved by the U.S. Geraldo d and Drug Administration. Specimen Anatomical Collection Method Collection Time Receive d Time (Source) Location / / Volume Laterality Blood (Blood, 08/13/2022 6:07 PM 08/14/20 22 2:23 Venous) CDT PM CDT Barbie Sheridan M.D. LAB BLOOD NON ADD-ON Performing Organization Address City/[facility] Phon e Number [facility] [address] [place], [place] [address] [place] [address] [place] [id number] [place] Thiamine (Vitamin B1), Whole Blood (08/13/2022 6:07 PM CDT) athologist Signature Thiamine 136 70 - 180 08/15/2022 [facility] (Vitamin B1), nmol/L 12:14 AM CDT WB Comment: ----ADDITIONAL INFORMATION---- This test was developed and its performa nce characteristics determined by [facility] in a manner consistent with CLIA requirements. [...] Organization Address City/State/ZIP Code Phon e Number [facility] [address] [place] [id number] [place], [place] [id number] [place] documented in this encounter Visit Diagnoses Diagnosis Migraine Headache - Primary Loss Weight Abnormal documented in this encounter Additional Health Concerns Assessment Noted Time PHQ-9 Depression Total Score: 5 08/13/2022 3:21 PM CDT documented as of this encounter Care Teams Barytes Grinder Relationship Specialty Start Date End Date Poonam Orlando APRN, C.N.P., PCP - General Family Medicine D.N.P. [address] [place] [phone] documented as of this encounter
--- OUTSIDE RECORDS SUMMARY | 2022-09-20 02:56 | XMS_ITS | Encounter Summary ---
:2000 Author Organization [facility] Address [address] [place] [address] Care Team Providers Name Role Phone Poonam Orlando APRN, C.N.Paola, D.N.P. Primary Care Provid er Encounter Details Date Type Department Care Team Description 08/19/2022 Orders Only Department of [facility] Poonam Orlando, Deficiency Vitamin B12 (Primary Dx); Medicine, [place] NEW C.N.Paola, D.N.P. Deficiency Vitamin D Building, in [address] [place] [phone] [place], [place] [phone] (Wo rk) [phone] Social History Tobacco Use Types Packs/Day Years [...] do you attend spiritism or Never 2021 orthodoxy services? Do you belong to any clubs [...] Orlando APRN, C.N.P., D. N.P. [address] [place] [phone] (Wo rk) 12/10/2022 Clinical Support Nutrition Wolf Orlando APRN, C.N.P., D.N.P. [address] [place] [phone] Jayleen Gillette M.S., RDN, LD [address] [place] [phone] Scheduled Orders Name Type Priority Associated Diagnoses Order S chedule 25-Hydroxyvitamin D2 and Lab Routine Deficiency Vitam in D Expected: 09/18/2022 D3 (Approximate), Expires: 11/19/2023 Vitamin B12 Assay Lab Routine Deficiency Vitamin B12 Expected: 11/19/2022 (Approximate), Expires: 11/19/2023 documented as of this encounter Visit Diagnoses Diagnosis Deficiency Vitamin B12 - Primary Deficiency Vitamin D documented in this encounter Additional Health Concerns Assessment Noted Time PHQ-9 Depression Total Score: 5 08/13/2022 3:21 PM CDT documented as of this encounter Care Teams Milling Machine Tender Relationship Specialty Start Date End Date Poonam Orlando APRN, C.N.P., PCP - General Family Medicine D.N.P. [address] [place] [address] documented as of this encounter
--- OUTSIDE RECORDS SUMMARY | 2022-09-20 02:56 | XMS_ITS | Encounter Summary ---
:2000 Author Organization [facility] Address [address] [place] [address] Care Team Providers Name Role Phone Poonam [...] Expiration Date Visits Requ ested Visits Authorized [id number] Closed 06/17/2022 06/17/2023 1 1 Encounter Details Date Type Department Care Team Description 06/17/2022 Office Visit Department of Jacinto Miller, Sprain K nee Initial Left (Primary Dx); Internal Medicine in [facility] Pain Knee Left [address] [phone] Social History Tobacco Use Types Packs/Day Years [...] do you attend yazidism or Never 2021 islam services? Do you belong to any clubs [...] swelling noted. She is not taking any pyha-vwi-ytxwwcw pain medications including NSAIDs orTylenol because it [...] ligamental/meniscal tear. She did not try any rsdn-tzu-zdnzobi pain medications before fear triggering her migraines [...] Miscellaneous Notes Addendum Note - Jacinto Miller M.B.BFrankS. - 06/17/2022 2:00 PM CDT Addended by: JACINTO MILLER on: 06/17/2022 03:08 PM Modules accepted: Level of Service documented in this encounter Plan of Treatment Upcoming Encounters Date Type Specialty Care Team Description 09/22/2022 Appointment Laboratory Medicine Poonam Orlando APRN, C.N.P., D. N.P. [address] [place] [address] [phone] (Wo rk) 12/10/2022 Clinical Support Nutrition Wolf Orlando APRN, C.N.P., D.N.P. [address] [place] [address] [phone] Jayleen Gillette M.S., RDN, LD [address] [place] [address] [phone] documented as of this encounter Visit Diagnoses Diagnosis Sprain Knee Initial Left - Primary Pain Knee Left documented in this encounter Additional Health Concerns Assessment Noted Time PHQ-9 Depression Total Score: 5 03/07/2022 12:25 PM CD T documented as of this encounter Care Teams [employer] Member Relationship Specialty Start Date End Date Poonam Orlando APRN, C.N.P., PCP - General Family Medicine D.N.P. [address] [place] [address] documented as of this encounter
--- OUTSIDE RECORDS SUMMARY | 2022-09-20 02:56 | XMS_ITS | Encounter Summary ---
:2000 Author Organization [facility] Address [address] [place] [address] Care Team Providers Name Role Phone Poonam Orlando APRN, C.N.P., D.N.P. Primary Care Provid er Reason for Visit Reason Comments all attempts made Encounter Details Date Type Department Care Team Description 05/28/2022 Clinical Department of Poonam Orlando all attem pts made Communication Family MedicineYaron APRN, C.N.P., [facility], D.N.P. in [place], [address] [place] [address] [place] [phone] [place], [place] [phone] (Work) [phone] Social History Tobacco Use Types Packs/Day Years [...] do you attend jew or Never 2021 taoism services? Do you belong to any clubs or Yes 08/13/2022 organizations such as jew groups, unions, fraternal [...] Poonam Orlando APRN, C.N.P., D. N.P. [address] [place] [address] [phone] (Wo rk) 12/10/2022 Clinical Support Nutrition Wolf Orlando APRN, C.N.P., D.N.P. [address] [place] [phone] Jayleen Gillette M.S., RDN, LD [address] [place] [phone] documented as of this encounter Visit Diagnoses Not on filedocumented in this encounter Additional Health Concerns Assessment Noted Time PHQ-9 Depression Total Score: 5 03/07/2022 12:25 PM CD T documented as of this encounter Care Teams Merchandising Team Lead Relationship Specialty Start Date End Date Poonam Orlando APRN, C.N.P., PCP - General Family Medicine D.N.P. [address] [place] [phone] documented as of this encounter
--- OUTSIDE RECORDS SUMMARY | 2022-09-20 02:56 | XMS_ITS | Encounter Summary ---
:2000 Author Organization [facility] Address [address] [place] [address] Care Team Providers Name Role Phone Poonam Orlando APRN, C.N.P., D.N.P. Primary Care Provid er Reason for Visit Reason Comments Med Refill Encounter Details Date Type Department Care Team Description 08/15/2022 Refill Department of [facility] Poonam Orlando APRN, Med Refill Medicine, [facility], C.N. P., D.N.P. in [facility] [address] [place] [address] [place] [phone] [place] [phone] Social History Tobacco Use Types Packs/Day Years [...] do you attend hoahaoism or Never 2021 protestant services? Do you belong to any clubs or Yes 08/13/2022 organizations such as hoahaoism groups, unions, fraternal [...] Telephone Encounter - Lavinia Lomeli L.P.N. - 08/18/2022 11:56 AM CDT The patient is requesting a renewal of Adderall XR 30 mg and Adderall 10 mg , per Poonam Oralndo APRN, C.N.P., D.N.P., as outlined in their Problem List Overview for Attention Deficit Disorder Combined Type . The renewal is pended. There are no nursing concerns at this time. Date the last Rx was able to be filled on: 06/11/2022 Urine Drug Screening: Is not required by the prescribing provider plan in Problem List Overview. Screening/Assessments due: No screenings due for patient at this time. Next Provider Visit due: 07/18/2023 If no concerns or follow-up, no need to route back to care team nurse or nurse renewal team.. Telephone Encounter - Juani Gupta - 08/18/2022 10:48 AM CDT Nurse review: Unable to forward request to provider; Controllled Substance, CSA Primary Provider: Poonam Orlando APRN, C.N.PFrank, D.N.P. Requested Prescriptions Pending Prescriptions Disp Refills dextroamphetamine-amphetamine (ADDERALL) 10 mg tablet [Pharmacy Med Name: AMPHETAMINE-DEXTROAMPHETAMI 10 TABS] 28 tablet 0 Sig: TAKE ONE TABLET BY MOUTH EVERY DAY Adderall XR 30 mg 24 hr capsule [Pharmacy Med Name: ADDERALL XR 30MG CP24] 28 capsule 0 Sig: TAKE ONE CAPSULE BY MOUTH EVERY DAY, FILL ON OR AFTER 06/11/22 Pharmacy (include location): [address] [phone] documented in this encounter Plan of Treatment Upcoming Encounters Date Type Specialty Care Team Description 09/22/2022 Appointment Laboratory Medicine Poonam Orlando APRN, C.N.PFrank, D. N.P. [address] [place] [address] [phone] (Wo rk) 12/10/2022 Clinical Support Nutrition Wolf Orlando APRN, C.N.P., D.N.P. [address] [place] [address] [phone] Jayleen Gillette M.S., RDN, LD [address] [place] [phone] documented as of this encounter Visit Diagnoses Not on filedocumented in this encounter Additional Health Concerns Assessment Noted Time PHQ-9 Depression Total Score: 5 08/13/2022 3:21 PM CDT documented as of this encounter Care Teams Distribution Center Manager Relationship Specialty Start Date End Date Poonam Orlando APRN, C.N.P., PCP - General Family Medicine D.N.P. [address] [place] [phone] documented as of this encounter
--- OUTSIDE RECORDS SUMMARY | 2022-09-20 02:56 | XMS_ITS | Encounter Summary ---
:2000 Author Organization [facility] Address [address] [place] [address] Care Team Providers Name Role Phone Poonam Orlando APRN, C.N.Paola, D.N.P. Primary Care Provid er Encounter Details Date Type Department Care Team Description 08/19/2022 Clinical Communication Department of Barbie Sheridan Neurology fuad Murray M.D. [place], [place] [address] [facility] [address] [place] [phone] Social History Tobacco Use Types Packs/Day Years [...] do you attend christian or Never 2021 voodoo services? Do you belong to any clubs or Yes 08/13/2022 organizations such as christian groups, unions, fraternal [...] this encounter Miscellaneous Notes Telephone Encounter - Melania Nelson R.N. - 08/19/2022 8:32 AM CDT SUBJECTIVE CHIEF COMPLAINT / REASON FOR CALL Results Contacted Ms. Moncada and relayed Dr. Sheridan's message below. Ms. Moncada stated she did not take her vitamin B12 supplement for the 3 days leading up to her lab appointment. I discussed with her that it is possible that this may have contributed to her result however she should still have her labs rechecked in 3 months. She verbalized understanding and had no questions. Disposition/Recommendation: None Information/Education: patient/caller able to teach back Caller agreeable to plan of care: yes Telephone Encounter - Melania Nelson R.N. - 08/19/2022 8:30 AM CDT ----- Message from Barbie Sheridan M.D. sent at 08/18/2022 4:58 PM CDT ----- Regarding: lab testing results Can you please call this patient and let her know that she has severe vitamin-D deficiency (I would recommend she start on an dses-que-crpmven vitamin-D supplement -she may talk to her primary providerif she would like additional recommendations on dosing). Her B12 is also borderline at 319. While there is no evidence of cellular B12 deficiency at this level, we do sometimes see neurologic symptoms such as imbalance, numbness/tingling, prominent fatigue,blurred vision, and decreased concentration. I would recommend an over the counter B12 supplement [id number] mcg per day with a recheck of her B12 in about 3 months with her primary physician. The goalB12 would be about 500 nanograms/liter or higher. So far other lab testing looks reasonable but I will continue to watch as results come in and contact her with any concerning findings. ----- Message ----- From: Jet Schafer In Or_Oru Even Mrn From Lab [id number] Sent: 08/13/2022 6:27 PM CDT To: Barbie Sheridan M.D. documented in this encounter Plan of Treatment Upcoming Encounters Date Type Specialty Care Team Description 09/22/2022 Appointment Laboratory Medicine Poonam Orlando APRN, C.N.P., D. N.P. [address] [place] [address] [phone] (Wo rk) 12/10/2022 Clinical Support Nutrition Wolf Orlando APRN, C.N.P., D.N.P. [address] [place] [phone] Jayleen Gillette M.S., RDN, LD [address] [place] [phone] documented as of this encounter Visit Diagnoses Not on filedocumented in this encounter Additional Health Concerns Assessment Noted Time PHQ-9 Depression Total Score: 5 08/13/2022 3:21 PM CDT documented as of this encounter Care Teams Therapy Teacher Relationship Specialty Start Date End Date Poonam Orlando APRN, C.N.P., PCP - General Family Medicine D.N.P. [address] [place] [address] documented as of this encounter
--- OUTSIDE RECORDS SUMMARY | 2022-09-20 02:56 | XMS_ITS | Clinical Summary ---
:2000 Author Organization [facility] Address [address] [place] [address] Care Team Providers Name Role Phone Poonam Orlando APRN C.N.P., D.N.P. Primary Care Provid er Source Comments Patient records contain information from all sites at [facility]. For routine questions regarding patient records, call [phone] during business hours, M-F 8:00 AM - 5:00 PM Central Time. Record requests for emergency care only can be directed to [phone] at any time.[facility] Allergies Active Allergy Reactions Severity Noted Date Comments Cat Dander Rash Low 04/04/2021 Perfume Cough Medium 12/10/2021 Asthma worsenin g, cough Pollen Extracts Other (see comments) 01/22/2022 Medications Medication Sig Dispensed Refills Start Date End Date Status fluticasone Administer 1 0 Activ e propionate (FLONASE) spray into each 50 mcg/actuation nostril as needed nasal spray for rhinitis or allergies. B complex-vitamin Take 1 tablet by 0 Active (SUPER B-50) capsule mouth daily. aspirin-acetaminophe Take 1 tablet by 0 Active n-caffeine (EXCEDRIN mouth as needed MIGRAINE) 250-250-65 for pain. mg per tablet albuterol 90 Inhale 2 puffs 18 g 2 10/15/2021 A ctive mcg/actuation every 4 (four) inhaler hours as needed for wheezing or shortness of breath. nortriptyline Take 2 capsules 180 capsule 3 01/24/2022 023 Active (PAMELOR) 10 mg (20 mg total) by capsule mouth at bedtime. iron,carbonyl-vitami Take 65 mg of 0 Active n C (VITRON-C) 65 mg iron by mouth iron- [address] daily. Do not tablet crush or chew. magnesium citrate Take 1 each by 0 Active 100 mg capsule mouth daily. naproxen (NAPROSYN) TAKE ONE TABLET 60 tablet 0 03/11/2022 Active 500 mg tablet BY MOUTH TWICE A DAY NEEDED FOR PAIN Additional Information Patient not taking. Reported on 08/13/2022 ubrogepant (UBRELVY) 100 mg Take 1 tablet (100 mg 10 each 3 03/25/2022 Active tablet tablet total) by mouth as needed for migraine. May repeat dose once after at least 2 hours if migraine unresolved. Do not exceed 200 mg in 24 hours. fluticasone propionate Inhale 2 puffs 2 (two) 36 g 3 03/20 Active (FLOVENT HFA) 110 times a day. Rinse mouth mcg/actuation inhaler with water after use to reduce aftertaste and incidence of candidiasis. Do not swallow. levonorgestreL (Plan B Take 1 tablet (1.5 mg 1 tablet 0 04/22 Active One-Step) 1.5 mg tablet total) by mouth once for 1 dose. Additional Information Patient not taking. Reported on 07/18/2022 methyl salicylate-menthol Apply 1 application 85 g 0 05/21 Active (ICY HOT) 30-10 % topically 3 (three) creamIndications: Pain times a day as Knee Left, Sprain Knee needed for Initial Left muscle/joint pain. Apply to left knee. verapamiL (CALAN) 80 mg Take 1 tablet (80 mg 270 tablet 3 06/2107/18/20 Active tablet total) by mouth 23 every 8 (eight) hours. ondansetron ODT Dissolve 1 tablet (4 90 tablet 3 07/18/2022 Active (ZOFRAN-ODT) 4 mg mg total) in the disintegrating tablet mouth every 8 (eight) hours as needed for nausea or vomiting. dextroamphetamine-amphetam TAKE ONE TABLET BY 28 tablet 0 09/19 Active ine (ADDERALL) 10 mg MOUTH EVERY DAY tablet amphetamine-dextroamphetam Take 1 capsule (30 28 capsule 0 Active ine (Adderall XR) 30 mg 24 mg total) by mouth hr capsule daily. amphetamine-dextroamphetam Take 1 capsule (30 28 capsule 0 Active ine (Adderall XR) 30 mg 24 mg total) by mouth hr capsule daily. amphetamine-dextroamphetam Take 1 capsule (30 28 capsule 0 Active ine (Adderall XR) 30 mg 24 mg total) by mouth hr capsule daily. dextroamphetamine-amphetam Take 1 tablet (10 mg 28 tablet 0 Active ine (ADDERALL) 10 mg total) by mouth tablet daily. dextroamphetamine-amphetam Take 1 tablet (10 mg 28 tablet 0 Active ine (ADDERALL) 10 mg total) by mouth tablet daily. cholecalciferol (Vitamin Take 2 tablets (100 146 tablet 0 10/202112/15/19 Active D3) 50 mcg (2,000 Unit) mcg total) by mouth 23 tablet daily for 28 days, THEN 1 tablet (50 mcg total) daily. cyanocobalamin (VITAMIN Take 1 tablet (500 90 tablet 3 022 08/19/20 Active B12) 500 mcg tablet mcg total) by mouth 23 daily. Hospital, Clinic, or Other Ordered Dose Route [...] Instructions for use: take one tablet da anay after lunch Duration of prescription: 12 weeks [...] week in the last month. She attends [employer] and is doing [employer] and [employer]. She has ADD and started Adderall fall [...] Encounters Date Type Specialty Care Team Description 09/19/2022 Orders Only Family Medicine Poonam Orlando Body Ma ss Index MSHAQ, C.N.P., 19.9 Or Les s Adult D.N.P. (Primary Dx) 09/16/2022 Orders Only Family Medicine Poonam Orlando Body Ma ss Index M, SHAQ, C.N.P., 19.9 Or Les s Adult D.N.P. (Primary Dx) 08/19/2022 Orders Only Family Medicine Poonam Orlando Deficie ncy Vitamin B12 (Primary Dx); SHAQ Marrufo, C.N.P., Deficiency Vitamin D D.N.P. 08/19/2022 Clinical Neurology Barbie Sheridan M.D. 08/15/2022 Refill Family Medicine Poonam Orlando Med Ref ill SHAQ Marrufo, C.N.P., D.N.P. 08/13/2022 Hospital Encounter Laboratory Barbie Sheridan Loss Weight Abnormal; Medicine Elizabeth Murray Migraine Headac he 08/13/2022 Office Visit Neurology Barbie Sheridan Migraine H eadache (Primary Dx); Elizabeth Murray Loss Weight Abn ormal 07/18/2022 Telemedicine Family Medicine Poonam Orlando Hemiple gic Migraine Not Intractable Without Status Migrainosus (Primary Dx); SHAQ Marrufo, C.N.P., Pain Knee L eft; D.N.P. Pain Ankle Left 07/07/2022 Orders Only Poonam Orlando APRN, C.N.P., D.N.P. from Last 3 Months Immunizations [...] Relation Name Comments Alcohol abuse Father Patric Moncada Hyperlipidemia Father Patric Moncada Hypertension Father Patric Moncada Ovarian cancer Mother's Sister Kevin Actually my cous in but there's no spot for that. Age ~20, d. Lung cancer Paternal Grandfather Sergei Moncada age ~80 Anxiety disorder Sister 1 [...] do you attend synagogue or Never 2021 confucianism services? Do you belong to any clubs or Yes 08/13/2022 organizations such as synagogue groups, unions, fraternal [...] Pulse 113 08/13/2022 3:50 PM CDT Temperature 36.8 ??C (98.3 ??F) 06/17/2022 1:55 PM CDT Respiratory Rate 18 03/14/2020 1:40 PM CDT Oxygen Saturation 100% 03/14/2020 1:40 PM CDT Inhaled Oxygen Concentration - - Weight 46.2 kg (101 lb 13.6 oz) 08/13/2022 3:50 PM CDT Height 172 cm (5' 7.72) 08/13/2022 3:50 PM CDT Body Mass Index 15.62 08/13/2022 3:50 PM CDT Plan of Treatment Upcoming Encounters Date Type Specialty Care Team Description 09/22/2022 Appointment Laboratory Medicine Poonam Orlando APRN, C.N.P., D. N.P. [address] [place] [address] [phone] (Wo rk) 12/10/2022 Clinical Support Nutrition Wolf Orlando APRN, C.N.P., D.N.P. [address] [place] [address] [phone] Jayleen Gillette M.S., RDN, LD [address] [place] [address] Health Maintenance Due Date Last Done Comments Cervical Cancer Screening 2001 Hepatitis C Screening 2001 1 week Well [...] Child Check-Up 08/15/2009 10 year Well Child Check-Up 08/15/2010 11 year Well Child Check-Up 08/15/2011 12 year Well Child Check-Up 08/15/2012 13 year Well Child Check-Up 08/15/2013 14 year Well Child Check-Up 08/15/2014 15 year Well Child Check-Up 08/15/2015 16 year Well Child Check-Up 08/15/2016 17 year Well Child Check-Up 08/15/2017 18 year Well Child Check-Up 08/15/2018 MenB Vaccine (2 of 2 - Risk 06/06/2020 05/09/2020 Bexsero 2-dose series) 20 year Well Child Check-Up 08/15/2020 21 year Well Child Check-Up 08/15/2021 COVID-19 Vaccine (4 - Booster for 01/03/2022 11/08/2021, , Pfizer series) 02/07/2021 Asthma Control Test Questionnaire 05/18/2022 04/06/2022, Influenza Vaccine (#1) 2022 11/08/2021, 08/01/2020 22 year Well Child Check-Up 08/15/2022 Well Child Check-Up (WCC) 08/15/2022 Asthma Action Plan 04/08/2023 04/08/2022 DTaP,Tdap,and Td Vaccines (8 - Td 02/22/2032 02/21/2022, , or Tdap) 06/10/2007, Additional history exists Hepatitis B Vaccines Completed 07/18/2002, 01/27/2002, 01/27/2002, Additional history exists 19 year Well Child Check-Up Completed 05/09/2020 HPV Vaccines Completed 05/09/2020, 03/22/2014 Hearing Screening during Well Completed 05/09/2020 Child Visit Meningococcal Vaccine Completed 05/09/2020, 03/22/2014, 03/22/2014 Glucose Test for Med Monitoring Discontinued 03/21/2022, 03/20 Depression Screening (Annual Completed 08/13/2022 PHQ-2) Procedures Procedure Name Priority Date/Time Associated Diagnosis Comme nts CBC WITHOUT Routine 08/13/2022 6:08 PM Migraine Headache Resu lts for this DIFFERENTIAL, B CDT procedure ar e in the results section. FERRITIN, S Routine 08/13/2022 6:08 PM Loss Weight Abnormal R esults for this CDT procedure are i n the results section. MAGNESIUM, S Routine 08/13/2022 6:08 PM Loss Weight Abnormal R esults for this CDT procedure are i n the results section. 25-HYDROXYVITAMIN Routine 08/13/2022 6:08 PM Loss Weight [...] CDT procedure are in the results section. THIAMIN (VITAMIN Routine 08/13/2022 6:07 PM Loss Weight Abnorm al Results for this B1), B CDT procedure are i n the results section. from Last 3 Months Results (ABNORMAL) 25-Hydroxyvitamin D2 and D3 (08/13/2022 6:08 PM CDT) athologist Signature 25-Hydroxy D2 <4.0 ng/mL 08/18/2022 [facility] 2:10 PM CDT 25-Hydroxy D3 5.4 ng/mL 08/18/2022 [facility] 2:10 PM CDT 25-Hydroxy D <6.0 (L) ng/mL 08/18/2022 [facility] Total 2:10 PM CDT Comment: Interpretation: <10 ng/mL (severe defici ency) ----REFERENCE VALUE---- 25-HYDROXY D TOTAL (D2+D3) Optimum level s in the healthy population are 20-50, patients with bone disease may benefit from higher levels within this r pat. ----ADDITIONAL INFORMATION---- This test was developed and its performa nce characteristics determined by [facility] in a manner consistent with CLIA requirements. [...] Code Phon e Number [facility] [address] [place], [place] [address] SUPPORT [facility] [place], [place] [id number] [place] [address] Dr. LAURENT CBC without Differential (08/13/2022 6:08 PM CDT) [...] M.D. LAB BLOOD ADD-ON Performing Organization Address City/[facility] Phon e Number [facility] - [address] Magnesium (08/13/2022 6:08 PM CDT) P athologist Signature Magnesium, S 2.2 1.7 - 2.3 08/13/2022 [facility] mg/dL 6:44 PM CDT Specimen Anatomical Collection Method Collection Time Receive d Time (Source) Location / / Volume Laterality Blood (Blood, 08/13/2022 6:08 PM 08/13/20 6:31 Venous) CDT PM CDT Barbie Sheridan M.D. LAB BLOOD ADD-ON Performing Organization Address City/[facility] Code Phon e Number [facility] - [address] Ferritin (08/13/2022 6:08 PM CDT) P athologist Signature Ferritin, S 22 11 - 307 08/13/2022 DTL mcg/L 7:46 PM CDT Specimen Anatomical Collection Method Collection Time Receive d Time (Source) Location / / Volume Laterality Blood (Blood, 08/13/2022 6:08 PM 08/13/20 22 6:31 Venous) CDT PM CDT Barbie Sheridan M.D. LAB BLOOD ADD-ON Performing Organization Address City/State/[facility] Phon e Number [facility] - [address] [address] [facility]-[address] Vitamin B12 Assay (08/13/2022 6:08 PM CDT) athologist Signature Vitamin B12 319 180 - 914 08/14/2022 DTL Assay, S ng/L 2:47 PM [...] M.D. LAB BLOOD ADD-ON Performing Organization Address [facility] Phon e Number [facility] - [id number] [place] [address] Thiamine (Vitamin B1), Whole Blood (08/13/2022 6:07 PM CDT) athologist Signature Thiamine 136 70 - 180 08/15/2022 [facility] (Vitamin B1), nmol/L 12:14 AM CDT WB Comment: ----ADDITIONAL INFORMATION---- This test was developed and its performa nce characteristics determined by [facility] in a manner consistent with CLIA requirements. This test has not been cleared or approved by the U.[place]. Geraldo d and Drug Administration. Specimen Anatomical Collection Method Collection Time Receive d Time (Source) Location / / Volume Laterality Blood (Blood, 08/13/2022 6:07 PM 08/14/20 9:06 Venous) CDT AM CDT Barbie Sheridan M.D. LAB BLOOD NON ADD-ON Performing Organization Address City/State/[facility] Phon e Number [facility] [address] [place], [place] [address] [place] [address] [place] Ascorbic Acid (Vitamin C) (08/13/2022 6:07 PM CDT) P athologist Signature Ascorbic Acid, 0.7 0.4 - 2.0 08/15/2022 [facility] P mg/dL 7:58 AM CDT Comment: ----ADDITIONAL INFORMATION---- This test was developed and its performa nce characteristics determined by [facility] in a manner consistent with CLIA requirements. This test has not been cleared or approved by the U.S. Geraldo d and Drug Administration. Specimen Anatomical Collection Method Collection Time Receive d Time (Source) Location / / Volume Laterality Blood (Blood, 08/13/2022 6:07 PM 08/14/20 22 2:23 Venous) CDT PM CDT Barbie Sheridan M.D. LAB BLOOD NON ADD-ON Performing Organization Address City/State/[facility] Code Phon e Number [facility] [address] [place], [place] [address] [place], [place] [phone] [place] [address] Dr. LAURENT from Last 3 Months Insurance Payer Benefit Plan Subscriber ID Effective Phone Address Typ e / Group Dates [facility] SHARED [id number] 2018-Pre [phone] [employer]emn[employer] sent [id number] [place] [address] [place] [id number] 2020-Pr [phone] [id number] O F Medicaid esent [id number] [employer] [address] [address] [place] [address] Care Teams Heat Set Operator Relationship Specialty Start Date End Date Poonam Orlando APRN, C.N.P., PCP - General Family Medicine D.N.P. [address] [place] [phone]
--- OUTSIDE RECORDS SUMMARY | 2022-09-20 02:56 | XMS_ITS | Encounter Summary ---
:2000 Author Organization [facility] Address [address] [place] [address] Care Team Providers Name Role Phone Poonam Orlando APRN, C.N.P., D.N.P. Primary Care Provid er Reason for Referral Specialty Diagnoses / Procedures Referred By Contact Refer red To Contact Poonam Orlando APRN [facility] C.N.P., D.N.P. [address] [place] [phone] Referral ID Status Reason Start Date Expiration Date Visits Requ ested Visits Authorized Encounter Details Date Type Department Care Team Description 07/07/2022 Orders Only RST PCP HLTH MNT Poonam Orlando APR N, C.N.P., D.N.P. [address] [place] [address] [phone] (Wo rk) Social History Tobacco [...] or relatives? How often do you attend yarsani or Never 2021 judaism services? Do you belong to any clubs or Yes 08/13/2022 organizations such as yarsani groups, unions, fraternal or athletic groups, or [...] Poonam Orlando APRN, C.N.P., D. N.P. [address] [place] [address] [phone] (Wo rk) 12/10/2022 Clinical Support Nutrition Wolf Orlando APRN, C.N.P., D.N.P. [address] [place] [phone] Jayleen Gillette M.S., RDN, LD [address] [place] [phone] Scheduled Referrals Name Type Priority Associated Order Schedule Diagnoses Covid immunization Outpatient Referral Routine Ex pected: office visit 07/07/2022 Immuno/Booster (Approximate) , Expires: 07/07/2023 documented as of this encounter Visit Diagnoses Not on filedocumented in this encounter Additional Health Concerns Assessment Noted Time PHQ-9 Depression Total Score: 5 03/07/2022 12:25 PM CD T documented as of this encounter Care Teams Health Science Writer Relationship Specialty Start Date End Date Poonam Orlando APRN, C.N.P., PCP - General Family Medicine D.N.P. [address] [place] [phone] documented as of this encounter
--- OUTSIDE RECORDS SUMMARY | 2022-09-20 02:57 | XMS_ITS | Encounter Summary ---
:2000 Author Organization [facility] Address [address] [place] [address] Care Team Providers Name Role Phone Poonam Orlando APRN, C.N.P., D.N.P. Primary Care Provid er Reason for Visit Reason Comments Post Hospital Follow-up Appointment Request (Routine) - Closed Specialty Diagnoses / Procedures Referred By Contact Refer red To Contact Family Medicine eDstiny Farfan M.D . [address] [place] [phone] Referral ID Status Reason Start Date Expiration Date Visits Requ ested Visits Authorized [id number] Closed 02/12/2022 02/12/2023 1 1 Encounter Details Date Type Department Care Team Description 02/17/2022 Office Visit Department of [facility] Poonam Orlando miplegic Migraine Intractable With Status Migrainosus (Primary Dx); Medicine, Jonnathan Marrufo APRN, C.N.P., Migrai ne Headache With Aura; [facility], in D.N.P. Attention Deficit Disorder Combined Type ; [place], [place] [address] [facility] Asthma Mild Intermittent (HCC) [address] [place] [phone] Social History Tobacco Use Types Packs/Day Years [...] do you attend anglican or Never 2021 yazidism services? Do you belong to any clubs or Yes 08/13/2022 organizations such as anglican groups, unions, fraternal [...] slept in a long term (including now)? Education Answer Date Recorded What [...] as brain fog. She presented to the [place] [facility] for evaluation at which time a MRI/MRA of the brain was completed and were unremarkable. CT of the head without contrast did not demonstrate any acute intracranial abnormalities per outside records. She was admitted overnight for observation and given ketorolac. For outside records, he neurologist at [facility] was contacted for recommendations. It was recommended thatshe stop use of Maxalt and Adderall and continue use of nortriptyline. She was started on verapamil as an anti vasospastic agent. She was seen by Physical therapy, Occupational therapy, and speech therapy while hospitalized. It was recommended that she follow-up with her primary care provider and [facility] outpatient neurology consultation. Over the past week [...] campus security who was in touch with [employer]. She states that evidence was obtained [...] symptoms and hospitalization with Dr. Castillo in [facility] Neurology. She states that she cannot confirm [...] Poonam Orlando APRN, C.N.P., D. N.P. [address] [place] [address] [phone] (Wo rk) 12/10/2022 Clinical Support Nutrition Wolf Orlando APRN, C.N.P., D.N.P. [address] [place] [phone] Jayleen Gillette M.S., RDN, LD [address] [place] [phone] documented as of this encounter Visit Diagnoses Diagnosis Hemiplegic Migraine Intractable With Sta tus Migrainosus - Primary Migraine Headache With Aura Attention Deficit Disorder Combined Type Asthma Mild Intermittent (HCC) documented in this encounter Additional Health Concerns Assessment Noted Time PHQ-9 Depression Total Score: 12 01/20/2022 3:01 PM CD T documented as of this encounter Care Teams Terrazzo Mechanic Relationship Specialty Start Date End Date Poonam Orlando APRN, C.N.P., PCP - General Family Medicine D.N.P. [address] [place] [phone] documented as of this encounter
--- OUTSIDE RECORDS SUMMARY | 2022-09-20 02:57 | XMS_ITS | Encounter Summary ---
:2000 Author Organization [facility] Address [address] [place] [address] Care Team Providers Name Role Phone Poonam Orlando APRN, C.N.P., D.N.P. Primary Care Provid er Reason for Visit Reason Comments Med Refill Encounter Details Date Type Department Care Team Description 04/15/2022 Refill Department of [facility] Poonam Orlando APRN, Med Refill Medicine, [facility], C.N. P., D.N.P. in [facility] [address] [place] [address] [place] [phone] [place] [phone] Social History Tobacco Use Types Packs/Day Years [...] or relatives? How often do you attend congregational or Never 2021 mandaeism services? Do you belong to any clubs or Yes 08/13/2022 organizations such as congregational groups, unions, fraternal or athletic groups, or [...] place to sleep or slept in a [place] [facility] [place] (including now)? Education Answer Date Recorded What is the highest level of school you have Some college, n o degree 05/24/2021 completed or the highest degree you have received? Sex Assigned at Date Recorded Female 01/23/2022 2:50 PM CDT documented as of this encounter Miscellaneous Notes Telephone Encounter - Priyanka Schaffer L.P.N. - 04/16/2022 10:38 AM CDT The [...] Poonam Orlando APRN, C.N.P., D. N.P. [address] [place] [address] [phone] (Wo rk) 12/10/2022 Clinical Support Nutrition Wolf Orlando APRN, C.N.P., D.N.P. [address] [place] [phone] Jayleen Gillette M.S., RDN, LD [address] [place] [phone] documented as of this encounter Visit Diagnoses Not on filedocumented in this encounter Additional Health Concerns Assessment Noted Time PHQ-9 Depression Total Score: 5 03/07/2022 12:25 PM CD T documented as of this encounter Care Teams Store Cashier Relationship Specialty Start Date End Date Poonam Orlando APRN, C.N.P., PCP - General Family Medicine D.N.P. [address] [place] [phone] documented as of this encounter
--- OUTSIDE RECORDS SUMMARY | 2022-09-20 02:57 | XMS_ITS | Encounter Summary ---
:2000 Author Organization [facility] Address [address] [place] [address] Care Team Providers Name Role Phone Poonam Orlando APRN C.N.PFrank, D.N.P. Primary Care Provid er Reason for Referral MRI/CAT/PET Scan (Routine) - Closed Specialty Diagnoses / Procedures Referred By Contact Refer red To Contact Radiology Diagnoses Spells Neurological (HCC) Barbie Sheridan M.D. [facility] Procedures MR Neck Angiogram without and with IV Contrast MD MRA NECK WO/W CNTRST [address] [place] [address] Referral ID Status Reason Start Date Expiration Date Visits Requ ested Visits Authorized [id number] Closed 03/09/2022 06/07/2022 1 1 Reason for Visit Outpatient (Routine) - Closed Specialty Diagnoses / Procedures Referred By Contact Refer joy To Contact Neurology Diagnoses Migraine Headache With Aura Hemiplegic Migraine Not Intractable Without Status Migrainosus Mary Castillo D.O. [address] [phone] Referral ID Status Reason Start Date Expiration Date Visits Requ ested Visits Authorized [id number] Closed 02/24/2022 02/24/2023 1 1 Encounter Details Date Type Department Care Team Description 03/07/2022 Comprehensive Visit Department of Osiris Sheridan Neurological ([facility]) (Primary Dx); Neurology in Barbie Murray M.D. Migraine Headache With Aura; [place], [facility] Hemiplegic Migraine Not Intractable With out Status Migrainosus [place], [place] 200 [facility] [address] [place], [place] [phone] (Work) [phone] Social History Tobacco Use Types Packs/Day Years [...] do you attend gnosticist or Never 2021 hinduism services? Do you belong to any clubs or Yes 08/13/2022 organizations such as gnosticist groups, unions, fraternal [...] patient did have an MRI brain without lcuy and MRA head that were reportedly normal [...] HISTORY Never smoker. 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 Denies alcohol recreational drug use. Tells me [...] days., Disp: 28 capsule, Rfl: 0 ??? kxqfspo-dwipfwplqnrpt-qgnqlbme (EXCEDRIN MIGRAINE) 250-250-65 mg per tablet, Take [...] mg or rimegepant (Nurtec) 75 mg). All vomi-rty-kcvbhet and prescription pain medicines should be limited [...] Poonam Orlando APRN, C.N.P., D. N.P. [address] [place] [phone] (Wo rk) 12/10/2022 Clinical Support Nutrition Wolf Orlando APRN, C.N.P., D.N.P. [address] [place] [phone] Jayleen Gillette M.S., RDN, LD [address] [place] [phone] documented as of this encounter Results Sedimentation Rate [...] City/State/ZIP Code Phon e Number [facility] - [address] [place] [phone] [facility] [place] [address] [facility] 200 [facility] (ABNORMAL) Comprehensive Metabolic Panel (03/21/2022 10:00 [...] 03/21/2022 DTL Black/ mL/min/BSA 11:23 AM CDT Tristanian Comment: ----ADDITIONAL INFORMATION---- Estimated GFR calculated using [...] <=1.2 mg/dL 03/21/2022 11:23 A M CDT DT Specimen Anatomical Collection Method Collection Time Receive d Time (Source) Location / / Volume Laterality Blood (Blood, 03/21/2022 10:00 03/21/2022 Venous) AM CDT 10:43 AM CDT Barbie Sheridan M.D. LAB BLOOD ADD-ON Performing Organization Address City/[facility]/ZIP Code Phon e Number [facility] - [facility] [place], [place] [address] [place] [address] [facility] 200 [facility] [place] (Antinuclear Antibodies) (03/21/2022 10:00 AM CDT) P athologist Signature Antinuclear Ab, 0.5 <=1.0 03/21/2022 [facility] S (Negative) 8:42 PM CDT U Comment: ----ADDITIONAL INFORMATION---- Method: Enzyme-linked immunoassay using HEp-2 nuclear extract supplemented with purified antig ens. Specimen Anatomical Collection Method Collection Time Receive d Time (Source) Location / / Volume Laterality Blood (Blood, 03/21/2022 10:00 03/21/2022 2:02 Venous) AM CDT PM CDT Barbie Sheridan M.D. LAB BLOOD ADD-ON Performing Organization Address City/[facility] Code Phon e Number [facility] [address] [place], [place] [address] SU[facility]ENTER [facility] [place] [address] Laboratory Medicine and Pathology [address] [place] ANCA (Antineutrophil Cytoplasmic Antibodies) Vasculitis Panel (03/21/2022 10:00 AM CDT) Patholo gist Method Time Signature Myeloperoxidase Ab, <0.2 <0.4 03/21/2022 [facility] S (Negative 2:25 PM CDT ) U Proteinase 3 Ab <0.2 <0.4 03/21/2022 [facility] (PR3), S (Negative 2:25 PM CDT ) U Specimen Anatomical Collection Method Collection Time Receive d Time (Source) Location / / Volume Laterality Blood (Blood, 03/21/2022 10:00 03/21/2022 1:33 Venous) AM CDT PM CDT Barbie Sheridan M.D. LAB BLOOD ADD-ON Performing Organization Address City/State/ZIP Code Phon e Number [facility] [address] [place], [place] [address] [facility] [place] [address] Laboratory Medicine and Pathology [address] [place] MR Neck Angiogram without and [...] documented as of this encounter Care Teams Energy Operations Vice President Relationship Specialty Start Date End Date Poonam Orlando APRN, C.N.P., PCP - General Family Medicine 7/ 29/21 DFrankN.P. [address] [place] [address] documented as of this encounter
--- OUTSIDE RECORDS SUMMARY | 2022-09-20 02:57 | XMS_ITS | Encounter Summary ---
:2000 Author Organization [facility] Address [address] [place] [address] Care Team Providers Name Role Phone Poonam Orlando APRN, C.Arden, D.N.P. Primary Care Provid er Reason for Visit Reason Comments Back Pain Neck Pain Headache Outpatient (Routine) - Closed Specialty Diagnoses / Procedures Referred By Contact Refer red To Contact Spine Diagnoses Pain Neck Mechanical Headache Cervicogenic Mikel Neal D.C., [facility] Ph.D. [address] [place] [address] Referral ID Status Reason Start Date Expiration Date Visits Requ ested Visits Authorized [id number] Closed 01/29/2022 01/29/2023 1 1 Encounter Details Date Type Department Care Team Description 03/10/2022 Office Visit Department of Spine Mikel Neal P ain Neck Mechanical; in [place], Ph.D. Headache Cervicogenic; [place] [address] [facility] Dysfunction Somatic Thoracic Region [address] [place] [phone] Social History Tobacco Use Types Packs/Day Years [...] do you attend faith or Never 2021 yarsani services? Do you belong to any clubs or Yes 08/13/2022 organizations such as faith groups, unions, fraternal [...] slept in a nursing home (including now)? Education Answer Date Recorded [...] trapezii and erector spinae. ASSESSMENT / PLAN Claire Moncada is being [...] also involves exercise prescription and coaching. ACTION: [place] grade IV prone nonthrust spinal mobilization was [...] Poonam Orlando APRN, C.N.P., D. N.P. [address] [place] [phone] (Wo rk) 12/10/2022 Clinical Support Nutrition Wolf Orlando APRN, C.N.P., D.N.P. [address] [place] [phone] Jayleen Gillette M.S., RDN, LD [address] [place] [phone] documented as of this encounter Visit Diagnoses Diagnosis Pain Neck Mechanical Headache Cervicogenic Dysfunction Somatic Thoracic Region documented in this encounter Additional Health Concerns Assessment Noted Time PHQ-9 Depression Total Score: 5 03/07/2022 12:25 PM CD T documented as of this encounter Care Teams Back End Architect Relationship Specialty Start Date End Date Poonam Orlando APRN, C.N.P., PCP - General Family Medicine D.N.P. [address] [place] [address] documented as of this encounter
--- OUTSIDE RECORDS SUMMARY | 2022-09-20 02:57 | XMS_ITS | Encounter Summary ---
:2001 Author Organization [facility] Address [address] [place] [address] Care Team Providers Name Role Phone Poonam Orlando APRN C.N.PFrank, D.N.P. Primary Care Provid er Reason for Referral Outpatient (Routine) - Authorized Specialty Diagnoses / Procedures Referred By Contact Refer red To Contact Ophthalmology Diagnoses Suppression Binocular [facility] C.[facility]Frank, D.N.P. [address] [place] [phone] Referral ID Status Reason Start Expiration Visits Visits Date Date Requested Authorized [id number] Authorized Specialty 02/10/2022 02/10/2023 1 1 Services Required Encounter Details Date Type Department Care Team Description 02/10/2022 Orders Only Department of [facility] Poonam Orlando [facility] C.N.PFrank, D.N.P. Vision (Primary Dx) Building, in [address] [place] [address] [place] [phone] [place], [place] [phone] (Wo rk) [phone] Social History Tobacco Use Types Packs/Day Years [...] do you attend protestant or Never 2021 mandaeism services? Do you belong to any clubs or Yes 08/13/2022 organizations such as protestant groups, unions, fraternal [...] Orlando APRN, C.N.P., D. N.P. [address] [place] [phone] (Wo rk) 12/10/2022 Clinical Support Nutrition Wolf Orlando APRN, C.N.P., D.N.P. [address] [place] [phone] Jayleen Gillette M.S., RDN, LD [address] [place] [phone] Scheduled Referrals Name Type Priority Associated Order [...] documented as of this encounter Care Teams Fabric Stretcher Relationship Specialty Start Date End Date Poonam Orlando APRN, C.N.P., PCP - General Family Medicine D.N.P. [address] [place] [phone] documented as of this encounter
--- OUTSIDE RECORDS SUMMARY | 2022-09-20 02:57 | XMS_ITS | Encounter Summary ---
:2000 Author Organization [facility] Address [address] [place] [address] Care Team Providers Name Role Phone Poonam Orlando APRN C.N.PFrank, D.N.P. Primary Care Provid er Reason for Referral Outpatient (Routine) - Authorized Specialty Diagnoses / Procedures Referred By Contact Refer red To Contact Neurology Diagnoses Hemiplegic Migraine Intractable With Status Migrainosus [facility] C.N.P., D.N.P. [address] [place] [phone] Referral ID Status Reason Start Date Expiration Date Visits V isits Requested Authorized [id number] Authorized 02/13/2022 02/13/2023 1 1 Reason for Visit Reason Comments Communication Encounter Details Date Type Department Care Team Description 02/12/2022 Clinical Communication Department of Poonam Orlando Family MedicineYaron APRN, C.N.PFrank, Jonnathan Choi D.N.P. in [address] [place] [phone] [place], [place] [phone] (Work) [phone] Social History Tobacco Use Types Packs/Day Years [...] do you attend sabianism or Never 2021 congregation services? Do you belong to any clubs or Yes 08/13/2022 organizations such as sabianism groups, unions, fraternal [...] Miscellaneous Notes Telephone Encounter - Josefa Monreal RFrankNFrank - 02/13/2022 1:01 PM CDT SUBJECTIVE CHIEF COMPLAINT / REASON FOR CALL Communication Information Discussed Nursing reached out to patient regarding recommendations by her provider Poonam Orlando after patient had visit to in the [facility] last week for new onset hemogragic migraine, and provider review of the visit. Since then, she has had one migraine on 02/11, and one aura without headache. Patient was informed of the following recommendations: It appears that the providers at [facility] contacted a Neurologist [facility] for theirrecommendations. Poonam agrees with stopping [...] awaiting recommendations and patient instructed tocontinue with [facility] recommendations. Information/Education: patient/caller able to teach back Caller agreeable to plan of care: yes The following references were used: nursing clinical judgement and provider Poonam Orlando APRN, CAR RENTAL CLERK, DNP. Telephone Encounter - Jackie Buck R.N. - 02/12/2022 4:07 PM CDT SUBJECTIVE CHIEF COMPLAINT / REASON FOR CALL Communication Information Discussed Patient states that was in in the [facility] last week for new onset hemogragic migraine.She [...] if Poonam can review her records from [facility](she had them sent today). She is also questioning if the Verapamilis the best medication of choice for the migraine prevention. PLAN Disposition/Recommendation: notified provider and awaiting recommendations Information/Education: patient/caller able to teach back Caller agreeable to plan of care: yes The following references were used: nursing clinical judgement Telephone Encounter - Nabila Bauman - 02/12/2022 3:16 PM CDT Caller: Claire Callback Number: [phone] Best communication method: Phone call Request/Details: The patient is calling today regarding a recent hospital stay at [facility] and a follow-up appointment scheduled for 02/17. [...] convenience. The patient does also note that [facility] is planning on faxing over the records later today. Thank you! Please respond to [facility] Scheduling pool if necessary documented in this encounter Plan of Treatment Upcoming Encounters Date Type Specialty Care Team Description 09/22/2022 Appointment Laboratory Medicine Poonam Orlando APRN, C.N.P., D. N.P. [address] [place] [phone] (Wo rk) 12/10/2022 Clinical Support Nutrition Wolf Orlando APRN, C.N.P., D.N.P. [address] [place] [phone] Jayleen Gillette M.S., RDN, LD [address] [place] [phone] Scheduled Referrals Name Type Priority Associated Diagnoses Order S chedule Neurology - ICS Outpatient Referral Routine Hemiplegic [...] documented as of this encounter Care Teams Mid Level Java Developer Relationship Specialty Start Date End Date Poonam Orlando APRN, C.N.P., PCP - General Family Medicine D.N.P. [address] [place] [phone] documented as of this encounter
--- OUTSIDE RECORDS SUMMARY | 2022-09-20 02:57 | XMS_ITS | Encounter Summary ---
:2001 Author Organization [facility] Address [address] [place] [address] Care Team Providers Name Role Phone Poonam Orlando APRN C.N.PFrank, D.N.P. Primary Care Provid er Reason for Referral MRI/CAT/PET Scan (Routine) - Closed Specialty Diagnoses / Procedures Referred By Contact Refer red To Contact Radiology Diagnoses Spells Neurological (HCC) Barbie Sheridan M.D. [facility] Procedures MR Neck Angiogram without and with IV Contrast MI MRA NECK WO/W CNTRST [address] [place] [address] Referral ID Status Reason Start Date Expiration Date Visits Requ ested Visits Authorized [id number] Closed 03/09/2022 06/07/2022 1 1 Reason for Visit MRI/CAT/PET Scan (Routine) - Closed Specialty Diagnoses / Procedures Referred By Contact Refer red To Contact Radiology Diagnoses Spells Neurological (HCC) Barbie Sheridan M.D. [facility] Procedures MR Neck Angiogram without and with IV Contrast MI MRA NECK WO/W CNTRST [address] [place] [address] Referral ID Status Reason Start Date Expiration Date Visits Requ ested Visits Authorized [id number] Closed 03/09/2022 06/07/2022 1 1 Encounter Details Date Type Department Care Team Description 03/21/2022 Hospital Encounter Department of Osiris Sheridan eurological Radiology, Jorge Davis ([facility]) [facility] in 200 [facility] [phone] 200 [facility] [phone] [place], [place] (Work) [phone] Social History Tobacco Use Types Packs/Day Years [...] or relatives? How often do you attend latter day or Never 2021 yarsanism services? Do you belong to any clubs or Yes 08/13/2022 organizations such as latter day groups, unions, fraternal or athletic groups, or [...] needed for wheezing or shortness of breath. jvziwlt-mykshkrjrtyuv-th Take 1 tablet by 0 ffeine (EXCEDRIN [...] Poonam Orlando APRN, C.N.P., D. N.P. [address] [place] [phone] (Wo rk) 12/10/2022 Clinical Support Nutrition Wolf Orlando, CONTAINER SHOP WELDER, C.N.P., D.N.P. [address] [place] [phone] Jayleen Gillette M.S., RDN, LD [address] [place] [phone] documented as of this encounter Procedures Procedure [...] documented as of this encounter Care Teams Mine Development Engineer Relationship Specialty Start Date End Date Poonam Orlando APRN, C.N.P., PCP - General Family Medicine D.N.P. [address] [place] [phone] documented as of this encounter
--- OUTSIDE RECORDS SUMMARY | 2022-09-20 02:57 | XMS_ITS | Encounter Summary ---
:2001 Author Organization [facility] Address [address] [place] [address] Care Team Providers Name Role Phone Poonam Orlando APRN, C.N.P., D.N.P. 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 [address] [phone] Referral ID Status Reason Start Date Expiration Date Visits Requ ested Visits Authorized [id number] Closed 02/24/2022 02/24/2023 1 1 Reason for Visit Outpatient (Routine) - Closed Specialty Diagnoses / Procedures Referred By Contact Refer red To Contact Neurology Diagnoses Hemiplegic Migraine Intractable With Status Migrainosus Migraine Headache With Aura [facility] C.N.P., D.N.P. [address] [place] [phone] Referral ID Status Reason Start Date Expiration Date Visits Requ ested Visits Authorized [id number] Closed 02/24/2022 02/24/2023 1 1 Encounter Details Date Type Department Care Team Description 02/24/2022 Internal E-Consult Department of Mary Castillo, Brandon plegic Migraine Not Intractable Without Status Migrainosus (Primary Dx); Neurology in [place] Hemiplegic Migraine Intractable With Sta tus Migrainosus; [place], [place] [address] Migraine Headache With Aura [address] [place] [phone] [phone] Social History Tobacco Use Types Packs/Day Years [...] do you attend sabianism or Never 2021 advent services? Do you [...] as well as outside medical records from [facility]. This is summarized as follows: I reviewed the discharge summary from February 10, 2022 from [facility]. As documented by PCP, patient [...] emergency staff spoke with a neurologist at [facility] who hadrecommended that patient be admitted for [...] headache with aura, butthe discharge summary from [facility] says that the patient presented with left-sided weakness. At the same time, it sounds like the examining provider who saw her in [place] was not convinced of any true weakness [...] beseen by headache subspecialty list here at [facility] to sort this out, confirm the appropriate diagnosis and then make appropriate recommendations with regard to treatment. I am going to request a headache subspecialty consultation to accomplish this. documented in this encounter Plan of Treatment Upcoming Encounters Date Type Specialty Care Team Description 09/22/2022 Appointment Laboratory Medicine Poonam Orlando APRN, C.N.P., D. N.P. [address] [place], [place] [phone] (Wo rk) 12/10/2022 Clinical Support Nutrition Wolf Orlando APRN, C.N.P., D.N.P. [address] [place] [phone] Jayleen Gillette M.S., RDN, LD [address] [place] [phone] Scheduled Referrals Name Type Priority Associated Diagnoses Order S [facility] Neu[facility] - Outpatient Referral Routine Migraine Headache [...] documented as of this encounter Care Teams Transmission Line Engineer Relationship Specialty Start Date End Date Poonam Orlando APRN, C.N.P., PCP - General Family Medicine D.N.P. [address] [place] [phone] documented as of this encounter
--- OUTSIDE RECORDS SUMMARY | 2022-09-20 02:57 | XMS_ITS | Encounter Summary ---
:2000 Author Organization [facility] Address [address] [place] [address] Care Team Providers Name Role Phone Poonam Orlando APRN, C.N.PFrank, D.N.P. Primary Care Provid er Reason for Visit Reason Comments Follow-up Appointment Request (Routine) - Closed Specialty Diagnoses / Procedures Referred By Contact Refer red To Contact Family Medicine Referral ID Status Reason Start Date Expiration Date Visits Requ ested Visits Authorized [id number] Closed 03/13/2022 03/13/2023 1 1 Encounter Details Date Type Department Care Team Description 03/14/2022 Telemedicine Department of Poonam Honeycutt Headache With Aura (Primary Dx); Medicine, Jonnathan Marrufo APRN, C.N.P., Attent ion Deficit Disorder Combined Type; Building, in D.N.P. Asthma Mild Intermittent (HCC) [place], [place] [address] [facility] [address] [place] [phone] Social History Tobacco Use Types Packs/Day Years [...] do you attend episcopal or Never 2021 worship services? Do you belong to any clubs or Yes 08/13/2022 organizations such as episcopal groups, unions, fraternal [...] real-time audio/video technology by Poonam Orlando APRN, DEBURRING AND TOOLING MACHINE OPERATOR, DNP in [place], [place] to the patient in their home. [...] Combined Type #3 Asthma Mild Intermittent (HCC) Shawna returns for follow-up to discuss migraine headaches [...] as needed for nausea or vomiting., Starting Thu03/14/2022, Normal I personally spent a total of 40 minutes in tmr-bphz-kq-face time performing a review of the record and/or discussion with the patient/caregiver as described above. PATIENT EDUCATION Ready to learn, no apparent learning barriers were identified; learning preferences include listening. documented in this encounter Plan of Treatment Upcoming Encounters Date Type Specialty Care Team Description 09/22/2022 Appointment Laboratory Medicine Poonam Orlando APRN, C.N.P., D. N.P. [address] [place] [phone] (Wo rk) 12/10/2022 Clinical Support Nutrition Wolf Orlando APRN, C.N.P., D.N.P. [address] [place] [phone] Jayleen Gillette M.S., RDN, LD [address] [place] [phone] documented as of this encounter Visit Diagnoses Diagnosis Migraine Headache With Aura - Primary Attention Deficit Disorder Combined Type Asthma Mild Intermittent (HCC) documented in this encounter Additional Health Concerns Assessment Noted Time PHQ-9 Depression Total Score: 5 03/07/2022 12:25 PM CD T documented as of this encounter Care Teams Form Presser Relationship Specialty Start Date End Date Poonam Orlando APRN, C.N.P., PCP - General Family Medicine D.N.P. [address] [place] [phone] documented as of this encounter
--- OUTSIDE RECORDS SUMMARY | 2022-09-20 02:57 | XMS_ITS | Encounter Summary ---
:2001 Author Organization [facility] Address [address] [place] [address] Care Team Providers Name Role Phone Poonam Orlando APRN C.N.PFrank, D.N.P. Primary Care Provid er Reason for Visit Reason Comments Med Refill Encounter Details Date Type Department Care Team Description 02/08/2022 Refill Department of [facility] Gloria, PONCHO Awad RN, Med Refill Medicine, [facility], C.N. P., M.S.N. in [facility] [address] [place] [address] [place] [phone] [place] [phone] Social History Tobacco Use Types Packs/Day Years [...] do you attend sabianist or Never 2021 bahai services? Do you belong to any clubs or Yes 08/13/2022 organizations such as sabianist groups, unions, fraternal [...] place to sleep or slept in a penitentiary (including now)? Education Answer Date Recorded What [...] ON OR AFTER 01/03/22 Pharmacy (include location): [place] [facility] documented in this encounter Plan of Treatment Upcoming Encounters Date Type Specialty Care Team Description 09/22/2022 Appointment Laboratory Medicine Poonam Orlando APRN, C.N.P., D. N.P. [address] [place] [phone] (Wo rk) 12/10/2022 Clinical Support Nutrition Wolf Orlando APRN, C.N.P., D.N.P. [address] [place] [phone] Jayleen Gillette M.S., RDN, LD [address] [place] [phone] documented as of this encounter Visit Diagnoses Not on filedocumented in this encounter Additional Health Concerns Assessment Noted Time PHQ-9 Depression Total Score: 12 01/20/2022 3:01 PM CD T documented as of this encounter Care Teams General Practitioner Relationship Specialty Start Date End Date Poonam Orlando APRN, C.N.P., PCP - General Family Medicine D.N.P. [address] [place] [address] [phone] documented as of this encounter
--- OUTSIDE RECORDS SUMMARY | 2022-09-20 02:57 | XMS_ITS | Encounter Summary ---
:2001 Author Organization [facility] Address [address] [place] [address] Care Team Providers Name Role Phone Poonam Orlando APRN, C.N.PFrank, D.N.P. Primary Care Provid er Encounter Details Date Type Department Care Team Description 03/05/2022 Orders Only Department of [facility] Poonam Orlando, [facility], [employer] SHAQ C.N.PFrank, D.N.P. [facility], in [address] [phone] [place] [address] [place] [phone] Social History Tobacco Use Types Packs/Day Years [...] do you attend anglican or Never 2021 gnosticist services? Do you [...] Poonam Orlando APRN, C.N.P., D. N.P. [address] [place] [address] [phone] (Wo rk) 12/10/2022 Clinical Support Nutrition Wolf Orlando APRN, C.N.P., D.N.P. [address] [place] [phone] Jayleen Gillette M.S., RDN, LD [address] [place] [phone] documented as of this encounter Visit Diagnoses Not on filedocumented in this encounter Additional Health Concerns Assessment Noted Time PHQ-9 Depression Total Score: 12 01/20/2022 3:01 PM CD T documented as of this encounter Care Teams Automatic Pinsetter Adjuster Relationship Specialty Start Date End Date Poonam Orlando APRN, C.N.P., PCP - General Family Medicine D.N.P. [address] [place] [phone] documented as of this encounter
--- OUTSIDE RECORDS SUMMARY | 2022-09-20 02:57 | XMS_ITS | Encounter Summary ---
:2001 Author Organization [facility] Address [address] [place] [address] Care Team Providers Name Role Phone Poonam Orlando APRN, C.N.Paola, D.N.P. Primary Care Provid er Reason for Referral Outpatient (Routine) - Closed Specialty Diagnoses / Procedures Referred By Contact Refer red To Contact Spine Diagnoses Pain Neck Mechanical Headache Cervicogenic Mikel Neal D.C., [facility] Ph.D. [address] [place] [phone] Referral ID Status Reason Start Date Expiration Date Visits Requ ested Visits Authorized [id number] Closed 01/29/2022 01/29/2023 1 1 Scheduling Instructions 4-6 wks thx! Reason for Visit Reason Comments Back Pain Neck Pain Outpatient (Routine) - Closed Specialty Diagnoses / Procedures Referred By Contact Refer red To Contact Spine Diagnoses Pain Neck Mechanical Headache Cervicogenic Mikel Neal D.C., [facility] Ph.D. [address] [place] [phone] Referral ID Status Reason Start Date Expiration Date Visits Requ ested Visits Authorized [id number] Closed 01/01/2022 01/01/2023 1 1 Encounter Details Date Type Department Care Team Description 01/29/2022 Office Visit Department of Spine Mikel Neal P ain Neck Mechanical; in Angeli Figueroa, Ph.D. Headache Cervicogenic; [place] [address] [facility] Dysfunction Somatic Cervical Region; 200 [place], [place] Dysfunction Somatic Thoracic Region; [place] [address] Dysfunction Somatic Lumbar Region [phone] Social History Tobacco Use Types Packs/Day Years [...] do you attend yazidism or Never 2021 episcopalian services? Do you [...] as of this encounter Progress Notes Mikel Nael D.C., Ph.D. - 01/29/2022 3:00 PM CDT SUBJECTIVE Date of onset:??2018 Initial treatment date: 07/02/2021 Claire Moncada presents [...] we spent 7 minutes in therapeutic exercise. Mahanoy Plane grade V spinal mobilization was applied today [...] Poonam Orlando APRN, C.N.P., D. N.P. [address] [place] [address] [phone] (Wo rk) 12/10/2022 Clinical Support Nutrition Wolf Orlando APRN, C.N.P., D.N.P. [address] [place] [phone] Jayleen Gillette M.S., RDN, LD [address] [place] [phone] Scheduled Referrals Name Type Priority Associated Diagnoses [...] documented as of this encounter Care Teams Booster Station Operator Relationship Specialty Start Date End Date Poonam Orlando APRN, C.N.P., PCP - General Family Medicine D.N.P. [address] [place] [address] [phone] documented as of this encounter
--- OUTSIDE RECORDS SUMMARY | 2022-09-20 02:57 | XMS_ITS | Encounter Summary ---
:2001 Author Organization [facility] Address [address] [place] [address] Care Team Providers Name Role Phone Poonam Orlando APRN, C.N.PFrakn, D.N.P. Primary Care Provid er Reason for Visit Reason Comments Puncture Wound Encounter Details Date Type Department Care Team Description 02/21/2022 Nurse [facility], [facility], in [place], [facility] [address] [place], [place] 200 [address] [facility] [address] [place] [phone] [phone] Social History Tobacco Use Types Packs/Day Years [...] or relatives? How often do you attend shinto or Never 2021 congregation services? Do you belong to any clubs or Yes 08/13/2022 organizations such as shinto groups, unions, fraternal or athletic groups, or [...] to pay for the very basics like [employer] hat hard 08/13/2022 food, housing, medical care, [...] dirty, objects on ground/floor) Protocols used: PUNCTURE [id number] Care Advice Patient/Caregiver understands and will follow [...] Orlando APRN, C.N.P., D. N.P. [address] [place] [phone] (Wo rk) 12/10/2022 Clinical Support Nutrition Wolf Orlando APRN, C.N.P., D.N.P. [address] [place] [address] [phone] Jayleen Gillette M.S., RDN, LD [address] [place] [phone] documented as of this encounter Visit Diagnoses Not on filedocumented in this encounter Additional Health Concerns Assessment Noted Time PHQ-9 Depression Total Score: 12 01/20/2022 3:01 PM CD T documented as of this encounter Care Teams Foreign Legal Consultant Relationship Specialty Start Date End Date Poonam Orlando APRN, C.N.P., PCP - General Family Medicine D.N.P. [address] [place] [address] [phone] documented as of this encounter
--- OUTSIDE RECORDS SUMMARY | 2022-09-20 02:57 | XMS_ITS | Encounter Summary ---
:2001 Author Organization [facility] Address [address] [place] [address] Care Team Providers Name Role Phone Poonam Orlando APRN, C.N.Paola, D.N.P. Primary Care Provid er Encounter Details Date Type Department Care Team Description 03/21/2022 Hospital Encounter Department of Arvin, Migraine Headache With Aura; Laboratory Medicine Jorge Prieto Hemiplegic Migraine Not Intractable With out Status Migrainosus and Pathology, [address] [place] [address], in [place], [place] [address] [place] [address] [place], [place] (Work) [phone] Social History Tobacco Use Types Packs/Day Years [...] or relatives? How often do you attend cheondoism or Never 2021 hinduism services? Do you belong to any clubs or Yes 08/13/2022 organizations such as cheondoism groups, unions, fraternal or athletic groups, or [...] needed for wheezing or shortness of breath. [id number]-gh Take 1 tablet by 0 ffeine (EXCEDRIN [...] Poonam Orlando APRN, C.N.P., D. N.P. [address] [place] [address] [phone] (Wo rk) 12/10/2022 Clinical Support Nutrition Wolf Orlando APRN, C.N.P., D.N.P. [address] [place] [phone] Jayleen Gillette M.S., RDN, LD [address] [place] [phone] documented as of this encounter Procedures Procedure [...] Address City/State/ZIP Code Phon e Number [facility] - [address] [place], [place] [address] [facility] [place] [address] [facility] [address] (ABNORMAL) Comprehensive Metabolic Panel (03/21/2022 10:00 AM [...] 03/21/2022 DTL Black/ mL/min/BSA 11:23 AM CDT Iranian Comment: ----ADDITIONAL INFORMATION---- Estimated GFR calculated using [...] Address City/State/ZIP Code Phon e Number [facility] - [address] [place], [place] [address] [place] [address] [facility] [address] [place] (Antinuclear Antibodies) (03/21/2022 10:00 AM CDT) P athologist Signature Antinuclear Ab, 0.5 <=1.0 03/21/2022 [facility] S (Negative) 8:42 PM CDT U Comment: ----ADDITIONAL INFORMATION---- Method: Enzyme-linked immunoassay using HEp-2 nuclear extract supplemented with purified antig ens. Specimen Anatomical Collection Method Collection Time Receive d Time (Source) Location / / Volume Laterality Blood (Blood, 03/21/2022 10:00 03/21/2022 2:02 Venous) AM CDT PM CDT Barbie Sheridan M.D. LAB BLOOD ADD-ON Performing Organization Address City/[facility]/ZIP Code Phon e Number [facility] [address] [place] [address] [address] [place] [address] Laboratory Medicine and Pathology [address] [place] [address] Dr. LAURENT ANCA (Antineutrophil Cytoplasmic Antibodies) Vasculitis Panel (03/21/2022 10:00 AM CDT) [facility] gist Method Time Signature Myeloperoxidase Ab, <0.2 <0.4 03/21/2022 [facility] S (Negative 2:25 PM CDT ) U Proteinase 3 Ab <0.2 <0.4 03/21/2022 [facility] (PR3), S (Negative 2:25 PM CDT ) U Specimen Anatomical Collection Method Collection Time Receive d Time (Source) Location / / Volume Laterality Blood (Blood, 03/21/2022 10:00 03/21/2022 1:33 Venous) AM CDT PM CDT Barbie Sheridan M.D. LAB BLOOD ADD-ON Performing Organization Address City/[facility]/ZIP Code Phon e Number [place] [id number] [place] [address] [facility] [place] [address] Laboratory Medicine and Pathology [address] [place] [address] Dr. LAURENT documented in this encounter Visit Diagnoses Diagnosis Migraine Headache With Aura Hemiplegic Migraine Not Intractable With out Status Migrainosus documented in this encounter Additional Health Concerns Assessment Noted Time PHQ-9 Depression Total Score: 5 03/07/2022 12:25 PM CD T documented as of this encounter Care Teams International Sales Representative Relationship Specialty Start Date End Date Poonam Orlando APRN, C.N.P., PCP - General Family Medicine D.N.P. [address] [place] [phone] documented as of this encounter
--- OUTSIDE RECORDS SUMMARY | 2022-09-20 02:57 | XMS_ITS | Encounter Summary ---
:2001 Author Organization [facility] Address [address] [place] [address] Care Team Providers Name Role Phone Poonam Orlando APRN, C.N.PFrank, D.N.P. Primary Care Provid er Reason for Referral Physical Therapy (Routine) - Authorized Specialty Diagnoses / Procedures Referred By Contact Refer red To Contact Diagnoses Pain Ankle Left Poonam Orlando APRN, [facility] Procedures PT Evaluate and treat C.N.P., D.N.P. [address] [place] [phone] Referral ID Status Reason Start Date Expiration Date Visits V isits Requested Authorized [id number] Authorized 05/07/2022 05/07/2023 1 1 Encounter Details Date Type Department Care Team Description 05/06/2022 Clinical Communication Department of [facility], Jonnathan Marrufo APRN, C.N.P., [facility], in D.N.P. [place], [place] 200 [address] [facility] [address] [place] [phone] Social History Tobacco Use Types Packs/Day Years [...] do you attend anabaptist or Never 2021 jain services? Do you belong to any clubs or Yes 08/13/2022 organizations such as anabaptist groups, unions, fraternal [...] 4:42 PM CDT Caller: (patient) Callback Number: [phone] Best communication method: Phone call Pharmacy: N/A Request/Details: Patient would like a new referral for PT of her left ankle sprain. She states she had gotten a referral previously, although I do not see it. She would like this done at the [facility] if that is possible. Thank you. documented in this encounter Plan of Treatment Upcoming Encounters Date Type Specialty Care Team Description 09/22/2022 Appointment Laboratory Medicine Poonam Orlando APRN, C.N.P., D. N.P. [address] [place] [phone] (Wo rk) 12/10/2022 Clinical Support Nutrition Wolf Orlando APRN, C.N.P., D.N.P. [address] [place] [address] [phone] Jayleen Gillette M.S., RDN, LD [address] [place] [phone] documented as of this encounter Visit Diagnoses Diagnosis Pain Ankle Left - Primary documented in this encounter Additional Health Concerns Assessment Noted Time PHQ-9 Depression Total Score: 5 03/07/2022 12:25 PM CD T documented as of this encounter Care Teams Plant Assigner Relationship Specialty Start Date End Date Poonam Orlando APRN, C.N.P., PCP - General Family Medicine D.N.P. [address] [place] [address] [phone] documented as of this encounter
--- OUTSIDE RECORDS SUMMARY | 2022-09-20 02:57 | XMS_ITS | Encounter Summary ---
:2001 Author Organization [facility] Address [address] [place] [address] Care Team Providers Name Role Phone Poonam Orlando APRN, C.N.PFrank, D.N.P. Primary Care Provid er Encounter Details Date Type Department Care Team Description 04/15/2022 Orders Only Department of [facility] Poonam Orlando, [facility], [place] SHAQ C.N.PFrank, D.N.P. [facility], in [address] [phone] [place] [address] [place] [address] [phone] Social History Tobacco Use Types Packs/Day Years [...] do you attend congregation or Never 2021 mormon services? Do you belong to any clubs or Yes 08/13/2022 organizations such as congregation groups, unions, fraternal [...] Poonam Orlando APRN, C.N.P., D. N.P. [address] [place] [address] [phone] (Wo rk) 12/10/2022 Clinical Support Nutrition Wolf Orlando APRN, C.N.P., D.N.P. [address] [place] [place] [address] [phone] Jayleen Gillette M.S., RDN, LD [address] [place] [place] [phone] documented as of this encounter Visit Diagnoses Not on filedocumented in this encounter Additional Health Concerns Assessment Noted Time PHQ-9 Depression Total Score: 5 03/07/2022 12:25 PM CD T documented as of this encounter Care Teams Medical Services Manager Relationship Specialty Start Date End Date Poonam Orlando APRN, C.N.P., PCP - General Family Medicine D.N.P. [address] [place] [phone] documented as of this encounter
--- OUTSIDE RECORDS SUMMARY | 2022-09-20 02:57 | XMS_ITS | Encounter Summary ---
:[address] [facility] Address [address] [place] [address] Care Team Providers Name Role Phone Poonam Orlando APRN C.N.PFrank, D.N.P. Primary Care Provid er Reason for Visit Reason Comments Curmelisa Consultation Encounter Details Date Type Department Care Team Description 02/17/2022 Clinical Communication Department of [facility] in [place], D.O. Consultation [address] [place] [phone] Social History Tobacco Use Types Packs/Day Years [...] or relatives? How often do you attend alevism or Never 2021 adventist services? Do you belong to any clubs or Yes 08/13/2022 organizations such as alevism groups, unions, fraternal or athletic groups, or [...] to pay for the very basics like [employer] hat hard 08/13/2022 food, housing, medical care, [...] Poonam Orlando APRN, C.N.P., D. N.P. [address] [place] [phone] (Wo rk) 12/10/2022 Clinical Support Nutrition Wolf Orlando APRN, C.N.P., D.N.P. [address] [place] [address] [phone] Jayleen Gillette M.S., RDN, LD [address] [place] [phone] documented as of this encounter Visit Diagnoses Not on filedocumented in this encounter Additional Health Concerns Assessment Noted Time PHQ-9 Depression Total Score: 12 01/20/2022 3:01 PM CD T documented as of this encounter Care Teams Cardiovascular Operating Room Nurse Relationship Specialty Start Date End Date Poonam Orlando APRN, C.N.P., PCP - General Family Medicine D.N.P. [address] [place] [phone] documented as of this encounter
--- OUTSIDE RECORDS SUMMARY | 2022-09-20 02:57 | XMS_ITS | Encounter Summary ---
:2001 Author Organization [facility] Address [address] [place] [address] Care Team Providers Name Role Phone Poonam Orlando APRN, C.N.P., D.N.P. Primary Care Provid er Reason for Visit Reason Comments Med Refill Encounter Details Date Type Department Care Team Description 03/10/2022 Refill Department of [facility] Poonam Orlando APRN, Med Refill Medicine, [facility], C.N. P., D.N.P. in [facility] [address] [place] [address] [place] [phone] [place] [phone] Social History Tobacco Use Types Packs/Day Years [...] do you attend pentecostal or Never 2021 congregational services? Do you belong to any clubs or Yes 08/13/2022 organizations such as pentecostal groups, unions, fraternal [...] Poonam Orlando APRN, C.N.P., D. N.P. [address] [place] [phone] (Wo rk) 12/10/2022 Clinical Support Nutrition Wolf Orlando APRN, C.N.P., D.N.P. [address] [place] [phone] Jayleen Gillette M.S., RDN, LD [address] [place] [address] [phone] documented as of this encounter Visit Diagnoses Not on filedocumented in this encounter Additional Health Concerns Assessment Noted Time PHQ-9 Depression Total Score: 5 03/07/2022 12:25 PM CD T documented as of this encounter Care Teams Senior Master Scheduler Relationship Specialty Start Date End Date Poonam Orlando APRN, C.N.P., PCP - General Family Medicine D.N.P. [address] [place] [phone] documented as of this encounter
--- OUTSIDE RECORDS SUMMARY | 2022-09-20 02:57 | XMS_ITS | Encounter Summary ---
:2001 Author Organization [facility] Address [address] [place] [address] Care Team Providers Name Role Phone Poonam Orlando APRN, C.N.PFrank, D.N.P. 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 [address] [place] [phone] Referral ID Status Reason Start Date Expiration Date Visits Requ ested Visits Authorized [id number] Closed 02/24/2022 02/24/2023 1 1 Encounter Details Date Type Department Care Team Description 02/24/2022 Orders Only Department of [facility] Poonam Orlando, Hemiplegic Migraine Intractable With Status Migrainosus (Primary Dx); MedicineJonnathan APRN, C.N.P., D.N.P. Migraine Headache With Aura [facility], in [address] [place] [address] [place] [phone] [place], [place] [phone] (Wo rk) [phone] Social History Tobacco Use Types Packs/Day Years [...] do you attend hinduism or Never 2021 anglican services? Do you belong to any clubs or Yes 08/13/2022 organizations such as hinduism groups, unions, fraternal [...] Poonam Orlando APRN, C.N.P., D. N.P. 200 [place], [place] [phone] (Wo rk) 12/10/2022 Clinical Support Nutrition Wolf Orlando APRN, C.N.P., D.N.P. [address] [place] [phone] Jayleen Gillette M.S., RDN, LD [address] [place] [phone] Scheduled Referrals Name Type Priority Associated Diagnoses [...] documented as of this encounter Care Teams Digital Solutions Architect Relationship Specialty Start Date End Date Poonam Orlando APRN, C.N.P., PCP - General Family Medicine D.N.P. [address] [place] [phone] documented as of this encounter
--- OUTSIDE RECORDS SUMMARY | 2022-09-20 02:57 | XMS_ITS | Encounter Summary ---
:2001 Author Organization [facility] Address [address] [place] [address] Care Team Providers Name Role Phone Poonam Orlando APRN, C.N.P., D.N.P. Primary Care Provid er Reason for Visit Reason Comments Follow-up Scratch on Left wrist Appointment Request (Routine) - Closed Specialty Diagnoses / Procedures Referred By Contact Refer red To Contact Family Medicine Referral ID Status Reason Start Date Expiration Date Visits Requ ested Visits Authorized [id number] Closed 02/21/2022 02/21/2023 1 1 Encounter Details Date Type Department Care Team Description 02/21/2022 Office Visit Department of Family Post, Deonte Marrufo [place] [facility] Arm Without Medicine, Lola NEW, C.N.PFrank Foreign Body Initial Clinic, in [place], [facility] (Primary Dx) [place] [address] [place] [address] WILIAM RODRIGUEZ [phone] (Work) [phone] Social History Tobacco Use Types Packs/Day Years [...] do you attend sabianism or Never 2021 taoism services? Do you [...] when to return to clinic. - Tdap: Gceixei-gwhwmfivzp-pnwlyttcq pertussis vaccine (7 years and older) All questions answered and patient agrees plan of care. Return to clinic as needed. Deonte Hernandez APRN, C.N.P. documented in this encounter Plan of Treatment Upcoming Encounters Date Type Specialty Care Team Description 09/22/2022 Appointment Laboratory Medicine Poonam Orlando APRN, C.N.P., D. N.P. [address] [place], [place] [phone] (Wo rk) 12/10/2022 Clinical Support Nutrition Wolf Orlando APRN, C.N.P., D.N.P. [address] [place] [phone] Jayleen Gillette M.S., RDN, LD [address] [place] [phone] documented as of this encounter Visit Diagnoses Diagnosis Laceration Arm Without Foreign Body Init ial Left - Primary documented in this encounter Additional Health Concerns Assessment Noted Time PHQ-9 Depression Total Score: 12 01/20/2022 3:01 PM CD T documented as of this encounter Care Teams Military Professional Relationship Specialty Start Date End Date Poonam Orlando APRN, C.N.P., PCP - General Family Medicine D.N.P. [address] [place] [phone] documented as of this encounter
--- OUTSIDE RECORDS SUMMARY | 2022-09-20 02:57 | XMS_ITS | Encounter Summary ---
:2001 Author Organization [facility] Address [address] [place] [address] Care Team Providers Name Role Phone Poonam Orlando APRN, C.N.PFrank, D.N.P. Primary Care Provid er Reason for Referral Medication Prior Authorization - Authorized Specialty Diagnoses / Procedures Referred By Contact Refer red To Contact Poonam Orlando APRN, C.N.P., D.N.P. [address] [place] [phone] Referral ID Status Reason Start Date Expiration Date Visits V isits Requested Authorized [id number] Authorized 02/23/2022 03/25/2023 1 1 Encounter Details Date Type Department Care Team Description 03/25/2022 Orders Only Department of [facility] Poonam Orlando, [facility] SHAQ C.N.P., D.N.P. Building, in [address] [phone] [place] [address] [place] [phone] Social History Tobacco Use Types Packs/Day Years [...] or relatives? How often do you attend confucianist or Never 2021 sabianist services? Do you belong to any clubs or Yes 08/13/2022 organizations such as confucianist groups, unions, fraternal or athletic groups, or [...] Orlando APRN, C.N.P., D. N.P. [address] [place], [place] [phone] (Wo rk) 12/10/2022 Clinical Support Nutrition Wolf Orlando APRN, C.N.P., D.N.P. [address] [place] [phone] Jayleen Gillette M.S., RDN, LD [address] [place] [phone] documented as of this encounter Visit Diagnoses Not on filedocumented in this encounter Additional Health Concerns Assessment Noted Time PHQ-9 Depression Total Score: 5 03/07/2022 12:25 PM CD T documented as of this encounter Care Teams Customs Port Director Relationship Specialty Start Date End Date Poonam Orlando APRN, C.N.P., PCP - General Family Medicine D.N.P. [address] [place] [phone] documented as of this encounter
--- OUTSIDE RECORDS SUMMARY | 2022-09-20 02:58 | XMS_ITS | Encounter Summary ---
:2001 Author Organization [facility] Address [address] [place] [address] Care Team Providers Name Role Phone Poonam Orlando APRN, C.N.Paola, D.N.P. Primary Care Provid er Reason for Referral Outpatient (Routine) - Closed Specialty Diagnoses / Procedures Referred By Contact Refer red To Contact Spine Diagnoses Pain Neck Mechanical Headache Cervicogenic Mikel Neal D.C., [facility] Ph.D. 200 [place] [phone] Referral ID Status Reason Start Date Expiration Date Visits Requ ested Visits Authorized [id number] Closed 01/01/2022 01/01/2023 1 1 Reason for Visit Reason Comments Back Pain Neck Pain Outpatient (Routine) - Closed Specialty Diagnoses / Procedures Referred By Contact Refer red To Contact Spine Diagnoses Pain Neck Mechanical Pain Low Back Mechanical Mikel Neal D.C., [facility] Ph.D. [address] [place] [phone] Referral ID Status Reason Start Date Expiration Date Visits Requ ested Visits Authorized [id number] Closed 12/06/2021 12/06/2022 1 1 Encounter Details Date Type Department Care Team Description 01/01/2022 Office Visit Department of Spine Mikel Neal Head ache Cervicogenic (Primary Dx); [place] Ph.D. Pain Neck Mechanical; [place] [address] [email or web address] Pain Low Back Mechanical; [address] [place], [place] Dysfunction Somatic Cervical Region; [place] [address] Dysfunction Somatic Thoracic Region [address] [phone] Social History Tobacco Use Types Packs/Day Years [...] or relatives? How often do you attend confucianism or Never 2021 anabaptist services? Do you belong to any clubs or Yes 08/13/2022 organizations such as confucianism groups, unions, fraternal or athletic groups, or [...] Poonam Orlando APRN, C.N.P., D. N.P. [address] [place] [phone] (Wo rk) 12/10/2022 Clinical Support Nutrition Wolf Orlando APRN, C.N.P., D.N.P. [address] [place] [phone] Jayleen Gillette M.S., RDN, LD [address] [place] [phone] Scheduled Referrals Name Type Priority Associated Diagnoses [...] documented as of this encounter Care Teams Surfacing Technician Relationship Specialty Start Date End Date Poonam Orlando APRN, C.N.P., PCP - General Family Medicine D.N.P. [address] [place] [phone] documented as of this encounter
--- OUTSIDE RECORDS SUMMARY | 2022-09-20 02:58 | XMS_ITS | Encounter Summary ---
:2001 Author Organization [facility] Address [address] [place] [address] Care Team Providers Name Role Phone Poonam Orlando APRN, C.NTroy, D.N.P. Primary Care Provid er Encounter Details Date Type Department Care Team Description 01/19/2022 Clinical Communication Department of [facility], Jonnathan Mata M.D. [facility], in [address] [place] [address] [place] [phone] [place], [place] [phone] (Wo rk) [phone] Social History Tobacco Use Types Packs/Day Years [...] or relatives? How often do you attend druze or Never 2021 congregational services? Do you belong to any clubs or Yes 08/13/2022 organizations such as druze groups, unions, fraternal or athletic groups, or [...] M.D. - 01/19/2022 10:42 PM CDT As environmental associate, received a call from patient about feeling [...] or suicidal ideation. 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 N.P. [address] [place] [phone] (Wo rk) 12/10/2022 Clinical Support Nutrition Wolf Orlando APRN, C.N.P., D.N.P. [address] [place] [phone] Jayleen Gillette M.S., RDN, LD [address] [place] [phone] documented as of this encounter Visit Diagnoses Not on filedocumented in this encounter Additional Health Concerns Assessment Noted Time PHQ-9 Depression Total Score: 5 12/26/2016 12:01 AM CS T documented as of this encounter Care Teams Clinical Trial Specialist Relationship Specialty Start Date End Date Poonam Orlando APRN, C.N.P., PCP - General Family Medicine D.N.P. [address] [place] [phone] documented as of this encounter
--- OUTSIDE RECORDS SUMMARY | 2022-09-20 02:58 | XMS_ITS | Encounter Summary ---
:2001 Author Organization [facility] Address [address] [place] [address] Care Team Providers Name Role Phone Poonam Orlando APRN, C.N.PFrakn, D.N.P. Primary Care Provid er Reason for Referral Outpatient (Routine) - Closed Specialty Diagnoses / Procedures Referred By Contact Refer red To Contact Spine Diagnoses Pain [facility].N.P. [address] [place] [phone] Referral ID Status Reason Start Date Expiration Date Visits Requ ested Visits Authorized [id number] Closed 10/15/2021 10/15/2022 1 1 CIATE BRAND MANAGER Reason for Visit Reason Comments Follow-up ADHD medication, migraines Outpatient (Routine) - Closed Specialty Diagnoses / Procedures Referred By Contact Refer red To Contact Family Medicine Lavon Nair M.D . [facility] [address] [place] [phone] Referral ID Status Reason Start Date Expiration Date Visits Requ ested Visits Authorized [id number] Closed 09/13/2021 09/13/2022 1 1 Encounter Details Date Type Department Care Team Description 10/15/2021 Telemedicine Department of Poonam Honeycutte Headache Without Aura (Primary Dx); Medicine, Jonnathan Marrufo APRN, C.N.P., Attent ion Deficit Disorder Combined Type; Building, in D.N.P. Pain Neck; [place], [place] [address] [facility] Asthma Mild Intermittent (HCC); [address] [place], [place] [phone] Social History Tobacco Use Types Packs/Day Years [...] do you attend episcopal or Never 2021 caodaism services? Do you [...] by Poonam Orlando APRN, BUSHRA, DNP in [place], [place] to the patient in their home. [...] spent a total of 30 minutes in pun-jone-le-face time performing a review of the record and/or discussion with the patient/caregiver as described above. PATIENT EDUCATION Ready to learn, no apparent learning barriers were identified; learning preferences include listening. CIATE BRAND MANAGER documented in this encounter Plan of Treatment Upcoming Encounters Date Type Specialty Care Team Description 09/22/2022 Appointment Laboratory Medicine Poonam Orlando APRN, C.N.P., D. N.P. [address] [place] [phone] (Wo rk) 12/10/2022 Clinical Support Nutrition Wolf Orlando APRN, C.N.P., D.N.P. [address] [place] [phone] Jayleen Gillette M.S., RDN, LD [address] [place] [phone] Scheduled Referrals Name Type Priority Associated Diagnoses Order S chedule Spine Clinic - [facility] Outpatient Referral Routine [...] documented as of this encounter Care Teams Refrigeration Technician Relationship Specialty Start Date End Date Poonam Orlando APRN, C.N.P., PCP - General Family Medicine D.N.P. [address] [place] [phone] documented as of this encounter
--- OUTSIDE RECORDS SUMMARY | 2022-09-20 02:58 | XMS_ITS | Encounter Summary ---
:2001 Author Organization [facility] Address [address] [place] [address] Care Team Providers Name Role Phone Poonam Orlando APRN, C.N.Paola, D.N.P. Primary Care [facility] er Reason for Referral Outpatient (Routine) - Closed Specialty Diagnoses / Procedures Referred By Contact Refer red To Contact Family Medicine Lavon Nair M.D . [facility] [address] [place] [phone] Referral ID Status Reason Start Date Expiration Date Visits Requ ested Visits Authorized [id number] Closed 09/13/2021 09/13/2022 1 1 Scheduling Instructions Poonam Orlando for migraine, vaccine u pdate RAL JAVA DEVELOPER Reason for Visit Appointment Request (Routine) - Closed Specialty Diagnoses / Procedures Referred By Contact Refer joy To Contact Family Medicine Referral ID Status Reason Start Date Expiration Date Visits Requ ested Visits Authorized [id number] Closed 09/11/2021 09/11/2022 1 1 Encounter Details Date Type Department Care Team Description 09/13/2021 Telemedicine Department of [facility] Lavon Nair [facility] Adult (Primary Dx); MedicineJonnathan M.D. Attention Deficit Disorder Combined Type ; Building, in [address] [place] [address] Migraine Headache Without Aura [place], [place] [address] [place] [phone] [place], [place] [phone] (Work) [phone] Social History Tobacco Use Types Packs/Day Years [...] do you attend sikhism or Never 2021 church services? Do you belong to any clubs or Yes 08/13/2022 organizations such as sikhism groups, unions, fraternal [...] week in the last month. She attends [employer] and is doing [employer] and [employer]. She has ADD and started Adderall [...] like she can interact virtually before then. RAL JAVA DEVELOPER documented in this encounter Plan of Treatment Upcoming Encounters Date Type Specialty Care Team Description 09/22/2022 Appointment Laboratory Medicine Poonam Orlando APRN, C.N.P., D. N.P. [address] [place] [phone] (Wo rk) 12/10/2022 Clinical Support Nutrition Wolf Orlando APRN, C.N.P., D.N.P. [address] [place] [phone] Jayleen Gillette M.SFrank, RDN, LD [address] [place] [phone] Scheduled Referrals Name Type Priority Associated Diagnoses Order S [facility] Medicine Outpatient Referral Routine Expec blanca: office visit 10/14/2021, (clinic) Expires: 12/14/2022 documented as of this encounter Visit Diagnoses Diagnosis Maintenance Health Adult - Primary Attention Deficit Disorder Combined Type Migraine Headache Without Aura documented in this encounter Additional Health Concerns Assessment Noted Time PHQ-9 Depression Total Score: 5 12/26/2016 12:01 AM CS T documented as of this encounter Care Teams Serials Librarian Relationship Specialty Start Date End Date Poonam Orlando APRN, C.N.P., PCP - General Family Medicine D.N.P. [address] [place] [phone] documented as of this encounter
--- OUTSIDE RECORDS SUMMARY | 2022-09-20 02:58 | XMS_ITS | Encounter Summary ---
:2001 Author Organization [facility] Address 200 [place] [address] Care Team Providers Name Role Phone Poonam Orlando APRN C.N.PFrank, D.N.P. Primary Care Provid er Reason for Referral Outpatient (Routine) - Closed Specialty Diagnoses / Procedures Referred By Contact Refer red To Contact Pharmacy Diagnoses Medication Management Issue [facility] C.[facility] D.N.P. 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 200 [place] [address] Referral ID Status Reason Start Date Expiration Date Visits Requ ested Visits Authorized [id number] Closed 01/20/2022 01/20/2023 1 1 Encounter Details Date Type Department Care Team Description 01/22/2022 Office Visit Department of Family Darion Poonam At tention Deficit Disorder Combined Type (Primary Dx); Medicine, Jonnathan Marrufo APRN, C.NFrankP., Medica tion Management Issue Building, in D.N.P. [place], [place] [address] [facility] [address] [place] [address] [phone] Social History Tobacco Use Types Packs/Day Years [...] do you attend catholic or Never 2021 episcopal services? Do you belong to any clubs or Yes 08/13/2022 organizations such as catholic groups, unions, fraternal [...] and teas. Spring Stevens was intouch with [facility] Psychiatrist Dr. Avalos who recommended to start [...] and some herbal teas that she used [id number]-feoqfsx. Since stopping the Adderall she feels that [...] Poonam Orlando APRN, C.N.P., D. N.P. [address] [place] [phone] (Wo rk) 12/10/2022 Clinical Support Nutrition Wolf Orlando APRN, C.N.P., D.N.P. [address] [place] [phone] Jayleen Gillette M.S., RDN, LD [address] [place] [phone] Scheduled Referrals Name Type Priority Associated Order [...] documented as of this encounter Care Teams Care Trainer Relationship Specialty Start Date End Date Poonam Orlando APRN, C.N.P., PCP - General Family Medicine D.N.P. [address] [place] [phone] documented as of this encounter
--- OUTSIDE RECORDS SUMMARY | 2022-09-20 02:58 | XMS_ITS | Encounter Summary ---
:2001 Author Organization [facility] Address [address] [place] [address] Care Team Providers Name Role Phone Poonam Orlando APRN, C.N.P., D.N.P. Primary Care Provid er Encounter Details Date Type Department Care Team Description 08/28/2021 Clinical Communication [facility] Jonnathan Marrufo APRN, C.N.P., Building, in D.N.P. [place], [place] [address] [facility] [address] [place] [phone] Social History Tobacco Use Types Packs/Day Years [...] do you attend faith or Never 2021 yazidi services? Do you [...] Notes Telephone Encounter - Joanne Mata R.N., AMB-BC - 08/28/2021 11:21 AM SOFTWARE TEST TECHNICIAN 2SUBJECTIVE CHIEF COMPLAINT / REASON FOR CALL No chief complaint on file. Information Discussed Call to patient to inform her that she should have prescriptions for Adderall XR 20 mg and Adderall 10 mg available to refill on 09/06/21 at the [facility]. PLAN Disposition/Recommendation: self-care is appropriate at this time, patient encouraged to call back with questions Information/Education: patient/caller able to teach back Caller agreeable to plan of care: yes The following references were used: none WARE TEST TECHNICIAN documented in this encounter Plan of Treatment Upcoming Encounters Date Type Specialty Care Team Description 09/22/2022 Appointment Laboratory Medicine Poonam Orlando APRN, C.N.P., D. N.P. [address] [place], [place] [phone] (Wo rk) 12/10/2022 Clinical Support Nutrition Wolf Orlando APRN, C.N.P., D.N.P. [address] [place] [phone] Jayleen Gillette M.S., RDN, LD [address] [place] [phone] documented as of this encounter Visit Diagnoses Not on filedocumented in this encounter Additional Health Concerns Assessment Noted Time PHQ-9 Depression Total Score: 5 12/26/2016 12:01 AM CS T documented as of this encounter Care Teams Core Mounter Relationship Specialty Start Date End Date Poonam Orlando APRN, C.N.P., PCP - General Family Medicine D.N.P. [address] [place] [phone] documented as of this encounter
--- OUTSIDE RECORDS SUMMARY | 2022-09-20 02:58 | XMS_ITS | Encounter Summary ---
:2001 Author Organization [facility] Address [address] [place] [address] Care Team Providers Name Role Phone Poonam Orlando APRN C.N.Paola, D.N.P. Primary Care Provid er Reason for Visit Reason Comments Migraine Encounter Details Date Type Department Care Team Description 12/25/2021 Nurse Triage Department of [facility] Lisbeth Crews R.N. Migraine Medicine, [facility], [address] [facility] in [place], [place] [address] [place] [phone] [place] [phone] Social History Tobacco Use Types Packs/Day Years [...] or relatives? How often do you attend samaritan or Never 2021 pentecostal services? Do you belong to any clubs or Yes 08/13/2022 organizations such as samaritan groups, unions, fraternal or athletic groups, or [...] provider within a few minutes (overriding See ealth care provider within 4 hours). Contacted STAR [...] 2 hours of pain medicine Protocols used: [id number] SUPERVISING TECHNICAL OPERATOR documented in this encounter Plan of Treatment Upcoming Encounters Date Type Specialty Care Team Description 09/22/2022 Appointment Laboratory Medicine Poonam Orlando APRN, C.N.P., D. N.P. [address] [place] [phone] (Wo rk) 12/10/2022 Clinical Support Nutrition Wolf Orlando APRN, C.N.P., D.N.P. [address] [place] [phone] Jayleen Gillette M.S., RDN, LD [address] [place] [address] [phone] documented as of this encounter Visit Diagnoses Not on filedocumented in this encounter Additional Health Concerns Assessment Noted Time PHQ-9 Depression Total Score: 5 12/26/2016 12:01 AM CS T documented as of this encounter Care Teams Steam Setter Relationship Specialty Start Date End Date Poonam Orlando APRN, C.N.P., PCP - General Family Medicine D.N.P. [address] [place] [address] [phone] documented as of this encounter
--- OUTSIDE RECORDS SUMMARY | 2022-09-20 02:58 | XMS_ITS | Encounter Summary ---
:2001 Author Organization [facility] Address [address] [place] [address] Care Team Providers Name Role Phone Poonam Orlando APRN, C.N.P., D.N.P. Primary Care Provid er Reason for Referral Outpatient (Routine) - Closed Specialty Diagnoses / Procedures Referred By Contact Refer red To Contact Spine Diagnoses Pain Neck Mechanical Pain Low Back Mechanical Mikel Nael D.C., [facility] Ph.D. 200 [place] [address] Referral ID Status Reason Start Date Expiration Date Visits Requ ested Visits Authorized [id number] Closed 12/06/2021 12/06/2022 1 1 Scheduling Instructions 2pm thx CE NURSE Reason for Visit Reason Comments Back Pain Neck Pain Outpatient (Routine) - Closed Specialty Diagnoses / Procedures Referred By Contact Refer red To Contact Spine Diagnoses Pain [facility].N.P. [address] [place] [phone] Referral ID Status Reason Start Date Expiration Date Visits Requ ested Visits Authorized [id number] Closed 10/15/2021 10/15/2022 1 1 Encounter Details Date Type Department Care Team Description 12/06/2021 Office Visit Department of Spine [place], [place] hanie M, ANAESTHETIC TECHNICIAN, C.N.P., D.N.P. 200 [place] [phone] Pain Neck Mechanical (Primary Dx); in [place], Mikel Neal D.C., Ph.D. 200 [place] [phone] Pain Neck; [place] Pain Low Back Mechanical; 200 [facility] Dysfunction Somatic Cervical Region; [place], [place] Dysfunction So matic Thoracic Region; [phone] Dysfunction Somatic Lumbar R egion [phone] Social History Tobacco Use Types Packs/Day Years [...] or relatives? How often do you attend yazidi or Never 2021 zoroastrianism services? Do you belong to any clubs or Yes 08/13/2022 organizations such as yazidi groups, unions, fraternal or athletic groups, or [...] wearing a mask throughout the entire session. CE NURSE documented in this encounter Plan of Treatment Upcoming Encounters Date Type Specialty Care Team Description 09/22/2022 Appointment Laboratory Medicine Poonam Orlando APRN, C.N.P., D. N.P. [address] [place] [phone] (Wo rk) 12/10/2022 Clinical Support Nutrition Wolf Orlando APRN, C.N.P., D.N.P. [address] [place] [phone] Jayleen Gillette M.S., RDN, LD [address] [place] [phone] Scheduled Referrals Name Type Priority Associated Diagnoses [...] documented as of this encounter Care Teams Furnace Mechanic Relationship Specialty Start Date End Date Poonam Orlando APRN, C.N.P., PCP - General Family Medicine D.N.P. [address] [place] [phone] documented as of this encounter
--- OUTSIDE RECORDS SUMMARY | 2022-09-20 02:58 | XMS_ITS | Encounter Summary ---
:2001 Author Organization [facility] Address [address] [place] [address] Care Team Providers Name Role Phone Poonam Orlando APRN, C.N.P., D.N.P. Primary Care Provid er Reason for Referral Specialty Diagnoses / Procedures Referred By Contact Refer red To Contact Poonam Orlando APRN [facility] C.N.P., D.N.P. [address] [place] [phone] Referral ID Status Reason Start Date Expiration Date Visits Requ ested Visits Authorized ATIONS PLANT ATTENDANT Encounter Details Date Type Department Care Team Description 09/11/2021 Orders Only RST PCP HLTH MNT Poonam Orlando APR N, C.N.P., D.N.P. [address] [place] [phone] (Wo rk) Social History Tobacco [...] 08/13/2022 organizations such as protestant groups, unions, fraDouble Fusion or athletic groups, or school groups? How [...] Poonam Orlando APRN, C.N.P., D. N.P. [address] [place] [phone] (Wo rk) 12/10/2022 Clinical Support Nutrition Wolf Orlando APRN, C.N.P., D.N.P. [address] [place] [phone] Jayleen Gillette M.S., RDN, LD [address] [place] [phone] Scheduled Referrals Name Type Priority Associated Order Schedule Diagnoses Covid immunization Outpatient Referral Routine Ex pected: office visit Booster 021 (Approximate), Expires: 09/11/2022 documented as of this encounter Visit Diagnoses Not on filedocumented in this encounter Additional Health Concerns Assessment Noted Time PHQ-9 Depression Total Score: 5 12/26/2016 12:01 AM CS T documented as of this encounter Care Teams It Consultant Relationship Specialty Start Date End Date Poonam Orlando APRN, C.N.P., PCP - General Family Medicine D.N.P. [address] [place] [phone] documented as of this encounter
--- OUTSIDE RECORDS SUMMARY | 2022-09-20 02:58 | XMS_ITS | Encounter Summary ---
:2001 Author Organization [facility] Address [address] [place] [address] Care Team Providers Name Role Phone Poonam Orlando APRN, C.N.P., D.N.P. Primary Care Provid er Reason for Visit Reason Comments Med Refill Encounter Details Date Type Department Care Team Description 09/06/2021 Refill Department of [facility] Poonam Orlando APRN, Med Refill Medicine, [facility], C.N. P., D.N.P. in [facility] [address] [place] [address] [place] [phone] [place] [phone] Social History Tobacco Use Types Packs/Day Years [...] do you attend mormonism or Never 2021 buddhist services? Do you belong to any clubs or Yes 08/13/2022 organizations such as mormonism groups, unions, fraternal [...] Orlando APRN, C.N.P., D. N.P. [address] [place] [phone] (Wo rk) 12/10/2022 Clinical Support Nutrition Wolf Orlando APRN, C.N.P., D.N.P. [address] [place] [phone] Jayleen Gillette M.S., RDN, LD [address] [place] [phone] documented as of this encounter Visit Diagnoses Not on filedocumented in this encounter Additional Health Concerns Assessment Noted Time PHQ-9 Depression Total Score: 5 12/26/2016 12:01 AM CS T documented as of this encounter Care Teams Economic Research Analyst Relationship Specialty Start Date End Date Poonam Orlando APRN, C.N.P., PCP - General Family Medicine D.N.P. [address] [place] [phone] documented as of this encounter
--- OUTSIDE RECORDS SUMMARY | 2022-09-20 02:58 | XMS_ITS | Encounter Summary ---
:2001 Author Organization [facility] Address [address] [place] [address] Care Team Providers Name Role Phone Poonam Orlando APRN C.N.PFrank, D.N.P. 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 [address] [place] [address] Referral ID Status Reason Start Date Expiration Date Visits Requ ested Visits Authorized [id number] Closed 01/20/2022 01/20/2023 1 1 Reason for Visit Reason Comments ADHD Appointment Request (Routine) - Closed Specialty Diagnoses / Procedures Referred By Contact Refer red To Contact Family Medicine Referral ID Status Reason Start Date Expiration Date Visits Requ ested Visits Authorized [id number] Closed 01/20/2022 01/20/2023 1 1 Encounter Details Date Type Department Care Team Description 01/20/2022 Office Visit Department of Family [place] [facility] tention Deficit Disorder Combined Type (Primary Dx); Medicine, Jonnathan NEW, C.N.P., Mood Diso rder Due To Known Physiological Condition With Manic Features Building, in D.NFrankPFrank [place], [place] [address] [facility] [address] [place] [phone] Social History Tobacco Use Types Packs/Day Years [...] do you attend episcopal or Never 2021 episcopalian services? Do you [...] discussed patient with Dr. Ezra Avalos in [facility] Psychiatry. I am concerned that this [...] Orlando APRN, C.N.P., D. N.P. [address] [place] [phone] (Wo rk) 12/10/2022 Clinical Support Nutrition Wolf Orlando APRN, C.N.P., D.N.P. [address] [place] [phone] Jayleen Gillette M.S., RDN, LD [address] [place] [phone] Scheduled Referrals Name Type Priority Associated Diagnoses Order S [facility] Outpatient Referral Routine Attention Deficit Expected: office [...] Assessment Noted Time PHQ-9 Depression Total Score: 01/20/2022 3:01 PM CD T documented as of this encounter Care Teams Supervisor Wood Room Relationship Specialty Start Date End Date Poonam Orlanod APRN, C.N.P., PCP - General Family Medicine D.N.P. [address] [place] [phone] documented as of this encounter
--- OUTSIDE RECORDS SUMMARY | 2022-09-20 02:58 | XMS_ITS | Encounter Summary ---
:2001 Author Organization [facility] Address [address] [place] [address] Care Team Providers Name Role Phone Poonam Orlando APRN, C.N.P., D.N.P. Primary Care Provid er Reason for Visit Reason Comments Med Refill Encounter Details Date Type Department Care Team Description 01/24/2022 Refill Department of [facility] Poonam Orlando APRN, Med Refill Medicine, [facility], C.N. P., D.N.P. in [facility] [address] [place] [address] [place] [phone] [place] [phone] Social History Tobacco Use Types Packs/Day Years [...] do you attend faith or Never 2021 zoroastrian services? Do you [...] Orlando APRN, C.N.P., D.N.P. Pharmacy (include location): [facility] documented in this encounter Plan of Treatment Upcoming Encounters Date Type Specialty Care Team Description 09/22/2022 Appointment Laboratory Medicine Poonam Orlando APRN, C.N.P., D. N.P. [address] [place] [phone] (Wo rk) 12/10/2022 Clinical Support Nutrition Wolf Orlando APRN, C.N.P., D.N.P. [address] [place] [phone] Jayleen Gillette M.SFrank, RDN, LD [address] [place] [phone] documented as of this encounter Visit Diagnoses Not on filedocumented in this encounter Additional Health Concerns Assessment Noted Time PHQ-9 Depression Total Score: 12 01/20/2022 3:01 PM CD T documented as of this encounter Care Teams Document Control Specialist Relationship Specialty Start Date End Date Poonam Orlando APRN, C.N.P., PCP - General Family Medicine D.N.P. [address] [place] [phone] documented as of this encounter
--- OUTSIDE RECORDS SUMMARY | 2022-09-20 02:58 | XMS_ITS | Encounter Summary ---
:2001 Author Organization [facility] Address [address] [place] [address] Care Team Providers Name Role Phone Poonam Orlando APRN, C.N.PFrank, D.N.P. Primary Care Provid er Encounter Details Date Type Department Care Team Description 11/07/2021 Clinical Communication [facility], in [address] [place] [address] [place] [phone] [place], [place] [phone] (Work) [phone] Social History Tobacco Use Types Packs/Day Years [...] do you attend christian or Never 2021 holiness services? Do you [...] 11/13/2021 8:44 AM CST Prescribing plan updated. MODEL BUILDER Telephone Encounter - Erik Hardin R.N. - 11/08/2021 9:37 AM CST The patient was notified that their prescription for Adderal XR 30 mg And Adderall 10 mg has been e-prescribed to [facility]. We will forward to Poonam Orlando to adjust CSA. MODEL BUILDER Telephone Encounter - Josefa Monreal R.N. - [...] route this back to nursing once complete. MODEL BUILDER Telephone Encounter - Josefa Monreal R.N. - 11/08/2021 8:27 AM CST Nursing clarified with patient: She takes Adderall 30 mg XR in am (20 mg plus 10 mg) and 10 mg IR inthe pm. She would like the AM to be 1 instead of two tablets. MODEL BUILDER Telephone Encounter - Josefa Monreal R.N. - [...] following references were used: nursing clinical judgement MODEL BUILDER documented in this encounter Plan of Treatment Upcoming Encounters Date Type Specialty Care Team Description 09/22/2022 Appointment Laboratory Medicine Poonam Orlando APRN, C.N.P., D. N.P. [address] [place] [phone] (Wo rk) 12/10/2022 Clinical Support Nutrition Wolf Orlando APRN, C.N.P., D.N.P. [address] [place] [phone] Jayleen Gillette M.S., RDN, LD [address] [place] [phone] documented as of this encounter Visit Diagnoses Diagnosis Attention Deficit Disorder Combined Type documented in this encounter Additional Health Concerns Assessment Noted Time PHQ-9 Depression Total Score: 5 12/26/2016 12:01 AM CS T documented as of this encounter Care Teams Television Specialist Relationship Specialty Start Date End Date Poonam Orlando APRN, C.N.P., PCP - General Family Medicine D.N.P. [address] [place] [phone] documented as of this encounter
--- OUTSIDE RECORDS SUMMARY | 2022-09-20 02:58 | XMS_ITS | Encounter Summary ---
:2001 Author Organization [facility] Address [address] [place] [address] Care Team Providers Name Role Phone Poonam Orlando APRN C.N.PFrank, D.N.P. Primary Care Provid er Reason for Visit Reason Comments Medical Information Encounter Details Date Type Department Care Team Description 01/19/2022 Nurse Triage Department of [facility] Pamela Clemente [facility] Information Medicine, Jonnathan Marrufo R.N. [facility], in [address] [place] [address] [place] [phone] [place] [phone] Social History Tobacco Use Types Packs/Day Years [...] do you attend hoahaoism or Never 2021 yarsani services? Do you [...] to pay for the very basics like [employer] hat hard 08/13/2022 food, housing, medical care, [...] Clemente R.N. - 01/19/2022 10:37 PM CDT [place] patient calling with symptoms. Transferred to [facility] Switchboard to page sock ironer provider for advice. documented in this encounter Plan of Treatment Upcoming Encounters Date Type Specialty Care Team Description 09/22/2022 Appointment Laboratory Medicine Poonam Orlando APRN, C.N.P., D. N.P. [address] [place] [phone] (Wo rk) 12/10/2022 Clinical Support Nutrition Wolf Orlando APRN, C.N.P., D.N.P. [address] [place] [phone] Jayleen Gillette M.S., RDN, LD [address] [place] [phone] documented as of this encounter Visit Diagnoses Not on filedocumented in this encounter Additional Health Concerns Assessment Noted Time PHQ-9 Depression Total Score: 5 12/26/2016 12:01 AM CS T documented as of this encounter Care Teams Warp Coiler Relationship Specialty Start Date End Date Poonam Orlando APRN, C.N.P., PCP - General Family Medicine D.N.P. [address] [place] [phone] documented as of this encounter
--- OUTSIDE RECORDS SUMMARY | 2022-09-20 02:58 | XMS_ITS | Encounter Summary ---
:2001 Author Organization [facility] Address [address] [place] [address] Care Team Providers Name Role Phone Poonam Orlando APRN, C.NTroy, D.N.P. Primary Care Provid er Reason for Referral Outpatient (Routine) - Authorized Specialty Diagnoses / Procedures Referred By Contact Refer red To Contact Bernie Mesa M.D. [facility] [address] [place] [phone] Referral ID Status Reason Start Date Expiration Date Visits V isits Requested Authorized [id number] Authorized 12/25/2021 12/25/2022 1 1 ESS SPECIALIST Encounter Details Date Type Department Care Team Description 12/25/2021 Orders Only Division of [facility] Bernie Mesa Hea dache [facility] MedicineElizabeth (Primary Dx) [facility], in [address] [place] [address] [place] [phone] [place], [place] [phone] (Work) [phone] Social History Tobacco Use Types Packs/Day Years [...] or relatives? How often do you attend moravian or Never 2021 mandaen services? Do you belong to any clubs or Yes 08/13/2022 organizations such as moravian groups, unions, fraternal or athletic groups, or [...] Orlando APRN, C.N.P., D. N.P. [address] [place] [phone] (Wo rk) 12/10/2022 Clinical Support Nutrition Wolf Orlando APRN, C.N.P., D.N.P. [address] [place] [phone] Jayleen Gillette M.S., RDN, LD [address] [place] [phone] Scheduled Referrals Name Type Priority Associated Order Schedule Diagnoses Primary Care nurse Outpatient Referral Routine Ex pected: visit (clinic) - 12/26/2021 [place]; (Approxima te), Medication injection Expires : (order medication); 03/27/20 Pain medication (IM) documented as of this encounter Visit Diagnoses Diagnosis Headache Benign - Primary documented in this encounter Additional Health Concerns Assessment Noted Time PHQ-9 Depression Total Score: 5 12/26/2016 12:01 AM CS T documented as of this encounter Care Teams Physicist Nuclear Relationship Specialty Start Date End Date Poonam Orlando APRN, C.N.P., PCP - General Family Medicine D.N.P. [address] [place] [phone] documented as of this encounter
--- OUTSIDE RECORDS SUMMARY | 2022-09-20 02:58 | XMS_ITS | Encounter Summary ---
:2001 Author Organization [facility] Address [address] [place] [address] Care Team Providers Name Role Phone Poonam Orlando APRN, C.N.PFrank, D.N.P. Primary Care Provid er Reason for Visit Outpatient (Routine) - Closed Specialty Diagnoses / Procedures Referred By Contact Refer red To Contact Pharmacy Diagnoses Medication Management Issue [facility].N.P. [address] [place] [phone] Referral ID Status Reason Start Date Expiration Date Visits Requ ested Visits Authorized [id number] Closed 01/22/2022 01/22/2023 1 1 Encounter Details Date Type Department Care Team Description 01/27/2022 Telemedicine Department of [facility] David Orlando APRN, C.N.PFrank, D.N.P. [address] [place] [phone] Medication Management Medicine in Jennifer Dexter, Pharm.D., R.Ph. [address] [place] [phone] Issue [place], [place] [address] [place] [phone] Social History Tobacco Use Types Packs/Day Years [...] do you attend yarsanism or Never 2021 adventist services? Do you belong to any clubs or Yes 08/13/2022 organizations such as yarsanism groups, unions, fraternal [...] who is contacted via real-time audio/video technologyby Douglas Clark.D., R.Ph. in [facility] to the patient in Patient's Home today by [facility] Pharmacist for comprehensive medication review. She was referred by Poonam Orlando APRN, C.N.P., D.N.P. for pharmacist management of medication/herbal interactions as outlined in bqig-im-innq/video encounter on 01/22/22. Patient was at the visit unaccompanied. The patient does not appear cognitively impaired at this visit. Patient???s purpose of visit today is medication review and interactions. She has recently experienced several medication related adverse effects, which prompted consultationwith [facility] pharmacist. Consumed a new tea containing oolong and ginseng, which potentially caused emphasized effects of her Adderall medication. She has since stopped that tea and has now resumed her Adderall regimen with regular effects. She does enjoy drinking tea and trying new varieties; she is pursuing [employer] studies education while at school. She consumes [...] needed (uses several doses weekly) and also xaeszamnihidw01 mg at night for migraine prevention. Dose of nortriptyline most recently increased in November. Excedrin migraine also noted on her medication list to be used as needed. - Asthma: Prescribed albuterol inhaler, which she uses 3-4 times weekly when factors (exercise, scents) exacerbate her asthma. Medication Adherence: Medication reconciliation was accomplished by review of all prescription medications, qtcr-sxc-mkrovry medications and vitamin and supplements from original [...] amphetamine medications as this tea may increase EMPLOYMENT PROGRAMS ANALYST effects. ?? Dragon pearls tea: Theoretically, concomitant [...] Orlando APRN, C.N.P., D. N.P. [address] [place] [phone] (Wo rk) 12/10/2022 Clinical Support Nutrition Wolf Orlando APRN, C.N.P., D.N.P. [address] [place] [phone] Jayleen Gillette M.S., RDN, LD [address] [place] [phone] documented as of this encounter Visit Diagnoses Diagnosis Medication Management Issue documented in this encounter Additional Health Concerns Assessment Noted Time PHQ-9 Depression Total Score: 12 01/20/2022 3:01 PM CD T documented as of this encounter Care Teams Experimental Electronics Developer Relationship Specialty Start Date End Date Poonam Orlando APRN, C.N.P., PCP - General Family Medicine D.N.P. [address] [place] [phone] documented as of this encounter
--- OUTSIDE RECORDS SUMMARY | 2022-09-20 02:58 | XMS_ITS | Encounter Summary ---
:2001 Author Organization [facility] Address [address] [place] [address] Care Team Providers Name Role Phone Poonam Orlando APRN, C.N.PFrank, D.N.P. Primary Care Provid er Reason for Referral Outpatient (Routine) - Closed Specialty Diagnoses / Procedures Referred By Contact Refer red To Contact Diagnoses Pain Ankle Left Poonam Orlando APRN, [facility] Procedures DX Ankle Left 3+ Views C.N.P., D.N.P. [address] [place] [address] Referral ID Status Reason Start Date Expiration Date Visits Requ ested Visits Authorized [id number] Closed 12/10/2021 12/10/2022 1 1 [address] CHAUFFEUR Reason for Visit Reason Comments Follow-up Ankle Injury Sprain (left) Migraine Outpatient (Routine) - Closed Specialty Diagnoses / Procedures Referred By Contact Refer red To Contact Family Medicine Poonam Orlando APRN, [facility] C.N.P., D.N.P. [address] [place] [address] Referral ID Status Reason Start Date Expiration Date Visits Requ ested Visits Authorized [id number] Closed 12/05/2021 12/05/2022 1 1 Encounter Details Date Type Department Care Team Description 12/10/2021 Telemedicine Department of [facility] Poonam Orlando Headache Without Aura (Primary Dx); Medicine, Jonnathan Marrufo APRN, C.N.P., Pain A nkle Left; Building, in D.N.P. Asthma Mild Intermittent (HCC); [place], [place] [address] [facility] Attention Deficit Disorder Combined Type 200 [place] [address] [phone] Social History Tobacco Use Types Packs/Day Years [...] do you attend jainism or Never 2021 evangelical services? Do you belong to any clubs or Yes 08/13/2022 organizations such as jainism groups, unions, fraternal [...] real-time audio/video technology by Poonam Orlando APRN, COLLEGE SPORTS COACH, DNP in [place], [place] to the patient in their home. [...] vision. She has been followed by an orchid worker and has appropriate eye glasses to help [...] Certainly she could be seen here at [facility] or at an urgent care facilityshould she [...] spent a total of 45 minutes in lmr-mepf-lv-face time performing a review of the record and/or discussion with the patient/caregiver as described above. PATIENT EDUCATION Ready to learn, no apparent learning barriers were identified; learning preferences include listening. ING LOT CHAUFFEUR documented in this encounter Plan of Treatment Upcoming Encounters Date Type Specialty Care Team Description 09/22/2022 Appointment Laboratory Medicine Poonam Orlando APRN, C.N.P., D. N.P. [address] [place] [phone] (Wo rk) 12/10/2022 Clinical Support Nutrition Wolf Orlando APRN, C.N.P., D.N.P. [address] [place] [phone] Jayleen Gillette M.S., RDN, LD [address] [place] [phone] documented as of this encounter Results DX Ankle Left 3+ Views (12/11/2021 2:16 PM [address] CH[place]FFEUR) Anatomical Region Laterality Modality Lower Extremity, Ankle, Musculoskeletal RST LOS, Left Computed Radiography Musculoskeletal ARZ LOS, Muskuloskeletal FLA LOS Specimen (Source) Anatomical Collection Method Collection Time Re ceived Time Location / / Volume Laterality 12/11/2021 3:00 PM [address] [place] Impressions 12/11/2021 3:09 [address] [place] Negative left ankle. No acute or healing fracture. Narrative 12/11/2021 3:09 [address] [place] EXAM: ??DX ANKLE LEFT 3+ VIEWS Procedure [...] documented as of this encounter Care Teams Compliance Engineer Relationship Specialty Start Date End Date Poonam Orlando APRN, C.N.P., PCP - General Family Medicine [place] [address] [place] [phone] documented as of this encounter
--- OUTSIDE RECORDS SUMMARY | 2022-09-20 02:58 | XMS_ITS | Encounter Summary ---
:2001 Author Organization [facility] Address [address] [place] [address] Care Team Providers Name Role Phone Pooanm Orlando APRN C.N.PFrank, D.N.P. Primary Care Provid er Encounter Details Date Type Department Care Team Description 11/08/2021 Immunization Department of Poonam Honeycutt, Medicine, [facility] SHAQ, C.N.P., D.N.P. [place], [facility], [address] [place] [address] [address] [place] [address] [phone] Social History Tobacco Use Types Packs/Day Years [...] do you attend taoism or Never 2021 taoist services? Do you belong to any clubs or Yes 08/13/2022 organizations such as taoism groups, unions, fraternal [...] Poonam Orlando APRN, C.N.P., D. N.P. [address] [place] [address] [phone] (Wo rk) 12/10/2022 Clinical Support Nutrition Wolf Orlando APRN, C.N.P., D.N.P. [address] [place] [phone] Jayleen Gillette M.S., RDN, LD [address] [place] [phone] documented as of this encounter Visit Diagnoses Not on filedocumented in this encounter Additional Health Concerns Assessment Noted Time PHQ-9 Depression Total Score: 5 12/26/2016 12:01 AM CS T documented as of this encounter Care Teams Operations Accountant Relationship Specialty Start Date End Date Poonam Orlando APRN, C.N.P., PCP - General Family Medicine D.N.P. [address] [place] [phone] documented as of this encounter
--- OUTSIDE RECORDS SUMMARY | 2022-09-20 02:58 | XMS_ITS | Encounter Summary ---
:2001 Author Organization [facility] Address [address] [place] [address] Care Team Providers Name Role Phone Poonam Orlando APRN, C.N.PFrank, D.N.P. Primary Care Provid er Reason for Referral Outpatient (Routine) - Closed Specialty Diagnoses / Procedures Referred By Contact Refer red To Contact Diagnoses Pain [facility]le [facility] Procedures DX Ankle Left 3+ Views C.N.PFrank, D.N.P. [address] [place] [phone] Referral ID Status Reason Start Date Expiration Date Visits Requ ested Visits Authorized [id number] Closed 12/10/2021 12/10/2022 1 1 RTING COORDINATOR Reason for Visit Outpatient (Routine) - Closed Specialty Diagnoses / Procedures Referred By Contact Refer red To Contact Diagnoses Pain Ankle Left [facility] Procedures DX Ankle Left 3+ Views C.N.P., D.N.P. [address] [place] [phone] Referral ID Status Reason Start Date Expiration Date Visits Requ ested Visits Authorized [id number] Closed 12/10/2021 12/10/2022 1 1 Encounter Details Date Type Department Care Team Description 12/11/2021 Hospital Encounter Department of [place], Poonam Rush n Ankle Left Radiology, Jonnathan Marrufo APRN, C.NFrankPFrank, Building, in D.N.P. [place], [place] [address] [facility] [address] [place] [address] [phone] Social History Tobacco Use Types Packs/Day Years [...] do you attend yarsani or Never 2021 adventist services? Do you [...] needed for wheezing or shortness of breath. xcrdakb-bhdmlziszalzf-sw Take 1 tablet by 0 ffeine (EXCEDRIN [...] Orlando APRN, C.N.P., D. N.P. [address] [place] [phone] (Wo rk) 12/10/2022 Clinical Support Nutrition Wolf Orlando APRN, C.N.P., D.N.P. [address] [place] [phone] Jayleen Gillette M.S., RDN, LD [address] [place] [address] [phone] documented as of this encounter Procedures Procedure Name Priority Date/Time Associated Comments Diagnosis DX ANKLE LEFT 3+ RAD - Routine 12/11/2021 2:16 Pain Ankle Left Resu lts for this VIEWS (most inpatients PM REPORTING COORDINATOR procedure a re in and all the results outpatients) section. documented in this encounter Results DX Ankle Left 3+ Views (12/11/2021 2:16 PM REPORTING COORDINATOR) Anatomical Region Laterality Modality Lower Extremity, Ankle, Musculoskeletal RST LOS, Left Computed Radiography Musculoskeletal ARZ LOS, Muskuloskeletal FLA LOS Specimen (Source) Anatomical Collection Method Collection Time Re ceived Time Location / / Volume Laterality 12/11/2021 3:00 PM REPORTING COORDINATOR Impressions 12/11/2021 3:09 PM REPORTING COORDINATOR Negative left ankle. No acute or healing fracture. Narrative 12/11/2021 3:09 PM REPORTING COORDINATOR EXAM: ??DX ANKLE LEFT 3+ VIEWS Procedure [...] documented as of this encounter Care Teams Md Allergy Immunology Relationship Specialty Start Date End Date Poonam Orlando APRN, C.N.P., PCP - General Family Medicine D.N.P. [address] [place] [address] documented as of this encounter
--- OUTSIDE RECORDS SUMMARY | 2022-09-20 02:58 | XMS_ITS | Encounter Summary ---
:2001 Author Organization [facility] Address [address] [place] [address] Care Team Providers Name Role Phone Poonam Orlando APRN, C.NTroy, D.N.P. Primary Care Provid er Encounter Details Date Type Department Care Team Description 09/16/2021 Orders Only Department of Family Devonte Nair ph, M.D. Medicine, [address], in [place], [place] [address] [place] [address] [phone] Social History Tobacco Use Types Packs/Day Years [...] do you attend hinduism or Never 2021 bahai services? Do you [...] to pay for the very basics like britebillw hat hard 08/13/2022 food, housing, medical care, [...] Poonam Orlando APRN, C.N.P., D. N.P. [address] [place] [phone] (Wo rk) 12/10/2022 Clinical Support Nutrition Wolf Orlando APRN, C.N.P., D.N.P. [address] [place] [phone] Jayleen Gillette M.S., RDN, LD [address] [place] [phone] documented as of this encounter Visit Diagnoses Not on filedocumented in this encounter Additional Health Concerns Assessment Noted Time PHQ-9 Depression Total Score: 5 12/26/2016 12:01 AM CS T documented as of this encounter Care Teams Family Consumer Scientist Relationship Specialty Start Date End Date Poonam Orlando APRN, C.N.P., PCP - General Family Medicine D.N.P. [address] [place] [phone] documented as of this encounter
--- OUTSIDE RECORDS SUMMARY | 2022-09-20 02:58 | XMS_ITS | Encounter Summary ---
:2001 Author Organization [facility] Address [address] [place] [address] Care Team Providers Name Role Phone Poonam Orlando APRN, C.N.PFrank, D.N.P. Primary Care Provid er Reason for Visit Reason Comments Communication Medications / mass Encounter Details Date Type Department Care Team Description 11/04/2021 Clinical Department of Zurdo Orlando Communication Family Medicine, Poonam Marrufo, (Medicatio ns / mass) [facility] SHAQ C.N.PFrank, in [address] [phone] Social History Tobacco Use Types Packs/Day Years [...] do you attend amish or Never 2021 yazdanism services? Do you belong to any clubs or Yes 08/13/2022 organizations such as amish groups, unions, fraternal [...] - Nicolas Ackerman - 11/04/2021 4:18 PM INDUSTRIAL MACHINE SYSTEM TECHNICIAN Caller: Claire (patient) Callback Number: [phone] Best communication method: Phone call Request/Details: Patient requesting to speak with nurse in regards to medication dosages and refills. Please contact patient to assist. Thank you. Please respond to [facility] Scheduling pool if necessary STRIAL MACHINE SYSTEM TECHNICIAN documented in this encounter Plan of Treatment Upcoming Encounters Date Type Specialty Care Team Description 09/22/2022 Appointment Laboratory Medicine Poonam Orlando APRN, C.N.P., D. N.P. [address] [place] [phone] (Wo rk) 12/10/2022 Clinical Support Nutrition Wolf Orlando APRN, C.N.P., D.N.P. [address] [place] [phone] Jayleen Gillette M.S., RDN, LD [address] [place] [phone] documented as of this encounter Visit Diagnoses Not on filedocumented in this encounter Additional Health Concerns Assessment Noted Time PHQ-9 Depression Total Score: 5 12/26/2016 12:01 AM CS T documented as of this encounter Care Teams Dry Room Attendant Relationship Specialty Start Date End Date Poonam Orlando APRN, C.N.P., PCP - General Family Medicine D.N.P. [address] [place] [phone] documented as of this encounter
--- OUTSIDE RECORDS SUMMARY | 2022-09-20 02:58 | XMS_ITS | Encounter Summary ---
:2001 Author Organization [facility] Address [address] [place] [address] Care Team Providers Name Role Phone Poonam Orlando APRN, C.N.P., D.N.P. Primary Care Provid er Reason for Visit Reason Comments Med Refill Encounter Details Date Type Department Care Team Description 11/21/2021 Refill Department of [facility] Poonam Orlando APRN, Med Refill Medicine, [facility], C.N. P., D.N.P. in [facility] [address] [place] [address] [place] [phone] [place] [phone] [phone] Social History Tobacco Use Types Packs/Day Years [...] do you attend synagogue or Never 2021 shinto services? Do you [...] this encounter Miscellaneous Notes Telephone Encounter - Benrie Escamilla R.N. - 11/21/2021 4:26 PM CST Patient notified Nortriptyline has been sent to preferred pharmacy. TY RECORDS MANAGEMENT OFFICER Telephone Encounter - Keeley Meneses I - 11/21/2021 3:51 PM CST Patient is out of meds. She thought it was sent to [facility], but it was sent to [facility] in [place]. When she called to have them transfer the med, [facility] did not have the med. Please filltoday, if possible. Caller: Patient Call back number: [phone] Name of medication: Nortriptyline Strength: 10mg Frequency: 1 cap daily Quantity: 3 mon PCP: [place] Pharmacy: [facility] City: [place] State: [place] Telephone number: Fax number: Please respond to [facility] Scheduling Pool if necessary TY RECORDS MANAGEMENT OFFICER documented in this encounter Plan of Treatment Upcoming Encounters Date Type Specialty Care Team Description 09/22/2022 Appointment Laboratory Medicine Poonam Orlando APRN, C.N.P., D. N.P. [address] [place] [phone] (Wo rk) 12/10/2022 Clinical Support Nutrition Wolf Orlando APRN, C.N.P., D.N.P. [address] [place] [address] [phone] Jayleen Gillette M.S., RDN, LD [address] [place] [address] [phone] documented as of this encounter Visit Diagnoses Diagnosis Migraine Headache Without Aura - Primary documented in this encounter Additional Health Concerns Assessment Noted Time PHQ-9 Depression Total Score: 5 12/26/2016 12:01 AM CS T documented as of this encounter Care Teams General Purchasing Agent Relationship Specialty Start Date End Date Poonam Orlando APRN, C.N.P., PCP - General Family Medicine D.N.P. [address] [place] [address] [phone] documented as of this encounter
--- OUTSIDE RECORDS SUMMARY | 2022-09-20 02:59 | XMS_ITS | Encounter Summary ---
:2001 Author Organization [facility] Address [address] [place] [address] Care Team Providers Name Role Phone Hussein Jones M.D. Primary Care Provider Unavailable Encounter Details Date Type Department Care Team Description 04/08/2021 Hospital Encounter Department of Cindi Marinelli Pain Epigastric; Laboratory Medicine C, MARKETING AND PROMOTIONS MANAGER, C.N.P., Body Mass Index 19.9 Or Less Adult and Pathology, M.S.N. [facility] in [place], [place] [address] [place] [address] Social History Tobacco Use Types Packs/Day Years [...] do you attend taoist or Never 2021 synagogue services? Do you belong to any clubs or Yes 08/13/2022 organizations such as taoist groups, unions, fraternal [...] Orlando APRN, C.N.P., D. N.P. [address] [place] [phone] (Wo rk) 12/10/2022 Clinical Support Nutrition Wolf Orlando APRN, C.N.P., D.N.P. [address] [place] [phone] Jayleen Gillette M.S., RDN, LD [address] [place] [phone] documented as of this encounter Procedures [...] are in Pain Epigastric the results section. AL AMYLASE PANCREATIC Routine 04/08/2021 9:09 Pain Epigastric [...] Transglutaminase), Antibody, IgA (04/08/2021 9:09 AM CDT) Patholo gist Method Time Signature Tissue <1.2 <4.0 04/08/2021 [facility] Transglutaminase Ab, (Negative 9:24 PM CDT IgA, S ) U/mL Specimen Anatomical Collection Method Collection Time Receive d Time (Source) Location / / Volume Laterality Blood 04/08/2021 9:09 AM 4:46 CDT PM CDT Amadeo Pink APRN.N.Rigoberto., M.S.N. LAB BLOOD ADD-ON Performing Organization Address City/State/ZIP Code Phon e Number [facility] [address] [place]HRAN [place], [place] [address] SUPPORT CENTER [facility] [place] [address] Laboratory Medicine and Pathology [address] [place] Thyroid Function [place] (04/08/2021 9:09 AM CDT) athologist Signature TSH, Sensitive 3.0 0.5 - 4.3 04/08/2021 DTL mIU/L 10:24 AM CDT Specimen Anatomical Collection Method Collection Time Receive d Time (Source) Location / / Volume Laterality Blood (Blood, 04/08/2021 9:09 AM 04/08/20 9:35 Venous) CDT AM CDT Cindi Marinelli APRN, C.N.P., M.S.N. LAB BLOOD ADD-ON Performing Organization Address City/State/ZIP Code Phon e Number [facility] - [address] [place] [phone] [facility] [place] [address] Laboratories-[facility] 200 [facility] (ABNORMAL) CBC with Differential, Blood (04/08/2021 9:09 AM CDT) [facility] Method Time Signature Hemoglobin 13.8 11.6 - [...] Address City/State/ZIP Code Phon e Number [facility] - 200 [place], [place] [address] [facility] [place] [address] [facility] 200 [facility] Celiac Disease Serology [place] (04/08/2021 9:09 AM CDT) Component Value Ref Test Analysis Performed Pathologis t Range Method Time At Signature Immunoglobulin A 230 61 - 356 04/08/2021 [facility] (IgA), S mg/dL 4:21 PM CDT Celiac Disease Negative serology. Celiac di sease unlikely. However, approximately 10% of 04/08/2021 [facility] Interpretation patients with celiac disease are seronegative. Also, patients who are already 10:44 PM adhering to a gluten-free diet may be seronegative. If patric iac disease is CDT highly clinically suspected, consider HLA-DQ typing. Specimen Anatomical Collection Method Collection Time Receive d Time (Source) Location / / Volume Laterality Blood (Blood, 04/08/2021 9:09 AM 04/08/20 1:00 Venous) CDT PM CDT Narrative [facility] [address] SUPPORT CENTE R - 04/08/2021 10:44 PM CDT Specimen Information: Specimen ID: [id number] Specimen Type: Blood Specimen Collection Start Date: 04/08/20 ??9:09 AM Specimen Received Date: 04/08/2021 ??1:0 0 PM Specimen ID: [id number] Specimen Type: Blood Specimen Collection Start Date: 04/08/20 ??9:09 AM Specimen Received Date: 04/08/2021 12:50 PM Amadeo Pink APRN.N.P., M.S.N. LAB BLOOD ADD-ON Performing Organization Address City/[facility]/ZIP [facility] Phon e Number [facility] [address] [place], [place] [address] SU[facility] [place] [address] Laboratory Medicine and Pathology [address] [place] Sedimentation Rate (04/08/2021 9:09 AM [...] M.S.N. LAB BLOOD ADD-ON Performing Organization Address City/[facility]/ZIP [facility] Phon e Number [facility] - [address] [place] [phone] [facility] [place] [address] Lipase (04/08/2021 9:09 AM CDT) P athologist Signature Lipase, S 34 13 - 60 U/L 04/08/2021 DTL 10:24 AM CDT Specimen Anatomical Collection Method Collection Time Receive d Time (Source) Location / / Volume Laterality Blood (Blood, 04/08/2021 9:09 AM 04/08/20 9:35 Venous) CDT AM CDT Cindi Marinelli APRN, Amadeo.NShaye., M.S.N. LAB BLOOD ADD-ON Performing Organization Address City/[facility] Code Phon e Number [facility] - [address] [place], [place] [address] 05 [place], [place] [phone] [place] [address] (ABNORMAL) Comprehensive Metabolic Panel (04/08/2021 9:09 AM CDT) P athologist Signature Potassium, S 5.0 3.6 - [...] 04/08/2021 DTL Black/ mL/min/BSA 10:21 AM CDT Tunisian Comment: ----ADDITIONAL INFORMATION---- Estimated GFR calculated using [...] M.S.N. LAB BLOOD ADD-ON Performing Organization Address City/[facility] Phon e Number [facility] - [address] [place], [place] [address] 05 [place] [address] Laboratories-[address] Amylase, Pancreatic (04/08/2021 9:09 AM CDT) P athologist Signature Amylase, 29 13 - 53 U/L 04/08/2021 DTL Pancreatic, S 1:42 PM CDT Specimen Anatomical Collection Method Collection Time Receive d Time (Source) Location / / Volume Laterality Blood (Blood, 04/08/2021 9:09 AM 04/08/20 Venous) CDT 10:24 AM CDT Cindi Marinelli APRN, C.N.P., M.S.N. LAB BLOOD ADD-ON Performing Organization Address City/[facility] Phon e Number [facility] - 200 [place], [place] [address] [place], [place] [phone] [place] [address] documented in this encounter Visit Diagnoses Diagnosis Pain Epigastric Body Mass Index 19.9 Or Less Adult documented in this encounter Additional Health Concerns Assessment Noted Time PHQ-9 Depression Total Score: 5 12/26/2016 12:01 AM CS T documented as of this encounter Care Teams Head Rose Grower Relationship Specialty Start Date End Date Hussein Jones M.D. PCP - General 04/19/18 04/17/21 documented as of this encounter
--- OUTSIDE RECORDS SUMMARY | 2022-09-20 02:59 | XMS_ITS | Encounter Summary ---
:2001 Author Organization [facility] Address [address] [place] [address] Care Team Providers Name Role Phone Hussein Jones M.D. Primary Care Provider Unavailable Encounter Details Date Type Department Care Team Description 04/08/2021 Orders Only Division of Community Cindi Marinelli, Elevated Liver Enzyme Pediatric and CARBURETOR EXPERT, C.N.P., Abnormal, Asp artate Adolescent Medicine, M.S.N. Transam inase, [place], in Glutami c-Oxaloacetic [place], [place] Transaminase, Alanine [address] [facility] Transaminase (Primary [place], [place] Dx) [phone] Social History Tobacco Use Types Packs/Day Years [...] you attend latter day or Never 2021 jain services? Do you [...] Poonam Orlando APRN, C.N.P., D. N.P. [address] [place] [address] [phone] (Wo rk) 12/10/2022 Clinical Support Nutrition Wolf Orlando APRN, C.N.P., D.N.P. [address] [place] [address] [phone] Jayleen Gillette M.S., RDN, LD [address] [place] [phone] documented as of this encounter Results ALT (Alanine Aminotransferase) (04/19/2021 2:37 PM CDT) [facility] gist Method Time Signature Alanine 18 7 - 45 04/19/2021 DTL Aminotransferase U/L 3:51 PM CDT (ALT), S Specimen Anatomical Collection Method Collection Time Receive d Time (Source) Location / / Volume Laterality Blood (Blood, 04/19/2021 2:37 PM 04/19/20 21 3:16 Venous) CDT PM CDT Cindi Marinelli APRN, C.N.P., M.S.N. LAB BLOOD ADD-ON Performing Organization Address City/State/ZIP Code Phon e Number [phone] [place] [address] documented in this encounter Visit Diagnoses Diagnosis Elevated Liver Enzyme Abnormal, Aspartat e Transaminase, Serum Glutamic-Oxaloacetic Transaminase, Alanine Transaminase - Wanda robles documented in this encounter Additional Health Concerns Assessment Noted Time PHQ-9 Depression Total Score: 5 12/26/2016 12:01 AM ANDREW Quesada documented as of this encounter Care Teams Remelt Worker Relationship Specialty Start Date End Date Hussein Jones M.D. PCP - General 04/19/18 04/17/21 documented as of this encounter
--- OUTSIDE RECORDS SUMMARY | 2022-09-20 02:59 | XMS_ITS | Encounter Summary ---
:2001 Author Organization [facility] Address [address] [place] [address] Care Team Providers Name Role Phone Elsewhere, Pcp Primary Care Provider Unavailable Encounter Details Date Type Department Care Team Description 04/19/2021 Hospital Encounter Department of Cindi Marinelli Liver Enzyme Laboratory Medicine C, MOLD MAKING PLASTICS SHEETS SUPERVISOR, C.N.P., Abno rmal, Aspartate and Pathology, M.S.N. Transaminase, Serum [facility] Glutamic-O xaloacetic [facility], Transaminase, Alanine [place] Transaminase [address] [place] [phone] Social History Tobacco Use Types Packs/Day Years [...] do you attend hindu or Never 2021 nondenominational services? Do you belong to any clubs or Yes 08/13/2022 organizations such as hindu groups, unions, fraternal [...] Poonam Orlando APRN, C.N.P., D. N.P. [address] [place] [address] [phone] (Wo rk) 12/10/2022 Clinical Support Nutrition Wolf Orlando APRN, C.N.P., D.N.P. [address] [place] [phone] Jayleen Gillette M.S., RDN, LD [address] [place] [phone] documented as of this encounter Procedures Procedure Name Priority Date/Time Associated Comments Diagnosis ALANINE AMINOTRANSFERASE Routine 04/19/2021 2:37 Elevated Live r Results for this (ALT), S/P PM CDT Enzyme Abnormal, procedure a re in Aspartate the results Transaminase, Serum section. Glutamic-Oxaloaceti c Transaminase, Alanine Transaminase documented in this encounter Results ALT (Alanine Aminotransferase) (04/19/2021 2:37 PM CDT) [facility] gist Method Time Signature Alanine 18 7 - 45 04/19/2021 DTL Aminotransferase U/L 3:51 PM CDT (ALT), S Specimen Anatomical Collection Method Collection Time Receive d Time (Source) Location / / Volume Laterality Blood (Blood, 04/19/2021 2:37 PM 04/19/20 3:16 Venous) CDT PM CDT Amadeo Pink APRN.N.P., M.S.N. LAB BLOOD ADD-ON Performing Organization Address City/State/ZIP Code Phon e Number [facility] - [address] [place], [place] [address] [facility] [place] [address] [facility] [address] documented in this encounter Visit Diagnoses Diagnosis Elevated Liver Enzyme Abnormal, Aspartat e Transaminase, Serum Glutamic-Oxaloacetic Transaminase, Alanine Transaminase documented in this encounter Additional Health Concerns Assessment Noted Time PHQ-9 Depression Total Score: 5 12/26/2016 12:01 AM CS T documented as of this encounter Care Teams Content Manager Relationship Specialty Start Date End Date Elsewhere, Pcp PCP - General Family Medicine 04/18/21 05/15/21 documented as of this encounter
--- OUTSIDE RECORDS SUMMARY | 2022-09-20 02:59 | XMS_ITS | Encounter Summary ---
:2001 Author Organization [facility] Address [address] [place] [address] Care Team Providers Name Role Phone Poonam Orlando APRN, C.N.P., D.N.P. Primary Care Provid er Reason for Visit Reason Comments Back Pain Neck Pain Outpatient (Routine) - Closed Specialty Diagnoses / Procedures Referred By Contact Refer red To Contact Spine Diagnoses Pain Neck Pain Low Back Unspecified [facility] C.[facility]., D.N.P. 200 [place] [address] Referral ID Status Reason Start Date Expiration Date Visits Requ ested Visits Authorized [id number] Closed 05/24/2021 05/24/2022 1 1 Encounter Details Date Type Department Care Team Description 07/02/2021 Comprehensive Visit Department of Spine Isai Neal in Pain Neck; in [facility] Angeli Donnelly, Ph.D. Pain Low Back Unspecified; [place] 200 [facility] Pain Low Back Mechanical; 200 [place], [place] Dysfunction Somatic Cervical Region; [place] [address] Dysfunction Somatic Thoracic Region; [phone] Dysfunction Somatic Pelvic R egion Social History [...] or relatives? How often do you attend religion or Never 2021 hindu services? Do you belong to any clubs or Yes 08/13/2022 organizations such as religion groups, unions, fraternal or athletic groups, or [...] place to sleep or slept in a intermediate (including now)? Education Answer Date Recorded What [...] semester of school. 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 Symptoms may also be related to extensive [...] HISTORY: Occupational History ??? Not on file Clairejoseluis Moncada reports that she has never smoked. [...] postural disorders 2. Spinal joint motion dysfunction nurse healthcare manager today for these conditions will involve manual [...] we spent 6 minutes in therapeutic exercise. [place] grade V spinal mobilization was applied today [...] Orlando APRN, C.N.P., D. N.P. [address] [place] [address] [phone] (Wo rk) 12/10/2022 Clinical Support Nutrition Wolf Orlando APRN, C.N.P., D.N.P. [address] [place] [phone] Jayleen Gillette M.S., RDN, LD [address] [place] [phone] documented as of this encounter Visit Diagnoses Diagnosis Pain Neck Pain Low Back Unspecified Pain Low Back Mechanical Dysfunction Somatic Cervical Region Dysfunction Somatic Thoracic Region Dysfunction Somatic Pelvic Region documented in this encounter Additional Health Concerns Assessment Noted Time PHQ-9 Depression Total Score: 5 12/26/2016 12:01 AM CS T documented as of this encounter Care Teams Lay Out Machine Operator Relationship Specialty Start Date End Date Poonam Orlando APRN, C.N.P., PCP - General Family Medicine D.N.P. [address] [place] [phone] documented as of this encounter
--- OUTSIDE RECORDS SUMMARY | 2022-09-20 02:59 | XMS_ITS | Encounter Summary ---
:2001 Author Organization [facility] Address [address] [place] [address] Care Team Providers Name Role Phone Hussein Jones M.D. Primary Care Provider Unavailable Reason for Visit Reason Comments COVID Inquiry Encounter Details Date Type Department Care Team Description 04/03/2021 Clinical Communication Division of [facility] Kimberlee Jones, COVID Inquiry Pediatric and M.D. Adolescent Medicine, [place], [place] [address] [place] [address] Social History Tobacco Use Types Packs/Day Years [...] do you attend confucianism or Never 2021 sabianism services? Do you belong to any clubs [...] the call?: Symptomatic (Calling PCP Office) Calling [place] PCP Office What region is the patient calling from? : [place] Have you tested positive for COVID-19 in the last 20 days? : No In the past 14 days are any of the following symptoms new to you and not related to an existing health condition?: New nausea Because of symptoms, transfer patient to: : [place] COVID Nurse Line (End Screening) Symptom Onset Date of symptom onset: 04/02/21 Testing Recommendation Endpoint Is testing recommended? : Transferred to nursing call line Plan: Endpoint recommendation: Transferred to Nursing/COVID Line/Care Team *Reminder if sending patient for testing in [facility] or [facility], route encounter to the correct testing pool. documented in this encounter Plan of Treatment Upcoming Encounters Date Type Specialty Care Team Description 09/22/2022 Appointment Laboratory Medicine Poonam Orlando APRN, C.N.P., D. N.P. [address] [place] [address] [phone] (Wo rk) 12/10/2022 Clinical Support Nutrition Wolf Orlando APRN, C.N.P., D.N.P. [address] [place] [address] [phone] Jayleen Gillette M.S., RDN, LD [address] [place] [address] [phone] documented as of this encounter Visit Diagnoses Not on filedocumented in this encounter Additional Health Concerns Assessment Noted Time PHQ-9 Depression Total Score: 5 12/26/2016 12:01 AM ANDREW T documented as of this encounter Care Teams Vault Keeper Relationship Specialty Start Date End Date Hussein Jones M.D. PCP - General 04/19/18 04/17/21 documented as of this encounter
--- OUTSIDE RECORDS SUMMARY | 2022-09-20 02:59 | XMS_ITS | Encounter Summary ---
:2001 Author Organization [facility] Address [address] [place] [phone] Care Team Providers Name Role Phone Poonam Orlando APRN, C.N.P., D.N.P. Primary Care Provid er Reason for Visit Reason Comments Other discuss recent diagnosis Appointment Request (Routine) - Closed Specialty Diagnoses / Procedures Referred By Contact Refer red To Contact Family Medicine Referral ID Status Reason Start Date Expiration Date Visits Requ ested Visits Authorized [id number] Closed 06/18/2021 06/18/2022 1 1 Encounter Details Date Type Department Care Team Description 07/05/2021 Telemedicine Department of Poonam Honeycutt [facility], Jonnathan Marrufo APRN, C.N.P., [facility], in D.N.P. Type (Primary Dx) [place], [place] 200 [facility] 200 [place] [phone] Social History Tobacco Use Types Packs/Day Years [...] do you attend cheondoism or Never 2021 sabianism services? Do you [...] real-time audio/video technology by Poonam Orlando APRN, MEASUREMENT AND SENSING TECHNICIAN, DNP in [place], [place] to the patient in their home. [...] combined type that was recently diagnosed through [facility]. These outside medical records have been [...] Combined Type Claire recently completed workup at [facility] in [place] and was found to have attention deficit [...] spent a total of 20 minutes in tja-bque-nd-face time performing a review of the record and/or discussion with the patient/caregiver as described above. PATIENT EDUCATION Ready to learn, no apparent learning barriers were identified; learning preferences include listening. documented in this encounter Plan of Treatment Upcoming Encounters Date Type Specialty Care Team Description 09/22/2022 Appointment Laboratory Medicine Poonam Orlando APRN, C.N.P., D. N.P. [address] [place] [address] [phone] (Wo rk) 12/10/2022 Clinical Support Nutrition Wolf Orlando APRN, C.N.P., D.N.P. 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 [address] [place] [address] documented as of this encounter
--- OUTSIDE RECORDS SUMMARY | 2022-09-20 02:59 | XMS_ITS | Encounter Summary ---
:2001 Author Organization [facility] Address [address] [place] [address] Care Team Providers Name Role Phone Hussein Jones M.D. Primary Care Provider Unavailable Reason for Visit Reason Comments Immunizations Annual Exam Appointment Request (Routine) - Closed Specialty Diagnoses / Procedures Referred By Contact Refer red To Contact [facility] Pediatric and Adolescent Medicine Referral ID Status Reason Start Date Expiration Date Visits Requ ested Visits Authorized [id number] Closed 05/04/2020 05/04/2021 1 1 Encounter Details Date Type Department Care Team Description 05/09/2020 Office Visit Division of [facility] Hussein Jones, [facility] Child Pediatric and M.DFrank Care Multisyst em 29 Day Adolescent Medicine, To 17 Y ear [place], in (Primar y Dx) [place], [place] [address] [place] [address] Social History Tobacco Use Types Packs/Day Years [...] do you attend pentecostal or Never 2021 voodoo services? Do you [...] to pay for the very basics like [employer] hat hard 08/13/2022 food, housing, medical care, [...] % 05/09/2020 10:31 AM CDT Growth Chart: [facility] (Girls, 2-20 Years) documented in this [...] sisters. Education: Claire was a senior at [employer]. She has been performing well in school. Will plan to go to [employer] in chemistry this fall. She appears quite [...] movements. Gait: Normal and appropriate for age Colorer Hides And Skins: No online marketing specialist. ASSESSMENT / PLAN #1 Examination Well Software Support Engineer Multisystem 29 Day To 17 Year Normal Claire Moncada is a 19 y.o. female here for a health maintenance visit. It was a pleasureto see Claire in clinic today. She is a healthy 19-year-old young woman. I wish her the best as she transitions to [employer] for college. At this time, she will [...] include listening. Explained diagnosis and treatment plan; patient/child/submarine operator expressed understanding of the content. documented in this encounter Plan of Treatment Upcoming Encounters Date Type Specialty Care Team Description 09/22/2022 Appointment Laboratory Medicine Poonam Orlando APRN, C.N.P., D. N.P. [address] [place] [address] [phone] (Wo rk) 12/10/2022 Clinical Support Nutrition Wolf Orlando APRN, C.N.P., D.N.P. [address] [place] [address] [phone] Jayleen Gillette M.S., RDN, LD [address] [place] [phone] documented as of this encounter Visit Diagnoses Diagnosis Examination Well Software Support Engineer Multisystem 29 Day To 17 Year Normal - Primary documented in this encounter Additional Health Concerns Assessment Noted Time PHQ-9 Depression Total Score: 5 12/26/2016 12:01 AM CS T documented as of this encounter Care Teams R D Engineer Relationship Specialty Start Date End Date Hussein Jones M.D. PCP - General 04/19/18 04/17/21 documented as of this encounter
--- OUTSIDE RECORDS SUMMARY | 2022-09-20 02:59 | XMS_ITS | Encounter Summary ---
:2001 Author Organization [facility] Address [address] [place] [address] Care Team Providers Name Role Phone Hussein Jones M.D. Primary Care Provider Unavailable Reason for Visit Reason Comments COVID Nurse Line Encounter Details Date Type Department Care Team Description 05/05/2020 Clinical Communication Division of Hussein Jones COVI D Nurse Line [facility] Pediatric M.D. and [place] [address] [place] [address] Social History Tobacco Use Types Packs/Day Years [...] do you attend jainism or Never 2021 baptism services? Do you [...] Poonam Orlando APRN, C.N.P., D. N.P. [address] [place] [address] [phone] (Wo rk) 12/10/2022 Clinical Support Nutrition Wolf Orlando APRN, C.N.P., D.N.P. [address] [place] [address] [phone] Jayleen Gillette M.S., RDN, LD [address] [place] [phone] documented as of this encounter Visit Diagnoses Not on filedocumented in this encounter Additional Health Concerns Assessment Noted Time PHQ-9 Depression Total Score: 5 12/26/2016 12:01 AM CS T documented as of this encounter Care Teams Percussion Instructor Relationship Specialty Start Date End Date Hussein Jones M.D. PCP - General 04/19/18 04/17/21 documented as of this encounter
--- OUTSIDE RECORDS SUMMARY | 2022-09-20 02:59 | XMS_ITS | Encounter Summary ---
:2001 Author Organization [facility] Address [address] [place] [address] Care Team Providers Name Role Phone Poonam Orlando APRN, C.N.PFrank, D.N.P. Primary Care Provid er Encounter Details Date Type Department Care Team Description 07/08/2021 Orders Only Department of [facility] Poonam Orlando, [facility] [place] [facility] C.N.PFrank, D.N.P. [facility], in [address] [phone] [place] [address] [place] [phone] Social History Tobacco Use Types Packs/Day Years [...] do you attend amish or Never 2021 scientologist services? Do you belong to any clubs [...] Poonam Orlando APRN, C.N.P., D. N.P. [address] [place] [address] [phone] (Wo rk) 12/10/2022 Clinical Support Nutrition Wolf Orlando APRN, C.N.P., D.N.P. [address] [place] [address] [phone] Jayleen Gillette M.S., RDN, LD [address] [place] [phone] documented as of this encounter Visit Diagnoses Not on filedocumented in this encounter Additional Health Concerns Assessment Noted Time PHQ-9 Depression Total Score: 5 12/26/2016 12:01 AM CS T documented as of this encounter Care Teams Protection Specialist Relationship Specialty Start Date End Date Poonam Orlando APRN, C.N.P., PCP - General Family Medicine D.N.P. [address] [place] [phone] documented as of this encounter
--- OUTSIDE RECORDS SUMMARY | 2022-09-20 02:59 | XMS_ITS | Encounter Summary ---
:2001 Author Organization [facility] Address [address] [place] [address] Care Team Providers Name Role Phone Hussein Jones M.D. Primary Care Provider Unavailable Reason for Visit Reason Comments Follow-up Encounter Details Date Type Department Care Team Description 04/04/2021 Clinical Communication Division of [facility] Cony Ojeda, Follow-up Pediatric and SHAQ C.N.P., Adolescent Medicine, [place], [place] [address] [place] [address] Social History Tobacco Use Types Packs/Day Years [...] do you attend mormonism or Never 2021 catholic services? Do you [...] ANGELA, place orders and have the front desk lead call. Belle Telephone Encounter - Tierney Koch [...] clinical judgement Telephone Encounter - Cindi Ojeda APRN C.N.Paola, M.S.N. - 04/04/2021 12:34 PM CDT Ben, Please call pt tomorrow and see how her stomach pain is today. Decreasing in frequency? Any changes in symptoms? Belle Watson documented in this encounter Plan of Treatment Upcoming Encounters Date Type Specialty Care Team Description 09/22/2022 Appointment Laboratory Medicine Poonam Orlando APRN, C.N.P., D. N.P. [address] [place] [phone] (Wo rk) 12/10/2022 Clinical Support Nutrition Wolf Orlando APRN, C.N.P., D.N.P. [address] [place] [phone] Jayleen Gillette M.S., RDN, LD [address] [place] [phone] documented as of this encounter Results Thyroid Function [place] (04/08/2021 9:09 AM CDT) P athologist Signature TSH, Sensitive 3.0 0.5 - 4.3 04/08/2021 DTL mIU/L 10:24 AM CDT Specimen Anatomical Collection Method Collection Time Receive d Time (Source) Location / / Volume Laterality Blood (Blood, 04/08/2021 9:09 AM 04/08/20 9:35 Venous) CDT AM CDT Cindi Ojeda APRN, C.N.P., M.S.N. LAB BLOOD ADD-ON Performing Organization Address City/State/ZIP Code Phon e Number [facility] - 200 [place], [place] [address] [facility] [place] [place] [address] [facility] [address] [facility] (ABNORMAL) CBC with Differential, Blood (04/08/2021 9:09 AM CDT) [facility] Method Time Signature Hemoglobin 13.8 11.6 [...] Organization Address City/State/ZIP Code Phon e Number [facility] - 200 [place], [place] [address] [facility] [place] [address] [facility] 200 [facility] Celiac Disease Serology [place] (04/08/2021 9:09 AM CDT) Component Value Ref Test Analysis Performed Pathologis t Range Method Time At Signature Immunoglobulin A 230 61 - 356 04/08/2021 [facility] (IgA), S mg/dL 4:21 PM CDT Celiac Disease Negative serology. Celiac di sease unlikely. However, approximately 10% of 04/08/2021 [facility] Interpretation patients with celiac disease are seronegative. Also, patients who are already 10:44 PM adhering to a gluten-free diet may be seronegative. If patric iac disease is CDT highly clinically suspected, consider HLA-DQ typing. Specimen Anatomical Collection Method Collection Time Receive d Time (Source) Location / / Volume Laterality Blood (Blood, 04/08/2021 9:09 AM 04/08/20 1:00 Venous) CDT PM CDT Narrative [facility] [address] [facility] - 04/08/2021 10:44 PM CDT Specimen Information: Specimen ID: [id number] Specimen Type: Blood Specimen Collection Start Date: 04/08/20 ??9:09 AM Specimen Received Date: 04/08/2021 ??1:0 0 PM Specimen ID: [id number] Specimen Type: Blood Specimen Collection Start Date: 04/08/20 ??9:09 AM Specimen Received Date: 04/08/2021 12:50 PM Amadeo Pink APRN.N.P., M.S.N. LAB BLOOD ADD-ON Performing Organization Address City/[facility]/ZIP [facility] Phon e Number [facility] [address] [place], [place] [address] [facility] [place] [address] Laboratory Medicine and Pathology [address] [...] M.S.N. LAB BLOOD ADD-ON Performing Organization Address City/[facility] Phon e Number [facility] - [address] [place], [place] [address] [place] [address] Lipase (04/08/2021 9:09 AM CDT) P athologist Signature Lipase, S 34 13 - 60 U/L 04/08/2021 DTL 10:24 AM CDT Specimen Anatomical Collection Method Collection Time Receive d Time (Source) Location / / Volume Laterality Blood (Blood, 04/08/2021 9:09 AM 04/08/20 9:35 Venous) CDT AM CDT Cindi Ojeda APRN, Amadeo.NShaye., M.S.N. LAB BLOOD ADD-ON Performing Organization Address City/State/ZIP Code Phon e Number [facility] - [address] [place], [place] [address] [place] [address] (ABNORMAL) Comprehensive Metabolic Panel (04/08/2021 9:09 [...] 04/08/2021 DTL Black/ mL/min/BSA 10:21 AM CDT [place] Islander Comment: ----ADDITIONAL INFORMATION---- Estimated GFR calculated using [...] M.S.N. LAB BLOOD ADD-ON Performing Organization Address City/[facility] Phon e Number [facility] - [address] [place], [place] [address] [place] [address] [facility] 200 [facility] Amylase, Pancreatic (04/08/2021 9:09 AM CDT) P athologist Signature Amylase, 29 13 - 53 U/L 04/08/2021 DTL Pancreatic, S 1:42 PM CDT Specimen Anatomical Collection Method Collection Time Receive d Time (Source) Location / / Volume Laterality Blood (Blood, 04/08/2021 9:09 AM 04/08/20 Venous) CDT 10:24 AM CDT Cindi Ojeda APRN, C.N.P., M.S.N. LAB BLOOD ADD-ON Performing Organization Address City/[facility] Phon e Number [facility] - [address] [place], [place] [address] [place] [address] [address] documented in this encounter Visit Diagnoses Diagnosis Body Mass Index 19.9 Or Less Adult - Wanda travis Pain Epigastric Pain Epigastric Body Mass Index 19.9 Or Less Adult documented in this encounter Additional Health Concerns Assessment Noted Time PHQ-9 Depression Total Score: 5 12/26/2016 12:01 AM CS T documented as of this encounter Care Teams Audiology Technician Relationship Specialty Start Date End Date Hussein Jones M.D. PCP - General 04/19/18 04/17/21 documented as of this encounter
--- OUTSIDE RECORDS SUMMARY | 2022-09-20 02:59 | XMS_ITS | Encounter Summary ---
:2001 Author Organization [facility] Address [address] [place] [address] Care Team Providers Name Role Phone Poonam Orlando APRN C.N.PFrank, D.N.P. Primary Care Provid er Reason for Referral Outpatient (Routine) - Closed Specialty Diagnoses / Procedures Referred By Contact Refer red To Contact Diagnoses Mabel Nail Anshu Zhou M.D. Procedures Nail Removal [address] [place] [phone] Referral ID Status Reason Start Date Expiration Date Visits Requ ested Visits Authorized [id number] Closed 06/18/2021 06/18/2022 1 1 Reason for Visit Reason Comments Ingrown Toenail Outpatient (Routine) - Closed Specialty Diagnoses / Procedures Referred By Contact Refer red To Contact Diagnoses [facility] Procedures [facility] Podiatry procedures C.N.P., D.N.P. [address] [place] [phone] Referral ID Status Reason Start Date Expiration Date Visits Requ ested Visits Authorized [id number] Closed 05/24/2021 05/24/2022 1 1 Encounter Details Date Type Department Care Team Description 06/18/2021 Procedure visit Division of [facility] MerAnshu culver Ingrown Nail Internal Medicine, [place]. [facility], in 200 [place], [place] 200 [facility] [address] [place] [phone] Social History Tobacco Use Types Packs/Day Years [...] do you attend spiritism or Never 2021 alevism services? Do you belong to any clubs [...] Orlando APRN, C.N.P., D. N.P. [address] [place], [place] [phone] (Wo rk) 12/10/2022 Clinical Support Nutrition Wolf Orlando, SHAQ, C.N.P., D.N.P. [address] [place] [phone] Jayleen Gillette M.S., RDN, LD [address] [place] [phone] documented as of this encounter Procedures Procedure [...] affected side(s)) Fraction of nail plate removed: 1/8 Number of nail plates removed: 1 Nail matrix removed or ablated: partial Nail matrix side: lateral (1/8 matrix ab lated on affected side(s)) Fraction of nail matrix removed: 1/8 Phenol & alcohol: yes (30 sec phenol [...] documented as of this encounter Care Teams Customer Support Specialist Relationship Specialty Start Date End Date Poonam Orlando APRN, C.N.P., PCP - General Family Medicine D.N.P. [address] [place] [address] documented as of this encounter
--- OUTSIDE RECORDS SUMMARY | 2022-09-20 02:59 | XMS_ITS | Encounter Summary ---
:2001 Author Organization [facility] Address [address] [place] [address] Care Team Providers Name Role Phone Hussein Jones M.D. Primary Care Provider Unavailable Reason for Referral Outpatient (Routine) - Closed Specialty Diagnoses / Procedures Referred By Contact Refer red To Contact Diagnoses Discomfort Chest Akilah Reeves M.D., [facility] Procedures ECG 12 Lead M.P.H. [address] [place] [phone] Referral ID Status Reason Start Date Expiration Date Visits Requ ested Visits Authorized [id number] Closed 03/14/2020 03/14/2021 1 1 Reason for Visit Outpatient (Routine) - Closed Specialty Diagnoses / Procedures Referred By Contact Refer red To Contact Diagnoses Discomfort Chest Akilah Reeves M.D., [facility] Procedures ECG 12 Lead M.[facility]. [address] [place] [phone] Referral ID Status Reason Start Date Expiration Date Visits Requ ested Visits Authorized [id number] Closed 03/14/2020 03/14/2021 1 1 Encounter Details Date Type Department Care Team Description 03/14/2020 Hospital Encounter Department of Akilah Reeves Dis comfort Chest RadiologyTiara M.D., M.P.H . [facility], in [place], [address] [place] [address] [address] [place], [place] [phone] (Work) [phone] Social History Tobacco Use Types Packs/Day Years [...] do you attend yarsanism or Never 2021 pentecostalism services? Do you [...] Orlando APRN, C.N.P., D. N.P. [address] [place], [place] [phone] (Wo rk) 12/10/2022 Clinical Support Nutrition OrlandoWolf APRN, C.N.P., D.N.P. [address] [place] [phone] Jayleen Gillette M.S., RDN, LD [address] [place] [phone] documented as of this encounter Procedures Procedure Name Priority Date/Time Associated Diagnosis Comme nts ECG Routine 03/14/2020 3:41 PM Discomfort Chest Resul ts for this CDT procedure are i n the results section . documented in this encounter Results ECG 12 Lead (03/14/2020 3:41 PM CDT) P athologist Signature Ventricular Rate 100 BPM MUSE ECG/Min MO Interval 136 ms MUSE QRSD Interval 86 ms MUSE QT Interval 342 ms MUSE QTC Interval 441 ms MUSE P Wilcox 81 degrees MUSE R Wilcox 54 degrees MUSE T Wave Wilcox 45 degrees MUSE Specimen Anatomical Collection Method [...] documented as of this encounter Care Teams Housing Grant Analyst Relationship Specialty Start Date End Date Hussein Jones M.D. PCP - General 04/19/18 04/17/21 documented as of this encounter
--- OUTSIDE RECORDS SUMMARY | 2022-09-20 02:59 | XMS_ITS | Encounter Summary ---
:2001 Author Organization [facility] Address [address] [place] [address] Care Team Providers Name Role Phone Hussein Jones M.D. Primary Care Provider Unavailable Reason for Visit Reason Onset Date Comments Outpatient COVID-19 Testing 03/14/2020 Encounter Details Date Type Department Care Team Description 03/14/2020 External Outreach Department of [facility], [facility] Upper Medicine, [facility] Romeo Gentile D.O. Respiratory (Primary Clinic [facility], [address] [facility] Dx) [address] [place], [place] Professional Building [address] in [facility] [phone] [place] (Work) [address] [place] [address] N [phone] [place], [place] (Fax) [phone] Social History Tobacco Use [...] do you attend scientology or Never 2021 protestant services? Do you belong to any clubs or Yes 08/13/2022 organizations such as scientology groups, unions, fraternal [...] to pay for the very basics like [employer] hat hard 08/13/2022 food, housing, medical care, [...] as of this encounter Progress Notes Ji Sheffield L.P.N. - 03/14/2020 3:12 PM CDT Encounter created for the drive-through COVID-19 testing. documented in this encounter Plan of Treatment Upcoming Encounters Date Type Specialty Care Team Description 09/22/2022 Appointment Laboratory Medicine Poonam Orlando APRN, C.N.P., D. N.P. [address] [place] [phone] (Wo rk) 12/10/2022 Clinical Support Nutrition Wolf Orlando APRN, C.N.P., D.N.P. [address] [place] [phone] Jayleen Gillette M.S., RDN, LD [address] [place] [phone] documented as of this encounter Procedures Procedure Name Priority Date/Time Associated Diagnosis Comme nts SARS CORONAVIRUS-2, Routine 03/14/2020 4:02 PM Infection Upper Results for this PCR CDT Respiratory procedure are i n the results section. documented in this encounter Results SARS Coronavirus-2, PCR Symptomatic (03/14/2020 4:02 PM CDT) Patholo gist Method Time Signature SARS Swab, 03/15/2020 DTL [...] and its performa nce characteristics determined by [facility] in a manner co nsistent with CLIA requirements. Independent review by the U.S. Food and Drug Administration is pending. Visit the CDC website: https://www.cdc.gov/coronavirus/ ?? for the most recent guidelines on Lee virus testing. Fact Sheet for Healthcare Providers: (https://www.ControlCircle/it-mmfil es/ Provider_Fact_Sheet_for_[facility]_COVI D-19.pdf) Fact Sheet for Patients: (https://www.ControlCircle/it-mmfil es/ Patient_Fact_Sheet_for_COVID-19.pdf) Specimen Anatomical Collection Method Collection Time Receive d Time (Source) Location / / Volume Laterality Varies 03/14/2020 4:02 PM 0 6:00 (Nasopharynx) CDT PM CDT Romeo Mcallister D.O. LAB MICROBIOLOGY - GENERAL O RDERABLES Performing Organization Address City/State/ZIP Code Phon e Number [facility] - [address] [place], [place] [address] [place] [address] [facility] [address] documented in this encounter Visit Diagnoses Diagnosis Infection Upper Respiratory - Primary documented in this encounter Additional Health Concerns Infection Onset Date Last Indicated Resolved Time COVID19 Pending 03/14/2020 03/14/2020 03/15/2020 7:50 PM CDT Assessment Noted Time PHQ-9 Depression Total Score: 5 12/26/2016 12:01 AM CS T documented as of this encounter Care Teams Customer Relationship Specialist Relationship Specialty Start Date End Date Hussein Jones M.D. PCP - General 04/19/18 04/17/21 documented as of this encounter
--- OUTSIDE RECORDS SUMMARY | 2022-09-20 02:59 | XMS_ITS | Encounter Summary ---
:2001 Author Organization [facility] Address [address] [place] [address] Care Team Providers Name Role Phone Hussein Jones M.D. Primary Care Provider Unavailable Encounter Details Date Type Department Care Team Description 04/05/2021 Orders Only Division of [facility] Cindi Marinelli, Pain Epigastric Pediatric and SHAQ CFrankN.PFrank, (Primary Dx) Adolescent Medicine, M.S.[place], [place] [address] [place] [address] Social History Tobacco Use Types Packs/Day Years [...] do you attend alevism or Never 2021 nondenominational services? Do you [...] or slept in a intermediate (including now)? Sex Assigned at Date Recorded Female 01/23/2022 2:50 PM CDT documented as of this encounter Plan of Treatment Upcoming Encounters Date Type Specialty Care Team Description 09/22/2022 Appointment Laboratory Medicine Poonam Orlando APRN, C.N.P., D. N.P. [address] [place] [phone] (Wo rk) 12/10/2022 Clinical Support Nutrition Wolf Orlando APRN, C.N.P., D.N.P. [address] [place] [phone] Jayleen Gillette M.S., RDN, LD [address] [place] [phone] documented as of this encounter Visit Diagnoses Diagnosis Pain Epigastric - Primary documented in this encounter Additional Health Concerns Assessment Noted Time PHQ-9 Depression Total Score: 5 12/26/2016 12:01 AM CS T documented as of this encounter Care Teams Sand Bobber Relationship Specialty Start Date End Date Hussein Jones M.D. PCP - General 04/19/18 04/17/21 documented as of this encounter
--- OUTSIDE RECORDS SUMMARY | 2022-09-20 02:59 | XMS_ITS | Encounter Summary ---
:[address] [facility] Address [address] [place] [address] Care Team Providers Name Role Phone Poonam Orlando APRN, C.N.PFrank, D.N.P. Primary Care Provid er Reason for Referral Outpatient (Routine) - Closed Specialty Diagnoses / Procedures Referred By Contact Refer red To Contact Spine Diagnoses Pain Neck Pain Low Back Unspecified Poonam Orlando APRN, [facility] C.N.P., D.N.P. [address] [place] [phone] Referral ID Status Reason Start Date Expiration Date Visits Requ ested Visits Authorized [id number] Closed 05/24/2021 05/24/2022 1 1 utpatient (Routine) - Closed Specialty Diagnoses / Procedures Referred By Contact Refer red To Contact Diagnoses Ingrown Nail Poonam Orlando APRN, [facility] Procedures FAM Podiatry procedures C.N.P., D.N.P. [address] [place] [phone] Referral ID Status Reason Start Date Expiration Date Visits Requ ested Visits Authorized [id number] Closed 05/24/2021 05/24/2022 1 1 Reason for Visit Reason Comments Other referral to [facility] Appointment Request (Routine) - Closed Specialty Diagnoses / Procedures Referred By Contact Refer red To Contact Family Medicine Referral ID Status Reason Start Date Expiration Date Visits Requ ested Visits Authorized [id number] Closed 05/16/2021 05/16/2022 1 1 Encounter Details Date Type Department Care Team Description 05/24/2021 Comprehensive Visit Department of Poonam Orlando In grown Nail (Primary Dx); Family MedicineYaron APRN, C.N.P., Pain Ne ck; Jonnathan Choi D.N.P. Pain Low Back; in [place] [address] [address] [facility] Pain Ear Bilateral; [place], [place] Asthma Mild Intermittent (HC C); [address] [address] Deficit Attention Or Concentration; [place], [place] [phone] Migraine Heada shyam Without [employer]; [phone] (Work) Pain Wrist Left [phone] Social History Tobacco Use Types Packs/Day Years [...] or relatives? How often do you attend quaker or Never 2021 christian services? Do you belong to any clubs or Yes 08/13/2022 organizations such as quaker groups, unions, fraternal or athletic groups, or [...] presents for evaluation of Other (referral to [facility]). HISTORY OF PRESENT ILLNESS 1. [facility] Claire presents with her twin sister to [facility]. She has a few acute concerns as outlined below. She will be a sophomore at [employer] this year. She is not sexually active. [...] consideration of removal of ingrown nail. - [facility] Podiatry procedures; Future; Expected date: 05/24/2021 #2 [...] Poonam Orlando APRN, C.N.P., D. N.P. [address] [place] [phone] (Wo rk) 12/10/2022 Clinical Support Nutrition Wolf Orlando APRN, C.N.P., D.N.P. [address] [place] [phone] Jayleen Gillette M.S., RDN, LD [address] [place] [phone] Scheduled Orders Name Type Priority Associated Diagnoses [facility] procedures Procedures Routine Ingrown Nail Expe [...] documented as of this encounter Care Teams Alto Singer Relationship Specialty Start Date End Date Poonam Orlando APRN, C.N.P., PCP - General Family Medicine D.N.P. [address] [place] [address] [phone] documented as of this encounter
--- OUTSIDE RECORDS SUMMARY | 2022-09-20 02:59 | XMS_ITS | Encounter Summary ---
:2001 Author Organization [facility] Address [address] [place] [address] Care Team Providers Name Role Phone Hussein Jones M.D. Primary Care Provider Unavailable Reason for Visit Reason Comments Abdominal Pain Nausea Appointment Request (Routine) - Closed Specialty Diagnoses / Procedures Referred By Contact Refer red To Contact Community Pediatric and Adolescent Medicine Referral ID Status Reason Start Date Expiration Date Visits Requ ested Visits Authorized [id number] Closed 04/03/2021 04/03/2022 1 1 Encounter Details Date Type Department Care Team Description 04/04/2021 Office Visit Division of Count Includes [facility] Cindi Marinelli, Pain Epigastric Pediatric and [place]ette [place], (Primary Dx) Adolescent Medicine, [facility] [place], [place] [address] [place] [address] Social History Tobacco Use Types Packs/Day Years [...] do you attend amish or Never 2021 zoroastrian services? Do you [...] to pay for the very basics like [employer] hat hard 08/13/2022 food, housing, medical care, [...] No one has symptoms. Summer- home from [facility] for the summer. OBJECTIVE PHYSICAL EXAMINATION VITALS: [...] Description 09/22/2022 Appointment Laboratory Medicine Poonam Orlando APRN C.N.P., D. N.P. [address] [place] [phone] (Wo rk) 12/10/2022 Clinical Support Nutrition Wolf Orlando APRN C.N.P., D.N.P. [address] [place] [phone] Jayleen Gillette M.S., RDN, LD [address] [place] [phone] documented as of this encounter Visit Diagnoses Diagnosis Pain Epigastric - Primary documented in this encounter Additional Health Concerns Assessment Noted Time PHQ-9 Depression Total Score: 5 12/26/2016 12:01 AM CS T documented as of this encounter Care Teams Twister Doffer Relationship Specialty Start Date End Date Hussein Jones M.D. PCP - General 04/19/18 04/17/21 documented as of this encounter
--- OUTSIDE RECORDS SUMMARY | 2022-09-20 02:59 | XMS_ITS | Encounter Summary ---
:2001 Author Organization [facility] Address [address] [place] [address] Care Team Providers Name Role Phone Hussein Jones M.D. Primary Care Provider Unavailable Reason for Visit Reason Comments Labs Only Encounter Details Date Type Department Care Team Description 04/05/2021 Clinical Communication Division of [facility] Cony Marinelli, Labs Only Pediatric and SHAQ C.N.P., Adolescent Medicine, M.[place], [place] [address] [place] [address] Social History Tobacco Use Types Packs/Day Years [...] do you attend mormonism or Never 2021 spiritism services? Do you [...] Poonam Orlando APRN, C.N.P., D. N.P. [address] [place] [phone] (Wo rk) 12/10/2022 Clinical Support Nutrition Wolf Orlando APRN, C.N.P., D.N.P. [address] [place] [phone] Jayleen Gillette M.S., RDN, LD [address] [place] [phone] documented as of this encounter Visit Diagnoses Not on filedocumented in this encounter Additional Health Concerns Assessment Noted Time PHQ-9 Depression Total Score: 5 12/26/2016 12:01 AM CS T documented as of this encounter Care Teams Lineman Relationship Specialty Start Date End Date Hussein Jones M.D. PCP - General 04/19/18 04/17/21 documented as of this encounter
--- OUTSIDE RECORDS SUMMARY | 2022-09-20 02:59 | XMS_ITS | Encounter Summary ---
:2001 Author Organization [facility] Address [address] [place] [address] Care Team Providers Name Role Phone Hussein Jones M.D. Primary Care Provider Unavailable Reason for Visit Reason Comments Abdominal Pain Encounter Details Date Type Department Care Team Description 04/03/2021 Nurse Triage Division of [facility] Krys Mensah R.N. Abdominal Pain Pediatric and Adolescent [address] [facility] [phone] [place] [address] [place] [phone] Social History Tobacco Use Types Packs/Day [...] do you attend lutheran or Never 2021 sabianism services? Do you belong to any clubs or Yes 08/13/2022 organizations such as lutheran groups, unions, fraternal [...] this encounter Miscellaneous Notes Telephone Encounter - Spring Mensah RFrankN. - 04/03/2021 3:27 PM CDT Chief Complaint [...] concerns, and new/worseningsymptoms. Patient was transferred to marketing project coordinator to schedule an appointment. The recommended disposition is See a health care provider within 24 hours. Reason for Disposition ??? [1] MODERATE pain (e.g., interferes with normal activities) AND [2] pain comes and goes (cramps)AND [3] present > 24 hours (Exception: pain with Vomiting or Diarrhea - see that Guideline) Protocols used: ABDOMINAL PAIN - [id number]-BX COVID-19 Nurse Line Screening ASSESSMENT PLAN Endpoint recommendation: Screening positive, patient refusing testing. Care Points: --Notify your regular care provider of any new or worsening symptoms. Education: Patient/caregiver able to teach back Patient agreeable to plan of care: Yes The following references were used: [facility] novel coronavirus (COVID- 19) resources documented in this encounter Plan of Treatment Upcoming Encounters Date Type Specialty Care Team Description 09/22/2022 Appointment Laboratory Medicine Poonam Orlando APRN, C.N.P., D. N.P. [address] [place] [phone] (Wo rk) 12/10/2022 Clinical Support Nutrition Wolf Orlando APRN, C.N.P., D.N.P. [address] [place] [phone] Jayleen Gillette M.S., RDN, LD [address] [place] [phone] documented as of this encounter Visit Diagnoses Not on filedocumented in this encounter Additional Health Concerns Assessment Noted Time PHQ-9 Depression Total Score: 5 12/26/2016 12:01 AM CS T documented as of this encounter Care Teams Smelting Engineer Relationship Specialty Start Date End Date Hussein Jones M.D. PCP - General 04/19/18 04/17/21 documented as of this encounter
--- OUTSIDE RECORDS SUMMARY | 2022-09-20 02:59 | XMS_ITS | Encounter Summary ---
:2001 Author Organization [facility] Address [address] [place] [address] Care Team Providers Name Role Phone Hussein Jones M.D. Primary Care Provider Unavailable Encounter Details Date Type Department Care Team Description 02/05/2021 Orders Only [facility] PCP [facility] MNT Bernie Mesa M.D. [address] [place], [place] [phone] (Wo rk) Social History Tobacco [...] do you attend jain or Never 2021 bahai services? Do you belong to any clubs or Yes 08/13/2022 organizations such as jain groups, unions, fraternal [...] Poonam Orlando APRN, C.N.P., D. N.P. [address] [place] [address] [phone] (Wo rk) 12/10/2022 Clinical Support Nutrition Wolf Orlando APRN, C.N.P., D.N.P. [address] [place] [phone] Jayleen Gillette M.S., RDN, LD [address] [place] [phone] documented as of this encounter Visit Diagnoses Not on filedocumented in this encounter Additional Health Concerns Assessment Noted Time PHQ-9 Depression Total Score: 5 12/26/2016 12:01 AM CS T documented as of this encounter Care Teams Project Builder Relationship Specialty Start Date End Date Hussein Jones M.D. PCP - General 04/19/18 04/17/21 documented as of this encounter
--- OUTSIDE RECORDS SUMMARY | 2022-09-20 02:59 | XMS_ITS | Encounter Summary ---
:[address] [facility] Address [address] [place] [address] Care Team Providers Name Role Phone Hussein Jones M.D. Primary Care Provider Unavailable Reason for Visit Reason Comments COVID Inquiry Encounter Details Date Type Department Care Team Description 04/17/2021 Clinical Communication Division of [facility] Kimberlee Jones, COVID Inquiry Pediatric and M.D. Adolescent Medicine, [place], [place] [address] [place] [address] Social History Tobacco Use Types Packs/Day Years [...] appointment being requested?: Less than 14 days [place] In the past 14 days are any [...] sending patient for testing in [facility] or [facility], route encounter to the correct testing pool. documented in this encounter Plan of Treatment Upcoming Encounters Date Type Specialty Care Team Description 09/22/2022 Appointment Laboratory Medicine Poonam Orlando APRN, C.N.P., D. N.P. [address] [place] [phone] (Wo rk) 12/10/2022 Clinical Support Nutrition Wolf Orlando APRN, C.N.P., D.N.P. [address] [place] [phone] Jayleen Gillette M.S., RDN, LD [address] [place] [phone] documented as of this encounter Visit Diagnoses Not on filedocumented in this encounter Additional Health Concerns Assessment Noted Time PHQ-9 Depression Total Score: 5 12/26/2016 12:01 AM ANDREW Quesada documented as of this encounter Care Teams Motocross Racer Relationship Specialty Start Date End Date Hussein Jones M.D. PCP - General 04/19/18 04/17/21 documented as of this encounter
--- OUTSIDE RECORDS SUMMARY | 2022-09-20 02:59 | XMS_ITS | Encounter Summary ---
:2001 Author Organization [facility] Address [address] [place] [address] Care Team Providers Name Role Phone Poonam Orlnado APRN, C.N.P., D.N.P. Primary Care Provid er Reason for Visit Reason Comments CSA forms mailed Encounter Details Date Type Department Care Team Description 08/09/2021 Clinical Communication Department of Poonam Orlando CSA forms mailed Family MedicineYaron APRN, C.N.P., Jonnathan Choi D.N.P. in [place], [address] [place] [address] [place] [phone] [place], [place] [phone] (Work) [phone] Social History Tobacco Use Types Packs/Day Years [...] do you attend jain or Never 2021 muslim services? Do you [...] Orlando APRN, C.N.P., D. N.P. [address] [place] [phone] (Wo rk) 12/10/2022 Clinical Support Nutrition Wolf Orlando APRN, C.N.P., D.N.P. [address] [place] [phone] Jayleen Gillette M.S., RDN, LD [address] [place] [phone] documented as of this encounter Visit Diagnoses Not on filedocumented in this encounter Additional Health Concerns Assessment Noted Time PHQ-9 Depression Total Score: 5 12/26/2016 12:01 AM CS T documented as of this encounter Care Teams Grain Farmer Relationship Specialty Start Date End Date Poonam Orlando APRN, C.N.P., PCP - General Family Medicine D.N.P. [address] [place] [address] documented as of this encounter
--- OUTSIDE RECORDS SUMMARY | 2022-09-20 03:00 | XMS_ITS | Encounter Summary ---
:2001 Author Organization [facility] Address [address] [place] [address] Care Team Providers Name Role Phone Hussein Jones M.D. Primary Care Provider Unavailable Reason for Visit Reason Comments Toe Pain right great toe, past couple weeks Appointment Request (Routine) - Closed Specialty Diagnoses / Procedures Referred By Contact Refer red To Contact Family Medicine Referral ID Status Reason Start Date Expiration Date Visits Requ ested Visits Authorized [id number] Closed 09/13/2019 09/12/2020 1 1 Encounter Details Date Type Department Care Team Description 09/14/2019 Office Visit Department of Mathieu Chapman [facility]row n Toenail MedicineLola M.D. (Primary Dx) Clinic, in [place] [address] [place], [place] [address] [address] WILIAM RODRIGUEZ [phone] (Work) [phone] Social History Tobacco Use Types Packs/Day Years [...] do you attend rastafarian or Never 2021 restorationist services? Do you belong to any clubs or Yes 08/13/2022 organizations such as rastafarian groups, unions, fraternal [...] Comments Blood Pressure 118/72 09/14/2019 3:51 PM FIBERGLASS BOAT MAKER Pulse 87 09/14/2019 3:51 PM FIBERGLASS BOAT MAKER Temperature 37 ??C (98.6 ??F) 09/14/2019 3:51 PM FIBERGLASS BOAT MAKER Respiratory Rate 16 09/14/2019 3:51 PM FIBERGLASS BOAT MAKER Oxygen Saturation - - Inhaled Oxygen Concentration - - Weight 50.8 kg (111 lb 15.9 oz) 09/14/2019 3:51 PM FIBERGLASS BOAT MAKER Height - - Body Mass Index - [...] this part of the nail removed in [place] and remembers the experience as very unpleasant. [...] do this for her here at the [facility]. She will give it more time, soak in hot water as needed, and try and cut the nail straight to crossed as it grows out, keeping it long. Patient instruction: return to clinic if not improved, or call. RGLASS BOAT MAKER documented in this encounter Plan of Treatment Upcoming Encounters Date Type Specialty Care Team Description 09/22/2022 Appointment Laboratory Medicine Poonam rOlando APRN, C.N.P., D. N.P. [address] [place] [phone] (Wo rk) 12/10/2022 Clinical Support Nutrition Wolf Orlando, ARTIFICIAL FLOWERS SUPERVISOR, C.N.P., D.N.P. [address] [place] [phone] Jayleen Gillette M.S., RDN, LD [address] [place] [phone] documented as of this encounter Visit Diagnoses Diagnosis Ingrown Toenail - Primary documented in this encounter Additional Health Concerns Assessment Noted Time PHQ-9 Depression Total Score: 5 12/26/2016 12:01 AM CS T documented as of this encounter Care Teams Bleaching Machine Operator Relationship Specialty Start Date End Date Hussein Jones M.D. PCP - General 04/19/18 04/17/21 documented as of this encounter
--- OUTSIDE RECORDS SUMMARY | 2022-09-20 03:00 | XMS_ITS | Encounter Summary ---
:2001 Author Organization [facility] Address [address] [place] [address] Care Team Providers Name Role Phone Hussein Jones M.D. Primary Care Provider Unavailable Reason for Visit Reason Comments Wrist Injury fell onto LEFT wrist causing cold sensation, numbness, tingling Appointment Request (Routine) - Closed Specialty Diagnoses / Procedures Referred By Contact Refer red To Contact Family Medicine Referral ID Status Reason Start Date Expiration Date Visits Requ ested Visits Authorized [id number] Closed 04/07/2018 04/07/2019 1 Encounter Details Date Type Department Care Team Description 04/07/2018 Office Visit Department of Family [facility], in [place] [address] [place], [place] [address] [address] WIL[place] RODRIGUEZ [phone] (Work) [phone] Social History Tobacco Use Types Packs/Day Years [...] do you attend anglican or Never 2021 episcopalian services? Do you [...] their behalf by Humberto Mayen, a trained quality engineer medical device. The creation of this record is based on the scribe's personal observations and the provider's statements to them. This document has been checked and approved by the attending provider. documented in this encounter Plan of Treatment Upcoming Encounters Date Type Specialty Care Team Description 09/22/2022 Appointment Laboratory Medicine Poonam Orlando APRN, C.N.P., D. N.P. [address] [place] [phone] (Wo rk) 12/10/2022 Clinical Support Nutrition Wolf Orlando APRN, C.N.P., D.N.P. [address] [place] [phone] Jayleen Gillette M.S., RDN, LD [address] [place] [phone] documented as of this encounter Results DX Wrist [...] as of this encounter Care Teams Plant Maintenance Supervisor Relationship Specialty Start Date End Date Hussein Jones M.D. PCP - General 04/19/18 04/17/21 documented as of this encounter
--- OUTSIDE RECORDS SUMMARY | 2022-09-20 03:00 | XMS_ITS | Encounter Summary ---
:2001 Author Organization [facility] Address [address] [place] [address] Care Team Providers Name Role Phone Unavailable Primary Care Provider Unavailable Encounter Details Date Type Department Care Team Description 02/27/2011 Hospital Encounter HX NO MAPPING Everette Beaulieu M.D. [address] [place] [phone] (Wo rk) Social History Tobacco [...] do you attend episcopal or Never 2021 anglican services? Do you [...] Beaulieu M.D. - 02/27/2011 2:45 PM CDT [id number] CLINIC ENCOUNTER SUBJECTIVE: This 10-year-old female presents [...] persist or exacerbate. Elizabeth Warren/devan cc: Source: [facility] [id number] Document Id: [id number] Electronically signed by Conversion, [facility] Director Welfare [id number] at 03/22/2017 3:49 AM CDT documented in this encounter Plan of Treatment Upcoming Encounters Date Type Specialty Care Team Description 09/22/2022 Appointment Laboratory Medicine Poonam Orlando APRN, C.N.P., D. N.P. [address] [place] [phone] (Wo rk) 12/10/2022 Clinical Support Nutrition Wolf Orlando APRN, C.N.P., D.N.P. [address] [place] [phone] Jayleen Gillette M.S., MAGALYN, LD [address] [place] [phone] documented as of this encounter Visit Diagnoses Not on filedocumented in this encounter
--- OUTSIDE RECORDS SUMMARY | 2022-09-20 03:00 | XMS_ITS | Encounter Summary ---
:2001 Author Organization [facility] Address [address] [place] [address] Care Team Providers Name Role Phone Hussein Jones M.D. Primary Care Provider Unavailable Reason for Visit Reason Comments infected big toe Appointment Request (Routine) - Closed Specialty Diagnoses / Procedures Referred By Contact Refer red To Contact Community Pediatric and Adolescent Medicine Referral ID Status Reason Start Date Expiration Date Visits Requ ested Visits Authorized [id number] Closed 09/27/2018 09/27/2019 1 1 Encounter Details Date Type Department Care Team Description 09/27/2018 Office Visit Division of [facility] Sarah Maxwell Pa ronychia Toe Right Pediatric and MFrankDFrank (Primary Dx) Adolescent Medicine, [facility], in [place], [place] [address] [place] [address] Social History Tobacco Use Types Packs/Day Years [...] do you attend congregation or Never 2021 anabaptist services? Do you [...] Comments Blood Pressure 108/62 09/27/2018 10:56 AM TELETYPE INSTALLER Pulse - - Temperature - - Respiratory Rate - - Oxygen Saturation - - Inhaled Oxygen Concentration - - Weight 49 kg (108 lb 0.4 oz) 09/27/2018 10:56 AM TELETYPE INSTALLER Height 169 cm (5' 6.54) 09/27/2018 10:56 AM TELETYPE INSTALLER Body Mass Index 17.16 09/27/2018 10:56 AM TELETYPE INSTALLER Body Mass Index Percentile 4.70 % 09/27/2018 [...] risk factors for paronychia, as per Ask [place] Expert, including trimming or aggressively pushing back [...] and anticipate 2-4 weeks for complete resolution. TYPE INSTALLER documented in this encounter Plan of Treatment Upcoming Encounters Date Type Specialty Care Team Description 09/22/2022 Appointment Laboratory Medicine Poonam Orlando APRN, C.N.P., D. N.P. [address] [place] [phone] (Wo rk) 12/10/2022 Clinical Support Nutrition Wolf Orlando APRN, C.N.P., D.N.P. [address] [place] [address] [place] [phone] Jayleen Gillette M.S., RDN, LD [address] [place] [phone] documented as of this encounter Visit Diagnoses Diagnosis Paronychia Toe Right - Primary documented in this encounter Additional Health Concerns Assessment Noted Time PHQ-9 Depression Total Score: 5 12/26/2016 12:01 AM CS T documented as of this encounter Care Teams Engineering Drawings Checker Relationship Specialty Start Date End Date Hussein Jones M.D. PCP - General 04/19/18 04/17/21 documented as of this encounter
--- OUTSIDE RECORDS SUMMARY | 2022-09-20 03:00 | XMS_ITS | Encounter Summary ---
:2001 Author Organization [facility] Address [address] [place] [address] Care Team Providers Name Role Phone Kathrine Marrufo M.D. Primary Care Provider Encounter Details Date Type Department Care Team Description 02/05/2018 Orders Only Division of Pediatric Karla Martin Alle rgy Status To Allergy & Immunology in M.D. Unspecified Drugs [place], [place] [address] [facility] Medicaments And [address] [place], [place] [phone] Social History Tobacco Use Types Packs/Day Years [...] do you attend advent or Never 2021 samaritan services? Do you belong to any clubs or Yes 08/13/2022 organizations such as advent groups, unions, fraternal [...] or slept in a snf (including now)? Sex Assigned at Date Recorded Female 01/23/2022 2:50 PM CDT documented as of this encounter Plan of Treatment Upcoming Encounters Date Type Specialty Care Team Description 09/22/2022 Appointment Laboratory Medicine Poonam Orlando APRN, C.N.P., D. N.P. [address] [place] [phone] (Wo rk) 12/10/2022 Clinical Support Nutrition Wolf Orlando APRN, C.N.P., D.N.P. [address] [place] [phone] Jayleen Gillette M.S., RDN, LD [address] [place] [phone] documented as of this encounter Visit Diagnoses Diagnosis Allergy Status To Unspecified Drugs Medi caments And Biological Substances documented in this encounter Additional Health Concerns Assessment Noted Time PHQ-9 Depression Total Score: 5 12/26/2016 12:01 AM CS T documented as of this encounter Care Teams Sampler Pickup Relationship Specialty Start Date End Date Kathrine Marrufo M.D. PCP - General Pediatrics 04/18/16 04/18/[address] [place] [phone] documented as of this encounter
--- OUTSIDE RECORDS SUMMARY | 2022-09-20 03:00 | XMS_ITS | Encounter Summary ---
:2001 Author Organization [facility] Address [address] [place] [address] Care Team Providers Name Role Phone Jerod Marrufo M.D. Primary Care Provider Encounter Details Date Type Department Care Team Description 02/04/2017 Hospital Encounter HX [facility] RW FAMILYPRA Mesha Franklin, P.A.-C. Social History Tobacco Use Types Packs/Day [...] do you attend shinto or Never 2021 pentecostal services? Do you [...] Favio Franklin - 02/04/2017 2:10 PM CDT [id number] CHIEF COMPLAINT/REASON FOR VISIT Tightness in the throat. HISTORY OF PRESENT ILLNESS She has had tightness in the throat after lunch today. She felt well this morning. She has had intermittent complaints of tightness in the chest and throat and some shortness of breath for a number of weeks or months. She has been seen by [facility], ENT, primary physician. Had a negative [...] resolved. She had a methacholine challenge at [facility] which was negative essentially ruling out asthma [...] FRANKLIN PA-C On: 02/05/2017 12:58 PM Source: [facility] [id number] Document Id: [id number] documented in this encounter Nursing Notes Jerod [...] GROSS CMA On: 02/04/2017 03:52 PM Source: [facility] POWERCHART Document Id: [id number] documented in this encounter Miscellaneous Notes Miscellaneous - Rylie Chapa L.P.N. - 02/04/2017 2:20 PM CDT Pediatric Roofer Assistant Intake/History Pediatric Roofer Assistant Intake/History Entered On: 02/04/2017 14:24 CDT Performed [...] Room During Exam/Procedure : Mother Languages : Luxembourgish Is Patient Female and 13-50 no hysterectomy [...] CHAPA LPN - 02/04/2017 14:20 CDT Source: [facility] POWERCHART Document Id: [id number] documented in this encounter Plan of Treatment Upcoming Encounters Date Type Specialty Care Team Description 09/22/2022 Appointment Laboratory Medicine Poonam Orlando APRN, C.N.P., D. N.P. [address] [place] [phone] (Wo rk) 12/10/2022 Clinical Support Nutrition Wolf Orlando APRN, C.N.P., D.N.P. [address] [place] [phone] Jayleen Gillette M.SFrank, RDN, LD [address] [place] [phone] documented as of this encounter Visit Diagnoses Not on filedocumented in this encounter Additional Health Concerns Assessment Noted Time PHQ-9 Depression Total Score: 5 12/26/2016 12:01 AM CS T documented as of this encounter Care Teams Manager Scheduling Relationship Specialty Start Date End Date Jerod Marrufo M.D. PCP - General Pediatrics 04/18/16 04/18/[address] [place] [phone] documented as of this encounter
--- OUTSIDE RECORDS SUMMARY | 2022-09-20 03:00 | XMS_ITS | Encounter Summary ---
:2001 Author Organization [facility] Address [address] [place] [address] Care Team Providers Name Role Phone Kathrine [...] do you attend voodoo or Never 2021 buddhist services? Do you belong to any clubs or Yes 08/13/2022 organizations such as voodoo groups, unions, fraternal [...] Poonam Orlando APRN, C.N.P., D. N.P. [address] [place] [address] [phone] (Wo rk) 12/10/2022 Clinical Support Nutrition Wolf Orlando APRN, C.N.P., D.N.P. [address] [place] [phone] Jayleen Gillette M.S., RDN, LD [address] [place] [phone] documented as of this encounter Procedures Procedure Name Priority Date/Time Associated Diagnosis Comme nts DX CHEST AP OR PA Routine 12/23/2016 5:03 PM Resu lts for this AND LATERAL 2 VIEWS DISTRIBUTION AGENT procedur e are in the results section. ECG Routine 12/23/2016 4:37 PM Results f or this DISTRIBUTION AGENT procedure are i n the results section. documented in this encounter Results DX Chest AP or PA and Lateral 2 Views (12/23/2016 5:03 PM DISTRIBUTION AGENT) Anatomical Region Laterality Modality Chest N/A Radiographic Imaging Specimen (Source) Anatomical Collection Method Collection Time Re ceived Time Location / / Volume Laterality 12/23/2016 5:03 PM DISTRIBUTION AGENT Impressions 12/24/2016 8:59 AM DISTRIBUTION AGENT No comparison. No focal focal consolidation, pleural effusion, or pneumothorax. Normal heart size. The bones and the upper abdomen are normal. Electronically signed by: ?? Rhys Vega MD [phone] 23-Dec-2016 17:15 I have reviewed the films/images and agr ee with the above interpretation. Electronically signed by: ?? Wilber Church MD. ??[phone] 24-Dec-2016 08:59 Narrative 12/24/2016 8:59 AM DISTRIBUTION AGENT 23-Dec-2016 17:03:00 ??Exam: Chest-- 2 Views Indications: [...] normal. Electronically signed by: Rhys Vega MD [phone] 23-Dec-2016 17:15 I have reviewed the films/images and agr ee with the above interpretation. Electronically signed by: Wilber Church MD. [phone] 24-Dec-2016 0 8:59 Mikel Smith M.D. IMG DIAGNOSTIC IMAGING [facility] ECG 12 Lead (12/23/2016 4:37 PM DISTRIBUTION AGENT) Specimen (Source) Anatomical Collection Method Collection Time Re ceived Time Location / / Volume Laterality 12/23/2016 4:37 PM [facility] RADIOLOGY SYSTEM - 12/24/2016 7:44 AM [facility] 23Dec2016 16:37 VENTRICULAR RATE 109 * Pediatric ECG Analysis * Normal sinus rhythm with sinus arrhythmi a Nonspecific T wave abnormality No previous ECGs available [id number]^EDISON ??^MIGUEL Procedure Note Miguel Paulino M.D. - 01/07/2018Forma tting of this note might be different from the original. 23Dec2016 16:37 VENTRICULAR RATE 109 * Pediatric ECG Analysis * Normal sinus rhythm with sinus arrhythmi a Nonspecific T wave abnormality No previous ECGs available [id number]^EDISON GOLDSMITH^MIGUEL Mikel Smith M.D. ECG ORDERABLES Performing Organization Address City/State/ZIP Code Phon e Number HX [facility] RADIOLOGY SYSTEM [address] [place] [address], [place] documented in this encounter Visit Diagnoses Not on filedocumented in this encounter Additional Health Concerns Assessment Noted Time PHQ-9 Depression Total Score: 1 03/23/2014 12:01 AM CD T documented as of this encounter Care Teams Radio Sportscaster Relationship Specialty Start Date End Date Kathrine Marrufo M.D. PCP - General Pediatrics 04/18/16 04/18/18 [address] [place] [address] documented as of this encounter
--- OUTSIDE RECORDS SUMMARY | 2022-09-20 03:00 | XMS_ITS | Encounter Summary ---
:2001 Author Organization [facility] Address [address] [place] [address] Care Team Providers Name Role Phone Hussein Jones M.D. Primary Care Provider Unavailable Encounter Details Date Type Department Care Team Description 09/27/2018 Nurse Triage Division of [facility]GreybullElli cmcormick R. N. Pediatric and Adolescent Medicine, [facility] potato chip maker [address] [place] [phone] Social History Tobacco Use Types Packs/Day [...] many times do you More than three siis es a week 08/13/2022 talk on the phone with family, friends, or neighbors? How often do you get together with friends Once a week 08/13/2022 or relatives? How often do you attend hoahaoism or Never 2021 faith services? Do you [...] Poonam Orlando APRN, C.N.P., D. N.P. [address] [place] [phone] (Wo rk) 12/10/2022 Clinical Support Nutrition Wolf Orlando APRN, C.N.P., D.N.P. [address] [place] [phone] Jayleen Gillette M.S., RDN, LD [address] [place] [phone] documented as of this encounter Visit Diagnoses Not on filedocumented in this encounter Additional Health Concerns Assessment Noted Time PHQ-9 Depression Total Score: 5 12/26/2016 12:01 AM CS T documented as of this encounter Care Teams Hand Roller Engraver Relationship Specialty Start Date End Date Hussein Jones M.D. PCP - General 04/19/18 04/17/21 documented as of this encounter
--- OUTSIDE RECORDS SUMMARY | 2022-09-20 03:00 | XMS_ITS | Encounter Summary ---
:2001 Author Organization [facility] Address [address] [place] [address] Care Team Providers Name Role Phone Unavailable Primary Care Provider Unavailable Encounter Details Date Type Department Care Team Description 05/14/2015 Hospital Encounter [facility]X [facility] Meron Benito M.D. [address] [place] [phone] (Wo rk) Social History Tobacco Use Types [...] do you attend taoist or Never 2021 confucianism services? Do you [...] 05/14/2015 2:27 PM CD T Growth Chart: [facility] (Girls, 2-20 Years) documented in this [...] include listening. Explained diagnosis and treatment plan; patient/child/heavy coil winder expressed understanding of the content. Electronically Signed By: ALYCE BENITO MD On: 05/14/2015 02:45 PM Source: [facility] Xueersi Document Id: [id number] documented in this encounter Miscellaneous Notes Miscellaneous [...] as per my note of today. Shirley, [facility] Source: [facility] X[employer]ers[employer] Document Id: [id number] Electronically signed by Dora [facility] Manager Relationship [phone] at 03/15/2017 10:33 PM CDT Miscellaneous - Rylie Chapa, L.P.N. - 05/14/2015 2:27 PM CDT Pediatric Communications Technician Intake/History Pediatric Communications Technician Intake/History Entered On: 05/14/2015 14:29 CDT Performed On: 05/14/2015 14:27 CDT by KATHY, RYLIE P PRACTICE MANAGERS Intake Chief Complaint : Possible sty on [...] 05/14/2015 14:27 CDT General Info Languages : East Timorese Is Patient Female and 13-50 no hysterectomy [...] CHAVEZ LPN - 05/14/2015 14:27 CDT [facility] Document Id: [id number] CDT!21 documented in this encounter Plan of Treatment Upcoming Encounters Date Type Specialty Care Team Description 09/22/2022 Appointment Laboratory Medicine Poonam Orlando APRN, C.N.P., D. N.P. [address] [place] [phone] (Wo rk) 12/10/2022 Clinical Support Nutrition Wolf rOlando APRN, C.N.P., D.N.P. [address] [place] [phone] Jayleen Gillette M.S., RDN, LD [address] [place] [phone] documented as of this encounter Visit Diagnoses Not on filedocumented in this encounter Additional Health Concerns Assessment Noted Time PHQ-9 Depression Total Score: 1 03/23/2014 12:01 AM CD T documented as of this encounter
--- OUTSIDE RECORDS SUMMARY | 2022-09-20 03:00 | XMS_ITS | Encounter Summary ---
:[address] [facility] Address [address] [place] [address] Care Team Providers Name Role Phone Unavailable Primary Care Provider Unavailable Encounter Details Date Type Department Care Team Description 06/12/2015 Hospital Encounter [facility]X [facility] Bulmaro Bo M.D. [address] [place] [phone] (Wo rk) Social History [...] do you attend rastafari or Never 2021 temple services? Do you belong to any clubs or Yes 08/13/2022 organizations such as rastafari groups, unions, fraternal [...] as of this encounter Progress Notes Shauna Machado A.B.O.C. - 06/12/2015 12:54 PM CDT Patient [...] OTOOLE MD On: 06/12/2015 01:13 PM Source: [facility] POWERCHART Document Id: [id number] Ronak Otoole M.D. - 06/12/2015 12:38 PM CDT [id number] Elizabeth is here with about a 6-week [...] OTOOLE MD On: 06/25/2015 11:46 AM Source: [facility] MHSDOLBEYNONRADSYS Document Id: [id number] documented in this encounter Miscellaneous Notes Miscellaneous - Ronak Otoole M.D. - 06/12/2015 1:23 PM CDT Ambulatory Patient Summary [facility] [address], [address] [place] [id number] Visit Information Name: ELIZABETH MONCADA [facility] Number: [id number] Current Date: 06/12/2015 13:23:26 [...] a day (at bedtime) New Routed to [address] [address] [facility] Prescription (NO ACTIVE MEDICATIONS) See Instructions Stop [...] if you dont have one. Go to [email or web address] and click on Create Your Account. Then, follow the directions to complete the online form. Youll be asked for your [facility] number which you can find at the top of this document. Your Goals/Additional instructions: Source: [facility] POWERCHART Document Id: [id number] Miscellaneous - Ronak Otoole M.D. - 06/12/2015 1:23 PM CDT Ambulatory Dis[facility] [address] [address] [place], [place] [phone] Visit Information Name: ELIZABETH MONCADA [facility] Number: [id number] Visit Date: 06/12/2015 13:23:24 [...] (at bedtime) New Routed to [facility] [place] [address] [facility] Prescription (NO ACTIVE MEDICATIONS) See Instructions Stop [...] MD Signed On:12-JUN-2015 13:23:21 Additional Information: Source: [facility] im3D Document Id: [id number] Miscellaneous - Shauna Machado A.B.DiegoCFrank - 06/12/2015 1:01 PM CDT Pediatric Payroll Bookkeeper Intake/History Pediatric Payroll Bookkeeper Intake/History Entered On: 06/12/2015 13:02 CDT Performed On: 06/12/2015 13:01 CDT by SHAUNA MACHADO Intake Chief Complaint : Bump on left lower eyelid SHAUNA MACHADO - 06/12/2015 13:01 CDT General Info Languages : Azeri Is Patient Female and 13-50 no hysterectomy : Yes Status : Patient denies Are you ? : No SHAUNA MACHADO - 06/12/2015 13:01 CDT Subjective Pain Symptoms : No SHAUNA MACHADO - 06/12/2015 13:01 CDT Dependent Habits Tobacco Use/Currently Using : No Exposure to Tobacco Smoke : Other: never Smoking Status : Never smoker SHAUNA MACHADO - 06/12/2015 13:01 CDT Source: [facility] im3D Document Id: [id number] CDT!14 documented in this encounter Plan of Treatment Upcoming Encounters Date Type Specialty Care Team Description 09/22/2022 Appointment Laboratory Medicine Poonam Orlando APRN, C.N.P., D. N.P. [address] [place] [phone] (Wo rk) 12/10/2022 Clinical Support Nutrition Wolf Orlando APRN, C.N.P., D.N.P. [address] [place] [phone] Jayleen Gillette M.S., RDN, LD [address] [place] [phone] documented as of this encounter Visit Diagnoses Not on filedocumented in this encounter Additional Health Concerns Assessment Noted Time PHQ-9 Depression Total Score: 1 03/23/2014 12:01 AM CD T documented as of this encounter
--- OUTSIDE RECORDS SUMMARY | 2022-09-20 03:00 | XMS_ITS | Encounter Summary ---
:2001 Author Organization [facility] Address [address] [place] [address] Care Team Providers Name Role Phone Hussein Jones M.D. Primary Care Provider Unavailable Encounter Details Date Type Department Care Team Description 03/14/2020 Hospital Encounter Department of Akilah Reeves Dis comfort Chest Radiology, Tiara Johnson, M.P.H . [facility], in [place], [address] [place] [address] [facility] [address] [address] [place], [place] [phone] (Work) [phone] Social History Tobacco Use Types Packs/Day Years [...] do you attend yazidi or Never 2021 restoration services? Do you belong to any clubs or Yes 08/13/2022 organizations such as yazidi groups, unions, fraternal or athletic groups, or school groups? How often do you attend meetings of the 1 to 4 times per yegilda r 08/13/2022 clubs or organizations you belong [...] Poonam Orlando APRN, C.N.P., D. N.P. [address] [place] [phone] (Wo rk) 12/10/2022 Clinical Support Nutrition Wolf Orlando APRN, C.N.P., D.N.P. [address] [place] [phone] Jayleen Gillette M.S., RDN, LD [address] [place] [phone] documented as of this encounter Procedures Procedure [...] Akilah Reeves M.D., M.P.H. IMG DIAGNOSTIC IMAGING [place] OCEDURES documented in this encounter Visit Diagnoses Diagnosis Discomfort Chest documented in this encounter Additional Health Concerns Infection Onset Date Last Indicated Resolved Time COVID19 Pending 03/14/2020 03/14/2020 03/15/2020 7:50 PM CDT Assessment Noted Time PHQ-9 Depression Total Score: 5 12/26/2016 12:01 AM CS T documented as of this encounter Care Teams Blackjack Pit Boss Relationship Specialty Start Date End Date Hussein Jones M.D. PCP - General 04/19/18 04/17/21 documented as of this encounter
--- OUTSIDE RECORDS SUMMARY | 2022-09-20 03:00 | XMS_ITS | Encounter Summary ---
:2001 Author Organization [facility] Address [address] [place] [address] Care Team Providers Name Role Phone Hussein Jones M.D. Primary Care Provider Unavailable Reason for Visit Reason Onset Date Comments Communication 05/06/2018 Encounter Details Date Type Department Care Team Description 05/06/2018 Clinical Communication Division of Pediatric Angelia Martin, Communication Allergy & Immunology M.DFrank in [address] [place] [phone] [place], [place] [phone] (Work) [phone] Social History Tobacco Use Types Packs/Day Years [...] or relatives? How often do you attend latter-day or Never 2021 jew services? Do you belong to any clubs or Yes 08/13/2022 organizations such as latter-day groups, unions, fraternal or athletic groups, or [...] this encounter Miscellaneous Notes Telephone Encounter - Radha Rody Gentile - 05/06/2018 8:46 AM CDT Information only. [...] Orlando APRN, C.N.P., D. N.P. [address] [place] [phone] (Wo rk) 12/10/2022 Clinical Support Nutrition Wolf Orlando APRN, C.N.P., D.N.P. [address] [place] [phone] Jayleen Gillette M.S., RDN, LD [address] [place] [phone] documented as of this encounter Visit Diagnoses Not on filedocumented in this encounter Additional Health Concerns Assessment Noted Time PHQ-9 Depression Total Score: 5 12/26/2016 12:01 AM CS T documented as of this encounter Care Teams Completion Manager Relationship Specialty Start Date End Date Hussein Jones M.D. PCP - General 04/19/18 04/17/21 documented as of this encounter
--- OUTSIDE RECORDS SUMMARY | 2022-09-20 03:00 | XMS_ITS | Encounter Summary ---
:2001 Author Organization [facility] Address [address] [place] [address] Care Team Providers Name Role Phone Kathrine Marrufo M.D. Primary Care Provider Encounter Details Date Type Department Care Team Description 04/07/2018 Hospital Encounter Department of Radiology Daniela Marcelo, Pain Wrist Left in Fany Davila M.D. [address] [place] [address] [place], [place] [phone] Social History Tobacco Use Types Packs/Day Years [...] do you attend faith or Never 2021 rastafarian services? Do you belong to any clubs or Yes 08/13/2022 organizations such as faith groups, unions, fraternal or athletic groups, or school groups? How often do you attend meetings of the 1 to 4 times per rhett wade 08/13/2022 clubs or organizations you belong to? [...] Poonam Orlando APRN, C.N.P., D. N.P. [address] [place] [phone] (Wo rk) 12/10/2022 Clinical Support Nutrition Wolf Orlando APRN, C.N.P., D.N.P. [address] [place] [phone] Jayleen Gillette M.S., RDN, LD [address] [place] [phone] documented as of this encounter Procedures [...] acute fracture or traumat ic malalignment. Mathieu Marcelo M.D. IMAnna DIAGNOSTIC IMAGING YAMILE SUMMERS documented in this encounter Visit Diagnoses Diagnosis Pain Wrist Left documented in this encounter Additional Health Concerns Assessment Noted Time PHQ-9 Depression Total Score: 5 12/26/2016 12:01 AM CS T documented as of this encounter Care Teams Nipping Machine Operator Relationship Specialty Start Date End Date Kathrine Marrufo M.D. PCP - General Pediatrics 04/18/16 04/18/18 [address] [place] [address] documented as of this encounter
--- OUTSIDE RECORDS SUMMARY | 2022-09-20 03:00 | XMS_ITS | Encounter Summary ---
:2001 Author Organization [facility] Address [address] [place] [address] Care Team Providers Name Role Phone Kathrine Marrufo M.D. Primary Care Provider Encounter Details Date Type Department Care Team Description 02/06/2018 Orders Only Department of Pediatric Carmella Martin M.D. Specialty in [place], [address] [place] [address] [place] [phone] [place] [phone] Social History Tobacco Use Types Packs/Day Years [...] or relatives? How often do you attend islam or Never 2021 restorationism services? Do you belong to any clubs or Yes 08/13/2022 organizations such as islam groups, unions, fraternal or athletic groups, or [...] Orlando APRN, C.N.P., D. N.P. [address] [place] [phone] (Wo rk) 12/10/2022 Clinical Support Nutrition Wolf Orlando APRN, C.N.P., D.N.P. [address] [place] [phone] Jayleen Gillette M.S., RDN, LD [address] [place] [phone] documented as of this encounter Visit Diagnoses Not on filedocumented in this encounter Additional Health Concerns Assessment Noted Time PHQ-9 Depression Total Score: 5 12/26/2016 12:01 AM CS T documented as of this encounter Care Teams Sewer Digger Relationship Specialty Start Date End Date Kathrine Marrufo M.D. PCP - General Pediatrics 04/18/16 04/18/[address] [place] [phone] documented as of this encounter
--- OUTSIDE RECORDS SUMMARY | 2022-09-20 03:00 | XMS_ITS | Encounter Summary ---
:2001 Author Organization [facility] Address [address] [place] [address] Care Team Providers Name Role Phone Hussein Jones M.D. Primary Care Provider Unavailable Reason for Visit Reason Comments Toe Pain Encounter Details Date Type Department Care Team Description 01/20/2019 Office Visit Urgent Care in [facility] Kurt Peterson [place], [place] P.A.-C. (Primary Dx) 701 [facility] [address] [place] [phone] Social History Tobacco Use Types Packs/Day [...] do you attend religion or Never 2021 oriental orthodox services? Do [...] Poonam Orlando APRN, C.N.P., D. N.P. [address] [place] [phone] (Wo rk) 12/10/2022 Clinical Support Nutrition Wolf Orlando APRN, C.N.P., D.N.P. [address] [place] [phone] Jayleen Gillette M.S., RDN, LD [address] [place] [phone] documented as of this encounter Procedures Procedure Name Priority Date/Time Associated Diagnosis Comme nts WY EXCISN INGROWN Routine 01/20/2019 4:40 PM Ingrown Nail Resu lts for this TOENAIL CDT Infected procedure are i n the results section. WY AVUL NAIL PLATE Routine 01/20/2019 4:40 PM Ingrown Nail Res ults for this SMPL CDT Infected procedure are i n the results section. documented in this encounter Results WY AVUL NAIL PLATE SMPL, WY EXCISN INGROWN TOENAIL (01/20/2019 4:40 PM CDT) Narrative MMODAL - 01/20/2019 4:40 PM CDT Kurt Peterson, PTeresa-Amadeo. ? 01/20/2019 ??6:08 PM Nail Removal Date/Time: [...] documented as of this encounter Care Teams Anesthesiologist Attending Relationship Specialty Start Date End Date Hussein Jones M.D. PCP - General 04/19/18 04/17/21 documented as of this encounter
--- OUTSIDE RECORDS SUMMARY | 2022-09-20 03:00 | XMS_ITS | Encounter Summary ---
:2001 Author Organization [facility] Address [address] [place] [address] Care Team Providers Name Role Phone Hussein Jones M.D. Primary Care Provider Unavailable Reason for Referral Outpatient (Routine) - Closed Specialty Diagnoses / Procedures Referred By Contact Refer red To Contact Diagnoses Discomfort Chest Akilah Reeves M.D., [facility] Procedures ECG 12 Lead M.P.H. [address] [place] [address] Referral ID Status Reason Start Date Expiration Date Visits Requ ested Visits Authorized [id number] Closed 03/14/2020 03/14/2021 1 1 Reason for Visit Reason Comments Cough Other Chest concerns Appointment Request (Routine) - Closed Specialty Diagnoses / Procedures Referred By Contact Refer red To Contact Family Medicine Referral ID Status Reason Start Date Expiration Date Visits Requ ested Visits Authorized [id number] Closed 03/14/2020 03/14/2021 1 1 Encounter Details Date Type Department Care Team Description 03/14/2020 Office Visit Department of Akilah Lew Di [place] Chest (Primary Dx); Medicine, [facility], M.P. H. Shortness Of Breath; [facility], [address] [facility] [address] Professional [facility] in [place], [address] [place] [address] (Work) [place], [place] [phone] (Fax) [phone] Social History Tobacco Use Types Packs/Day Years [...] you attend latter day or Never 2021 mormonism services? Do you belong to any clubs [...] slept in a care home (including now)? Sex Assigned at Date [...] made it difficulty for her to practice [employer]. She called sick into work this week due to fatigue. She has tried ibuprofen and tylenol, which helped with sinus pain but did not impact her chest heaviness/discomfort. Covid contacts: none; works at [employer] but no close contacts Claire had a similar episode of dyspnea and anterior chest discomfort for which she was seen in the ED 12/23/16. 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 At that time, she was [...] for vocal therapy with Dr. Golden in NURSE [facility]ACTICAL. She was also evaluated in Allergy in [...] Orlando APRN, C.N.P., D. N.P. [address] [place] [phone] (Wo rk) 12/10/2022 Clinical Support Nutrition Wolf Orlando APRN, C.N.P., D.N.P. [address] [place] [phone] Jayleen Gillette M.S., RDN, LD [address] [place] [phone] documented as of this encounter Results DX Chest [...] Akilah Reeves M.D., M.P.H. IMG DIAGNOSTIC IMAGING [place] OCEDURES ECG 12 Lead (03/14/2020 3:41 PM CDT) P athologist Signature Ventricular Rate 100 BPM MUSE ECG/Min [place] Interval 136 ms MUSE QRSD Interval 86 ms MUSE QT Interval 342 ms MUSE QTC Interval 441 ms MUSE P [place] 81 degrees MUSE R [place] 54 degrees MUSE T Wave [place] 45 degrees MUSE Specimen Anatomical Collection Method [...] as of this encounter Care Teams Team Foreman Relationship Specialty Start Date End Date Hussein Jones M.D. PCP - General 04/19/18 04/17/21 documented as of this encounter
--- OUTSIDE RECORDS SUMMARY | 2022-09-20 03:00 | XMS_ITS | Encounter Summary ---
:2001 Author Organization [facility] Address [address] [place] [address] Care Team Providers Name Role Phone Jerod Marrufo M.D. Primary Care Provider Encounter Details Date Type Department Care Team Description 12/24/2016 Hospital Encounter HX [facility] INTERNJosephine Aguilar M.D. [address] [place] [address] (Wo rk) Social History Tobacco [...] do you attend jew or Never 2021 christian services? Do you [...] (112 lb 14 oz) 12/24/2016 11:29 AM CUSTOMER ENGAGEMENT SPECIALIST Height - - Body Mass Index - - documented in this encounter Progress Notes Alia Nuñez M.D. - 12/24/2016 11:38 AM CST Clinic Full Note CHIEF COMPLAINT/REASON FOR VISIT ER follow-up [facility] HISTORY OF PRESENT ILLNESS Elizabeth is a previously healthy 16 year old who presents with her mom and sister 24 hours after a ED visit at [facility] for chest pain and shortness of breath. [...] NUÑEZ MD On: 12/24/2016 05:47 PM Source: [facility] POWERCHART Document Id: [id number] OMER ENGAGEMENT SPECIALIST documented in this encounter Procedure Notes Conversion, Historical Provider Ser - 12/25/2016 12:34 PM CST Procedure Documentation Procedure Documentation Entered On: 12/25/2016 12:38 CUSTOMER ENGAGEMENT SPECIALIST Performed On: 12/25/2016 12:34 CUSTOMER ENGAGEMENT SPECIALIST by HANNAH --KIRKFER M Checklist Amb/Home Prep Complete Surgical/Procedure Consent Signed : Roseanne YOUNG --FER - 12/25/2016 12:34 CUSTOMER ENGAGEMENT SPECIALIST Cardiology Procedure Monitor Type : Holter 48 Hr - local Return to Clinic : patient will return monitor to Clinic HANNAH -FER Farooq - 12/25/2016 12:34 CUSTOMER ENGAGEMENT SPECIALIST Advance Directive Advanced Directives : No Advance Directive Additional Information : No HANNAH --FER - 12/25/2016 12:34 CUSTOMER ENGAGEMENT SPECIALIST Source: [facility] Document Id: [id number] CUSTOMER ENGAGEMENT SPECIALIST!10 documented in this encounter Miscellaneous Notes Naidacellaneous [...] Type Result Name 12/31/2016 16:56 Document - [facility] Holter Monitor [facility] Document Id: [id number] Electronically signed by Conversion, [facility] Box Sealing Inspector [id number] at 03/31/2017 6:26 AM CDT Miscellaneous - Alia Nuñez M.D. - 12/24/2016 12:03 PM CST School Excuse December 24, 2016 ELIZABETH MONCADA [address] [facility] [id number] Dear ELIZABETH MONCADA, You were examined in [...] breath is resolved. Sincerely, ALIA NUÑEZ [address] [place] [address] Electronic Signature Electronically Signed By: ALIA NUÑEZ MD On: December 24, 2016 This document has images extracted. Source: [facility] POWERCHART Document Id: [id number] Miscellaneous - Jerod Gross, C.MFrankA. - 12/24/2016 11:29 AM CST Pediatric Surgical Supply Assistant Intake/History Pediatric Surgical Supply Assistant Intake/History Entered On: 12/24/2016 11:30 CUSTOMER ENGAGEMENT SPECIALIST Performed On: 12/24/2016 11:29 CUSTOMER ENGAGEMENT SPECIALIST by JEROD GROSS [facility] Intake Chief Complaint : ER follow-up [place] SOB Temperature Core : 36.6 DegC(Converted to: 97.9 DegF) Peripheral Pulse Rate : 90 /min Systolic Blood Pressure : 97 mmHg Diastolic Blood Pressure : 59 mmHg NIBP Mean : 72 mmHg Actual Weight : 51.2 kg(Converted to: 112 lb 14 oz) Dosing Weight Clinic : 51.2 kg JEROD GROSS CMA - 12/24/2016 11:29 CUSTOMER ENGAGEMENT SPECIALIST General Info Languages : Scottish Is Patient Female and 13-50 no hysterectomy : Yes Status : Patient denies Are you ? : No JEROD GROSS CMA - 12/24/2016 11:29 CUSTOMER ENGAGEMENT SPECIALIST Subjective Pain Symptoms : No JEROD GROSS CMA - 12/24/2016 11:29 CUSTOMER ENGAGEMENT SPECIALIST Dependent Habits Exposure to Tobacco Smoke : Other: never Smoking Status : Never smoker Tobacco 2A : No Tobacco Use/Currently Using : No Tobacco Use/Last 30 Days : No Tobacco Use/Last 12 months : No JEROD GROSS WATER QUALITY ASSISTANT - 12/24/2016 11:29 CUSTOMER ENGAGEMENT SPECIALIST Source: [facility] POWERCHART Document Id: [id number] CUSTOMER ENGAGEMENT SPECIALIST!24 OMER ENGAGEMENT SPECIALIST documented in this encounter Plan of Treatment Upcoming Encounters Date Type Specialty Care Team Description 09/22/2022 Appointment Laboratory Medicine Poonam Orlando APRN, C.N.P., D. N.P. [address] [place] [address] [phone] (Wo rk) 12/10/2022 Clinical Support Nutrition Wolf Orlando APRN, C.N.P., D.N.P. [address] [place] [phone] Jayleen Gillette M.S., RDN, LD [address] [place] [phone] documented as of this encounter Procedures Procedure Name Priority Date/Time Associated Comments Diagnosis HEMOGLOBIN (HGB), Routine 12/24/2016 12:15 PM Res ults for this POCT, B CUSTOMER ENGAGEMENT SPECIALIST procedure are i n the results section. documented in this encounter Results Hemoglobin (HGB), POCT (12/24/2016 12:15 PM CUSTOMER ENGAGEMENT SPECIALIST) P athologist Signature Hemoglobin 14.2 12.2 - 14.8 POWERCHART GDL Specimen Anatomical Collection Method Collection Time Receive d Time (Source) Location / / Volume Laterality Blood 12/24/2016 12:15 12/24/2016 PM CUSTOMER ENGAGEMENT SPECIALIST 12:21 PM CUSTOMER ENGAGEMENT SPECIALIST Alia Nuñez M.D. LAB POCT ORDERABLES - DEVICE Performing Organization Address City/State/ZIP Code Phon e Number POWERCHART documented in this encounter Visit Diagnoses Not on filedocumented in this encounter Additional Health Concerns Assessment Noted Time PHQ-9 Depression Total Score: 1 03/23/2014 12:01 AM CD T documented as of this encounter Care Teams Jacker Feeder Relationship Specialty Start Date End Date Jerod Marrufo M.D. PCP - General Pediatrics 04/18/16 04/18/18 [address] [place] [address] documented as of this encounter
--- OUTSIDE RECORDS SUMMARY | 2022-09-20 03:00 | XMS_ITS | Encounter Summary ---
:2001 Author Organization [facility] Address [address] [place] [address] Care Team Providers Name Role Phone Hussein Jones M.D. Primary Care Provider Unavailable Reason for Visit Reason Onset Date Comments Outpatient COVID-19 Testing 03/09/2020 Encounter Details Date Type Department Care Team Description 03/09/2020 External Outreach Department of [facility] Gaby Ahuja M.D. Infection Upper Medicine, [place] Terry Ahuja, P.A.-C. [address] [place] [address] Respiratory (Primary Clinic, in [place], [place]) [address] [phone] Social History Tobacco Use Types [...] you attend jehovah's witness or Never 2021 jain services? Do you belong to any clubs or Yes 08/13/2022 organizations such as jehovah's witness groups, unions, [...] Poonam Orlando APRN, C.N.P., D. N.P. [address] [place] [address] [phone] (Wo rk) 12/10/2022 Clinical Support Nutrition Wolf Orlando APRN, C.N.P., D.N.P. [address] [place] [phone] Jayleen Gillette M.S., RDN, LD [address] [place] [phone] documented as of this encounter Procedures Procedure Name Priority Date/Time Associated Diagnosis Comme nts SARS CORONAVIRUS-2, Routine 03/09/2020 3:10 PM Infection Upper Results for this PCR CDT Respiratory procedure are i n the results section. documented in this encounter Results SARS Coronavirus-2, PCR Symptomatic (03/09/2020 3:10 PM CDT) [facility] Method Time Signature SARS Swab, 03/10/2020 [...] and its performa nce characteristics determined by [facility] in a manner co nsistent with CLIA requirements. Independent review by the U.S. Food and Drug Administration is pending. Visit the CDC website: https://www.cdc.gov/coronavirus/ ?? for the most recent guidelines on Lee virus testing. Fact Sheet for Healthcare Providers: (https://www.Cswitch/it-mmfil es/ Provider_Fact_Sheet_for_[place]_COVI D-19.pdf) Fact Sheet for Patients: (https://www.BoatSetter.[employer]it-mmfil es/ Patient_Fact_Sheet_for_COVID-19.pdf) Specimen Anatomical Collection Method Collection Time Receive d Time (Source) Location / / Volume Laterality Varies 03/09/2020 3:10 PM 0 7:34 (Nasopharynx) CDT PM CDT Terry Ahuja P.A.-C. LAB MICROBIOLOGY - GENERAL O RDERABLES Performing Organization Address City/State/ZIP Code Phon e Number [facility] - [address] [place], [place] [address] [place] [address] [facility] [address] documented in this encounter Visit Diagnoses Diagnosis Infection Upper Respiratory - Primary documented in this encounter Additional Health Concerns Infection Onset Date Last Indicated Resolved Time COVID19 Pending 03/09/2020 03/09/2020 03/10/2020 6:52 PM CDT Assessment Noted Time PHQ-9 Depression Total Score: 5 12/26/2016 12:01 AM CS T documented as of this encounter Care Teams Corridor Redevelopment Manager Relationship Specialty Start Date End Date Hussein Jones M.D. PCP - General 04/19/18 04/17/21 documented as of this encounter
--- OUTSIDE RECORDS SUMMARY | 2022-09-20 03:00 | XMS_ITS | Encounter Summary ---
:2001 Author Organization [facility] Address [address] [place] [address] Care Team Providers Name Role Phone Kathrine [...] do you attend alevism or Never 2021 orthodox services? Do you [...] Poonam Orlando APRN, C.N.P., D. N.P. [address] [place] [address] [phone] (Wo rk) 12/10/2022 Clinical Support Nutrition Wolf Orlando APRN, C.N.P., D.N.P. [address] [place] [phone] Jayleen Gillette M.S., RDN, LD [address] [place] [phone] documented as of this encounter Visit Diagnoses Not on filedocumented in this encounter Additional Health Concerns Assessment Noted Time PHQ-9 Depression Total Score: 5 12/26/2016 12:01 AM CS T documented as of this encounter Care Teams Rn Allergy Relationship Specialty Start Date End Date Kathrine Marrufo M.D. PCP - General Pediatrics 04/18/16 04/18/[address] [place] [phone] documented as of this encounter
--- OUTSIDE RECORDS SUMMARY | 2022-09-20 03:00 | XMS_ITS | Encounter Summary ---
:2001 Author Organization [facility] Address [address] [place] [address] Care Team Providers Name Role Phone Unavailable Primary Care Provider Unavailable Encounter Details Date Type Department Care Team Description 12/27/2015 Hospital Encounter HX [facility] Meron Benito M.D. [address] [place] [phone] (Wo rk) Social History Tobacco Use Types [...] do you attend rastafari or Never 2021 adventist services? Do you [...] or slept in a penitentiary (including now)? Sex Assigned at Date Recorded Female 01/23/2022 2:50 PM CDT documented as of this encounter Last Filed Vital Signs Vital Sign Reading Time Taken Comments Blood Pressure - - Pulse - - Temperature - - Respiratory Rate - - Oxygen Saturation - - Inhaled Oxygen Concentration - - Weight 46.5 kg (102 lb 8.2 oz) 12/27/2015 4:[address] SAFETY ENGINEER Height 165 cm (5' 4.96) 12/27/2015 4:[address] SAFETY ENGINEER Body Mass Index 17.08 12/27/2015 4:[address] SAFETY ENGINEER Body Mass Index Percentile 15.85 % 12/27/2015 4:31 PM CS T Growth Chart: [facility] (Girls, 2-20 Years) documented in this encounter Progress Notes Alyce Benito M.D. - 12/27/2015 4:57 PM CST Clinic Full Note - sports physical CHIEF COMPLAINT/REASON FOR VISIT sports pe HISTORY OF PRESENT ILLNESS Claire Washington) is here with her father, Dong, for sports physical. She will be participating [email or web address] form is filled out [...] include listening. Explained diagnosis and treatment plan; patient/child/prick stitcher expressed understanding of the content. Electronically Signed By: ALYCE BENITO MD On: 12/27/2015 05:02 PM Source: [facility] POWERCHART Document Id: [id number] WAY SAFETY ENGINEER documented in this encounter Miscellaneous Notes Miscellaneous - Sakina Wolfe L.P.N. - 12/27/2015 4:31 PM CST Pediatric Pearl Digger Intake/History Pediatric Pearl Digger Intake/History Entered On: 12/27/2015 16:[address] SAFETY ENGINEER Performed On: 12/27/2015 16:[address] SAFETY ENGINEER by SAKINA WOLFE LYE TREATER Intake Chief Complaint : sports pe Peripheral [...] kg/m2 SAKINA WOLFE LPN - 12/27/2015 16:[address] SAFETY ENGINEER General Info Present in Room During Exam/Procedure : Father Languages : Urdu Is Patient Female and 13-50 no hysterectomy : Yes Status : Patient denies Are you ? : No SAKINA WOLFE LPN - 12/27/2015 16:[address] SAFETY ENGINEER Subjective Pain Symptoms : No SAKINA WOLFE LPN - 12/27/2015 16:[address] SAFETY ENGINEER Dependent Habits Exposure to Tobacco Smoke : Other: never Smoking Status : Never smoker Tobacco 2A : No Tobacco Use/Currently Using : No Tobacco Use/Last 30 Days : No Tobacco Use/Last 12 months : No SAKINA WOLFE LPN - 12/27/2015 16:[address] SAFETY ENGINEER Source: [facility] POWERCHART Document Id: [id number] HIGHWAY SAFETY ENGINEER![address] WAY SAFETY ENGINEER documented in this encounter Plan of Treatment Upcoming Encounters Date Type Specialty Care Team Description 09/22/2022 Appointment Laboratory Medicine Poonam Orlando APRN, C.N.P., D. N.P. [address] [place] [phone] (Wo rk) 12/10/2022 Clinical Support Nutrition Wolf Orlando APRN C.N.P., D.N.P. [address] [place] [phone] Jayleen Gillette M.S., RDN, LD [address] [place] [phone] documented as of this encounter Visit Diagnoses Not on filedocumented in this encounter Additional Health Concerns Assessment Noted Time PHQ-9 Depression Total Score: 1 03/23/2014 12:01 AM CD T documented as of this encounter
--- OUTSIDE RECORDS SUMMARY | 2022-09-20 03:00 | XMS_ITS | Encounter Summary ---
:2001 Author Organization [facility] Address [address] [place] [address] Care Team Providers Name Role Phone Hussein Jones M.D. Primary Care Provider Unavailable Reason for Visit Reason Comments Order for [facility] [place] [facility] Encounter Details Date Type Department Care Team Description 03/14/2020 Clinical Communication Division of Hussein Jones Orde r for [facility] Pediatric M.DFrank and Adolescent Medicine[place], [place] [address] [place] [address] Social History Tobacco Use Types Packs/Day Years [...] do you attend bahai or Never 2021 rastafarian services? Do you belong to any clubs or Yes 08/13/2022 organizations such as bahai groups, unions, fraternal or athletic groups, or [...] AM CDT Order placed for visit at [facility] [place] [facility] for respiratory symptoms. documented in this encounter Plan of Treatment Upcoming Encounters Date Type Specialty Care Team Description 09/22/2022 Appointment Laboratory Medicine Poonam Orlando APRN, C.N.P., D. N.P. [address] [place] [phone] (Wo rk) 12/10/2022 Clinical Support Nutrition Wolf Orlando APRN, C.N.P., D.N.P. [address] [place] [phone] Jayleen Gillette M.S., RDN, LD [address] [place] [phone] documented as of this encounter Visit Diagnoses Not on filedocumented in this encounter Additional Health Concerns Assessment Noted Time PHQ-9 Depression Total Score: 5 12/26/2016 12:01 AM CS T documented as of this encounter Care Teams Deck Specialist Relationship Specialty Start Date End Date Hussein Jones M.D. PCP - General 04/19/18 04/17/21 documented as of this encounter
--- OUTSIDE RECORDS SUMMARY | 2022-09-20 03:00 | XMS_ITS | Encounter Summary ---
:2001 Author Organization [facility] Address [address] [place] [address] Care Team Providers Name Role Phone Hussein Jones M.D. Primary Care Provider Unavailable Reason for Visit Reason Comments Triage Encounter Details Date Type Department Care Team Description 03/14/2020 Nurse Triage Division of [facility], [facility] [address] [place], [place] [address] [facility] [address] [place] [phone] Social History Tobacco Use Types Packs/Day Years [...] do you attend synagogue or Never 2021 sabianist services? Do you [...] Orlando APRN, C.N.P., D. N.P. [address] [place] [phone] (Wo rk) 12/10/2022 Clinical Support Nutrition Wolf Orlando APRN, C.N.P., D.N.P. [address] [place] [phone] Jayleen Gillette M.S., RDN, LD [address] [place] [phone] documented as of this encounter Visit Diagnoses Not on filedocumented in this encounter Additional Health Concerns Assessment Noted Time PHQ-9 Depression Total Score: 5 12/26/2016 12:01 AM CS T documented as of this encounter Care Teams Integrity Engineer Relationship Specialty Start Date End Date Hussein Jones M.D. PCP - General 04/19/18 04/17/21 documented as of this encounter
--- OUTSIDE RECORDS SUMMARY | 2022-09-20 03:00 | XMS_ITS | Encounter Summary ---
:2001 Author Organization [facility] Address [address] [place] [address] Care Team Providers Name Role Phone Hussein Jones M.D. Primary Care Provider Unavailable Reason for Visit Reason Comments COVID Nurse Line cough, short of breath, fati malachi Encounter Details Date Type Department Care Team Description 03/09/2020 Nurse Triage Department of [facility] Susan Will COVID Nurse Line [facility] (cough, short of Clinic, in [place], [address] breath, fatigue) [place], [place] [address] [address] [place] [address] [phone] Social History Tobacco Use Types Packs/Day Years [...] do you attend restorationism or Never 2021 christian services? Do you belong to any clubs or Yes 08/13/2022 organizations such as restorationism groups, unions, fraternal [...] to be swabbed for COVID-19, sent to [place], [place] Care Points provided: RECOMMENDATIONS TESTING CRITERIA [...] if any new or worseningsymptoms. Education Resources: https://www.cdc.gov/coronavirus/2019-ncov/yn-qid-dbf-sick/olmsz-yffj-laww.html SELF CARE FOR ALL PATIENTS: In these [...] care: Yes The following references were used: [facility] novel coronavirus (COVID- 19) resources documented in this encounter Plan of Treatment Upcoming Encounters Date Type Specialty Care Team Description 09/22/2022 Appointment Laboratory Medicine Poonam Orlando APRN, C.N.P., D. N.P. [address] [place] [phone] (Wo rk) 12/10/2022 Clinical Support Nutrition Wolf Orlando APRN, C.N.P., D.N.P. [address] [place] [phone] Jayleen Gillette M.S., RDN, LD [address] [place] [phone] documented as of this encounter Visit Diagnoses Not on filedocumented in this encounter Additional Health Concerns Assessment Noted Time PHQ-9 Depression Total Score: 5 12/26/2016 12:01 AM ANDREW T documented as of this encounter Care Teams Nursing Educator Relationship Specialty Start Date End Date Hussein Jones M.D. PCP - General 04/19/18 04/17/21 documented as of this encounter
--- OUTSIDE RECORDS SUMMARY | 2022-09-20 03:01 | XMS_ITS | Clinical Summary ---
:2001 Author Organization [facility] [place] [address] Care Team Providers Name Role Phone Pcp, [...] Comments Blood Pressure 122/86 09/21/2021 11:23 AM SECY Pulse 98 09/21/2021 11:23 AM SECY Temperature 36.9 ??C (98.5 ??F) 09/21/2021 11:23 AM SECY Respiratory Rate 16 09/21/2021 11:23 AM SECY Oxygen Saturation 100% 09/21/2021 11:23 AM SECY Inhaled Oxygen Concentration - - Weight 48.1 kg (106 lb) 09/21/2021 11:23 AM SECY Height - - Body Mass Index - - Plan of Treatment Health Maintenance Due Date Last Done Comments HPV series for age 9-26 (1 - 2012 2-dose series) Tdap 2012 Depression screening for age 1109/15/2013 12+ HIV for age 15-65 2016 BMI (ht and wt on same day) 2019 for age 18+ Hepatitis C screening for age 1109/15/2019 18-79 Tetanus booster 2021 COVID-19 vaccine series (4 - 01/03/2022 11/08/2021, Booster for Pfizer series) 02/28/2021, 02/07/2021 Influenza for age 9-49 06/19/2022 Pap test for age 21-65 2022 Meningococcal series for age Aged Out No longer eligible based 09-08 on patient's age to complete this to pic Results Not on filefrom Last 3 Months Insurance Payer Benefit Plan / Subscriber ID Effective Dates Phone Addre ss Type Group [facility] SHARED [id number] 2018-Presen [address] [address] [place] [address] MEDICAID [place]ICA[place] [id number] 2020-Prese [address] [place] [address] Care Teams Wet Plant Operator Relationship Specialty Start Date End Date Pcp, No PCP - General 03/21/21 .
--- OUTSIDE RECORDS SUMMARY | 2022-09-20 03:01 | XMS_ITS | Encounter Summary ---
:2001 Author Organization [facility] Address [address] [place] [address] Care Team Providers Name Role Phone Unavailable [...] do you attend orthodox or Never 2021 alevism services? Do you belong to any clubs or Yes 08/13/2022 organizations such as orthodox groups, unions, fraternal [...] or slept in a alf (including now)? Sex Assigned at Date Recorded Female 01/23/2022 2:50 PM CDT documented as of this encounter Plan of Treatment Upcoming Encounters Date Type Specialty Care Team Description 09/22/2022 Appointment Laboratory Medicine Poonam Orlando APRN, C.N.P., D. N.P. [address] [place] [phone] (Wo rk) 12/10/2022 Clinical Support Nutrition Wolf Orlando APRN, C.N.P., D.N.P. [address] [place] [phone] Jayleen Gillette M.S., RDN, LD [address] [place] [phone] documented as of this encounter Procedures Procedure Name Priority Date/Time Associated Diagnosis Comme nts ABORH , RBC Routine 2001 3:30 PM Res ults for this PHYSICIAN OFFICE CLIN ASST procedure are i n the results section. documented in this encounter Results ABORh (2001 3:30 PM PHYSICIAN OFFICE CLIN ASST) Specimen Anatomical Collection Method Collection Time Receive d Time (Source) Location / / Volume Laterality 2001 3:30 PM 1 7:23 PHYSICIAN OFFICE CLIN ASST PM PHYSICIAN OFFICE CLIN ASST Narrative [facility] 2001 3:30 PM PHYSICIAN OFFICE CLIN ASST 2001 ?[id number] ?Ro ?15:30 ?? ABO Order: ?ABO/RH ? A POS ?KATTY ?Neg ? Procedure Note 02/03/2018 2001 [id number] Ro 15:30 Nelson ABO Order: ABO/RH A POS KATTY Neg Historical Provider LAB BLOOD BANK TEST ORDERABL ES Performing Organization Address City/State/ZIP Code Phon e Number [facility] - [address] [place], [place] [address] [facility] documented in this encounter Visit Diagnoses Not on filedocumented in this encounter
[2022-09-20] MEDS: predniSONE 20 MG TABLET PO (03:24)
== END 2022-09-20 03:28 | disposition home or self-care (01) ==
PROVIDERS: Emergency Provider Family Medicine
DX: J45.901 Unspecified asthma with (acute) exacerbation (principal)
CPT/HCPCS: 99283; 99284; J7512

== ENCOUNTER 2024-08-26 17:55 | Emergency (ER) | payer OTHER, MEDICAID, SELFPAY ==
[2024-08-26 18:06] VITALS: BP 117/82; PULSE 113; RESP 20; TEMP 36.9; O2SAT 98; BMI 15.7
--- NOTE | 2024-08-26 18:22 | ED_ITS ---
HPI - General Adult General Chief complaint: Cough Stated complaint: Asthma exacerbation Time Seen by Provider: 08/26/24 18:18 History of Present Illness HPI narrative: reports that she has a cough and feels wheezy. developed this yesterday afternoon after she got too close to cigarette smoker. explains that she has a hemiplegic migraine that started yesterday also. used her own albuterol inhaler that she has used 15 -20 times today . feels that she is worsening. called triage line at [facility] and was told to go to the ed. did not want to go to [place] due to a busy ED there. 23-year-old woman presenting to the emergency department with concern of cough and shortness of breath. Headaches seem to start a few days ago. Has treated with imgaliday and earlier in the week with 15 mg of injectable ketorolac that is prescribed to her to use up to once a week. Does not feel she needs treatment for this headache and overall improving. Has had some affect on the vision in the left eye and improving paralysis in the left side of her body. Difficulty breathing started relatively abruptly yesterday afternoon after being in close contact with someone who was smoking. Used her albuterol inhaler 15-20 times today. Known sensitivity to cigarette smoke. We discussed potential treatments she does admit that she was free of headache in the week that she was taking steroids sometime back. Related Data Home Medications ?Medication ?Instructions ?Recorded ?Confirmed dextroamphetamine-amphetamine 10 10 mg PO DAILY 07/28/22 07/28/22 mg tablet dextroamphetamine-amphetamine ER 30 mg PO DAILY 07/28/22 07/28/22 30 mg 24hr capsule,extend release (Adderall XR) nortriptyline 10 mg capsule 10 mg PO HS 07/28/22 07/28/22 ondansetron 4 mg disintegrating 4 mg PO Q8H PRN 07/28/22 07/28/22 tablet rizatriptan 5 mg tablet 5 mg PO DAILY PRN 07/28/22 07/28/22 ubrogepant 100 mg tablet (Ubrelvy) 100 mg PO DAILY PRN 07/28/22 07/28/22 verapamil 80 mg tablet 80 mg PO Q8H 07/28/22 07/28/22 Allergies Allergy/AdvReac Type Severity Reaction Status Date / Time ginseng Allergy Intermediate Rash, Verified 07/28/22 02:09 Shortness of Breath risperidone Allergy Intermediate Vertigo, Verified 07/28/22 02:09 Twitching amoxicillin Allergy Mild Rash Verified 07/28/22 02:09 cat dander Allergy Mild Allergy Verified 07/28/22 02:09 Symptoms Review of Systems Status of ROS: Reports: 6 or more systems reviewed and unremarkable except as noted in History and below [facility] Medical History Asthma ?J45.909 - Unspecified asthma, uncomplicated (ICD-10) ADHD ?F90.9 - Attention-deficit hyperactivity disorder, unspecified type (ICD-10) Hemiplegic migraine ?G43.409 - Hemiplegic migraine, not intractable, without status migrainosus (ICD-10) Surgical History No significant past surgical history Social History Smoking Status: Never smoker Do you use any of these nicotine containing products: None Second hand tobacco smoke exposure: No How often do you have a drink containing alcohol: never How often do you have six or more drinks on one occasion: Never AUDIT-C Alcohol total score: 0 Non-prescribed substance use: denies use Exam Narrative: Exam Narrative: Has a little tremulous. Heart in elevated rate to tachycardic and regular rhythm. Lungs actually appear to be clear at this time. However does have regular small cough. Somewhat labored in breathing. Seems to be generally little weak on the left side preferring to manipulate personal items with her right hand. Pupils are equal and briskly reactive. Const: Vital Signs, click to edit/add: Vital Signs - 24 hr 08/26/24 18:06 Temperature 98.4 F Pulse Rate [Pulse Oximeter] 113 H Respiratory Rate 20 Blood Pressure [Ri ght Upper Arm] 117/82 Pulse Oximetry 98 Oxygen Delivery Me thod Room Air Documenting provider has reviewed patient's vital signs: yes Course Vital Signs Vital signs: Initial Vital Signs Respiratory Effort Normal, Spontaneous, Non-Labored 08/26/24 18:05 Respiratory Depth Normal 08/26/24 18:05 Respiratory Pattern Normal 08/26/24 18:05 Vital Signs Temperature 98.4 F 08/26/24 18:06 Pulse Rate 113 H 08/26/24 18:06 Respiratory Rate 20 08/26/24 18:06 Blood Pressure 117/82 08/26/24 18:06 Pulse Oximetry 98 08/26/24 18:06 Oxygen Delivery Method Room Air 08/26/24 18:06 Temperature 98.4 F 08/26/24 18:06 Pulse Rate 113 H 08/26/24 18:06 Respiratory Rate 20 08/26/24 18:06 Blood Pressure 117/82 08/26/24 18:06 Pulse Oximetry 98 08/26/24 18:06 Oxygen Delivery Method Room Air 08/26/24 18:06 Medications Administered Medications: Discontinued Medications Generic Name Dose Route Start Last Admin Trade Name Freq PRN Reason Stop Dose Admin Albuterol/Ipratropium 1 neb 08/26/24 18:30 08/26/24 18:37 Iprat-Albut 0.5-2.5 Mg/3 Ml Neb IH 08/26/24 18:31 1 neb ONCE ONE Administration Prednisone 60 mg 08/26/24 18:30 08/26/24 18:37 Prednisone 20 Mg Tablet PO 08/26/24 18:31 60 mg ONCE ONE Administration Medical Decision Making MDM Narrative Medical decision making narrative: Has been oxygenating well. Symptoms seem to be predominantly a cough variant exacerbation. Abrupt onset suggests against infectious etiology. No fever either. Proposed DuoNeb and prednisone. Has noted seems to be improving from her headache she reports. Improved movement. Able to transfer and hold herself up. DuoNeb given. Over time in observation in the emergency department has maintained high oxygen level. Continues to have small cough but seems to feel a little better. Was also given 60 mg of prednisone. This will take some time to effect. Defer chest x-ray. Discussed also antihistamines that might be beneficial. See patient discharge plan for further discussion Medical Records Medical records reviewed: Yes I reviewed the patient's medical records Discharge Plan Discharge Clinical Impression: Asthma exacerbation, Hemiplegic migraine Additional Instructions: Consider sleeping under the mist of a cool mist humidifier. You might be helped by menthol vapors or anesthetic throat sprays or lozenges like Chloraseptic or Sucrets. Steroids like prednisone can be a little stimulating. Diphenhydramine or doxylamine can help with sleep if needed. I am hopeful that 2 more days of prednisone should be sufficient for you (comes enough for 5 days in [facility]) Can take 40 mg all at once in the morning or split the dose taking 20 mg in the morning and another 20 mg in the early afternoon. Take your usual medications otherwise yet tonight. Prescriptions: No Action dextroamphetamine-amphetamine 10 mg tablet 10 mg PO DAILY Patient Comments: TAKE ONE TABLET BY MOUTH EVERY DAY dextroamphetamine-amphetamine [Adderall XR] 30 mg capsule,extended release 24hr 30 mg PO DAILY Patient Comments: TAKE ONE CAPSULE BY MOUTH EVERY DAY, FILL ON OR AFTER 06/11/22 rizatriptan 5 mg tablet 5 mg PO DAILY PRN Patient Comments: TAKE ONE TABLET BY MOUTH EVERY DAY NEEDED FOR MIGRAINE. MAY REPEAT IN 1-2 HOURS MAX 6 TABLETS PER DAY nortriptyline 10 mg capsule 10 mg PO HS Patient Comments: TAKE TWO CAPSULES BY MOUTH EVERY DAY AT BEDTIME ondansetron 4 mg tablet,disintegrating 4 mg PO Q8H PRN Patient Comments: DISSOLVE ONE TABLET BY MOUTH EVERY 8 HOURS NEEDED Ubrelvy 100 mg tablet 100 mg PO DAILY PRN Patient Comments: TAKE 1 TABLET NEEDED FOR MIGRAINE. MAY REPEAT DOSE ONCE AFTER 2 HRS. IF UNRESOLVED. DO NOT EXCEED 200MG IN 24 HRS. verapamil 80 mg tablet 80 mg PO Q8H Patient Comments: TAKE ONE TABLET BY MOUTH EVERY 8 HOURS Follow Up/Referrals: Provider,Not a Local [Primary Care Provider] - Stand Alone Forms: MyHealth Info Instructions
[2024-08-26] MEDS: IPRAT-ALBUT 0.5-2.5 MG/3 ML NEB 1 NEB IH (18:37)
[2024-08-26] MEDS: predniSONE 20 MG TABLET 60 MG PO (18:37)
--- OUTSIDE RECORDS SUMMARY | 2024-08-26 18:51 | XMS_ITS | Clinical Summary ---
Author Organization [facility] Address [address] [place] [address] Care Team Providers Care Naturopathic Oncology Provider Name Role Phone Poonam Orlando APRN, C.N.P., D.N.P. Primary Care Provider Source Comments Patient records contain information from all sites at [facility]. For routine questions regarding patient records, call [phone] during business hours, M-F 8:00 AM - 5:00 PM Central Time. Record requests for emergency care only can be directed to [phone] at any time.[facility] Allergies Active Allergy Reactions Criticality Noted Date Comments Cat Dander Rash Low 04/04/2021 Perfume Cough Medium 12/10/2021 Asthma worsening, cough Pollen Extracts Other (see comments) 01/22/2022 Medications B complex-vitamin (SUPER B-50) capsule Take 1 tablet by mouth daily. Active aspirin-acetamino phen-caffeine (EXCEDRIN MIGRAINE) 250-250-65 mg per tablet Take 1 tablet by mouth as needed for pain. Active iron,carbonyl-vit kam C (VITRON-C) 65 mg iron- [address] tablet Take 65 mg of iron by mouth daily. Do not crush or chew. Active magnesium citrate 100 mg capsule Take 1 each by mouth daily. Active fluticasone propionate (FLOVENT HFA) 110 mcg/actuation inhaler Inhale 2 puffs 2 (two) times a day. Rinse mouth with water after use to reduce aftertaste and incidence of candidiasis. Do not swallow. 36 g 3 022 Active loratadine (CLARITIN) 10 mg tablet Take 10 mg by mouth daily. Active triamcinolone (KENALOG) 0.1 % cream Apply topically 2 (two) times a day. Apply to affected areas twice per day for up to two weeks at a time. Avoid face and groin. 80 g 2 023 Active atogepant (Qulipta) 60 mg tablet tablet Take 1 tablet (60 mg total) by mouth daily. 30 tablet 11 023 2023 Active ondansetron ODT (ZOFRAN-ODT) 4 mg disintegrating tablet DISSOLVE ONE TABLET BY MOUTH EVERY 8 HOURS NEEDED 90 tablet 3 023 Active dextroamphetamine -amphetamine (ADDERALL) 10 mg tabletIndications :Attention Deficit Disorder Combined Type Take 1 tablet (10 mg total) by mouth daily. 28 tablet 024 Active dextroamphetamine -amphetamine (ADDERALL) 10 mg tabletIndications :Attention Deficit Disorder Combined Type Take 1 tablet (10 mg total) by mouth daily. 28 tablet 024 Active dextroamphetamine -amphetamine (ADDERALL) 10 mg tabletIndications :Attention Deficit Disorder Combined Type Take 1 tablet (10 mg total) by mouth daily. 28 tablet 024 Active ketorolac (TORADOL) 30 mg/mL injection INJECT 0.5MLS ONCE NEEDED FOR MIGRAINE FOR UP TO 1 DOSE LIMIT TO ONCE PER WEEK 023 Active fluticasone propionate (FLONASE) 50 mcg/actuation nasal spray USE 2 SPRAYS IN EACH NOSTRIL ONCE DAILY 48 g 3 024 Active verapamiL (CALAN-SR) 120 mg ER tablet take one tablet by mouth every 8 hours 270 tablet 3 024 Active nortriptyline (PAMELOR) 50 mg capsule take one capsule by mouth at bedtime 90 capsule 3 024 Active predniSONE (Deltasone) 20 mg tablet Take 1 tablet (20 mg total) by mouth 2 (two) times a day. 10 tablet 024 Active albuterol (Ventolin HFA) 90 mcg/actuation inhaler Inhale 2 puffs every 4 (four) hours as needed for wheezing or shortness of breath. 18 g 3 024 Active fluticasone propionate (Flovent HFA) 110 mcg/actuation inhaler INHALE TWO PUFFS BY MOUTH TWICE A DAY RINSE MOUTH WITH WATER AFTER US. DO NOT SWALLOW 36 g 3 024 Active Ubrelvy 100 mg tablet tabletIndications :Hemiplegic Migraine Not Intractable Without Status Migrainosus TAKE 1 TAB. NEEDED FOR MIGARINE. MAY REPEAT DOSE ONCE IN 2 HRS. IF UNRESOLVED MAX DOSE 2TAB/24HRS. 10 tablet 3 Active amphetamine-dextr oamphetamine (AdderalL XR) 30 mg 24 hr capsuleIndication s:Attention Deficit Disorder Combined Type Take 1 capsule (30 mg total) by mouth daily. 28 capsule Active amphetamine-dextr oamphetamine (Adderall XR) 30 mg 24 hr capsuleIndication s:Attention Deficit Disorder Combined Type Take 1 capsule (30 mg total) by mouth daily. 28 capsule 024 Active amphetamine-dextr oamphetamine (AdderalL XR) 30 mg 24 hr capsuleIndication s:Attention Deficit Disorder Combined Type Take 1 capsule (30 mg total) by mouth daily. 28 capsule Active amphetamine-dextr oamphetamine (AdderalL XR) 30 mg 24 hr capsuleIndication s:Attention Deficit Disorder Combined Type Take 1 capsule (30 mg total) by mouth daily. 28 capsule 024 2023 Discontinued amphetamine-dextr oamphetamine (AdderalL XR) 30 mg 24 hr capsuleIndication s:Attention Deficit Disorder Combined Type Take 1 capsule (30 mg total) by mouth daily. 28 capsule 024 2023 Discontinued(R eorder) amphetamine-dextr oamphetamine (Adderall XR) 30 mg 24 hr capsuleIndication s:Attention Deficit Disorder Combined Type Take 1 capsule (30 mg total) by mouth daily. 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 Her headaches increased in frequency in 2020. Had a visual aura (visual spots/blurred/wiggly/sparkles/distorted vision--these happen off an on for 3 hours to 1.5 days), followed by pain in the left occipital region---1/3 of them may spread to left eye and sometimes spread into into the midline or slightly [...] difficulty sometimes during her migraines. 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 She tried texting her friends with her right hand and [...] is still not 100% back to normal. Current and past abortives: Current: Naproxen-2 days [...] injuries related to falls in the past Diagnostic testing: The patient did have an MRI brain without lucy and MRA head that were reportedly normal March 2022 Started Ubrelvy 08/13/2022: Neurology Consult After the last visit, she increased her verapamil dose from 120 mg daily to 80 mg twice daily. About 1 month ago, she increased it further to [...] meal per day and there are sometimes that she continues to forget to eat. Overall, she [...] 2-3 days per week for about one hour each (down from 4 days per week and [...] injuries related to falls in the past January 2023: Family Medicine She has found verapamil to be the most helpful medication for management of her hemiplegic migraines. She is currently taking 80 mg of verapamil 3 times per day. She continues to have migraine headaches 5 days per week, but these are less intense than they were in the past. She also notes that the hemiplegic paralysis is not as severe and lasts a much shorter time than it had in the past. Her vision changes associated with migraine headaches have been improving as well. She has been falling less as well. Verapamil changed to 120 mg three times per day June 15, 2023 Family Medicine Visit Has chronic migraine headaches including hemiplegic migraines. Currently taking nortriptyline 30 mg at bedtime and verapamil SR 120 mg 3 times per day for preventative agents. Also using a magnesium supplement to help prevent migraines. Has Ubrelvy for episodic migraine management. States that the verapamil has worked better than any other agent she has taken for migraine management. Use of verapamil has helped to decrease migraine frequency and severity. Episodes of hemiplegia have improved significantly, symptoms used to last hours now lasting only a few minutes. She is tolerating the verapamil well. Works to stay well hydrated and increase his salt in her diet. Has dizzy spells only if she stands up too quickly. Due to insurance coverage her asthma inhaler was recently switched from fluticasone to mometasone. She has not tolerated this change well from a migraine standpoint. Finds that the mometasone causes her to have more frequent migraine headaches, 2-3 more headache days per week. This medication has also makes it difficult for her to fall asleep and stay asleep, causes hot flashes, and causes nightmares and vivid dreams. Fluticasone prescribed. July 24, 2023 Family Medicine Today, soraya states that the verapamil and Ubrelvy have been helping her to feel better but she is motivated to keep improving her migraine symptoms. Her goal, is to have her migraines managed to the point that she can return to college course work on campus. When migraines were severe, she had a hard time handling her collegiate course load. Since increasing her nortriptyline to 30 mg daily, she has slept a bit better and has had less nightmares. That being said, she has not had any notable improvement in migraine headache frequency or severity. She continues to note that the Ubrelvy and verapamil have been the most efficacious for management of her migraines. Currently, having 4-5.5 migraine headache days per week. Over the past 10 months, migraines have decreased in severity. Hot flashes have stopped. She can now usually walk through her hemiplegic migraine and her speech is more clear than it has been in the past. The paralysis is much shorter lived, now less than an hour in length. That being said, migraine headaches are more painful than they had been in the past. She does find good relief with use of Ubrelvy, which she lipid hurts to 8 migraine days per month. Plan: Continue verapamil at current dose, continue nortriptyline at current dose, continue use of Ubrelvy as prescribed. Will plan to add on gabapentin. Discussed that the therapeutic dosing of gabapentin would be 300 mg at night, increasing weekly until taking 600 mg 3 times per day. Patient is hesitant to started such a high dose as she is heard about potential side effects with use of the gabapentin. Using shared decision-making decided to initiate the gabapentin at 100 mg at bedtime, increasing to 100 mg twice per day for 3 days, then up to 100 mg 3 times per day as tolerated. Will continue to up titrate the dose until taking 600 mg 3 times per day unless she is not able to tolerate this. Pending how she responds to gabapentin, very low threshold to refer back to Neurology for consideration of Botox injections or CGRP antibodies as recommended in the Neurology Consult note from February 2022. August 17, 2023 Family Medicine Since initiating gabapentin earlier this month has had improvement in joint pains and muscle aches, but worsening of migraine headache severity and length of pain. Head pain is now on the right side, whereas before gabapentin pain was on the left. Her aura seems to be somewhat better with use of the gabapentin. Currently taking gabapentin 200 mg in the morning 100 mg in the afternoon, and 200 mg at night. If she is a couple hours late on the gabapentin dosing she will feel some muscle stiffness and lethargy. She had a more severe hemiplegic migraine on August 15, 2023 while working at a [employer]. She states one of the children had flashing lights on their costume, which caused her to develop stiffness and weakness in her left leg, that moved up the left leg within minutes and to the left side of the head within an hour. 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 She took Ubrelvy and Ibuprofen and went home to rest. States she had hemiplegic symptoms for about 5 hours. She is very motivated to get back to college, stopped as migraine frequency and severity was interfering with school and her lifestyle (busy, staying up late to study, etc) was very triggering for migraines. Still having 4-5 migraine days per week, but often has a day of prodrome and a day of migraine hangover. Plan: Gabapentin, though low dosing, has not been efficacious for migraines and has made the pain more severe and last longer than it had been. Recommend decreasing dosing by 100 mg every 3 days as tolerated until off. Will send her back to [facility]rology Headache Clinic for follow-up and for consideration of a CGRP antibody treatment or Botox, at this time she would favor the CGRP antibody treatment but open to hearing her options. She would like to meet with PT to discuss safety with ambulation etc given hemiplegic episodes, referral placed. Discussed signs and symptoms requiring a return visit or emergent evaluation. Patient verbalized understanding and is in agreement with the plan. Assessment & Plan (08/17/2023 10:13 AM CDT): August 17, 2023 Family Medicine Since initiating gabapentin earlier this month has had improvement in joint pains and muscle aches, but worsening of migraine headache severity and length of pain. Head pain is now on the right side, whereas before gabapentin pain was on the left. Her aura seems to be somewhat better with use of the gabapentin. Currently taking gabapentin 200 mg in the morning 100 mg in the afternoon, and 200 mg at night. If she is a couple hours late on the gabapentin dosing she will feel some muscle stiffness and lethargy. She had a more severe hemiplegic migraine on August 15, 2023 while working at a [email or web address]. She states one of the children had flashing lights on their costume, which caused her to develop stiffness and weakness in her left leg, that moved up the left leg within minutes and to the left side of the head within an hour. 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 She took Ubrelvy and Ibuprofen and went home to rest. States she had hemiplegic symptoms for about 5 hours. She is very motivated to get back to college, stopped as migraine frequency and severity was interfering with school and her lifestyle (busy, staying up late to study, etc) was very triggering for migraines. Still having 4-5 migraine days per week, but often has a day of prodrome and a day of migraine hangover. Plan: Gabapentin, though low dosing, has not been efficacious for migraines and has made the pain more severe and last longer than it had been. Recommend decreasing dosing by 100 mg every 3 days as tolerated until off. Will send her back to Neurology Headache Clinic for follow-up and for consideration of a CGRP antibody treatment or Botox, at this time she would favor the CGRP antibody treatment but open to hearing her options. She would like to meet with PT to discuss safety with ambulation etc given hemiplegic episodes, referral placed. Discussed signs and symptoms requiring a return visit or emergent evaluation. Patient verbalized understanding and is in agreement with the plan. Assessment & Plan (07/24/2023 11:14 AM CDT): July 24, 2023 Family Medicine Today, soraya states that the verapamil and Ubrelvy have been helping her to feel better but she is motivated to keep improving her migraine symptoms. Her goal, is to have her migraines managed to the point that she can return to college course work on campus. When migraines were severe, she had a hard time handling her collegiate course load. Since increasing her nortriptyline to 30 mg daily, she has slept a bit better and has had less nightmares. That being said, she has not had any notable improvement in migraine headache frequency or severity. She continues to note that the Ubrelvy and verapamil have been the most efficacious for management of her migraines. Currently, having 4-5.5 migraine headache days per week. Over the past 10 months, migraines have decreased in severity. Hot flashes have stopped. She can now usually walk through her hemiplegic migraine and her speech is more clear than it has been in the past. The paralysis is much shorter lived, now less than an hour in length. That being said, migraine headaches are more painful than they had been in the past. She does find good relief with use of Ubrelvy, which she lipid hurts to 8 migraine days per month. Plan: Continue verapamil at current dose, continue nortriptyline at current dose, continue use of Ubrelvy as prescribed. Will plan to add on gabapentin. Discussed that the therapeutic dosing of gabapentin would be 300 mg at night, increasing weekly until taking 600 mg 3 times per day. Patient is hesitant to started such a high dose as she is heard about potential side effects with use of the gabapentin. Using shared decision-making decided to initiate the gabapentin at 100 mg at bedtime, increasing to 100 mg twice per day for 3 days, then up to 100 mg 3 times per day as tolerated. Will continue to up titrate the dose until taking 600 mg 3 times per day unless she is not able to tolerate this. Pending how she responds to gabapentin, very low threshold to refer back to Neurology for consideration of Botox injections or CGRP antibodies as recommended in the Neurology Consult note from February 2022. Attention Deficit Disorder Combined Type 021 Overview (11/13/2021): Controlled Substance Prescribing Plan (CSPP): Stimulants or Benzodiazepines Medication and Strength: Adderall XR 30 mg Instructions for use: take one capsule by mouth every morning. Duration of prescription: 12 weeks Amount to be dispensed per prescription (# of tablets): Three RX each for 28 tablets Medication and Strength: Adderall 10 mg Instructions for use: take one tablet daily after lunch Duration of prescription: 12 weeks Amount to be dispensed per prescription (# of tablets): Three RX each for 28 tablets Monitoring Frequency of visits with PCP: 12 month Urine drug screening requested?: no MNP review/documentation:yes Asthma Mild Intermittent 05/24/2021 Resolved Problems Problem Noted Date Diagnosed Date Resolved Date Maintenance Health Adult 09/13/2021 Overview (09/13/2021): Wants to wait Ingrown Nail 05/24/2021 02/04/2023 Pain Neck 05/24/2021 02/04/2023 Pain Low Back Unspecified 05/24/2021 Deficit Attention Or Concentration 05/24/2021 10/15/2021 Migraine Headache With Aura 05/24/2021 07/18/2022 Overview (09/16/2021): Claire since early high school has gotten migraines. Her headaches are posterior. They don't throb. She is photophobic and nauseous. She doesn't vomit. In the past they have occurred mostly when she was under extra stress, or didn't get enough sleep. She was getting 1-2 CORREA's a week but now is noticing 4-5 per week in the last month. 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 She has ADD and started Adderall fall 2020. She has never slept well. She describes that her mind is very active as She tries to fall asleep. Her little sister tried to commit suicide with sleeping pills, making her reluctant about them, it was suggested she try melatonin but she did not. She is trying nortriptyline 10 mg for this, and migraine. Pain Wrist Left 05/24/2021 02/04/2023 Encounters Date Type Department Care Team Description 08/26/2024 Nurse Triage Department of [facility], [facility], in [place], [place] [address] [place] [address] Meche Johnson, RochelleN. Asthma 08/22/2024 Refill Department of Family Medicine, [facility], in [place], [place] [address] [place] [address] Poonam Orlando APRN, C.N.P., D.N.P. Med Refill 08/11/2024 3:30 PM CDT Internal E-Consult Department of Neurology in [place], [place] [address] [place] [address] Poonam Ponce M.D. Chronic Migraine (Primary Dx) 07/21/2024 8:17 AM CDT - 07/21/2024 9:31 AM CDT Hospital Encounter Department of Neurology in [place], [place] [address] [place] [address] Romeo Stokes D.O. Steel, Stephanie J, M.D. Chronic Migraine Discharge Disposition: Home or Self Care 07/21/2024 Refill Department [place], [place] [address] [place] [address] Poonam Orlando APRN, C.N.P., D.N.P. Med Refill 06/16/2024 Refill Department [facility] in [place], [place] [address] [place] [address] Poonam Orlando APRN, C.N.P., D.N.P. Med Refill from Last 3 Months Immunizations Name Administration Dates Next Due 4vHPV (discontinued) 03/22/2014 9vHPV 05/09/2020 DTaP (Infanrix, Tripedia) 01/10/2003 DTaP / Hib 01/10/2003 DTaP, Unspecified 06/10/2007, 2,01/27/2002,2001 HepB Pediatric/Adolescent 07/18/2002,01/27/2002, 2001 Hib (PRP-OMP) (PedvaxHIB) 01/10/2003 Hib-HepB 01/27/2002,2001 IPV 06/10/2007, 2,01/27/2002,2001 Influenza, Injectable, Quadrivalent 08/01/2020 MCV4 (Menactra)(Discontinued) 05/09/2020, 014 MCV4, Unspecified 03/22/2014 MMR 06/20/2005,11/14/2002 MenB (BEXSERO) 02/03/2023, 2(Deferred: Patient decision),05/09/2020 PCV20 06/15/2023, 3(Deferred: Other - Video visit) PCV7 (discontinued) 06/20/2005, 2,01/27/2002,2001 SARS-COV-2 (COVID-19) - PFIZ ER (Discontinued)(12 years or older) 11/08/2021 Tdap 02/21/2022,03/22/2014 DEEPTI 06/10/2007,11/14/2002 influenza vaccine quad (FLUZONE/FLUARIX) (6 months and older)(PF) 02/03/2023(Deferred: Patient decision),11/08/2021 Family History Medical History Relation Name Comments Alcohol abuse Father Patric Moncada Hyperlipidemia Father Patric Moncada Hypertension Father Patric Moncada Ovarian cancer Mother's Sister Kevin Actually m y cousin but there's no spot for that. Age ~20, . Lung cancer Paternal Grandfather Sergei Moncada a ge ~80 Anxiety disorder Sister 1 Migdalia Cardenasmanjinder Depression Sister 1 Migdalia Cardenasmanjinder Currentl y recieving medical treatment Migraines Sister 1 Migdalia Cardenasmanjinder No aura, episodic, apprx. age 15 Depression Sister 2 Latrice Moncada Current ly recieving mefical treatment Suicide Attempts Sister 2 Latrice Moncada cur rently recieving medical treatment Relation Name Status Comments Father Patric Moncada Mother's Sister Kevin Paternal Grandfather Sergei Moncada Sister 1 Migdalia Moncada Sister 2 Latrice Moncada Social History Tobacco Use Types Packs/Day Years Used Date Smoking Tobacco: Never Smokeless Tobacco: Never Tobacco Cessation:Counseling Given: Not Answered Alcohol Use Standard Drinks/Week Comments Never 0 (1 standard drink = 0.6 oz pur e alcohol) Humiliation, Afraid, Rape, and Kick questionnair e Answer Date Recorded Within the last year, have y ou been afraid of your partner or ex-partner? No 08/13/2022 Within the last year, have y ou been humiliated or emotionally abused in other ways by your partner or ex-partner? No Within the last year, have y ou been kicked, hit, slapped, or otherwise physically hurt by your partner or ex-partner? No 08/13/2022 Within the last year, have y ou been raped or forced to have any kind of sexual activity by your partner or ex-partner? No 08/13/2022 Social Connection and Isolat ion Panel [NHANES] Answer Date Recorded In a typical week, how many times do you talk on the phone with family, friends, or neighbors? More than three times a week 08/13/2022 How often do you get togethe r with friends or relatives? Once a week 08/13/2022 How often do you attend chur ch or nondenominational services? Never 08/13/2022 Do you belong to any clubs o r organizations such as adventist groups, unions, fraternal or athletic groups, or school groups? Yes 08/13/2022 How often do you attend meet ings of the clubs or organizations you belong to? 1 to 4 times per year 08/13/2022 Are you , , di vorced, , never , or living with a partner? Never 08/13/2022 AUDIT-C Answer Date Recorded Q1: How often do you have a drink containing alc ohol? Never 08/13/2022 Average Number of Drinks Not on file 022 Frequency of Binge Drinking Not on file 07/20 Overall Financial Resource Strain (CARDIA) Answe r Date Recorded How hard is it for you to pa y for the very basics like food, housing, medical care, and heating? Not very hard 08/17/2023 PHQ-2 Answer Date Recorded PHQ-2 Score 0 11/12/2023 [facility] - Occupational Stress Questionnaire Answer Date Recorded Do you feel stress - tense, restless, nervous, or anxious, or unable to sleep at night because your mind is troubled all the time - these days? Not at all 08/13/2022 Exercise Vital Sign Answer Date Recorde d On average, how many days pe r week do you engage in moderate to strenuous exercise (like a brisk walk)? 5 days 08/17/2023 On average, how many minutes do you engage in exercise at this level? 140 min 08/17/2023 Hunger Vital Sign Answer Date Recorded Within the past 12 months, y ou worried that your food would run out before you got the money to buy more. Patient declined Within the past 12 months, t he food you bought just didn't last and you didn't have money to get more. Patient declined PRAPARE - Transportation Answer Date Re corded In the past 12 months, has l ack of transportation kept you from medical appointments or from getting medications? No 07/21 In the past 12 months, has l ack of transportation kept you from meetings, work, or from getting things needed for daily living? No 08/17/2023 Depression Answer Date Recor ded PHQ-9 Total Score (max 27) 2 07/24 Nutrition Answer Date Recorded On average, how many serving s of fruits and vegetables do you eat per day (serving size is equal to 1 cup or approximately the size of a tennis ball)? 3-5 08/17/2023 Dental Answer Date Recorded Dental: Regular Dentist Yes 08/17/20 Employment Answer Date Recorded Employment status Working with temporary [employer] 08/17/2023 Housing Stability Answer Date Recorded What is your living situation today? I have a [facility] place to live 08/17/2023 Education Answer Date Recorded What is the highest level of school you have completed or the highest degree you have received? Some college, no degree 05/24/2021 Comments No Sex and Gender Information Value Date Recorded Sex Assigned at Female 01/23/2022 2:50 PM CDT Legal Sex Female 11:44 PM SHINGLE SAWYER Gender Identity Female 01/23/2022 2:50 PM CDT Sexual Orientation Choose not to disclose 2021 2:50 PM CDT Last Filed Vital Signs Vital Sign Reading Time Taken Comments Blood Pressure 113/75 04/06/2024 3:05 PM CDT Hathaway/wood average of three readings Pulse 114 04/06/2024 3:05 PM CDT Temperature 36.7 ??C (98.1 ??F) 11/12/2023 3 :03 PM SHINGLE SAWYER Respiratory Rate 18 05/14/2023 4:14 PM CDT Oxygen Saturation 99% 04/06/2024 3:0 5 PM CDT Room air Inhaled Oxygen Concentration - - Weight 47.1 kg (103 lb 15.2 oz) 04/06/2024 3:05 PM CDT Height 169.2 cm (5' 6.61) 04/06/2024 3 :05 PM CDT Body Mass Index 16.47 04/06/2024 3:05 PM CDT Plan of Treatment Upcoming Encounters Date Type Department Care Team (Late st Contact Info) Description 10/13/2024 3:30 PM SHINGLE SAWYER Appointment Department of Neurology in [place], [place] [address] [place] [address] Romeo Stokes D.O. [address] [place] [phone] Discharge Disposition: Home or Self Care Health Maintenance Due Date Last Done Comments Cervical/Vaginal Cancer Screening 2001 Hepatitis C Screening 2001 Asthma Action Plan 04/08/2023 04/08/2022 Asthma Control Test Questionnaire 06/15/2024 023 Asthma Management/Exacerbati on Questionnaire (AMQ/AEQ) 06/15/2024 06/15/2023 COVID-19 Vaccine (5 - 2023-2 5 season) 2024 10/20/2022, 11/08/2021, 02/28/2021, Additional history exists Influenza Vaccine (#1) 2024 11/08/2021, 2019 DTaP,Tdap,and Td Vaccines (8 - Td or Tdap) 02/22/2032 02/21/2022, 03/22/2014, 06/10/2007, Additional history exists Hepatitis B Vaccines Completed 07/18/2002, 01/27/2002, 01/27/2002, Additional history exists IPV Vaccines Completed 06/10/2007, 06/21, 01/27/2002, Additional history exists Varicella Vaccines Completed 06/10/2007, 11/14/2002 HPV Vaccines Completed 05/09/2020, 03/22/2014 Meningococcal Vaccine Completed 05/09/2020 , 03/22/2014, 03/22/2014 Glucose Test for Med Monitoring Discontinued 09/22/2022, 03/21/2022, 04/08/2021 MenB Vaccine Completed 02/03/2023, 05/09/2020 Pneumococcal vaccine (0-64 years) Completed 06/15/2023, 06/20/2005, 07/18/2002, Additional history exists Depression Screening (Annual PHQ-2) Completed 11/12/2023, 11/12/2023 Procedures Procedure Name Priority Date/Time Associated Diagnosis Comments [place] CHEMODENERV FACIAL TRIGEM JOSE Routine 07/21/2024 8:45 AM CDT Chronic Migraine COMPREHENSIVE METABOLIC PANEL, S/P Routine 09/22/2022 9:29 AM SHINGLE SAWYER Body Mass Index 19.9 Or Less Adult from Last 3 Months or Most Recently Relevant to Health Maintenance Results * NV CHEMODENERV FACIAL TRIGEM JOSE (07/21/2024 8:45 AM CDT) Narrative MMODAL - 07/21/2024 8:45 AM CDT Poonam Ponce M.D. ? 07/21/2024 ??9:31 AM Botox for Chronic Migraine Performed by: Poonam Ponce M.D. Authorized by: Romeo Stokes D.O. ?? Care team members present 1. Sunitha Medina L.P.N. PROCEDURE DETAILS ?? Pre-procedure pain score: 0/10 (Start of a migraine coming on with aura and weakness in left arm.) Injection of: ??100 Units onabotulinumtoxinA 100 unit 50 Units onabotulinumtoxinA 50 unit Needle gauge: 30 Needle length: 0.5 in Injection site details Sap Fico Business Analyst / Procerus muscle(s): 5 units into the left support services tech muscle, 5 units into the right support services tech muscle ??and 5 units into the procerus muscle ??(15 units total). Superior Frontalis muscle(s): 5 units into the left superior frontalis muscle and 5 units into the right superior frontalis muscle ?(2 injection sites per muscle) (10 units total). Temporalis muscle(s): 12.5 units into the left temporalis muscle and 12.5 units into the right temporalis muscle ?(2 injection sites per muscle) ?? (25 units total). Splenius Capitis muscle(s): 12.5 units into the left splenius capitis muscle and 12.5 units into the right splenius capitis muscle ?(2 injection sites per muscle) ??(25 units total). Occipitalis muscle(s): 12.5 units into the left occipitalis muscle and 12.5 units into the right occipitalis muscle ?? (2 injection sites per muscle) ??(25 units total). Trapezius muscle(s): 25 units into the left trapezius muscle and 25 units into the right trapezius muscle ?? (3 injection sites per muscle) ??(50 units total). Total units wasted: 0 Total units injected: 150 CONSENT Consent obtained: written (Risks, benefits and alternatives were discussed and a written Informed Consent was obtained. Please see Informed Consent form for further details.) UNIVERSAL PROTOCOL All relevant documentation and testing were reviewed and available. All required blood products, implants, devices and or special equipment were made available as applicable. Pre-procedure verification was conducted and the correct site was marked if required. A fire risk and smoke assessment were done as applicable. The procedural time-out to verify correct patient, correct side/site, and procedure was conducted prior to performing the procedure and confirmed in a procedural pause. PRE-PROCEDURE DETAILS ?? Reason for injections: chronic migraine Appropriate hand hygiene, gown, cap, mask, protective eyewear, sterile gloves, skin preparation, sterile drape, and strict aseptic technique were utilized as applicable for the procedure: yes Site preparation: alcohol Clinical history: Patient was made aware that they may be responsible for any and all costs associated with injection of Botulinum Toxin Type A that is not covered by a third constitution party. ?? Prior to treatment with Botox, the frequency of headaches was greater than 30 days per month and with significant impairment in the quality of life. ?? Please see the initial Botox injection note and Headache consultation note regarding specific details of the headache history prior to the start of treatment. Any other daily migraine prophylactic treatments taken over the last 3 months: ??Nortriptyline and verapamil (Magnesium, Ubrelvy) Headache frequency when Botox is most effective (middle month in between rounds). Current headache days per month: 30 days Current severe headache days per month: 8 days Wearing off phenomenon prior to this round of Botox: yes Duration: 2 weeks Patient finds Botox treatment helpful and wants to repeat the treatment? yes Patient had migraine headache frequency reduction by at least 22 days per month compared to pretreatment level. ?? POST-PROCEDURE DETAILS ?? Procedure completed successfully: yes ?? Complications: no apparent complications Comments Headache days prior to botox: 30 Prior preventative medications tried: Verapamil, Nortriptyline, Gabapentin, Ubrelvy, Magnesium and Vitamin D3. Prior to Botox how many days per month did you miss work/school due to migraines? 5. Prior to Botox how many days per month did you miss out on family functions or home activities due to migraines? 10 Prior to Botox did severe migraines cause symptoms that impacted your quality of life and ability to care for yourself? If yes, what symptoms? Yes. Severe head pain, visual auras, left sided weakness, dizziness, ?? sensitivity to lights and sounds, nosebleeds, fever, chills, facial drooping, balance issues with the left sided weakness, speech issues, tingling (not numbness) and brain fog, With Botox how many days per month do you miss work/school due to migraines? 4 With Botox how many days per month do you miss out on family functions or home activities due to migraines? 10 How has Botox impacted your quality of life; are you able to do more at work/school or home? I am more functional and active with Botox treatment.? What migraine symptoms have you noted an improvement on since starting Botox? All symptoms have improved. ? Romeo Stokes D.O. NEUROLOGY ORDERABLES Final R esult MMODAL NA * Comprehensive Metabolic Panel (09/22/2022 9:29 AM SHINGLE SAWYER) [facility] Potassium, S 4.8 3.6 - 5.2 mmol/L 09/22/2022 10:35 AM SHINGLE SAWYER DTL Sodium, S 140 135 - 145 mmol/L 09/22/2022 10:35 AM SHINGLE SAWYER DTL Chloride, S 101 98 - 107 mmol/L 09/22/2022 10:35 AM SHINGLE SAWYER DTL Bicarbonate, S 29 22 - 29 mmol/L 09/22/2022 10:35 AM SHINGLE SAWYER DTL Anion Gap 10 7 - 15 09/22/2022 10:35 AM SHINGLE SAWYER DTL BUN (Blood Urea Nitrogen), S 17 6 - 21 mg/dL 09/22/2022 10:35 AM SHINGLE SAWYER DTL Creatinine 0.85 0.59 - 1.04 mg/dL 09/22/2022 10:35 AM SHINGLE SAWYER DTL Estimated GFR (eGFR) >90 >=60 mL/min/BS A 09/22/2022 10:35 AM SHINGLE SAWYER DTL Comment: Estimated GFR calculated using the 2020 CKD_EPI creatinine equation. Calcium, Total, S 9.9 8.6 - 10.0 mg/dL 09/22/2022 10:35 AM SHINGLE SAWYER DTL Glucose, S 79 70 - 140 mg/dL 09/22/2022 10:35 AM SHINGLE SAWYER DTL Protein, Total, S 7.9 6.3 - 7.9 g/dL 09/22/2022 10:35 AM SHINGLE SAWYER DTL Albumin, S 4.9 3.5 - 5.0 g/dL 09/22/2022 10:35 AM SHINGLE SAWYER DTL Aspartate Aminotransferase (AST), S 14 8 - 43 U/L 09/22/2022 10:35 AM SHINGLE SAWYER DTL Alkaline Phosphatase, S 60 35 - 104 U/L 09/22/2022 10:35 AM SHINGLE SAWYER DTL Alanine Aminotransferase (ALT), S 15 7 - 45 U/L 09/22/2022 10:35 AM SHINGLE SAWYER DTL Bilirubin, Total, S 0.3 <=1.2 mg/dL 09/22/2022 10:35 AM SHINGLE SAWYER DTL Blood (Blood, Venous) 09/22/2022 9:29 AM SHINGLE SAWYER 09/22/2022 10:09 AM SHINGLE SAWYER Poonam Orlando APRN, C.N.P., D.N.P. LAB BLOO D ADD-ON Final Result [facility] [address] [place] [address], [place] DTL [facility] [address] [place] [address] from Last 3 Months or Most Recently Relevant to Health Maintenance Insurance [facility] [place] [place] [id number] [facility] Care Teams Naturopathic Oncology Provider Relationship Specialty Start Date End Date Poonam Orlando APRN, C.N.P., D.N.P. [address] [place] [address] PCP - General Family Medicine 05/16/21
--- OUTSIDE RECORDS SUMMARY | 2024-08-26 18:52 | XMS_ITS | Encounter Summary ---
Author Organization [facility] Address [address] [place] [id number] Care Team Providers Care Quality Engineer Medical Device Name Role Phone Poonam Orlando APRN, C.N.P., D.N.P. Primary Care Provider Reason for Visit * Reason Comments Med Refill Encounter Details Date Type Department Care Team (Late st Contact Info) Description 06/16/2024 Refill Department of Family Medicine, [facility], in [place], [place] [address] [place] [phone] Poonam Orlando APRN, C.N.P., D.N.P. [address] [place] [phone] Med Refill Social History Tobacco Use Types Packs/Day Years [...] often do you attend chur ch or latter-day services? 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 I have a [facility] place to live 08/17/2023 Education Answer Date Recorded What is the highest level of school you have completed or the highest degree you have received? Some college, no degree 05/24/2021 Comments No Sex and Gender Information Value Date Recorded Sex Assigned at Female 01/23/2022 2:50 PM CDT Legal Sex Female 11:44 PM SENIOR CLINICAL DATA ANALYST Gender Identity Female 01/23/2022 2:50 PM CDT Sexual Orientation Choose not to disclose 2021 2:50 PM CDT documented as of this encounter Plan of Treatment Upcoming Encounters Date Type Department Care Team (Late st Contact Info) Description 10/13/2024 3:30 PM SENIOR CLINICAL DATA ANALYST Appointment Department of Neurology in [place], [place] [address] [place] [phone] Romeo Stokes D.O. [address] [place] [phone] Discharge Disposition: Home or Self Care documented as of this encounter Visit Diagnoses Not on filedocumented in this encounter Additional Health Concerns Assessment Noted Time PHQ-9 Depression Total Score: 2 07/24/20 23 9:27 AM CDT documented as of this encounter Care Teams Quality Engineer Medical Device Relationship Specialty Start Date End Date Poonam Orlando APRN, C.N.P., D.N.P. [address] [place] [phone] PCP - General Family Medicine 05/16/21 documented as of this encounter
--- OUTSIDE RECORDS SUMMARY | 2024-08-26 18:52 | XMS_ITS | Referral Summary ---
Author Organization [facility] Address [address] [place] [address] Care Team Providers Care Plumbers And Top Helpers Name Role Phone Poonam Orlando APRN C.N.P., D.N.P. Primary Care Provider Source Comments Patient records contain information from all sites at [facility]. For routine questions regarding patient records, call [phone] during business hours, M-F 8:00 AM - 5:00 PM Central Time. Record requests for emergency care only can be directed to [phone] at any time.[facility] Encounters Date Type Department Care Team Description 08/26/2024 Nurse Triage Department of [facility] in [place], [place] [address] [place] [address] Meche Johnson, RFrankN. Asthma 08/22/2024 Refill Department of Family [facility], [facility], in [place], [place] [address] [place] [address] Poonam Orlando APRN, C.N.P., D.N.P. Med Refill 08/11/2024 3:30 PM CDT Internal E-Consult Department of Neurology in [place], [place] [address] [place] [phone] Poonam Ponce M.D. Chronic Migraine (Primary Dx) 07/21/2024 Refill Department of [facility], [facility], in [place], [place] [address] [place] [address] Poonam Orlando APRN, C.NShaye., D.N.P. Med Refill 07/21/2024 8:17 AM CDT - 07/21/2024 9:31 AM CDT Hospital Encounter Department of Neurology in [place], [place] [address] [place] [address] Romeo Stokes D.O. Steel, Stephanie J, M.D. Chronic Migraine Discharge Disposition: Home or Self Care 06/16/2024 Refill Department of Family Medicine, [facility] in [place], [place] [address] [place] [address] Poonam Orlando APRN, C.NShaye., D.N.P. Med Refill from Last 3 Months Allergies Active Allergy Reactions Criticality Noted Date [...] August 15, 2023 while working at a [employer]. She states one of the children had [...] August 15, 2023 while working at a [employer]. She states one of the children had [...] 12 month Urine drug screening requested?: no [facility] review/documentation:yes Asthma Mild Intermittent 05/24/2021 Resolved Problems [...] week in the last month. 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 She has ADD and started Adderall fall [...] and migraine. Pain Wrist Left 05/24/2021 02/04/2023 Immunizations Name Administration Dates Next Due 4vHPV [...] (6 months and older)(PF) 02/03/2023(Deferred: Patient decision),11/08/2021 Social History Tobacco Use Types Packs/Day Years [...] often do you attend chur ch or hinduism services? Never 08/13/2022 Do you belong to any clubs o r organizations such as yazidi groups, unions, fraternal [...] Answer Date Recorded PHQ-2 Score 0 11/12/2023 [facility] of Occupat ional Health - Occupational Stress [...] Date Recorded Employment status Working with temporary restric tions 08/17/2023 Housing Stability Answer Date Recorded What is your living situation today? I have a [facility] place to live 08/17/2023 Education Answer Date Recorded What is the highest level of school you have completed or the highest degree you have received? Some college, no degree 05/24/2021 Comments No Sex and Gender Information Value Date Recorded Sex Assigned at Female 01/23/2022 2:50 PM CDT Legal Sex Female 11:44 PM NURSING TECHNICIAN Gender Identity Female 01/23/2022 2:50 PM CDT Sexual Orientation Choose not to disclose 2021 2:50 PM CDT Last Filed Vital Signs Vital Sign Reading Time Taken Comments Blood Pressure 113/75 04/06/2024 3:05 PM CDT Hathaway/wood average of three readings Pulse 114 04/06/2024 3:05 PM CDT Temperature 36.7 ??C (98.1 ??F) 11/12/2023 3 :03 PM NURSING TECHNICIAN Respiratory Rate 18 05/14/2023 4:14 PM CDT [...] st Contact Info) Description 10/13/2024 3:30 PM NURSING TECHNICIAN Appointment Department of Neurology in [place], [place] [address] [place] [phone] Romeo Stokes D.O. [address] [place] [address] Discharge Disposition: Home or Self Care Procedures Procedure Name Priority Date/Time Associated Diagnosis Comments [place] CHEMODENERV FACIAL TRIGEM JOSE Routine 07/21/2024 8:45 AM CDT Chronic Migraine COMPREHENSIVE METABOLIC PANEL, S/P Routine 09/22/2022 9:29 AM NURSING TECHNICIAN Body Mass Index 19.9 Or Less Adult from Last 3 Months or Most Recently Relevant to Health Maintenance Results * [place] CHEMODENERV FACIAL TRIGEM JOSE (07/21/2024 8:45 AM [...] Needle length: 0.5 in Injection site details Waiter And Cashier / Procerus muscle(s): 5 units into the left editorial assistant muscle, 5 units into the right editorial assistant muscle ??and 5 units into the procerus [...] that is not covered by a third alliance party. ?? Prior to treatment with Botox, [...] starting Botox? All symptoms have improved. ? us Romeo Stokes D.O. NEUROLOGY ORDERABLES Final R esult MMODAL NA * Comprehensive Metabolic Panel (09/22/2022 9:29 AM NURSING TECHNICIAN) [facility] Potassium, S 4.8 3.6 - 5.2 mmol/L 09/22/2022 10:35 AM NURSING TECHNICIAN DTL Sodium, S 140 135 - 145 mmol/L 09/22/2022 10:35 AM NURSING TECHNICIAN DTL Chloride, S 101 98 - 107 mmol/L 09/22/2022 10:35 AM NURSING TECHNICIAN DTL Bicarbonate, S 29 22 - 29 mmol/L 09/22/2022 10:35 AM NURSING TECHNICIAN DTL Anion Gap 10 7 - 15 09/22/2022 10:35 AM NURSING TECHNICIAN DTL BUN (Blood Urea Nitrogen), S 17 6 - 21 mg/dL 09/22/2022 10:35 AM NURSING TECHNICIAN DTL Creatinine 0.85 0.59 - 1.04 mg/dL 09/22/2022 10:35 AM NURSING TECHNICIAN DTL Estimated GFR (eGFR) >90 >=60 mL/min/BS A 09/22/2022 10:35 AM NURSING TECHNICIAN DTL Comment: Estimated GFR calculated using the 2020 CKD_EPI creatinine equation. Calcium, Total, S 9.9 8.6 - 10.0 mg/dL 09/22/2022 10:35 AM NURSING TECHNICIAN DTL Glucose, S 79 70 - 140 mg/dL 09/22/2022 10:35 AM NURSING TECHNICIAN DTL Protein, Total, S 7.9 6.3 - 7.9 g/dL 09/22/2022 10:35 AM NURSING TECHNICIAN DTL Albumin, S 4.9 3.5 - 5.0 g/dL 09/22/2022 10:35 AM NURSING TECHNICIAN DTL Aspartate Aminotransferase (AST), S 14 8 - 43 U/L 09/22/2022 10:35 AM NURSING TECHNICIAN DTL Alkaline Phosphatase, S 60 35 - 104 U/L 09/22/2022 10:35 AM NURSING TECHNICIAN DTL Alanine Aminotransferase (ALT), S 15 7 - 45 U/L 09/22/2022 10:35 AM NURSING TECHNICIAN DTL Bilirubin, Total, S 0.3 <=1.2 mg/dL 09/22/2022 10:35 AM NURSING TECHNICIAN DTL Blood (Blood, Venous) 09/22/2022 9:29 AM NURSING TECHNICIAN 09/22/2022 10:09 AM NURSING TECHNICIAN Poonam Orlando APRN, C.N.P., D.N.P. LAB BLOO D ADD-ON Final Result [facility] [address] [place] [address], [facility] DTL [facility] [address] [place] [address] from Last 3 Months or Most Recently Relevant to Health Maintenance [place] [address] [address] [place] [id number] [facility] [place] [address] Care Teams Plumbers And Top Helpers Relationship Specialty Start Date End Date Poonam Orlando APRN, C.N.P., D.N.P. [address] [place] [phone] PCP - General Family Medicine 05/16/21
--- OUTSIDE RECORDS SUMMARY | 2024-08-26 18:52 | XMS_ITS | Encounter Summary ---
Author Organization [facility] Address [address] [place] [address] Care Team Providers Care Medical Technicians Name Role Phone Poonam Orlando APRN C.N.P., D.N.P. Primary Care Provider Reason for Referral * Outpatient (Routine) - Authorized Specialty Diagnoses / Procedures Referred By Contac t Referred To Contact Diagnoses Chronic Migraine Procedures Botox for Chronic Migraine OR INJECTION,ONABOTULINUMTOXINA OR CHEMODENERV FACIAL TRIGEM JOSE Romeo Stokes D.O. [address] [place] [address] Phone: tel: fax: [facility] Referral ID Status Reason Start Date Expiration Date V isits Requested Visits Authorized [id number] Authorized 11/25/2023 11/25/2026 10 10 Reason for Visit * Outpatient (Routine) - Authorized Specialty Diagnoses / Procedures Referred By Contac t Referred To Contact Diagnoses Chronic Migraine Procedures Botox for Chronic Migraine OR INJECTION,ONABOTULINUMTOXINA OR CHEMODENERV FACIAL TRIGEM JOSE Romeo Stokes D.O. [address] [place] [address] Phone: tel: fax: [facility] Referral ID Status Reason Start Date Expiration Date V isits Requested Visits Authorized [id number] Authorized 11/25/2023 11/25/2026 10 10 Encounter Details Date Type Department Care Team (Late st Contact Info) Description 07/21/2024 8:17 AM CDT - 07/21/2024 9:31 AM CDT Hospital Encounter Department of Neurology in [place], [place] [address] [place] [address] Romeo Stokes D.O. [address] [place] [phone] Poonam Ponce M.D. [address] [place] [phone] Chronic Migraine Discharge Disposition: Home or Self Care Social History Tobacco Use Types Packs/Day Years [...] 08/13/2022 How often do you attend chur or roman catholic services? Never 08/13/2022 Do you belong to any clubs o r organizations such as alevism groups, unions, fraternal [...] Answer Date Recorded PHQ-2 Score 0 11/12/2023 [facility] of Occupat ional Health - Occupational Stress [...] your living situation today? I have a [facility] place to live 08/17/2023 Education Answer Date Recorded What is the highest level of school you have completed or the highest degree you have received? 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 18 g 3 05/02/2024 aspirin-acetaminoph en-caffeine (EXCEDRIN MIGRAINE) 250-250-65 mg per tablet Take 1 tablet by mouth as needed for pain. atogepant (Qulipta) 60 mg tablet tablet Take 1 tablet (60 mg total) by mouth daily. 30 tablet 11 09/24/2023 B complex-vitamin (SUPER B-50) capsule Take 1 tablet by mouth daily. dextroamphetamine-a mphetamine (ADDERALL) 10 mg tabletIndications:A ttention Deficit Disorder Combined Type Take 1 tablet (10 mg total) by mouth daily. 28 tablet 01/05/2024 dextroamphetamine-a mphetamine (ADDERALL) 10 mg tabletIndications:A ttention Deficit Disorder Combined Type Take 1 tablet (10 mg total) by mouth daily. 28 tablet 11/10/2023 dextroamphetamine-a mphetamine (ADDERALL) 10 mg tabletIndications:A ttention Deficit Disorder Combined Type Take 1 tablet (10 mg total) by mouth daily. 28 tablet 12/08/2023 fluticasone propionate (FLONASE) 50 mcg/actuation nasal spray USE 2 SPRAYS IN EACH NOSTRIL ONCE DAILY 48 g 3 01/15/2024 fluticasone propionate (FLOVENT HFA) 110 mcg/actuation inhaler Inhale 2 puffs 2 (two) times a day. Rinse mouth with water after use to reduce aftertaste and incidence of candidiasis. Do not swallow. 36 g 3 04/15/2022 fluticasone propionate (Flovent HFA) 110 mcg/actuation inhaler INHALE TWO PUFFS BY MOUTH TWICE A DAY RINSE MOUTH WITH WATER AFTER US. DO NOT SWALLOW 36 g 3 06/17/2024 iron,carbonyl-vitam in C (VITRON-C) 65 mg iron- [address] tablet Take 65 mg of iron by mouth daily. Do not crush or chew. ketorolac (TORADOL) 30 mg/mL injection INJECT 0.5MLS ONCE NEEDED FOR MIGRAINE FOR UP TO 1 DOSE LIMIT TO ONCE PER WEEK 09/28/2023 loratadine (CLARITIN) 10 mg tablet Take 10 mg by mouth daily. magnesium citrate 100 mg capsule Take 1 each by mouth daily. nortriptyline (PAMELOR) 50 mg capsule take one capsule by mouth at bedtime 90 capsule 3 04/05/2024 ondansetron ODT (ZOFRAN-ODT) 4 mg disintegrating tablet DISSOLVE ONE TABLET BY MOUTH EVERY 8 HOURS NEEDED 90 tablet 3 10/08/2023 predniSONE (Deltasone) 20 mg tablet Take 1 tablet (20 mg total) by mouth 2 (two) times a day. 10 tablet 04/06/2024 verapamiL (CALAN-SR) 120 mg ER tablet take one tablet by mouth every 8 hours 270 tablet 3 03/16/2024 amphetamine-dextroa mphetamine (AdderalL XR) 30 mg 24 hr capsuleIndications: Attention Deficit Disorder Combined Type Take 1 capsule (30 mg total) by mouth daily. 28 capsule 07/12/2024 4 amphetamine-dextroa mphetamine (AdderalL XR) 30 mg 24 hr capsuleIndications: Attention Deficit Disorder Combined Type Take 1 capsule (30 mg total) by mouth daily. 28 capsule 05/17/2024 4 amphetamine-dextroa mphetamine (Adderall XR) 30 mg 24 hr capsuleIndications: Attention Deficit Disorder Combined Type Take 1 capsule (30 mg total) by mouth daily. 28 capsule 06/14/2024 documented as of this encounter Procedure Notes * Poonam Ponce M.D. - 07/21/2024 8:45 AM CDTAssociated Order(s): Botox for Chronic Migraine Pre-Procedure Diagnose(s): Chronic Migraine Post-Procedure Diagnose(s): Chronic Migraine Botox for Chronic Migraine Performed by: Poonam Ponce M.D. Authorized by: Romeo Stokes D.O. Care team members present 1. Sunitha Medina L.PIsmael PROCEDURE DETAILS Pre-procedure pain score: 0/10 (Start of a migraine coming on with aura and weakness in left arm.) Injection of: 100 Units onabotulinumtoxinA 100 unit 50 Units onabotulinumtoxinA 50 unit Needle gauge: 30 Needle length: 0.5 in Injection site details Leak Patcher / Procerus muscle(s): 5 units into the left overage shortage and damage clerk muscle, 5 units into the right overage shortage and damage clerk muscle and 5 units into the procerus muscle (15 units total). Superior Frontalis muscle(s): 5 units into the left superior frontalis muscle and 5 units into the right superior frontalis muscle (2 injection sites per muscle) (10 units total). Temporalis muscle(s): 12.5 units into the left temporalis muscle and 12.5 units into the right temporalis muscle (2 injection sites per muscle) (25 units total). Splenius Capitis muscle(s): 12.5 units into the left splenius capitis muscle and 12.5 units into the right splenius capitis muscle (2 injection sites per muscle) (25 units total). Occipitalis muscle(s): 12.5 units into the left occipitalis muscle and 12.5 units into the right occipitalis muscle (2 injection sites per muscle) (25 units total). Trapezius muscle(s): 25 units into the left trapezius muscle and 25 units into the right trapezius muscle (3 injection sites per muscle) (50 units total). Total units wasted: 0 Total [...] confirmed in a procedural pause. PRE-PROCEDURE DETAILS Reason for injections: chronic migraine Appropriate hand [...] not covered by a third alliance party. Prior to treatment with Botox, the frequency of headaches was greater than 30 days per month and with significant impairment in the quality of life. Please see the initial Botox injection note and Headache consultation note regarding specific details of the headache history prior to the start of treatment. Any other daily migraine prophylactic treatments taken over the last 3 months: Nortriptyline and verapamil (Magnesium, Ubrelvy) Headache frequency when [...] days per month compared to pretreatment level. POST-PROCEDURE DETAILS Procedure completed successfully: yes Complications: no apparent complications Comments Headache days [...] pain, visual auras, left sided weakness, dizziness, sensitivity to lights and sounds, nosebleeds, fever, [...] starting Botox? All symptoms have improved. ? documented in this encounter Plan of Treatment Upcoming Encounters Date Type Department Care Team (Late st Contact Info) Description 10/13/2024 3:30 PM VICE PRESIDENT OF TALENT ACQUISITION Appointment Department of Neurology in [place], [place] [address] [place] [address] Romeo Stokes D.O. [address] [place] [address] Discharge Disposition: Home or Self Care documented as of this encounter Procedures Procedure Name Priority Date/Time Associated Diagnosis Comments OR CHEMODENERV FACIAL TRIGEM JOSE Routine 07/21/2024 8:45 AM CDT Chronic Migraine documented in this encounter Results * OR CHEMODENERV FACIAL TRIGEM JOSE (07/21/2024 8:45 AM [...] Needle length: 0.5 in Injection site details Leak Patcher / Procerus muscle(s): 5 units into the left overage shortage and damage clerk muscle, 5 units into the right overage shortage and damage clerk muscle ??and 5 units into the procerus [...] NEUROLOGY ORDERABLES Final R esult MMODAL NA documented in this encounter Visit Diagnoses Diagnosis Chronic Migraine documented in this encounter Administered Medications Inactive Administered Medications - up to 3 most recent administrations Medication Order MAR Action Action Date Dose Rate Site onabotulinumtoxinA injection 100 Units (Botox) 100 Units, injection, One-Time Injection, Starting on Payton 07/21/24 at 0845, For 1 doseIndications:Chronic Migraine Given 07/21/2024 8:45 AM CDT 100 Units Other onabotulinumtoxinA injection 50 Units (Botox Cosmetic) 50 Units, injection, One-Time Injection, Starting on Payton 07/21/24 at 0845, For 1 doseIndications:Chronic Migraine Given 07/21/2024 8:45 AM CDT 50 Units Other documented in this encounter Additional Health Concerns Assessment Noted Time PHQ-9 Depression Total Score: 2 07/24/20 23 9:27 AM CDT documented as of this encounter Care Teams Medical Technicians Relationship Specialty Start Date End Date Poonam Oralndo APRN, C.N.P., D.N.P. [address] [place] [address] PCP - General Family Medicine 05/16/21 documented as of this encounter
--- OUTSIDE RECORDS SUMMARY | 2024-08-26 18:52 | XMS_ITS | Encounter Summary ---
Author Organization [facility] Address [address] [place] [address] Care Team Providers Care Field Servicer Name Role Phone Poonam Orlando APRN, C.N.P., D.N.P. Primary Care Provider Reason for Visit * Outpatient (Routine) - Closed Specialty Diagnoses / Procedures Referred By Carol ma Referred To Contact Neurology Diagnoses Chronic Migraine Leonel Rose M.D., M.S. [address] [place] [phone] Phone: tel: fax: [facility] Referral ID Status Reason Start Date Expiration Date Visits Re quested Visits Authorized [id number] Closed 07/21/2024 01/20/2026 1 1 Encounter Details Date Type Department Care Team (Late st Contact Info) Description 08/11/2024 3:30 PM CDT Internal E-Consult Department of Neurology in [place], [place] [address] [place] [phone] Poonam Ponce M.D. [address] [place] [phone] Chronic Migraine (Primary Dx) Social History Tobacco Use Types Packs/Day Years [...] week 08/13/2022 How often do you attend [facility] or buddhist services? Never 08/13/2022 Do you belong to any clubs o r organizations such as scientologist groups, unions, fraternal [...] Answer Date Recorded PHQ-2 Score 0 11/12/2023 [facility] of Occupat ional Health - Occupational Stress [...] your living situation today? I have a [facility] place to live 08/17/2023 Education Answer Date Recorded What is the highest level of school you have completed or the highest degree you have received? 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 - 08/11/2024 3:30 PM CDT Images from the original note were not included. This patient was not personally interviewed or examined. The history and examination findings are based on the clinical documentation provided. REASON FOR E-CONSULT Migraine SUMMARY OF HEADACHE HISTORY AND ASSESSMENTS Date of last szql-hi-eder or video visit: 09/24/2023 Synopsis [employer] Most Recent Value Past ~12 months 11/24/2023 11:16 01/29/2024 17:44 07/28/2024 MIDAS Questionnaire How many days in the last 3 months did you miss work or school because of your headaches? 10 07/28/2024 4 10 How many days in the last 3 months was your productivity at work or school reduced by half or more because of your headaches? 25 07/28/2024 20 25 On how many days in the last 3 months did you not do household work because of your headaches? 15 07/28/2024 20 15 How many days in the last 3 months was your productivity in household work reduced by half or more because of your headaches? 10 07/28/2024 40 10 On how many days in the last 3 months did you miss family, social or leisure activities because of your headaches? 40 07/28/2024 40 40 Midas Scoring 100 07/28/2024 124 100 On how many days in the last 3 months did you have a headache? 90 07/28/2024 85 90 On a scale of 0-10 on average how painful were headaches. 2 07/28/2024 4 2 Migraine Care Plan satisfaction Ongoing Satisfaction Satisfied 07/28/2024 Dissatisfied (OPA) Satisfied Would you like to give the current plan more time to work? No 11/24/2023 No Which of the following would you like to consider: I am ready to consider a change to my preventiontreatment plan 11/24/2023 I am ready to consider a change to my prevention treatment plan Briefly describe what you would like to change, which treatment you prefer to try next, and remind us which pharmacy you prefer in case medication orders are needed: Can I do anything in addition to my other preventative meds? Qulipta helps to a point but im still having a lot of migraines and I'd like to keep trying things to reduce them. Is it too early to add something new? 11/24/2023 Can I do anything in addition to my other preventative meds? Qulipta helps to a point but im still having a lot of migraines and I'd like to keep trying things to reduce them. Is it too early to add something new? Migraine Care Plan-Monthly Check In In the past month, how many days did you have a headache, even if it was mild? (If headache lasted more than one day, count each day.) 30 07/28/2024 30 In the past month, how many days did you treat headaches with acute pain medications? (Include [id number] and prescription pain relievers.) 10 07/28/2024 10 In the past month, how many days did you miss work or school because of headaches? 4 07/28/2024 4 In the past month, how many days was your productivity reduced at work or school because of headaches? 8 07/28/2024 8 In the past month, how many days did headaches reduce your elisa in social or leisure activities? 10 07/28/2024 10 Total Sum 62 07/28/2024 62 Patient-reported Current treatment plan: Atogepant 60 mg daily Verapamil 120 mg 3 times daily Nortriptyline 50 mg nightly Botox injections 150 units every 3 months per chronic migraine protocol Ubrelvy 100 mg as needed Prior prevention treatments: Gabapentin caused worsening headache Ajovy caused erythema at injection site, flushing in the face and triggered typical migraine attackwith hemiplegia Topiramate is contraindicated due to history of low BMI and nephrolithiasis Propranolol is contraindicated due to asthma and calcium channel aditya therapy Prior acute treatments: Rizatriptan Triptans contraindicated with history of hemiplegic migraine Prior rescue treatments: Intramuscular ketorolac 30 mg ASSESSMENT / PLAN THIS IS A VIRTUAL VISIT BASED ON CHART REVIEW ONLY #1 Chronic migraine #2 Migraine with aura including motor, sensory and visual aura #3 Nephrolithiasis #4 Asthma #5 Low BMI She reports ongoing headache but less severe and debilitating headache compared to prior. She reports satisfaction with current migraine care plan, therefore no changes recommended at this time. MIGRAINE CARE PLAN (MCP) Home Acute Treatment Current recommendations/plan: Continue Ubrelvy 100 mg as needed Other options if needed based on response, tolerance, and patient preference: Nurtec 75 mg as needed Prochlorperazine 10 mg could be helpful for nausea and headache Prevention Treatment Current recommendations/plan: Continue atogepant 60 mg daily Continue Verapamil 120 mg 3 times daily Continue Nortriptyline 50 mg nightly Continue Botox injections 150 units every 3 months per chronic migraine protocol Other options if needed based on response, tolerance, and patient preference: Increase Botox injections to 200 units Cefaly device if not already using Acupuncture or massage Rescue Treatment Options if Home Acute Treatment Fails Home ketorolac injection This is an E-consultation. Patient was not personally interviewed or examined. documented in this encounter Plan of Treatment Upcoming Encounters Date Type Department Care Team (Late st Contact Info) Description 10/13/2024 3:30 PM DIRECTOR OF ENGINEERING Appointment Department of Neurology in [place], [place] [address] [place] [phone] Romeo Stokes D.O. [address] [place] [phone] Discharge Disposition: Home or Self Care documented as of this encounter Visit Diagnoses Diagnosis Chronic Migraine- Primary documented in this encounter Additional Health Concerns Assessment Noted Time PHQ-9 Depression Total Score: 2 07/24/20 23 9:27 AM CDT documented as of this encounter Care Teams Field Servicer Relationship Specialty Start Date End Date Poonam Orlando APRN, C.N.P., D.N.P. [address] [place] [phone] PCP - General Family Medicine 05/16/21 documented as of this encounter
--- OUTSIDE RECORDS SUMMARY | 2024-08-26 18:52 | XMS_ITS | Encounter Summary ---
Author Organization [facility] Address [address] [place] [address] Care Team Providers Care Event Specialist Name Role Phone Poonam Orlando APRN, C.N.P., D.N.P. Primary Care Provider Reason for Visit * Reason Comments Med Refill Encounter Details Date Type Department Care Team (Late st Contact Info) Description 07/21/2024 Refill Department of Family Medicine, [facility], in [place], [place] [address] [place] [phone] Poonam Orlando APRN, C.N.P., D.N.P. [address] [place] [phone] Med Refill Social History Tobacco Use Types [...] often do you attend chur ch or cheondoism services? Never 08/13/2022 Do you belong to any clubs o r organizations such as jain groups, unions, fraternal [...] Answer Date Recorded PHQ-2 Score 0 11/12/2023 [facility] of Occupat ional Health - [...] Date Recorded Employment status Working with temporary [employer] 08/17/2023 Housing Stability Answer Date Recorded What is your living situation today? I have a [facility] place to live 08/17/2023 Education Answer Date Recorded What is the highest level of school you have completed or the highest degree you have received? 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 [address] [place] [address] Discharge Disposition: Home or Self Care documented as of this encounter Visit Diagnoses Diagnosis Hemiplegic Migraine Not Intractable Without Status Migrainosus documented in this encounter Additional Health Concerns Assessment Noted Time PHQ-9 Depression Total Score: 2 07/24/20 23 9:27 AM CDT documented as of this encounter Care Teams Event Specialist Relationship Specialty Start Date End Date Poonam Orlando APRN, C.N.P., D.N.P. [address] [place] [phone] PCP - General Family Medicine 05/16/21 documented as of this encounter
--- OUTSIDE RECORDS SUMMARY | 2024-08-26 18:52 | XMS_ITS | Encounter Summary ---
Author Organization [facility] Address [address] [place] [id number] Care Team Providers Care System Consultant Name Role Phone Poonam Orlando APRN, C.N.P., D.N.P. Primary Care Provider Reason for Visit * Reason Comments Med Refill Encounter Details Date Type Department Care Team (Late st Contact Info) Description 08/22/2024 Refill Department of Family Medicine, [facility], in [place], [place] [address] [place] [phone] Poonam Orlando APRN, C.N.P., D.N.P. [address] [place] [phone] Med Refill Social History Tobacco Use Types [...] often do you attend chur ch or congregational services? Never 08/13/2022 Do you belong to any clubs o r organizations such as oriental orthodox groups, unions, [...] Answer Date Recorded PHQ-2 Score 0 11/12/2023 [facility] - [...] Date Recorded Employment status Working with temporary [employer] 08/17/2023 Housing Stability Answer Date Recorded What is your living situation today? I have a [facility] place to live 08/17/2023 Education Answer Date Recorded What is the highest level of school you have completed or the highest degree you have received? 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 - 08/23/2024 3:44 PM RADIOTELEPHONE OPERATOR Controlled substance renewal for Adderall XR 30 mg: No nursing concerns Renewal is pended per the controlled substance prescribing plan located in problem list; ADD Date last renewed (start date): 07/12/2024 Last provider visit: 11/12/2023 Next provider visit due: 10/2024 This prescription may be filled on 08/23/2024, and next renewal may be on or after 11/15/2024 OTELEPHONE OPERATOR * Telephone Encounter - Ann eMrida - 08/23/2024 11:53 AM CST Needs Review: Med Refill Team is unable to forward request to provider. Controlled Substance, CSA Primary Provider: Poonam Orlando APRN, C.N.P., D.N.P. Requested Prescriptions Pending Prescriptions Disp Refills amphetamine-dextroamphetamine (AdderalL XR) 30 mg 24 hr capsule [Pharmacy Med Name: AMPHETAMINE-DEXTROAMPHET ER 30 CP24] 28 capsule 0 Sig: TAKE ONE CAPSULE BY MOUTH EVERY DAY OTELEPHONE OPERATOR documented in this encounter Plan of Treatment Upcoming Encounters Date Type Department Care Team (Late st Contact Info) Description 10/13/2024 3:30 PM RADIOTELEPHONE OPERATOR Appointment Department of Neurology in [place], [place] [address] [place] [phone] Romeo Stokes D.O. [address] [place] [phone] Discharge Disposition: Home or Self Care documented as of this encounter Visit Diagnoses Diagnosis Attention Deficit Disorder Combined Type documented in this encounter Additional Health Concerns Assessment Noted Time PHQ-9 Depression Total Score: 2 07/24/20 23 9:27 AM CDT documented as of this encounter Care Teams System Consultant Relationship Specialty Start Date End Date Poonam Orlando APRN, C.N.P., D.N.P. [address] [place] [phone] PCP - General Family Medicine 05/16/21 documented as of this encounter
--- OUTSIDE RECORDS SUMMARY | 2024-08-26 18:52 | XMS_ITS | Encounter Summary ---
Author Organization [facility] Address [address] [place] [phone] Care Team Providers Care Winch Stripper Name Role Phone Poonam Orlando APRN C.N.P., D.N.P. Primary Care Provider Reason for Visit * Reason Onset Date Comments Asthma 08/26/2024 Encounter Details Date Type Department Care Team (Late st Contact Info) Description 08/26/2024 Nurse Triage Department of Family Medicine, [facility], in [place], [place] [address] [place] [phone] Meche Johnson, R.N. [address] [place] [phone] Asthma Social History Tobacco Use Types Packs/Day Years [...] How often do you attend chur or rastafari services? Never 08/13/2022 Do you belong to any clubs o r organizations such as scientology groups, unions, fraternal [...] Answer Date Recorded PHQ-2 Score 0 11/12/2023 [facility] - Occupational Stress Questionnaire Answer Date [...] your living situation today? I have a [facility] place to live 08/17/2023 Education Answer Date Recorded What is the highest level of school you have completed or the highest degree you have received? 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 - 08/26/2024 2:42 PM CST Chief Complaint / Reason for Call Patient is a 23 y.o. female calling regarding Asthma. Assessment Concern: Patient has worsening asthma that started 3-4 days ago. At 3:30 yesterday she was exposed to smoke and the wheezing worsened at that point. No wheezing currently. Her oxygen levels are at 98%. She does report chest pain that is worse then normal. Home cares tried: Rescue inhaler every 2-3 hours Calling to request: Recommendations The recommended disposition is Go to ED Now. Patient agreed with the plan. Reason for Disposition Chest pain (Exception: Mild chest tightness that feels the same as prior asthma attacks.) Additional Information Commented on: Peak flow rate less than 50% of baseline level (RED Zone) Doesn't have one Protocols used: Asthma [id number] Care Advice Patient/Caregiver understands and will follow care advice?: Yes, able to teach back Asthma [id number] Nurse Meche Morgan Aug 26, 2024 02:52 PM Care Advice GO TO ED NOW: NOTE TO TRIAGER - DRIVING: * Another adult should drive. * If immediate transportation is not available then the patient should be instructed to call [id number]. ASTHMA ATTACK - TREATMENT - QUICK-RELIEF MEDICINE: * During an ASTHMA ATTACK use your SHORT-ACTING QUICK-RELIEF INHALER (4 puffs, such as ALBUTEROL) or nebulizer up to 3 times, every 20 minutes as needed. Take 4 to 6 puffs of your quick-relief ALBUTEROL (SALBUTAMOL) INHALER right now. Repeat every 15 to 20 minutes. AURANT CREW PERSON documented in this encounter Plan of Treatment Upcoming Encounters Date Type Department Care Team (Late st Contact Info) Description 10/13/2024 3:30 PM RESTAURANT CREW PERSON Appointment Department of Neurology in [place], [place] [address] [place] [phone] Romeo Stokes D.O. [address] [place] [phone] Discharge Disposition: Home or Self Care documented as of this encounter Visit Diagnoses Not on filedocumented in this encounter Additional Health Concerns Assessment Noted Time PHQ-9 Depression Total Score: 2 07/24/20 23 9:27 AM CDT documented as of this encounter Care Teams Winch Stripper Relationship Specialty Start Date End Date Poonam Orlando APRN, C.N.P., D.N.P. [address] [place] [phone] PCP - General Family Medicine 05/16/21 documented as of this encounter
--- OUTSIDE RECORDS SUMMARY | 2024-08-26 18:52 | XMS_ITS ---
Author Organization [facility] Address [address] [place] [address] Care Team Providers Care Senior Quality Methods Specialist Name Role Phone Unavailable Unavailable Unavailable Surgery Details Not on file Complications Check Surgery Details section. Procedure Estimated Blood Loss Check Surgery Details section. Procedure Findings Check Surgery Details section. Procedure Specimens Taken Check Surgery Details section.
--- OUTSIDE RECORDS SUMMARY | 2024-08-26 18:52 | XMS_ITS | Clinical Summary ---
Author Organization [facility] Address [place], [place] [address] Care Team Providers Care Carbon Sequestration Plant Manager Name Role Phone Pcp, No Primary Care Provider Unavailabl e Allergies No known active allergies Medications Medication Sig Dispensed Refills Start Date End Date Status albuterol HFA (PRO-AIR; VENTOLIN; PROVENTIL) 90 mcg/actuation inhaler Inhale 2 Puffs by mouth every 4 hours if needed. 03/14/2020 Active dextroamphetamine-amph etamine (ADDERALL) 10 mg tablet Take 10 mg by mouth. 08/09/2021 Active nortriptyline (PAMELOR) 10 mg capsule Take 10 mg by mouth. 09/13/2021 Active rizatriptan (MAXALT) 5 mg tablet TAKE 1 TABLET BY MOUTH NEEDED FOR MIGRAINE. MAY REPEAT IN 2 HOURS NEEDED. MAXIMUM DAILY DOSE IS 30 MG PER 24 HOURS 09/09/2021 Active Social History Tobacco Use Types Packs/Day Years Used Date Smoking Tobacco: Never Smokeless Tobacco: Never Alcohol Use Standard Drinks/Week Comments Never 0 (1 standard drink = 0.6 oz pur e alcohol) Sex and Gender Information Value Date Recorded Sex Assigned at Not on file Gender Identity Not on file Sexual Orientation Not on file Obstetrics History Last Filed Vital Signs Vital Sign Reading Time Taken Comments Blood Pressure 122/86 09/21/2021 11:23 AM PATIENT CARE TECHNICIAN Pulse 98 09/21/2021 11:23 AM PATIENT CARE TECHNICIAN Temperature 36.9 ??C (98.5 ??F) 09/21/2021 11:[address] Respiratory Rate 16 09/21/2021 11:23 AM PATIENT CARE TECHNICIAN Oxygen Saturation 100% 09/21/2021 11:23 AM PATIENT CARE TECHNICIAN Inhaled Oxygen Concentration - - Weight 48.1 kg (106 lb) 09/21/2021 11:23 AM PATIENT CARE TECHNICIAN Height - - Body Mass Index - - Plan of Treatment Health Maintenance Due Date Last Done Comments Tdap 2012 Depression screening for age 12+ 2013 HIV for age 15-65 2016 HPV series for age 9-26 (1 - 3-dose series) 2016 BMI (ht and wt on same day) for age 18+ 2019 Hepatitis C screening for ag e 18-79 2019 Tetanus booster 2021 Pap test for age 21-65 2022 COVID-19 vaccine series ( season) 2024 11/08/2021, 02/28/2021, 02/07/2021 Influenza for age 9-49 06/19/2024 Pneumococcal series for age 6-64 Aged Out No longer eligible b ased on patient's age to complete this topic Care Teams Carbon Sequestration Plant Manager Relationship Specialty Start Date End Date Pcp, No . PCP - General 03/21/21
== END 2024-08-26 20:02 | disposition home or self-care (01) ==
PROVIDERS: Emergency Provider Family Medicine
DX: J45.901 Unspecified asthma with (acute) exacerbation (principal); G43.409 Hemiplegic migraine, not intractable, without status migrainosus
CPT/HCPCS: 99284; J7512